=== PATIENT | male | born 1970 | race American Indian/Alaskan Native ===

== ENCOUNTER 2020-10-29 23:57 | Inpatient (IN) | payer SELFPAY ==
[2020-10-30] MEDS ORDERED: FUROSEMIDE 40 MG/4 ML INJ IV ONE (02:07)
[2020-10-30] MEDS ORDERED: ASPIRIN 81 MG TAB CHEW PO ONE (02:07)
[2020-10-30 02:14] LABS: Basophils # (Auto) 0.1 K/mm3 (0.0-0.1); Basophils % (Auto) 1.6 % (0.0-1.8); Eosinophils # (Auto) 0.2 K/mm3 (0.0-0.4); Eosinophils % (Auto) 2.6 % (0.0-4.3); Hemoglobin 14.1 gm/dl (11.8-15.2); Lymphocytes # (Auto) 1.7 K/mm3 (1.2-5.4); Lymphocytes % (Auto) 20.4 % (13.4-35.0); Mean Corpuscular HGB Conc 34 % (32-34); Mean Corpuscular Volume 91 fl (84-94); Monocytes # (Auto) 0.6 K/mm3 (0.0-0.8); Monocytes % (Auto) 7.7 % (0.0-7.3); Platelet Count 198 K/mm3 (140-440); Red Blood Count 4.61 M/mm3 (3.65-5.03); Red Cell Distribution Width 14.8 % (13.2-15.2)
--- NOTE | 2020-10-30 02:31 | XRay Report ---
CHEST 1 VIEW 10/30/2020 1:17 AM INDICATION / CLINICAL INFORMATION: dyspnea. COMPARISON: None available. FINDINGS: SUPPORT DEVICES: None. HEART / MEDIASTINUM: There is prominence of the cardiac silhouette LUNGS / PLEURA: No significant pulmonary or pleural abnormality. No pneumothorax. ADDITIONAL FINDINGS: No significant additional findings. IMPRESSION: 1. No acute findings. Signer Name: Denny Guo MD Signed: 10/30/2020 2:27 AM Workstation Name: [id number]
[2020-10-30 02:35] LABS: Albumin 3.4 g/dL (3.9-5); Calcium 8.6 mg/dL (8.4-10.2)
[2020-10-30 03:37] LABS: Chol/HDL Ratio 4.93 %
--- NOTE | 2020-10-30 03:49 | Vascular Lab Report ---
DUPLEX DOPPLER LOWER EXTREMITY VEINS, BILATERAL INDICATION / CLINICAL INFORMATION: L>R LE swelling. TECHNIQUE: Duplex doppler imaging was performed through the veins of both lower extremities using kaye ous compression and other maneuvers. COMPARISON: None available. FINDINGS: RIGHT COMMON FEMORAL VEIN: Negative. RIGHT FEMORAL VEIN: Negative. RIGHT POPLITEAL VEIN: Negative. RIGHT CALF VEINS: Negative. LEFT COMMON FEMORAL VEIN: Negative. LEFT FEMORAL VEIN: Negative. LEFT POPLITEAL VEIN: Negative. LEFT CALF VEINS: Negative. ADDITIONAL FINDINGS: None. IMPRESSION: 1. No sonographic evidence for DVT in either lower extremity. Signer Name: Denny Guo MD Signed: 10/30/2020 3:45 AM Workstation Name: [id number]
--- NOTE | 2020-10-30 04:30 | Emergency Department Report ---
ED Shortness of Breath HPI - General Chief Complaint: Dyspnea/Respdistress Stated Complaint: NEW ONSET CHF Source: patient Mode of arrival: Ambulatory Limitations: No Limitations - History of Present Illness Initial Comments: Patient is a 50-year-old male presents emergency department complaint of shortness of breath. Patient states that he has been diagnosed with hypertension but does not currently take any medications. He states that he has not seen a doctor in 3 years. For the past 6 months he has noted shortness of breath. He has also had leg swelling and 4 pillow orthopnea. He notes dyspnea on exertion at approximately 10 feet. - Related Data Allergies Allergy/AdvReac Type Severity Reaction Status Date / Time No Known Allergies Allergy Unverified 02/01/15 13:25 ED Review of Systems ROS: Stated complaint: NEW ONSET CHF Other details as noted in HPI Constitutional: denies: chills, fever Eyes: denies: eye discharge ENT: denies: throat pain Respiratory: orthopnea, shortness of breath, SOB with exertion. denies: cough Cardiovascular: chest pain, dyspnea on exertion, edema Endocrine: no symptoms reported Gastrointestinal: denies: abdominal pain, nausea, vomiting Genitourinary: denies: urgency, dysuria Musculoskeletal: denies: back pain Skin: denies: rash, lesions Neurological: denies: headache, weakness Psychiatric: denies: anxiety, depression Hematological/Lymphatic: denies: easy bleeding ED Past Medical Hx - Past Medical History Hx Hypertension: Yes - Surgical History Past Surgical History?: No - Social History Smoking Status: Former Smoker Substance Use Type: None ED Physical Exam - General Limitations: No Limitations General appearance: alert, in no apparent distress - Head Head exam: Present: atraumatic, normocephalic - Eye Eye exam: Present: normal appearance - ENT ENT exam: Present: mucous membranes moist - Neck Neck exam: Present: other (No obvious JVD noted) - Respiratory Respiratory exam: Present: rales (At the bases) - Cardiovascular Cardiovascular Exam: Present: tachycardia - GI/Abdominal GI/Abdominal exam: Present: soft. Absent: distended, tenderness - Rectal Rectal exam: Present: deferred - Extremities Exam Extremities exam: Present: pedal edema (Bilateral pitting edema with left greater than right) - Back Exam Back exam: Present: normal inspection - Neurological Exam Neurological exam: Present: alert, oriented X3 - Psychiatric Psychiatric exam: Present: normal affect, normal mood - Skin Skin exam: Present: warm, dry, intact, normal color. Absent: rash ED Course Vital Signs 10/30/20 10/30/20 10/30/20 00:28 00:30 00:45 Temperature Pulse Rate 112 H 111 H 111 H Respiratory 23 37 H 39 H Rate Blood Pressure 178/141 O2 Sat by Pulse 100 Oximetry 10/30/20 10/30/20 10/30/20 01:01 01:11 01:15 Temperature 97.6 F Pulse Rate 106 H 106 H Respiratory 33 H 27 H Rate Blood Pressure 164/126 164/126 O2 Sat by Pulse 100 100 Oximetry 10/30/20 10/30/20 10/30/20 01:31 01:45 02:01 Temperature Pulse Rate 107 H 108 H 109 H Respiratory 24 35 H 28 H Rate Blood Pressure 164/126 164/126 164/126 O2 Sat by Pulse 100 100 100 Oximetry 10/30/20 10/30/20 10/30/20 02:15 03:15 03:31 Temperature Pulse Rate 108 H 104 H Respiratory 33 H 29 H Rate Blood Pressure 164/126 164/126 177/129 O2 Sat by Pulse 100 90 100 Oximetry 10/30/20 10/30/20 03:45 04:01 Temperature Pulse Rate 107 H 102 H Respiratory 23 25 H Rate Blood Pressure 177/129 192/143 O2 Sat by Pulse 99 100 Oximetry - Reevaluation(s) Reevaluation #1: 10/30/20 04:45 BP noted to be elevated. Will give IV labetalol. ED Medical Decision Making - Lab Data Result diagrams: 10/30/20 01:57 10/30/20 01:57 - EKG Data -: EKG Interpreted by Mn Rate: tachycardia No standard instances T wave inversions noted in: v5, v6 - EKG Data Interpretation: LVH - Radiology Data Radiology results: report reviewed, image reviewed - Medical Decision Making 50-year-old male with history of hypertension presents to emergency department with complaints of shortness of breath. On exam patient noted to be on oxygen and states he does not wear oxygen at home. He is also mildly tachycardic has lower extremity swelling with left leg greater than right. He also has Rales at the bases. No obvious JVD is noted. I am concerned for new onset heart failure however pulmonary embolism and DVT is also concerned as is ACS. Plan for evaluation with EKG, troponin, CBC CMP, dimer, BNP. I will give a dose of IV Lasix in order to improve patient's symptoms. Critical care attestation.: If time is entered above; I have spent that time in minutes in the direct care of this critically ill patient, excluding procedure time. ED Disposition Clinical Impression: New onset of congestive heart failure Disposition: OP ADMIT IP TO THIS HOSP Is pt being admited?: Yes Does the pt Need Aspirin: Yes Condition: Stable Referrals: PRIMARY CARE, [Primary Care Provider] - 3-5 Days Time of Disposition: 04:20
[2020-10-30] MEDS ORDERED: MORPHINE 2 MG/1 ML INJ IV PRN (04:53)
[2020-10-30] MEDS ORDERED: MORPHINE 4 MG/1 ML INJ IV PRN (04:53)
[2020-10-30] MEDS ORDERED: ACETAMINOPHEN 325 MG TAB PO PRN (04:53)
[2020-10-30] MEDS ORDERED: MAGNESIUM HYDROXIDE (MOM) ORAL LIQD UDC PO PRN (04:53)
[2020-10-30] MEDS ORDERED: ONDANSETRON 4 MG/2 ML INJ IV PRN (04:53)
--- NOTE | 2020-10-30 05:09 | History and Physical Report ---
History of Present Illness Date of examination: 10/30/20 Date of admission: 10/30/2020 Chief complaint: Shortness of breath History of present illness: 50-year-old male with known history of hypertension presenting to the emergency room today complaining of shortness of breath. He has been having progressive shortness of breath over the past 6 months but got worse today. He also complains of bilateral lower extremity swelling 4 pillow orthopnea. Patient admits that he has not been quite compliant with his medication as he cannot afford them. He has not taken any blood pressure medication in a few years and has not seen any physician in about 3 years. Patient denies any chest pain but has had some mild cough which is nonproductive. He denies any headache or dizziness, no nausea vomiting, no abdominal pain, no hematuria or dysuria, no diarrhea, denies any fever or chills, no palpitations. Patient denies any fever or chills and denies any sick contacts. Denies any contact with anyone with COVID-19. He admits that he has not had his COVID-19 vaccination. Upon arrival in the emergency room today, blood pressure was elevated with systolic in the 170s and diastolic in the 120s. He was given some IV labetalol and Lasix in the emergency room with some improvement in his blood pressure. Work-up in the emergency room today, initial troponin was elevated at 0.067 and subsequently 0.056. BNP was 32,618. Chest x-ray shows no acute findings. Patient has been admitted with new onset CHF. Past History Social history: smoking (Former smoker) Medications and Allergies Allergies Allergy/AdvReac Type Severity Reaction Status Date / Time No Known Allergies Allergy Verified 10/30/20 05:06 Active Meds: Active Medications Acetaminophen (Acetaminophen 325 Mg Tab) 650 mg PO Q4H PRN PRN Reason: Pain MILD(1-3)/Fever >100.5/RODRIGUEZ Magnesium Hydroxide (Magnesium Hydroxide (Mom) Oral Liqd Udc) 30 ml PO Q4H PRN PRN Reason: Constipation Morphine Sulfate (Morphine 2 Mg/1 Ml Inj) 2 mg IV Q4H PRN PRN Reason: Pain, Moderate (4-6) Morphine Sulfate (Morphine 4 Mg/1 Ml Inj) 4 mg IV Q4H PRN PRN Reason: Pain , Severe (7-10) Ondansetron HCl (Ondansetron 4 Mg/2 Ml Inj) 4 mg IV Q8H PRN PRN Reason: Nausea And Vomiting Sodium Chloride (Sodium Chloride 0.9% 10 Ml Flush Syringe) 10 ml IV BID [place] Sodium Chloride (Sodium Chloride 0.9% 10 Ml Flush Syringe) 10 ml IV PRN PRN PRN Reason: LINE FLUSH Review of Systems Constitutional: no fever, no chills Ears, nose, mouth and throat: no nasal congestion, no sore throat Cardiovascular: no chest pain, no palpitations Respiratory: cough, shortness of breath Gastrointestinal: no abdominal pain, no nausea, no vomiting, no diarrhea Genitourinary Male: no dysuria, no hematuria, no flank pain Musculoskeletal: no neck pain, no low back pain Integumentary: no rash, no pruritis Neurological: no headaches, no confusion Psychiatric: no anxiety, no depression Endocrine: no polyphagia, no polydipsia, no polyuria Exam - Constitutional Vitals: Temp Pulse Resp BP Pulse Ox 97.6 F 102 H 25 H 192/143 100 10/30/20 01:11 10/30/20 04:01 10/30/20 04:01 10/30/20 04:01 10/30/20 04:01 General appearance: Present: no acute distress, well-nourished - EENT Eyes: Present: PERRL, EOM intact. Absent: scleral icterus ENT: hearing intact, clear oral mucosa, dentition normal - Neck Neck: Present: supple, normal ROM - Respiratory Respiratory effort: normal Respiratory: bilateral: rales - Cardiovascular Heart Sounds: Absent: S1 & S2, gallop, systolic murmur, diastolic murmur, rub, click - Extremities Extremities: no ischemia, pulses intact, pulses symmetrical, normal temperature, normal color, Full ROM Extremity abnormal: edema (2+ bilateral lower extremity edema) Peripheral Pulses: within normal limits - Abdominal General gastrointestinal: Present: soft, non-tender, non-distended, normal bowel sounds. Absent: mass - Integumentary Integumentary: Present: clear, warm, dry, normal turgor. Absent: rash - Musculoskeletal Musculoskeletal: strength equal bilaterally - Psychiatric Psychiatric: appropriate mood/affect, intact judgment & insight, memory intact, cooperative - Neurologic Neurologic: CNII-XII intact, no focal deficits, moves all extremities HEART Score - HEART Score Troponin: Troponin T 0.067 ng/mL (0.00-0.029) H 10/30/20 01:57 Results - Labs CBC & Chem 7: 10/30/20 01:57 10/30/20 01:57 Labs: Abnormal lab results 10/30/20 10/30/20 10/30/20 Range/Units 01:57 01:57 01:57 [place] % (Auto) 7.7 H (0.0-7.3) % D-Dimer (0-234) ng/mlDDU Sodium 146 H (137-145) mmol/L Chloride 107.9 H (98-107) mmol/L BUN 35 H (9-20) mg/dL Creatinine 2.7 H (0.8-1.3) mg/dL Glucose 104 H (75-100) mg/dL ALT 59 H (7-56) units/L Troponin T 0.067 H (0.00-0.029) ng/mL NT-Pro-B Natriuret Pep 31542 H (0-900) pg/mL Total Protein 5.3 L (6.3-8.2) g/dL Albumin 3.4 L (3.9-5) g/dL HDL Cholesterol 29 L (40-59) mg/dL 10/30/20 Range/Units 02:21 [place] % (Auto) (0.0-7.3) % D-Dimer 348.95 H (0-234) ng/mlDDU Sodium (137-145) mmol/L Chloride (98-107) mmol/L BUN (9-20) mg/dL Creatinine (0.8-1.3) mg/dL Glucose (75-100) mg/dL ALT (7-56) units/L Troponin T (0.00-0.029) ng/mL NT-Pro-B Natriuret Pep (0-900) pg/mL Total Protein (6.3-8.2) g/dL Albumin (3.9-5) g/dL HDL Cholesterol (40-59) mg/dL Assessment and Plan - Patient Problems (1) New onset of congestive heart failure Current Visit: Yes Status: Acute Plan to address problem: Patient admitted and placed on telemetry. We will place on diuretics and monitor inputs and output and also monitor daily weights. Patient will be scheduled for echocardiogram. Consult placed to cardiology for evaluation and recommendations. (2) Malignant hypertensive urgency Current Visit: Yes Status: Acute Plan to address problem: Possibly secondary to noncompliance. We will resume routine home medications once reconciled. Meanwhile we will place on IV hydralazine as needed. (3) Elevated troponin Current Visit: Yes Status: Acute Plan to address problem: Patient denies any chest pain. No obvious EKG changes. Will await cardiology evaluation. (4) DVT prophylaxis Current Visit: Yes Status: Acute Plan to address problem: Patient placed on subcutaneous heparin. (5) Full code status Current Visit: Yes Status: Acute Plan to address problem: Patient is a full code.
[2020-10-30] MEDS: HEPARIN 5,000 UNIT/1 ML VIAL SUB-Q SCH ×3 (06:02→21:29)
[2020-10-30] MEDS: FUROSEMIDE 40 MG/4 ML INJ IV SCH ×2 (06:03→21:33)
[2020-10-30] MEDS ORDERED: hydrALAZINE 20 MG/1 ML INJ IV PRN (06:35)
--- NOTE | 2020-10-30 06:50 | Nuclear Medicine Report ---
NUCLEAR MEDICINE PERFUSION LUNG SCAN INDICATION / CLINICAL INFORMATION: sob; elevated dimer. TECHNIQUE: 5.1 mCi of Tc-99m MAA were given by IV. COMPARISON: Chest radiograph dated 10/30/2020. FINDINGS: PERFUSION: No significant perfusion defects. ADDITIONAL FINDINGS: None. IMPRESSION: 1. Low probability for pulmonary embolism. Signer Name: Denny Guo MD Signed: 10/30/2020 6:46 AM Workstation Name: [id number]
--- NOTE | 2020-10-30 08:28 | Event Note ---
Date: 10/30/20 Patient seen and examined. We will continue the plan as outlined in H&P. Total visit time equals 35 minutes with greater than 50% spent on coordination of care and counseling.
[2020-10-30] MEDS: NIFEdipine XL 60 MG TAB PO SCH ×2 (10:24→21:26)
--- NOTE | 2020-10-30 13:56 | Consultation ---
History of Present Illness Consult date: 10/30/20 Requesting physician: DAVID ALLEN Consult reason: congestive heart failure History of present illness: This patient is a 50-year-old male with a significant history of hypertension, medication noncompliance. He is previously unknown to our practice and is not followed by a outpatient admitting clerk. Patient presents to [facility] and hypertensive urgency (170/120) with chief complaint of bilateral lower extremity edema with shortness of breath progressively worse over 6 months. Patient endorses orthopnea. He denies dizziness, chest pain, abdominal pain, N/V/D, recent illness or known exposures. Patient has significantly impaired ADLs at baseline stating he generally will have to rest detention to the mailbox and has shortness of breath from stairs. Patient denies any history of tobacco/alcohol/recreational drugs. Patient has been treated for hypertension in the past but states he is not taken blood pressure medicine for at least last 6 months due to financial difficulties. Patient has not been COVID-19 vaccinated. BNP is noted to be elevated on admission (32,000), D-dimer is noted to be elevated on admission (348). Troponins are mildly elevated x2, subacute in setting of AMERICA. Past History Past Medical History: hypertension, other (See HPI) Social history: smoking (Former smoker) Medications and Allergies Allergies Allergy/AdvReac Type Severity Reaction Status Date / Time No Known Allergies Allergy Verified 10/30/20 05:06 Active Meds: Active Medications Acetaminophen (Acetaminophen 325 Mg Tab) 650 mg PO Q4H PRN PRN Reason: Pain MILD(1-3)/Fever >100.5/RODRIGUEZ Furosemide (Furosemide 40 Mg/4 Ml Inj) 40 mg IV BID@0600,1800 [facility] [place] Last Admin: 10/30/20 06:03 Dose: 40 mg Documented by: Heparin Sodium (Porcine) (Heparin 5,000 Unit/1 Ml Vial) 5,000 unit SUB-Q Q8HR [facility] [place] Last Admin: 10/30/20 06:02 Dose: 5,000 unit Documented by: Hydralazine HCl (Hydralazine 20 Mg/1 Ml Inj) 10 mg IV Q4HR PRN PRN Reason: Blood Pressure Magnesium Hydroxide (Magnesium Hydroxide (Mom) Oral Liqd Udc) 30 ml PO Q4H PRN PRN Reason: Constipation Morphine Sulfate (Morphine 2 Mg/1 Ml Inj) 2 mg IV Q4H PRN PRN Reason: Pain, Moderate (4-6) Morphine Sulfate (Morphine 4 Mg/1 Ml Inj) 4 mg IV Q4H PRN PRN Reason: Pain , Severe (7-10) Nifedipine (Nifedipine Xl 60 Mg Tab) 60 mg PO Q12HR [facility] [place] Last Admin: 10/30/20 10:24 Dose: 60 mg Documented by: Ondansetron HCl (Ondansetron 4 Mg/2 Ml Inj) 4 mg IV Q8H PRN PRN Reason: Nausea And Vomiting Sodium Chloride (Sodium Chloride 0.9% 10 Ml Flush Syringe) 10 ml IV BID [facility] [place] Last Admin: 10/30/20 10:25 Dose: 10 ml Documented by: Sodium Chloride (Sodium Chloride 0.9% 10 Ml Flush Syringe) 10 ml IV PRN PRN PRN Reason: LINE FLUSH Review of Systems Constitutional: no weight loss, no weight gain, no fever, no chills, no sweats, no night sweats Ears, nose, mouth and throat: no ear pain, no nose pain, no nasal congestion, no nasal discharge Cardiovascular: orthopnea, edema, shortness of breath, dyspnea on exertion, high blood pressure, leg edema, decreased exercise tolerance, no chest pain, no palpitations, no rapid/irregular heart beat, no syncope, no lightheadedness, no paroxysmal nocturnal dyspnea, no claudication, no phlebitis Respiratory: no cough, no cough with sputum, no hemoptysis, no shortness of breath Gastrointestinal: no abdominal pain, no nausea, no vomiting, no diarrhea Genitourinary Male: no flank pain Musculoskeletal: no neck stiffness, no neck pain, no shooting arm pain, no arm numbness/tingling, no low back pain, no shooting leg pain Integumentary: no rash, no pruritis, no redness, no sores, no wounds Neurological: no head injury, no paralysis, no weakness, no parathesias, no numbness, no tingling, no seizures, no syncope Psychiatric: no anxiety Endocrine: no cold intolerance, no heat intolerance Hematologic/Lymphatic: no easy bruising, no easy bleeding Allergic/Immunologic: no urticaria Physical Examination Last Vital Signs Temp 97.6 F 10/30/20 01:11 Pulse 96 H 10/30/20 07:01 Resp 26 H 10/30/20 07:01 BP 154/114 10/30/20 07:01 Pulse Ox 98 10/30/20 07:01 General appearance: mild distress HEENT: Positive: PERRL, Normocephaly, Mucus Membranes Moist Neck: Positive: neck supple Cardiac: Positive: Reg Rate and Rhythm, S1/S2 Lungs: Positive: clear to auscultation, Normal Breath Sounds, Oxygen Neuro: Positive: Grossly Intact Abdomen: Positive: Unremarkable, Soft Skin: Negative: Rash, Wound Musculoskeletal: No Pain Extremities: Present: upper extr. pulses, lower extr. pulses, +2 Edema Results 10/30/20 01:57 10/30/20 01:57 Cardiac Enzymes 10/30/20 Range/Units 01:57 AST 40 (5-40) units/L Lipids 10/30/20 Range/Units 01:57 Triglycerides 94 (2-149) mg/dL Cholesterol 143 (50-199) mg/dL HDL Cholesterol 29 L (40-59) mg/dL Cholesterol/HDL Ratio 4.93 % CBC 10/30/20 Range/Units 01:57 WBC 8.3 (4.5-11.0) K/mm3 RBC 4.61 (3.65-5.03) M/mm3 Hgb 14.1 (11.8-15.2) gm/dl Hct 42.0 (35.5-45.6) % Plt Count 198 (140-440) K/mm3 Lymph # (Auto) 1.7 (1.2-5.4) K/mm3 [place] # (Auto) 0.6 (0.0-0.8) K/mm3 Eos # (Auto) 0.2 (0.0-0.4) K/mm3 Baso # (Auto) 0.1 (0.0-0.1) K/mm3 Comprehensive Metabolic Panel 10/30/20 Range/Units 01:57 Sodium 146 H (137-145) mmol/L Potassium 3.7 (3.6-5.0) mmol/L Chloride 107.9 H (98-107) mmol/L Carbon Dioxide 25 (22-30) mmol/L BUN 35 H (9-20) mg/dL Creatinine 2.7 H (0.8-1.3) mg/dL Glucose 104 H (75-100) mg/dL Calcium 8.6 (8.4-10.2) mg/dL AST 40 (5-40) units/L ALT 59 H (7-56) units/L Alkaline Phosphatase 58 (35-129) units/L Total Protein 5.3 L (6.3-8.2) g/dL Albumin 3.4 L (3.9-5) g/dL - Imaging and Cardiology Echo: pending EKG: report reviewed, image reviewed EKG interpretations - Telemetry EKG Rhythm: Sinus Tachycardia - EKG Sinus rhythms and dysrhythmias: sinus tachycardia Assessment and Plan New onset of heart failure * Echocardiogram is pending * Optimize volume control: Lasix 40 mg IV twice daily. Strict I/O's. Currently 2+ bilateral lower extremity edema requiring O2 support. * Optimize antihypertensive regimen: Initiate metoprolol 50 mg twice daily, hydralazine 50 mg 3 times daily. Continue procardia * GDMT: ASA 81, beta-lexi. No TD/ARB in setting of AMERICA. No statin at this point in setting of elevated liver indices. NSTEMI in setting of [place] * Suspect type II.Patient is currently chest pain-free. Twelve-lead reviewed shows sinus tach with no acute ischemic changes. Troponin is mildly elevated, subacute x2. We will continue to trend CE's * Avoid nephrotoxic agents DVT prophylaxis * Heparin SQ Echocardiogram pending. Will follow This patient was seen in conjunction with Dr. Meza who agrees with this assessment and plan of care - Patient Problems (1) NSTEMI (non-ST elevated myocardial infarction) Current Visit: Yes Status: Acute (2) Uncontrolled hypertension Current Visit: Yes Status: Chronic (3) Acute kidney injury Current Visit: Yes Status: Acute (4) DVT prophylaxis Current Visit: Yes Status: Acute (5) New onset of congestive heart failure Current Visit: Yes Status: Acute
[2020-10-30] MEDS: METOPROLOL TARTRATE 50 MG TAB PO SCH (21:27)
[2020-10-30] MEDS: hydrALAZINE 25 MG TAB PO SCH (21:28)
[2020-10-31] MEDS: HEPARIN 5,000 UNIT/1 ML VIAL SUB-Q SCH ×3 (06:06→21:49)
[2020-10-31] MEDS: hydrALAZINE 25 MG TAB PO SCH ×3 (06:06→21:49)
[2020-10-31] MEDS: FUROSEMIDE 40 MG/4 ML INJ IV SCH (06:07)
[2020-10-31 06:15] LABS: Basophils % (Auto) 0.5 % (0.0-1.8); Eosinophils # (Auto) 0.3 K/mm3 (0.0-0.4); Eosinophils % (Auto) 4.9 % (0.0-4.3); Hematocrit 42.9 % (35.5-45.6); Hemoglobin 14.2 gm/dl (11.8-15.2); Lymphocytes # (Auto) 1.5 K/mm3 (1.2-5.4); Lymphocytes % (Auto) 22.6 % (13.4-35.0); Mean Corpuscular HGB Conc 33 % (32-34); Mean Corpuscular Volume 92 fl (84-94); Monocytes # (Auto) 0.8 K/mm3 (0.0-0.8); Monocytes % (Auto) 11.9 % (0.0-7.3); Platelet Count 184 K/mm3 (140-440); Red Blood Count 4.65 M/mm3 (3.65-5.03); Red Cell Distribution Width 14.9 % (13.2-15.2)
[2020-10-31 06:32] LABS: Calcium 8.7 mg/dL (8.4-10.2)
[2020-10-31] MEDS: METOPROLOL TARTRATE 50 MG TAB PO SCH ×3 (08:01→21:49)
[2020-10-31] MEDS: SPIRONOLACTONE 25 MG TAB PO SCH (10:02)
[2020-10-31] MEDS: NIFEdipine XL 60 MG TAB PO SCH ×2 (10:02→21:49)
[2020-10-31] MEDS: ASPIRIN 81 MG TAB CHEW PO SCH (10:02)
--- NOTE | 2020-10-31 10:40 | Progress Note ---
Assessment and Plan 50-year-old male with acute systolic heart failure EF 10 to 15% not on TD or ARB secondary to renal sufficiency abnormal troponin suggestive of non-STEMI type II decrease Lasix to 40 mg once a day add Aldactone replace the potassium continue hydralazine Imdur and carvedilol Lexiscan stress test in the morning anticipate discharge in a.m. patient discussed in the need for proper follow-up medication adherence diet adherence and salt adherence - Patient Problems (1) Acute respiratory failure Current Visit: Yes Status: Acute Qualifiers: Respiratory failure complication: hypoxia Qualified Code(s): J96.01 - Acute respiratory failure with hypoxia (2) NSTEMI (non-ST elevated myocardial infarction) Current Visit: Yes Status: Acute (3) New onset of congestive heart failure Current Visit: Yes Status: Acute Plan to address problem: acute systolic heart failure (4) Uncontrolled hypertension Current Visit: Yes Status: Chronic (5) AMERICA (acute kidney injury) Current Visit: Yes Status: Acute Subjective Date of service: 10/31/20 Principal diagnosis: sob Interval history: sob has improved and able to ly flat Objective Vital Signs Temp Pulse Resp BP BP Pulse Ox 10/31/20 08:18 97.7 F 90 18 104/68 94 10/31/20 06:06 81 110/71 10/31/20 04:37 97.6 F 81 18 107/71 93 10/30/20 21:28 102 H 161/117 10/30/20 21:27 102 H 161/117 10/30/20 20:54 161/117 10/30/20 20:36 99.0 F 97 H 19 139/92 98 10/30/20 20:21 152/90 97 10/30/20 20:11 152/90 99 10/30/20 20:02 161/117 98 10/30/20 20:01 161/117 99 10/30/20 19:55 20 10/30/20 19:54 144/97 95 10/30/20 19:31 147/112 94 10/30/20 19:15 97.7 F 104 H 20 147/112 97 10/30/20 19:01 183/121 99 10/30/20 18:01 144/97 98 10/30/20 17:01 97 10/30/20 16:01 94 10/30/20 15:01 99 10/30/20 14:01 86 10/30/20 13:01 144/81 97 10/30/20 12:00 114 H 37 H 156/121 100 10/30/20 11:01 107 H 20 168/122 100 - Physical Examination General: No Apparent Distress HEENT: Positive: PERRL, Normocephaly, Mucus Membranes Moist Neck: Positive: neck supple Cardiac: Positive: Reg Rate and Rhythm Lungs: Positive: clear to auscultation Neuro: Positive: Grossly Intact Abdomen: Positive: Unremarkable, Soft Skin: Negative: Rash, Wound Musculoskeletal: No Pain Extremities: Present: upper extr. pulses, lower extr. pulses. Absent: edema - Labs and Meds CBC 10/31/20 Range/Units 05:46 WBC 6.7 (4.5-11.0) K/mm3 RBC 4.65 (3.65-5.03) M/mm3 Hgb 14.2 (11.8-15.2) gm/dl Hct 42.9 (35.5-45.6) % Plt Count 184 (140-440) K/mm3 Lymph # (Auto) 1.5 (1.2-5.4) K/mm3 [place] # (Auto) 0.8 (0.0-0.8) K/mm3 Eos # (Auto) 0.3 (0.0-0.4) K/mm3 Baso # (Auto) 0.0 (0.0-0.1) K/mm3 Comprehensive Metabolic Panel 10/31/20 Range/Units 05:46 Sodium 148 H (137-145) mmol/L Potassium 3.0 L (3.6-5.0) mmol/L Chloride 106.1 (98-107) mmol/L Carbon Dioxide 29 (22-30) mmol/L BUN 28 H (9-20) mg/dL Creatinine 1.8 H (0.8-1.3) mg/dL Glucose 90 (75-100) mg/dL Calcium 8.7 (8.4-10.2) mg/dL - Imaging and Cardiology EKG: report reviewed, image reviewed Echo: report reviewed (severe lv dsyfunction ef 10-15%) - Telemetry EKG Rhythm: Sinus Rhythm - EKG Sinus rhythms and dysrhythmias: sinus tachycardia
--- NOTE | 2020-10-31 10:57 | Progress Note ---
Assessment and Plan Assessment and plan: Acute combined systolic and diastolic heart failure. NSTEMI. Acute hypoxic respiratory failure. Dilated cardiomyopathy. Accelerated hypertension. Acute kidney injury 10/31/2020. Echocardiogram reveals left ventricle severely dilated with systolic function severely decreased an EF of 10 to 15%. Patient also with moderate diastolic dysfunction. Cardiology to perform stress test in a.m. to rule out ischemic etiology for cardiomyopathy. Continue Lasix and Aldactone added. No TD or ARB secondary to renal sufficiency. Therefore patient with hydralazine for afterload reduction. Continue Imdur and Coreg. Anticipate discharge in a.m. Creatinine improved but baseline creatinine unknown. Patient likely with CKD. Nephrology consultation. Check renal ultrasound. History Interval history: No new issues overnight. Patient reports that he feels much better. Hospitalist Physical - Constitutional Vitals: Temp Pulse Resp BP Pulse Ox 97.7 F 90 18 104/68 94 10/31/20 08:18 10/31/20 08:18 10/31/20 08:18 10/31/20 08:18 10/31/20 08:18 General appearance: Present: mild distress - EENT Eyes: Present: PERRL, EOM intact ENT: hearing intact, clear oral mucosa, dentition normal - Neck Neck: Present: supple, normal ROM - Respiratory Respiratory effort: normal Respiratory: bilateral: CTA - Cardiovascular Rhythm: regular Heart Sounds: Present: S1 & S2. Absent: gallop, rub - Extremities Extremities: no ischemia, No edema, Full ROM - Abdominal General gastrointestinal: soft, non-tender, non-distended, normal bowel sounds - Integumentary Integumentary: Present: clear, warm, dry - Neurologic Neurologic: CNII-XII intact, moves all extremities HEART Score - HEART Score Troponin: Troponin T 0.035 ng/mL (0.00-0.029) H D 10/31/20 05:46 Results - Labs CBC & Chem 7: 10/31/20 05:46 10/31/20 05:46 Labs: Laboratory Last Values WBC 6.7 K/mm3 (4.5-11.0) 10/31/20 05:46 RBC 4.65 M/mm3 (3.65-5.03) 10/31/20 05:46 Hgb 14.2 gm/dl (11.8-15.2) 10/31/20 05:46 Hct 42.9 % (35.5-45.6) 10/31/20 05:46 MCV 92 fl (84-94) 10/31/20 05:46 MCH 31 pg (28-32) 10/31/20 05:46 MCHC 33 % (32-34) 10/31/20 05:46 RDW 14.9 % (13.2-15.2) 10/31/20 05:46 Plt Count 184 K/mm3 (140-440) 10/31/20 05:46 Lymph % (Auto) 22.6 % (13.4-35.0) 10/31/20 05:46 Pine % (Auto) 11.9 % (0.0-7.3) H 10/31/20 05:46 Eos % (Auto) 4.9 % (0.0-4.3) H 10/31/20 05:46 Baso % (Auto) 0.5 % (0.0-1.8) 10/31/20 05:46 Lymph # (Auto) 1.5 K/mm3 (1.2-5.4) 10/31/20 05:46 Pine # (Auto) 0.8 K/mm3 (0.0-0.8) 10/31/20 05:46 Eos # (Auto) 0.3 K/mm3 (0.0-0.4) 10/31/20 05:46 Baso # (Auto) 0.0 K/mm3 (0.0-0.1) 10/31/20 05:46 Seg Neutrophils % 60.1 % (40.0-70.0) 10/31/20 05:46 Seg Neutrophils # 4.0 K/mm3 (1.8-7.7) 10/31/20 05:46 D-Dimer 348.95 ng/mlDDU (0-234) H 10/30/20 02:21 Sodium 148 mmol/L (137-145) H 10/31/20 05:46 Potassium 3.0 mmol/L (3.6-5.0) L 10/31/20 05:46 Chloride 106.1 mmol/L (98-107) 10/31/20 05:46 Carbon Dioxide 29 mmol/L (22-30) 10/31/20 05:46 Anion Gap 16 mmol/L 10/31/20 05:46 BUN 28 mg/dL (9-20) H 10/31/20 05:46 Creatinine 1.8 mg/dL (0.8-1.3) H 10/31/20 05:46 Estimated GFR 49 ml/min 10/31/20 05:46 BUN/Creatinine Ratio 16 % 10/31/20 05:46 Glucose 90 mg/dL (75-100) 10/31/20 05:46 Calcium 8.7 mg/dL (8.4-10.2) 10/31/20 05:46 Magnesium 1.80 mg/dL (1.7-2.3) 10/30/20 01:57 Total Bilirubin 0.70 mg/dL (0.1-1.2) 10/30/20 01:57 AST 40 units/L (5-40) 10/30/20 01:57 ALT 59 units/L (7-56) H 10/30/20 01:57 Alkaline Phosphatase 58 units/L (35-129) 10/30/20 01:57 Troponin T 0.035 ng/mL (0.00-0.029) H D 10/31/20 05:46 NT-Pro-B Natriuret Pep 75713 pg/mL (0-900) H 10/30/20 01:57 Total Protein 5.3 g/dL (6.3-8.2) L 10/30/20 01:57 Albumin 3.4 g/dL (3.9-5) L 10/30/20 01:57 Albumin/Globulin Ratio 1.8 % 10/30/20 01:57 Triglycerides 94 mg/dL (2-149) 10/30/20 01:57 Cholesterol 143 mg/dL (50-199) 10/30/20 01:57 LDL Cholesterol Direct 105 mg/dL (50-130) 10/30/20 01:57 HDL Cholesterol 29 mg/dL (40-59) L 10/30/20 01:57 Cholesterol/HDL Ratio 4.93 % 10/30/20 01:57 Sanchez/IV: Voiding Method Toilet Active Medications - Current Medications Current Medications: Generic Name Dose Route Start Last Admin Trade Name Freq PRN Reason Stop Dose Admin Acetaminophen 650 mg 10/30/20 04:53 Acetaminophen 325 Mg Tab PO Q4H PRN Pain MILD(1-3)/Fever >100.5/RODRIGUEZ Aspirin 81 mg 10/31/20 10:00 10/31/20 10:02 Aspirin 81 Mg Tab Chew PO 81 mg QDAY CATALINA Administration Furosemide 40 mg 11/01/20 10:00 Furosemide 40 Mg Tab PO QDAY CATALINA Heparin Sodium (Porcine) 5,000 unit 10/30/20 06:00 10/31/20 06:06 Heparin 5,000 Unit/1 Ml Vial SUB-Q 5,000 unit Q8HR CATALINA Administration Hydralazine HCl 10 mg 10/30/20 06:35 Hydralazine 20 Mg/1 Ml Inj IV Q4HR PRN Blood Pressure Hydralazine HCl 50 mg 10/31/20 22:00 Hydralazine 25 Mg Tab PO BID CATALINA Isosorbide Mononitrate 30 mg 10/31/20 10:00 10/31/20 10:02 Isosorbide Mononitrate Er 30 Mg Tab PO 30 mg QDAY CATALINA Administration Magnesium Hydroxide 30 ml 10/30/20 04:53 Magnesium Hydroxide (Mom) Oral Liqd Udc PO Q4H PRN Constipation Metoprolol Tartrate 50 mg 10/30/20 15:00 10/31/20 10:02 Metoprolol Tartrate 50 Mg Tab PO 50 mg BID CATALINA Administration Morphine Sulfate 2 mg 10/30/20 04:53 Morphine 2 Mg/1 Ml Inj IV Q4H PRN Pain, Moderate (4-6) Morphine Sulfate 4 mg 10/30/20 04:53 Morphine 4 Mg/1 Ml Inj IV Q4H PRN Pain , Severe (7-10) Nifedipine 60 mg 10/30/20 10:00 10/31/20 10:02 Nifedipine Xl 60 Mg Tab PO 60 mg Q12HR CATALINA Administration Ondansetron HCl 4 mg 10/30/20 04:53 Ondansetron 4 Mg/2 Ml Inj IV Q8H PRN Nausea And Vomiting Sodium Chloride 10 ml 10/30/20 10:00 10/31/20 10:03 Sodium Chloride 0.9% 10 Ml Flush Syringe IV 10 ml BID CATALINA Administration Sodium Chloride 10 ml 10/30/20 04:53 Sodium Chloride 0.9% 10 Ml Flush Syringe IV PRN PRN LINE FLUSH Spironolactone 25 mg 10/31/20 10:00 10/31/20 10:02 Spironolactone 25 Mg Tab PO 25 mg QDAY CATALINA Administration
--- NOTE | 2020-10-31 12:19 | Electrocardiograph Report ---
[facility] Test Date: 2020-10-30 Test Time: 02:25:04 Pat Name: SOULEYMANE MORAN JR Department: Room: A491 Gender: M Medical Parasitologist: YARELIS : 1970 Requested By: RUSTAM SEGAL Order Number: [id number] Reading MD: Jackie Moses Measurements Intervals [place] Rate: 112 P: 65 VT: 165 QRS: 47 QRSD: 85 T: -58 QT: 353 QTc: 482 Interpretive Statements Sinus tachycardia Left atrial enlargement Probable left ventricular hypertrophy Nonspecific T abnormalities, lateral leads No previous ECG available for comparison Electronically Signed On 10-31-2020 12:19:05 EDT by Jackie Moses
[2020-11-01] MEDS: HEPARIN 5,000 UNIT/1 ML VIAL SUB-Q SCH (05:17)
[2020-11-01] MEDS ORDERED: REGADENOSON 0.4 MG/5 ML INJ IV ONE (07:11)
[2020-11-01] MEDS ORDERED: POTASSIUM CHLORIDE ER 20 MEQ TAB PO NR ×2 (08:08→12:00)
--- NOTE | 2020-11-01 08:15 | Discharge Summary ---
Providers - Providers Date of Admission: 10/30/20 04:53 Date of discharge: 11/01/20 Attending physician: DIEGO WYNN 10/30/20 05:01 Consult to Physician [CONS] Routine Comment: Consulting Provider: NAKUL BURRIS Physician Instructions: Reason For Exam: CHF 10/31/20 10:55 Consult to Physician [CONS] Routine Comment: Consulting Provider: JOSEF MORRISSEY Physician Instructions: Reason For Exam: [place] Primary care physician: [employer]ER Hospitalization Reason for admission: CHF Condition: Stable Hospital course: This patient is a 50-year-old male with a significant history of hypertension, medication noncompliance who was admitted to [facility] with diagnosis of hypertensive urgency (170/120), acute hypoxic respiratory failure, NSTEMI and new systolic heart failure exacerbation. The patient presented with chief complaint of bilateral lower extremity edema with shortness of breath progressively worse over 6 months. Patient endorsed orthopnea. Patient has significantly impaired ADLs at baseline stating he generally will have to rest jail to the mailbox and has shortness of breath from stairs. Patient denied any history of tobacco/alcohol/recreational drugs. Patient has been treated for hypertension in the past but states he is not taken blood press ure medicine for at least last 6 months due to financial difficulties. BNP was noted to be elevated on admission (32,000), D-dimer wass noted to be elevated on admission (348). Troponins were mildly elevated. Cardiology saw the patient in consultation. Echocardiogram was completed and revealed left ventricle severely dilated with systolic function severely decreased an EF of 10 to 15%. Patient also with moderate diastolic dysfunction. Patient was treated with Lasix, Aldactone and hydralazine. No TD or ARB secondary to renal sufficiency. Cardiology felt that elevated troponin was subacute in setting of AMERICA. However elevated troponin suggestive of NSTEMI. Therefore, patient will undergo stress test this a.m. to rule out ischemic cardiomyopathy and if found to be negative will be discharged home. Dedicated discharge time 35 minutes Disposition: DC-01 TO HOME OR SELFCARE Final Discharge Diagnosis (Prints w/discharge instructions): Acute hypoxic respiratory failure, NSTEMI, new onset combined acute systolic and diastolic heart failure, accelerated hypertension, acute kidney injury Core Measure Documentation - Palliative Care Palliative Care/ Comfort Measures: Not Applicable - Core Measures Any of the following diagnoses?: none Exam - Constitutional Vitals: Temp Pulse Resp BP Pulse Ox 98.2 F 86 18 99/65 97 11/01/20 03:30 11/01/20 03:30 11/01/20 03:30 11/01/20 03:30 11/01/20 03:30 General appearance: Present: no acute distress, well-nourished - EENT Eyes: Present: PERRL ENT: hearing intact, clear oral mucosa - Neck Neck: Present: supple, normal ROM - Respiratory Respiratory effort: normal Respiratory: bilateral: CTA - Cardiovascular Heart Sounds: Present: S1 & S2. Absent: rub, click - Extremities Extremities: pulses symmetrical, No edema Peripheral Pulses: within normal limits - Abdominal General gastrointestinal: Present: soft, non-tender, non-distended, normal bowel sounds Male genitourinary: Present: normal - Integumentary Integumentary: Present: clear, warm, dry - Musculoskeletal Musculoskeletal: gait normal, strength equal bilaterally - Psychiatric Psychiatric: appropriate mood/affect, intact judgment & insight - Neurologic Neurologic: CNII-XII intact, moves all extremities Plan Activity: advance as tolerated Weight Bearing Status: Weight Bear as Tolerated Diet: low fat, low cholesterol, low salt Follow up with: PRIMARY CARE, [Primary Care Provider] - 3-5 Days NORI FLORES MD [Staff Physician] - 7 Days Prescriptions: Spironolactone [Aldactone] 25 mg PO QDAY #30 tablet hydrALAZINE [Apresoline TAB] 50 mg PO BID #60 tablet Aspirin [Aspirin BABY CHEW TAB] 81 mg PO QDAY #30 tab.chew ISOSORBIDE MONOnitrate [Imdur ER] 30 mg PO QDAY #60 tablet Furosemide [Lasix TAB] 40 mg PO QDAY #30 tablet Metoprolol [Lopressor TAB] 50 mg PO BID #60 tablet NIFEdipine XL [Procardia Xl] 60 mg PO Q12HR #60 tablet
[2020-11-01] MEDS ORDERED: FUROSEMIDE 40 MG TAB PO SCH (10:00)
[2020-11-01] MEDS: SPIRONOLACTONE 25 MG TAB PO SCH (10:25)
[2020-11-01] MEDS: hydrALAZINE 25 MG TAB PO SCH (10:27)
[2020-11-01] MEDS: METOPROLOL TARTRATE 50 MG TAB PO SCH (10:27)
[2020-11-01] MEDS: NIFEdipine XL 60 MG TAB PO SCH (10:27)
[2020-11-01] MEDS: ASPIRIN 81 MG TAB CHEW PO SCH (10:27)
[2020-11-01 11:11] LABS: Bilirubin,Urine NEG (Negative); Blood,Urine NEG (Negative); Color,Urine Yellow (Yellow); Mucus,Urine FEW /HPF
--- NOTE | 2020-11-01 11:14 | Ultrasound Report ---
ULTRASOUND RENAL INDICATION / CLINICAL INFORMATION: Acute renal failure.. COMPARISON: None available. FINDINGS: RIGHT KIDNEY: Length = 11.8 cm. - Echogenicity: Increased. -Cortical Thickness: Normal. - Hydronephrosis: None. - Cyst / Mass: Simple appearing cyst measuring 1.5 x 1.3 x 1.6 cm within the lower pole. - Stones: None seen. LEFT KIDNEY: Length = 9.2 cm. - Echogenicity: Increased. - Cortical Thickness: Normal. - Hydronephrosis: None. - Cyst / Mass: Minimally complex cyst measuring 2.1 x 2.0 x 1.5 cm within the upper pole. Simple appe aring cyst measuring 2.9 x 3.5 x 2.9 cm within the lower pole. - Stones: None seen. URINARY BLADDER: No significant abnormality. FREE FLUID: None. ADDITIONAL FINDINGS: None. IMPRESSION: 1. Increased cortical echogenicity bilaterally, ultimately nonspecific but can be seen with medical r enal disease. 2. Bilateral renal cysts, as above. Scribed by: Lucía Marrero RDMS Emelia Scribed: 11/01/2020 9:56 AM I have reviewed the images, agree with this report, and edited this report as needed. Signer Name: Sukhjinder Zarate MD Signed: 11/01/2020 11:09 AM Workstation Name: [id number]
[2020-11-01 11:15] LABS: Creatinine,Urine 226.3 mg/dL (0.1-20.0)
--- NOTE | 2020-11-01 11:50 | Progress Note ---
Assessment and Plan New onset of heart failure * Echocardiogram is EF 10-15% , Left ventricle severely dilated, mild LVH, right ventricle moderately dilated, severe tricuspid regurgitation, * Optimize volume control: Lasix 40 mg PO daily, Aldactone 25 QD. . * Optimize antihypertensive regimen: metoprolol 50 mg twice daily, hydralazine 50 mg BID. Continue procardia 60mg BID * GDMT: ASA 81, beta-lexi. No TD/ARB in setting of AMERICA. No statin at this point in setting of elevated liver indices. NSTEMI in setting of [place] * Suspect type II.Patient is currently chest pain-free. Twelve-lead reviewed shows sinus tach with no acute ischemic changes. Troponin is mildly elevated, subacute x2. * Patient had a negative Lexiscan stress test * Imdur 30mg QD Patient is stable and may be discharged from a cardiac standpoint. Patient has a follow up appointment with Dr. Meza, [facility], on 11/11/2020 at 11:15 at our [place] location. This patient was seen in conjunction with Dr. Meza who agrees with this assessment and plan of care - Patient Problems (1) NSTEMI (non-ST elevated myocardial infarction) Current Visit: Yes Status: Acute (2) Uncontrolled hypertension Current Visit: Yes Status: Chronic (3) Acute kidney injury Current Visit: Yes Status: Acute (4) DVT prophylaxis Current Visit: Yes Status: Acute (5) New onset of congestive heart failure Current Visit: Yes Status: Acute Subjective Date of service: 11/01/20 Principal diagnosis: sob Interval history: Patient walking around room. Stated he feels great with no complaints Sinus 90s with no events on the monitor Objective Last Vital Signs Temp 97.8 F 11/01/20 10:23 Pulse 68 11/01/20 10:27 Resp 18 11/01/20 10:23 BP 122/87 11/01/20 10:27 Pulse Ox 96 11/01/20 10:23 - Physical Examination General: No Apparent Distress HEENT: Positive: PERRL, Normocephaly, Mucus Membranes Moist Neck: Positive: neck supple Cardiac: Positive: Reg Rate and Rhythm Lungs: Positive: Normal Breath Sounds Neuro: Positive: Grossly Intact Abdomen: Positive: Unremarkable, Soft Skin: Negative: Rash, Wound Musculoskeletal: No Pain Extremities: Present: upper extr. pulses, lower extr. pulses. Absent: edema - Labs and Meds Comprehensive Metabolic Panel 11/01/20 Range/Units 04:59 Sodium 143 (137-145) mmol/L Potassium 3.0 L (3.6-5.0) mmol/L Chloride 104.4 (98-107) mmol/L Carbon Dioxide 27 (22-30) mmol/L BUN 28 H (9-20) mg/dL Creatinine 1.8 H (0.8-1.3) mg/dL Glucose 114 H (75-100) mg/dL Calcium 8.0 L (8.4-10.2) mg/dL - Imaging and Cardiology EKG: report reviewed, image reviewed Echo: report reviewed (severe lv dsyfunction ef 10-15%) - Telemetry EKG Rhythm: Sinus Rhythm - EKG Sinus rhythms and dysrhythmias: sinus rhythm
--- NOTE | 2020-11-01 11:56 | Nuclear Medicine Report ---
APPROVED REPORT Exam: Nuclear Stress Test Indication: Chest pain Patient Location: [address] [place] [address] Room #: 491 Ht: 6 ft 0 in Wt: 222 lbs BSA: 2.23 m2 HR: 90 bpmBP: 129/93 mmHgBMI: 30.10 Rhythm: SINUS RHYTHM Stress Test Details Stress Test: Pharmacologic stress testing performed using 0.4 mg of regadenoson per 5 mL given IV over 10 seconds. HR Resting HR: 90 bpm Max HR Achieved: 99 bpm Max Heart Rate (APMHR): 170.980192 bpm Target HR (85% APMHR): 144.135408 bpm % of APMHR: 58.24 Recovery HR: 94 bpm BP Resting BP: 129/93 mmHg Max BP: 138/100 mmHg Recovery BP: 134/98 mmHg ECG Resting ECG: Sinus Rhythm NM EXAM: Myocardial Perfusion REST/STRESS Imaging Protocol: Rest Tc-99m/Stress Tc-99m 1 day Resting Data Rest SPECT myocardial perfusion imaging was performed in supine position 45 minutes following the intravenous injection of 10 mCi of Tc-99m Myoview. Time of rest injection: 0625 Pharmacologic Stress Pharmacologic stress test was performed by injecting Regadenoson 0.4 mg IV push followed by the intravenous injection of 28 mCi of Tc-99m Myoview. Time of stress injection: 0853 Gated Stress SPECT was performed 30 minutes after stress injection. The images were gated to evaluate regional wall motion and calculate left ventricular ejection fraction. Study Quality Study: excellent Lung Uptake: Normal Study Data TID = 0.95. Perfusion Wall Motion The rest and stress images show normal left ventricular wall motion. Nuclear Conclusion ECG Findings: negative for ischemia Clinical Findings: negative for ischemia Nuclear Findings: negative for ischemia Exercise Capacity: not assessed Left Ventricular Function: abnormal negative lexiscan ekg No scintigraphic evidence for myocardial ischemia or scar. severe lv dsyfunction ef 24%,
[2020-11-01 13:05] VITALS: BP 107/72
--- NOTE | 2020-11-01 20:29 | Consultation ---
History of Present Illness - Reason for Consult Consult date: 11/01/20 acute renal failure - History of Present Illness This is a 50-year-old man with hypertension and medication non-compliance who presented with progressive shortness of breath and bilateral leg swelling. Nephrology was consulted for acute kidney injury. Patient denies difficulty urinating, dysuria and hematuria. Past History Past Medical History: hypertension, other (See HPI) Social history: smoking (Former smoker) Medications and Allergies Allergies Allergy/AdvReac Type Severity Reaction Status Date / Time No Known Allergies Allergy Verified 10/30/20 05:06 Home Medications Medication Instructions Recorded Confirmed Last Taken Type Aspirin [Aspirin BABY CHEW TAB] 81 mg PO QDAY #30 tab.chew 11/01/20 Unknown Rx Furosemide [Lasix TAB] 40 mg PO QDAY #30 tablet 11/01/20 Unknown Rx ISOSORBIDE MONOnitrate [Imdur ER] 30 mg PO QDAY #60 tablet 11/01/20 Unknown Rx Metoprolol [Lopressor TAB] 50 mg PO BID #60 tablet 11/01/20 Unknown Rx NIFEdipine XL [Procardia Xl] 60 mg PO Q12HR #60 tablet 11/01/20 Unknown Rx Spironolactone [Aldactone] 25 mg PO QDAY #30 tablet 11/01/20 Unknown Rx hydrALAZINE [Apresoline TAB] 50 mg PO BID #60 tablet 11/01/20 Unknown Rx Review of Systems Constitutional: no fever, no chills Ears, nose, mouth and throat: no nasal congestion, no nasal discharge Cardiovascular: shortness of breath, no chest pain Respiratory: no cough, no cough with sputum Gastrointestinal: no nausea, no vomiting Genitourinary Male: no dysuria, no hematuria, no flank pain Musculoskeletal: no muscle weakness Integumentary: no rash, no pruritis Neurological: no weakness, no parathesias Psychiatric: no anxiety, no depression Endocrine: no polyphagia, no polydipsia Hematologic/Lymphatic: no easy bruising, no easy bleeding Exam - Vital Signs Vital signs: Vital Signs Pulse Resp 112 H 23 10/30/20 00:28 10/30/20 00:28 - Physical Exam Narrative exam: General: No acute distress HEENT: Oral mucosa moist Neck: Supple, no JVD Chest: Clear to auscultation bilaterally Heart: RRR, S1 and S2, no pericardial rub Abdomen: Soft, nontender, no renal bruit Extremity: No peripheral cyanosis, edema Neurological: Alert, awake, no asterixis Dermatology: No skin rash Psych: No agitation Musculoskeletal: No joint effusion Results - Lab Results 10/31/20 05:46 11/01/20 04:59 Most recent lab results Calcium 8.0 mg/dL (8.4-10.2) L 11/01/20 04:59 Magnesium 1.80 mg/dL (1.7-2.3) 10/30/20 01:57 Urine Creatinine 226.3 mg/dL (0.1-20.0) H 10/31/20 09:00 Urine Sodium 88 mmol/L 10/31/20 09:00 Assessment and Plan Acute kidney injury Hypokalemia Hypertension Heart failure Continue diuresis Replete K to goal Hold TD/ARB for now Keep MAP more than 65 Renally dose medications Avoid nephrotoxins Renal diet Outpatient renal f/u
== END 2020-11-01 14:25 | disposition home or self-care (01) | DRG 280 ==
LOC: ED 23:57 → 4A 10-30 04:53
PROVIDERS: ADMIT Internal Medicine Geriatric Medicine; ATTEND Hospitalist
DX: I21.4 Non-ST elevation (NSTEMI) myocardial infarction (principal); J96.01 Acute respiratory failure with hypoxia; I50.41 Acute combined systolic (congestive) and diastolic (congestive) heart failure; N17.9 Acute kidney failure, unspecified; I42.0 Dilated cardiomyopathy; E87.6 Hypokalemia; I11.0 Hypertensive heart disease with heart failure; I16.0 Hypertensive urgency; Z91.14 Patient's other noncompliance with medication regimen; Z79.82 Long term (current) use of aspirin; Z79.899 Other long term (current) drug therapy
CPT/HCPCS: 36415; 71045; 76770; 78452; 78580; 80048; 80053; 80061; 81001; 82570; 83735; 83880; 84300; 84484; 85025; 85379; 93005; 93017; 93306; 93970; G0378; A9502; A9540; J1644; J1940; J2785

== ENCOUNTER 2021-01-28 14:23 | Inpatient (IN) | payer OTHER, SELFPAY ==
--- NOTE | 2021-01-28 14:50 | Emergency Department Report ---
ED Shortness of Breath HPI - General Chief Complaint: Upper Respiratory Infection Stated Complaint: FATIGUE/DIZZY/DIFFICULTY BREATHING Time Seen by Provider: 01/28/21 14:37 Source: patient Mode of arrival: Ambulatory Limitations: No Limitations - History of Present Illness Initial Comments: Mr. Serna is a 50 years old male with history of hypertension and congestive heart failure. Patient presented to the ER complaining of shortness of breath, difficulty in breathing and generalized weakness associated with cough, productive with frothy sputum. Patient stated that he will be out of breath even if he walks for small distance. Patient denied any chest pain. He also denied any fever or chills. No lower extremity edema. Patient found to be hy poxic with an oxygen saturation of 88%. MD Complaint: shortness of breath, cough -: days(s) Severity: moderate Known History Of: congestive heart failure Associated Symptoms: cough - Related Data Previous Rx's Medication Instructions Recorded Last Taken Type Aspirin [Aspirin BABY CHEW TAB] 81 mg PO QDAY #30 tab.chew 11/01/20 Unknown Rx ISOSORBIDE MONOnitrate [Imdur ER] 30 mg PO QDAY #60 tablet 11/01/20 Unknown Rx Allergies Allergy/AdvReac Type Severity Reaction Status Date / Time No Known Allergies Allergy Verified 01/28/21 14:50 ED Review of Systems ROS: Stated complaint: FATIGUE/DIZZY/DIFFICULTY BREATHING Other details as noted in HPI Comment: All other systems reviewed and negative Constitutional: denies: chills, fever Respiratory: cough, orthopnea, shortness of breath, SOB with exertion, SOB at rest. denies: wheezing Cardiovascular: denies: chest pain, palpitations Gastrointestinal: denies: abdominal pain, nausea, vomiting Musculoskeletal: denies: back pain Neurological: denies: headache, weakness Psychiatric: denies: depression, homicidal thoughts, suicidal thoughts ED Past Medical Hx - Past Medical History Hx Hypertension: Yes Hx Congestive Heart Failure: Yes (New onset 10/30/2020) - Social History Smoking Status: Never Smoker - Medications Home Medications: Home Medications Medication Instructions Recorded Confirmed Last Taken Type Aspirin [Aspirin BABY CHEW TAB] 81 mg PO QDAY #30 tab.chew 11/01/20 01/28/21 Unknown Rx ISOSORBIDE MONOnitrate [Imdur ER] 30 mg PO QDAY #60 tablet 11/01/20 01/28/21 Unknown Rx ED Physical Exam - General Limitations: No Limitations General appearance: alert, in distress - Head Head exam: Present: atraumatic, normocephalic, normal inspection - Eye Eye exam: Present: normal appearance, PERRL - ENT ENT exam: Present: normal exam, normal orophraynx, mucous membranes moist - Neck Neck exam: Present: normal inspection, full ROM. Absent: tenderness, meningismus - Respiratory Respiratory exam: Present: respiratory distress, rales, accessory muscle use, decreased breath sounds. Absent: wheezes, rhonchi, chest wall tenderness, prolonged expiratory - Cardiovascular Cardiovascular Exam: Present: regular rate, normal rhythm, normal heart sounds - GI/Abdominal GI/Abdominal exam: Present: soft, normal bowel sounds. Absent: distended, tenderness, guarding, rebound, rigid, organomegaly, mass, bruit, pulsatile mass, hernia - Extremities Exam Extremities exam: Present: normal inspection, full ROM, normal capillary refill. Absent: pedal edema - Back Exam Back exam: Present: normal inspection, full ROM. Absent: CVA tenderness (R), CVA tenderness (L) - Neurological Exam Neurological exam: Present: alert, oriented X3, CN II-XII intact - Psychiatric Psychiatric exam: Present: normal mood. Absent: homicidal ideation, suicidal ideation - Skin Skin exam: Present: warm, intact, normal color ED Course Vital Signs 01/28/21 01/28/21 01/28/21 14:28 14:47 14:53 Temperature 98.0 F Pulse Rate 113 H 113 H Respiratory 24 24 Rate Blood Pressure 117/76 Blood Pressure 122/53 [Right] O2 Sat by Pulse 87 Oximetry 01/28/21 15:20 Temperature 98.3 F Pulse Rate Respiratory Rate Blood Pressure Blood Pressure [Right] O2 Sat by Pulse Oximetry ED Medical Decision Making - Lab Data Result diagrams: 01/28/21 15:35 01/28/21 15:35 - Radiology Data Radiology results: report reviewed - Medical Decision Making Mr. Serna is a 50 years old male with history of hypertension and congestive heart failure. Patient presented to the ER complaining of shortness of breath, difficulty in breathing and generalized weakness associated with cough, productive with frothy sputum. Patient stated that he will be out of breath even if he walks for small distance. Patient denied any chest pain. He also denied any fever or chills. No lower extremity edema. Patient found to be hypoxic with an oxygen saturation of 88%. Chest x-ray showed bilateral infiltrates concerning for COVID-19. Patient received Decadron and Levaquin. Labs reviewed and showed a slightly elevated troponin however patient creatinine is 2.6. I discussed the patient with Dr. Acosta, he agreed to admit the patient to medical service for further management. Critical Care Time: Yes Critical care time in (mins) excluding proc time.: 35 Critical care attestation.: If time is entered above; I have spent that time in minutes in the direct care of this critically ill patient, excluding procedure time. ED Disposition Clinical Impression: Acute respiratory failure with hypoxia, Bilateral pneumonia, Suspected COVID-19 virus infection Disposition: ADMITTED INPATIENT Is pt being admited?: Yes Condition: Stable Instructions: Bacterial Pneumonia (ED)
--- NOTE | 2021-01-28 15:07 | XRay Report ---
CHEST 1 VIEW INDICATION / CLINICAL INFORMATION: Dyspnea. COMPARISON: 10/30/2020 FINDINGS: SUPPORT DEVICES: None. HEART / MEDIASTINUM: No significant abnormality. LUNGS / PLEURA: Patchy pulmonary opacities are present bilaterally, most notable throughout both lowe r lobes. No pleural effusion. No pneumothorax. ADDITIONAL FINDINGS: No significant additional findings. IMPRESSION: 1. Patchy bilateral pulmonary opacities most suggestive for multifocal viral pneumonia. Please correl ate with Covid status. Signer Name: Sylvia Garcia MD Signed: 01/28/2021 3:02 PM Workstation Name: [id number]
[2021-01-28] MEDS ORDERED: dexAMETHasone 4 MG/ML VIAL IV ONE (15:41)
[2021-01-28 15:55] LABS: Basophils % (Auto) 0.2 % (0.0-1.8); Eosinophils # (Auto) 0.1 K/mm3 (0.0-0.4); Eosinophils % (Auto) 1.5 % (0.0-4.3); Hematocrit 40.2 % (35.5-45.6); Hemoglobin 13.3 gm/dl (11.8-15.2); Lymphocytes # (Auto) 0.7 K/mm3 (1.2-5.4); Lymphocytes % (Auto) 9.7 % (13.4-35.0); Mean Corpuscular HGB Conc 33 % (32-34); Mean Corpuscular Volume 88 fl (84-94); Monocytes # (Auto) 0.3 K/mm3 (0.0-0.8); Monocytes % (Auto) 4.8 % (0.0-7.3); Platelet Count 184 K/mm3 (140-440); Red Blood Count 4.58 M/mm3 (3.65-5.03); Red Cell Distribution Width 15.6 % (13.2-15.2)
[2021-01-28 16:05] LABS: INR 1.19 (0.87-1.13)
[2021-01-28 16:06] LABS: Partial Thromboplastin Time 24.2 Sec. (24.2-36.6)
[2021-01-28 16:15] LABS: Calcium 8.8 mg/dL (8.4-10.2)
[2021-01-28 16:18] LABS: Bilirubin,Direct 0.3 mg/dL (0-0.2)
[2021-01-28 17:13] LABS: Chol/HDL Ratio 8.17 %
[2021-01-28] MEDS ORDERED: SODIUM CHLORIDE 0.9% 500 ML 500 ML IV ONE (20:25)
--- NOTE | 2021-01-28 23:19 | History and Physical Report ---
History of Present Illness Date of examination: 01/28/21 Date of admission: 01/28/21 16:47 Chief complaint: Increasing shortness of breath and weakness for 4 days History of present illness: 50-year-old male with past medical history of hypertension and congestive heart failure comes in for shortness of breath and generalized weakness for the last 3 to 4 days. Patient has difficulty breathing and generalized weakness. Patient also cough productive of frothy sputum. Patient is out of breath even if you are walks for a small distance. Patient was hypoxic on room air with oxygen saturations of 88%. Not Covid vaccinated. No fever or chills. Exercise is a exacerbating factor. Rest is a relieving factor. - Past Medical History --Hypertension: Yes --Congestive Heart Failure: Yes (New onset 10/30/2020) - Social History --Smoking Status: Never Smoker - Family history Htn - Medications Home Medications: Home Medications Medication Instructions Recorded Confirmed Last Taken Type Aspirin [Aspirin BABY CHEW TAB] 81 mg PO QDAY #30 tab.chew 11/01/20 01/28/21 Unknown Rx ISOSORBIDE MONOnitrate [Imdur ER] 30 mg PO QDAY #60 tablet 11/01/20 01/28/21 Unknown Rx Review of Systems ROS: Stated complaint: FATIGUE/DIZZY/DIFFICULTY BREATHING Other details as noted in HPI Comment: All other systems reviewed and negative Constitutional: denies: chills, fever Respiratory: cough, orthopnea, shortness of breath, SOB with exertion, SOB at rest. denies: wheezing Cardiovascular: denies: chest pain, palpitations Gastrointestinal: denies: abdominal pain, nausea, vomiting Musculoskeletal: denies: back pain Neurological: denies: headache, weakness Psychiatric: denies: depression, homicidal thoughts, suicidal thoughts Medications and Allergies Allergies Allergy/AdvReac Type Severity Reaction Status Date / Time No Known Allergies Allergy Verified 01/28/21 14:50 Home Medications Medication Instructions Recorded Confirmed Last Taken Type Aspirin [Aspirin BABY CHEW TAB] 81 mg PO QDAY #30 tab.chew 11/01/20 01/28/21 Unknown Rx ISOSORBIDE MONOnitrate [Imdur ER] 30 mg PO QDAY #60 tablet 11/01/20 01/28/21 Unknown Rx Exam - Constitutional Vitals: Temp Pulse Resp BP Pulse Ox 97.7 F 101 H 32 H 92/63 95 01/28/21 19:10 01/28/21 21:00 01/28/21 21:00 01/28/21 22:10 01/28/21 22:10 General appearance: Present: mild distress, well-nourished - EENT Eyes: Present: PERRL ENT: hearing intact, clear oral mucosa - Neck Neck: Present: supple, normal ROM - Respiratory Respiratory effort: normal Respiratory: bilateral: CTA, rhonchi (Scattered) - Cardiovascular Heart rate: 98 Heart Sounds: Present: S1 & S2. Absent: rub, click - Extremities Extremities: pulses symmetrical, No edema Peripheral Pulses: within normal limits - Abdominal General gastrointestinal: Present: soft, non-tender, non-distended, normal bowel sounds Male genitourinary: Present: normal - Integumentary Integumentary: Present: clear, warm, dry - Musculoskeletal Musculoskeletal: gait normal, strength equal bilaterally - Psychiatric Psychiatric: appropriate mood/affect, intact judgment & insight - Neurologic Neurologic: CNII-XII intact, moves all extremities HEART Score - HEART Score Troponin: Troponin T 0.532 ng/mL (0.00-0.029) H* 01/28/21 18:40 Results - Labs CBC & Chem 7: 01/28/21 15:35 01/28/21 15:35 Labs: Laboratory Last Values WBC 6.8 K/mm3 (4.5-11.0) 01/28/21 15:35 RBC 4.58 M/mm3 (3.65-5.03) 01/28/21 15:35 Hgb 13.3 gm/dl (11.8-15.2) 01/28/21 15:35 Hct 40.2 % (35.5-45.6) 01/28/21 15:35 MCV 88 fl (84-94) 01/28/21 15:35 MCH 29 pg (28-32) 01/28/21 15:35 MCHC 33 % (32-34) 01/28/21 15:35 RDW 15.6 % (13.2-15.2) H 01/28/21 15:35 Plt Count 184 K/mm3 (140-440) 01/28/21 15:35 Lymph % (Auto) 9.7 % (13.4-35.0) L 01/28/21 15:35 [place] % (Auto) 4.8 % (0.0-7.3) 01/28/21 15:35 Eos % (Auto) 1.5 % (0.0-4.3) 01/28/21 15:35 Baso % (Auto) 0.2 % (0.0-1.8) 01/28/21 15:35 Lymph # (Auto) 0.7 K/mm3 (1.2-5.4) L 01/28/21 15:35 [place] # (Auto) 0.3 K/mm3 (0.0-0.8) 01/28/21 15:35 Eos # (Auto) 0.1 K/mm3 (0.0-0.4) 01/28/21 15:35 Baso # (Auto) 0.0 K/mm3 (0.0-0.1) 01/28/21 15:35 Seg Neutrophils % 83.8 % (40.0-70.0) H 01/28/21 15:35 Seg Neutrophils # 5.7 K/mm3 (1.8-7.7) 01/28/21 15:35 PT 16.4 Sec. (12.2-14.9) H 01/28/21 15:35 INR 1.19 (0.87-1.13) H 01/28/21 15:35 APTT 24.2 Sec. (24.2-36.6) 01/28/21 15:35 Sodium 133 mmol/L (137-145) L 01/28/21 15:35 Potassium 4.0 mmol/L (3.6-5.0) 01/28/21 15:35 Chloride 99.0 mmol/L (98-107) 01/28/21 15:35 Carbon Dioxide 17 mmol/L (22-30) L 01/28/21 15:35 Anion Gap 21 mmol/L 01/28/21 15:35 BUN 60 mg/dL (9-20) H 01/28/21 15:35 Creatinine 2.8 mg/dL (0.8-1.3) H 01/28/21 15:35 Estimated GFR 29 ml/min 01/28/21 15:35 BUN/Creatinine Ratio 21 % 01/28/21 15:35 Glucose 95 mg/dL (75-100) 01/28/21 15:35 Lactic Acid 1.20 mmol/L (0.7-2.0) 01/28/21 15:35 Calcium 8.8 mg/dL (8.4-10.2) 01/28/21 15:35 Total Bilirubin 0.70 mg/dL (0.1-1.2) 01/28/21 15:35 Direct Bilirubin 0.3 mg/dL (0-0.2) H 01/28/21 15:35 Indirect Bilirubin 0.4 mg/dL 01/28/21 15:35 AST 97 units/L (5-40) H 01/28/21 15:35 ALT 47 units/L (7-56) 01/28/21 15:35 Alkaline Phosphatase 44 units/L (35-129) 01/28/21 15:35 Troponin T 0.532 ng/mL (0.00-0.029) H* 01/28/21 18:40 NT-Pro-B Natriuret Pep 7973 pg/mL (0-900) H 01/28/21 15:35 Total Protein 6.8 g/dL (6.3-8.2) 01/28/21 15:35 Albumin 3.0 g/dL (3.9-5) L 01/28/21 15:35 Albumin/Globulin Ratio 0.8 % 01/28/21 15:35 Triglycerides 235 mg/dL (2-149) H 01/28/21 15:35 Cholesterol 139 mg/dL (50-199) 01/28/21 15:35 LDL Cholesterol Direct 64 mg/dL (50-130) 01/28/21 15:35 HDL Cholesterol 17 mg/dL (40-59) L 01/28/21 15:35 Cholesterol/HDL Ratio 8.17 % 01/28/21 15:35 Microbiology: Microbiology 01/28/21 15:35 Peripheral/Venous Blood Culture - Preliminary Culture in Progress 01/28/21 15:35 Peripheral/Venous Blood Culture - Preliminary Culture in Progress - Imaging and Cardiology EKG: report reviewed (Sinus tachycardia nonspecific changes) Imaging and Cardiology: Chest x-ray Patchy bilateral pulmonary opacities most suggestive for multifocal viral pneumonia Please correlate with Covid status Assessment and Plan Advance Directives: Yes (Full code) VTE prophylaxis?: Chemical Plan of care discussed with patient/family: Yes - Patient Problems (1) Acute respiratory failure with hypoxia Current Visit: Yes Status: Acute Plan to address problem: Patient is hypoxic on room air Oxygen supplementation from 2 L to 4 L nasal cannula IV Decadron 8 mg every 24 Possible Covid pneumonia (2) Bilateral pneumonia Current Visit: Yes Status: Acute Plan to address problem: Patient has bilateral patchy opacities Differential diagnosis of community-acquired pneumonia versus Covid pneumonia IV Rocephin, IV Zithromax and IV Decadron initiated ID consult (3) Suspected COVID-19 virus infection Current Visit: Yes Status: Acute Plan to address problem: Coronavirus PCR in a.m. IV Decadron initiated Patient may need remdesivir ID consult requested (4) CHF (congestive heart failure) Current Visit: Yes Status: Chronic Qualifiers: Heart failure type: combined systolic and diastolic Plan to address problem: Echocardiogram for ejection fraction IV Lasix initiated (5) AMERICA (acute kidney injury) Current Visit: No Status: Acute Plan to address problem: Possible ATN /volume depletion Nephrology consult initiated (6) Elevated troponin Current Visit: Yes Status: Acute Plan to address problem: Possible secondary to AMERICA and CHF Cardiology consult requested CK and CK-MB requested (7) Hyponatremia Current Visit: Yes Status: Acute Plan to address problem: Mild with sodium of 130 (8) DVT prophylaxis Current Visit: Yes Status: Acute Plan to address problem: On anticoagulation and GI prophylaxis
[2021-01-28] MEDS ORDERED: ONDANSETRON 4 MG/2 ML INJ IV PRN (23:20)
[2021-01-28] MEDS ORDERED: ACETAMINOPHEN 325 MG TAB PO PRN (23:20)
[2021-01-28] MEDS ORDERED: HYDROmorphone 1 MG/1 ML INJ IV PRN (23:21)
[2021-01-28] MEDS ORDERED: METOCLOPRAMIDE 10 MG/2 ML INJ IV PRN (23:21)
[2021-01-28] MEDS ORDERED: oxyCODONE /ACETAMINOPHEN 5-325MG TAB PO PRN (23:21)
[2021-01-28] MEDS ORDERED: SODIUM CHLORIDE 0.9% 1000 ML 1,000 ML IV SCH (23:30)
[2021-01-28] MEDS ORDERED: dexAMETHasone 4 MG/ML VIAL IV SCH (23:45)
[2021-01-28] MEDS ORDERED: AZITHROMYCIN/NS 500 MG/250 ML 500 MG/250 ML BAG IV SCH (23:45)
[2021-01-29] MEDS ORDERED: FUROSEMIDE 40 MG/4 ML INJ IV SCH (08:00)
[2021-01-29 09:10] LABS: Basophils # (Auto) 0.2 K/mm3 (0.0-0.1); Basophils % (Auto) 2.8 % (0.0-1.8); Hematocrit 41.2 % (35.5-45.6); Hemoglobin 13.7 gm/dl (11.8-15.2); Lymphocytes # (Auto) 0.6 K/mm3 (1.2-5.4); Lymphocytes % (Auto) 8.8 % (13.4-35.0); Mean Corpuscular HGB Conc 33 % (32-34); Mean Corpuscular Volume 88 fl (84-94); Monocytes # (Auto) 0.5 K/mm3 (0.0-0.8); Monocytes % (Auto) 6.5 % (0.0-7.3); Platelet Count 210 K/mm3 (140-440); Red Blood Count 4.66 M/mm3 (3.65-5.03); Red Cell Distribution Width 15.8 % (13.2-15.2)
[2021-01-29 09:30] LABS: Creatine Kinase MB 5.1 ng/mL (0.0-4.0)
[2021-01-29 09:32] LABS: Calcium 8.7 mg/dL (8.4-10.2)
[2021-01-29 09:33] LABS: Albumin 2.9 g/dL (3.9-5); Calcium 8.6 mg/dL (8.4-10.2)
[2021-01-29] MEDS ORDERED: FAMOTIDINE 20 MG TAB PO SCH (10:00)
[2021-01-29] MEDS ORDERED: ENOXAPARIN 40 MG/0.4 ML INJ SUB-Q SCH (10:00)
[2021-01-29] MEDS ORDERED: ENOXAPARIN 30 MG/0.3 ML INJ SUB-Q SCH (10:00)
[2021-01-29] MEDS ORDERED: dexAMETHasone 4 MG/ML VIAL IV SCH (10:00)
[2021-01-29] MEDS ORDERED: cefTRIAXone/NS 2 GM/100 ML 2 GM/100 ML BAG IV SCH (10:00)
[2021-01-29] MEDS ORDERED: ASPIRIN 81 MG TAB CHEW PO SCH (10:00)
[2021-01-29] MEDS ORDERED: POTASSIUM CHLORIDE ER 20 MEQ TAB PO SCH (10:00)
--- NOTE | 2021-01-29 11:04 | Electrocardiograph Report ---
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 Electronically Signed On 01-29-2021 11:03:44 EDT by Rickie Palumbo
--- NOTE | 2021-01-29 12:45 | Consultation ---
History of Present Illness - Reason for Consult Consult date: 01/29/21 b/l pna Requesting physician: SHANTHI AVILA - History of Present Illness The patient is a 50-year-old male with hypertension, CHF admitted with cough and shortness of breath. Hypoxic on room air, unvaccinated, now admitted to the hospital. No fever. Labs showed normal WBC, D-dimer 2388, ferritin 3670, CRP 12.0, elevated troponins, creatinine 2.7. Chest x-ray revealed bilateral patchy airspace opacities. Review of Systems: reviewed in the chart, unable to obtain, minimize risk of transmission Medications and Allergies Allergies Allergy/AdvReac Type Severity Reaction Status Date / Time No Known Allergies Allergy Verified 01/28/21 14:50 Home Medications Medication Instructions Recorded Confirmed Last Taken Type Aspirin [Aspirin BABY CHEW TAB] 81 mg PO QDAY #30 tab.chew 11/01/20 01/28/21 Unknown Rx ISOSORBIDE MONOnitrate [Imdur ER] 30 mg PO QDAY #60 tablet 11/01/20 01/28/21 Unknown Rx Active Meds: Active Medications Acetaminophen (Acetaminophen 325 Mg Tab) 650 mg PO Q4H PRN PRN Reason: Pain MILD(1-3)/Fever >100.5/RODRIGUEZ Aspirin (Aspirin 81 Mg Tab Chew) 81 mg PO QDAY [facility] Last Admin: 01/29/21 10:15 Dose: 81 mg Documented by: Dexamethasone (Dexamethasone 4 Mg/Ml Vial) 8 mg IV Q24HR [facility] Stop: 02/06/21 10:01 Last Admin: 01/29/21 10:15 Dose: 8 mg Documented by: Enoxaparin Sodium (Enoxaparin 40 Mg/0.4 Ml Inj) 40 mg SUB-Q QDAY@1000 [facility] Last Admin: 01/29/21 10:14 Dose: 40 mg Documented by: Famotidine (Famotidine 20 Mg Tab) 20 mg PO QAM [facility] Last Admin: 01/29/21 10:15 Dose: 20 mg Documented by: Furosemide (Furosemide 40 Mg/4 Ml Inj) 40 mg IV 0800 [facility] Last Admin: 01/29/21 10:15 Dose: 40 mg Documented by: Hydromorphone HCl (Hydromorphone 1 Mg/1 Ml Inj) 0.5 mg IV Q3H PRN PRN Reason: Pain , Severe (7-10) Ceftriaxone Sodium (Rocephin/Ns 2 Gm/100 Ml) 2 gm in 100 mls @ 200 mls/hr IV Q24HR [facility]; Protocol Stop: 02/02/21 10:29 Last Admin: 01/29/21 10:16 Dose: 200 mls/hr Documented by: Azithromycin (Zithromax/Ns) 500 mg in 250 mls @ 250 mls/hr IV QHS [facility] Stop: 02/01/21 22:59 Metoclopramide HCl (Metoclopramide 10 Mg/2 Ml Inj) 5 mg IV Q6H PRN PRN Reason: Nausea And Vomiting Ondansetron HCl (Ondansetron 4 Mg/2 Ml Inj) 4 mg IV Q8H PRN PRN Reason: Nausea And Vomiting Oxycodone/Acetaminophen (Oxycodone /Acetaminophen 5-325mg Tab) 1 tab PO Q6H PRN PRN Reason: Pain, Moderate (4-6) Potassium Chloride (Potassium Chloride Er 20 Meq Tab) 20 meq PO QDAY [facility] Last Admin: 01/29/21 10:15 Dose: 20 meq Documented by: Sodium Chloride (Sodium Chloride 0.9% 10 Ml Flush Syringe) 10 ml IV BID [facility] Last Admin: 01/29/21 10:16 Dose: 10 ml Documented by: Sodium Chloride (Sodium Chloride 0.9% 10 Ml Flush Syringe) 10 ml IV PRN PRN PRN Reason: LINE FLUSH Physical Examination - Physical Exam Narrative exam: Physical Exam (reviewed in chart to minimize risk of transmission) Constitutional: deferred Head, Ears, Nose: deferred Eyes: deferred Neck: deferred Oral: deferred Cardiovascular: deferred Respiratory: deferred GI: deferred Musculoskeletal: deferred Skin: deferred Hem/Lymphatic: deferred Psych: deferred Neurological: deferred - Constitutional Vitals: Vital Signs Temp Pulse Resp BP Pulse Ox 97.7 F 99 H 18 89/61 97 01/29/21 04:47 01/29/21 04:47 01/29/21 04:47 01/29/21 04:47 01/29/21 04:47 Temperature -Last 24 Hours Temperature 97.7 F Temperature 97.4 F Temperature 97.7 F Temperature 98.3 F Temperature 98.0 F Results - Labs CBC & Chem 7: 01/29/21 08:35 01/29/21 08:35 Labs: Abnormal lab results 01/28/21 01/28/21 01/28/21 Range/Units 15:35 15:35 15:35 RDW 15.6 H (13.2-15.2) % Lymph % (Auto) 9.7 L (13.4-35.0) % Baso % (Auto) (0.0-1.8) % Lymph # (Auto) 0.7 L (1.2-5.4) K/mm3 Baso # (Auto) (0.0-0.1) K/mm3 Seg Neutrophils % 83.8 H (40.0-70.0) % PT 16.4 H (12.2-14.9) Sec. INR 1.19 H (0.87-1.13) D-Dimer (0-234) ng/mlDDU Sodium 133 L (137-145) mmol/L Carbon Dioxide 17 L (22-30) mmol/L BUN 60 H (9-20) mg/dL Creatinine 2.8 H (0.8-1.3) mg/dL Glucose (75-100) mg/dL Phosphorus (2.5-4.5) mg/dL Magnesium (1.7-2.3) mg/dL Ferritin (30.0-300.0) ng/mL Direct Bilirubin (0-0.2) mg/dL AST (5-40) units/L Lactate Dehydrogenase (91-180) units/L Total Creatine Kinase (55-170) units/L CK-MB (CK-2) (0.0-4.0) ng/mL Troponin T 0.573 H* (0.00-0.029) ng/mL C-Reactive Protein (0.00-1.30) mg/dL NT-Pro-B Natriuret Pep (0-900) pg/mL Albumin (3.9-5) g/dL Triglycerides 235 H (2-149) mg/dL HDL Cholesterol 17 L (40-59) mg/dL 01/28/21 01/28/21 01/29/21 Range/Units 15:35 18:40 08:35 RDW 15.8 H (13.2-15.2) % Lymph % (Auto) 8.8 L (13.4-35.0) % Baso % (Auto) 2.8 H (0.0-1.8) % Lymph # (Auto) 0.6 L (1.2-5.4) K/mm3 Baso # (Auto) 0.2 H (0.0-0.1) K/mm3 Seg Neutrophils % 81.9 H (40.0-70.0) % PT (12.2-14.9) Sec. INR (0.87-1.13) D-Dimer (0-234) ng/mlDDU Sodium (137-145) mmol/L Carbon Dioxide (22-30) mmol/L BUN (9-20) mg/dL Creatinine (0.8-1.3) mg/dL Glucose (75-100) mg/dL Phosphorus (2.5-4.5) mg/dL Magnesium (1.7-2.3) mg/dL Ferritin (30.0-300.0) ng/mL Direct Bilirubin 0.3 H (0-0.2) mg/dL AST 97 H (5-40) units/L Lactate Dehydrogenase (91-180) units/L Total Creatine Kinase (55-170) units/L CK-MB (CK-2) (0.0-4.0) ng/mL Troponin T 0.532 H* (0.00-0.029) ng/mL C-Reactive Protein (0.00-1.30) mg/dL NT-Pro-B Natriuret Pep 7973 H (0-900) pg/mL Albumin 3.0 L (3.9-5) g/dL Triglycerides (2-149) mg/dL HDL Cholesterol (40-59) mg/dL 01/29/21 01/29/21 01/29/21 Range/Units 08:35 08:35 08:35 RDW (13.2-15.2) % Lymph % (Auto) (13.4-35.0) % Baso % (Auto) (0.0-1.8) % Lymph # (Auto) (1.2-5.4) K/mm3 Baso # (Auto) (0.0-0.1) K/mm3 Seg Neutrophils % (40.0-70.0) % PT (12.2-14.9) Sec. INR (0.87-1.13) D-Dimer (0-234) ng/mlDDU Sodium 135 L 136 L (137-145) mmol/L Carbon Dioxide 17 L 18 L (22-30) mmol/L BUN 73 H 73 H (9-20) mg/dL Creatinine 2.8 H 2.7 H (0.8-1.3) mg/dL Glucose 170 H 172 H (75-100) mg/dL Phosphorus 5.40 H (2.5-4.5) mg/dL Magnesium 2.50 H (1.7-2.3) mg/dL Ferritin (30.0-300.0) ng/mL Direct Bilirubin (0-0.2) mg/dL AST 76 H (5-40) units/L Lactate Dehydrogenase 657 H (91-180) units/L Total Creatine Kinase 700 H (55-170) units/L CK-MB (CK-2) 5.1 H (0.0-4.0) ng/mL Troponin T 0.368 H* D (0.00-0.029) ng/mL C-Reactive Protein 12.00 H (0.00-1.30) mg/dL NT-Pro-B Natriuret Pep (0-900) pg/mL Albumin 2.9 L (3.9-5) g/dL Triglycerides (2-149) mg/dL HDL Cholesterol (40-59) mg/dL 01/29/21 01/29/21 Range/Units 08:35 08:35 RDW (13.2-15.2) % Lymph % (Auto) (13.4-35.0) % Baso % (Auto) (0.0-1.8) % Lymph # (Auto) (1.2-5.4) K/mm3 Baso # (Auto) (0.0-0.1) K/mm3 Seg Neutrophils % (40.0-70.0) % PT (12.2-14.9) Sec. INR (0.87-1.13) D-Dimer 2388.63 H (0-234) ng/mlDDU Sodium (137-145) mmol/L Carbon Dioxide (22-30) mmol/L BUN (9-20) mg/dL Creatinine (0.8-1.3) mg/dL Glucose (75-100) mg/dL Phosphorus (2.5-4.5) mg/dL Magnesium (1.7-2.3) mg/dL Ferritin 3670.0 H (30.0-300.0) ng/mL Direct Bilirubin (0-0.2) mg/dL AST (5-40) units/L Lactate Dehydrogenase (91-180) units/L Total Creatine Kinase (55-170) units/L CK-MB (CK-2) (0.0-4.0) ng/mL Troponin T (0.00-0.029) ng/mL C-Reactive Protein (0.00-1.30) mg/dL NT-Pro-B Natriuret Pep (0-900) pg/mL Albumin (3.9-5) g/dL Triglycerides (2-149) mg/dL HDL Cholesterol (40-59) mg/dL - Imaging and Cardiology Chest x-ray: report reviewed, image reviewed (b/l patchy airspace opacities) Assessment and Plan Cultures: SARS CoV2 PCR: Pending 01/28/2021 blood culture: In process A/P: 50-year-old male with hypertension, CHF admitted with cough and shortness of breath: #Bilateral pneumonia: Suspicion for COVID-19 #Acute hypoxic respiratory failure: On HFNC #Elevated troponin, h/o CHF: Cardiology consulted. #[place]: Monitor creatinine. Recs: -OK with IV/PO Dexamethasone x 10 days, pending COVID-19 PCR -borderline GFR, IV remdesivir x 5 days ordered given high suspicion for COVID- 19 -if COVID-19 positive, given HFNC >30 L/min, CRP >7.5, administer Actemra x 1 -prophylactic anticoagulation based on d-dimer per hospital protocol -if procalcitonin is low, abx not needed -trend ferritin, d-dimer, CRP every 2-3 days Sanjuanita Hernández MD, FACP [facility] O: [phone] F: [phone]
--- NOTE | 2021-01-29 13:13 | Consultation ---
History of Present Illness - Reason for Consult Consult date: 01/29/21 acute renal failure - History of Present Illness This is a 50 year old male who presented to the hospital with a chief complaint of shortness of breath with productive cough and weakness. CXR done in E.R revealed Pneumonia suspicious for Covid pneumonia. Patient is currently undergoing test for Covid-19, result is pending. Patient has history of Hypertension and CHF. Pertinent labs revealed an elevated serum creatinine of 2.8 on admission. Previous lab showed in [id number]- serum creatinine was 1.2-1.4 and in 10/2020 serum creatinine fluctuates between 1.8-2.8. Patient has CKD. Patient's contact is limited to reduce exposure and or transmission of COVID-19 disease as patient is undergoing testing to rule out COVID-19. We are being consulted for management of this patient's ARF on CKD. Past History Past Medical History: hypertension, other (CKD, CHF) Social history: no significant social history Family history: no significant family history Medications and Allergies Allergies Allergy/AdvReac Type Severity Reaction Status Date / Time No Known Allergies Allergy Verified 01/28/21 14:50 Home Medications Medication Instructions Recorded Confirmed Last Taken Type Aspirin [Aspirin BABY CHEW TAB] 81 mg PO QDAY #30 tab.chew 11/01/20 01/28/21 Unknown Rx ISOSORBIDE MONOnitrate [Imdur ER] 30 mg PO QDAY #60 tablet 11/01/20 01/28/21 Un known Rx Active Meds: Active Medications Acetaminophen (Acetaminophen 325 Mg Tab) 650 mg PO Q4H PRN PRN Reason: Pain MILD(1-3)/Fever >100.5/RODRIGUEZ Aspirin (Aspirin 81 Mg Tab Chew) 81 mg PO QDAY [facility] Last Admin: 01/29/21 10:15 Dose: 81 mg Documented by: Dexamethasone (Dexamethasone 4 Mg/Ml Vial) 8 mg IV Q24HR [facility] Stop: 02/06/21 10:01 Last Admin: 01/29/21 10:15 Dose: 8 mg Documented by: Enoxaparin Sodium (Enoxaparin 40 Mg/0.4 Ml Inj) 40 mg SUB-Q QDAY@1000 [facility] Last Admin: 01/29/21 10:14 Dose: 40 mg Documented by: Famotidine (Famotidine 20 Mg Tab) 20 mg PO QAM [facility] Last Admin: 01/29/21 10:15 Dose: 20 mg Documented by: Furosemide (Furosemide 40 Mg/4 Ml Inj) 40 mg IV 0800 [facility] Last Admin: 01/29/21 10:15 Dose: 40 mg Documented by: Hydromorphone HCl (Hydromorphone 1 Mg/1 Ml Inj) 0.5 mg IV Q3H PRN PRN Reason: Pain , Severe (7-10) Ceftriaxone Sodium (Rocephin/Ns 2 Gm/100 Ml) 2 gm in 100 mls @ 200 mls/hr IV Q24HR [facility]; Protocol Stop: 02/02/21 10:29 Last Admin: 01/29/21 10:16 Dose: 200 mls/hr Documented by: Azithromycin (Zithromax/Ns) 500 mg in 250 mls @ 250 mls/hr IV QHS [facility] Stop: 02/01/21 22:59 REMDESIVIR 200 mg/ Sodium (Chloride) 250 mls @ 500 mls/hr IV ONCE ONE Stop: 01/29/21 15:29 REMDESIVIR 100 mg/ Sodium (Chloride) 250 mls @ 500 mls/hr IV Q24HR@2100 [facility] Stop: 02/02/21 21:29 Metoclopramide HCl (Metoclopramide 10 Mg/2 Ml Inj) 5 mg IV Q6H PRN PRN Reason: Nausea And Vomiting Ondansetron HCl (Ondansetron 4 Mg/2 Ml Inj) 4 mg IV Q8H PRN PRN Reason: Nausea And Vomiting Oxycodone/Acetaminophen (Oxycodone /Acetaminophen 5-325mg Tab) 1 tab PO Q6H PRN PRN Reason: Pain, Moderate (4-6) Potassium Chloride (Potassium Chloride Er 20 Meq Tab) 20 meq PO QDAY [facility] Last Admin: 01/29/21 10:15 Dose: 20 meq Documented by: Sodium Chloride (Sodium Chloride 0.9% 10 Ml Flush Syringe) 10 ml IV BID [facility] Last Admin: 01/29/21 10:16 Dose: 10 ml Documented by: Sodium Chloride (Sodium Chloride 0.9% 10 Ml Flush Syringe) 10 ml IV PRN PRN PRN Reason: LINE FLUSH Sodium Chloride (Sodium Chloride 0.9% 50 Ml Ivpb) 50 ml IV Q24HR@2100 [facility] Stop: 02/02/21 21:01 Review of Systems All systems: negative Constitutional: other (As per HPI) Exam - Vital Signs Vital signs: Vital Signs Temp Pulse Resp BP Pulse Ox 98.0 F 113 H 24 117/76 87 01/28/21 14:28 01/28/21 14:28 01/28/21 14:28 01/28/21 14:28 01/28/21 14:28 - Physical Exam Narrative exam: Limited to avoid exposure and or transmission of COVID-19 disease as patient is not ruled out at this time Results - Lab Results 01/29/21 08:35 01/29/21 08:35 Most recent lab results Calcium 8.6 mg/dL (8.4-10.2) 01/29/21 08:35 Calcium 8.7 mg/dL (8.4-10.2) 01/29/21 08:35 Phosphorus 5.40 mg/dL (2.5-4.5) H 01/29/21 08:35 Magnesium 2.50 mg/dL (1.7-2.3) H 01/29/21 08:35 Assessment and Plan Assessment: Acute Renal Failure on CKD COVID-19 rule out Pneumonia Acute Respiratory Failure Hypertension, now Hypotensive CHF Plan: Renal labs reviewed. Serum creatinine 2.7 today, was 2.8 yesterday, non-oliguric Serum creatinine in [id number] was 1.2-1.4. Serum creatinine in 10/2020 was 1.8- 2.8. Had renal ultrasound done on 10/31/20- Medical renal disease. Bilateral renal cysts. Obtain urine lytes, protein and eosinophils CHF-On Lasix 40 mg IV daily Monitor I/O's daily Renally dose medications Obtain daily weights Will monitor renal function closely no acute indication for FILM W[employer]ER Plan of care reviewed by Dr. Roberts
--- NOTE | 2021-01-29 13:14 | Progress Note ---
Assessment and Plan Assessment and plan: Patient is a 50-year-old male with past medical history of hypertension and congestive heart failure coming in for shortness of breath and generalized weakness for approximately 4 days. #Acute hypoxic respiratory failure #Suspected COVID-19 pneumonia #Suspected COVID-19 virus infection -D-dimer 2388, ferritin 3670, CRP 12 -Currently on high flow 40 L 100% FiO2 -High clinical suspicion for COVID-19 infection; pending coronavirus PCR (likely performed in morning) versus community-acquired pneumonia -Continue IV dexamethasone 8 mg every 24 hours (started 01/28/2021; would complete 02/07/2021) given high clinical suspicion of COVID-19 infection -Blood cultures collected on admission; pending results -Infectious disease on board; appreciate recommendations -Continue ceftriaxone and azithromycin daily -Will refer to infectious disease for possible initiation of remdesivir versus Acetemra x1 dose #Combined systolic and diastolic heart failure -Concern for possible acute on chronic exacerbation -TTE ordered; pending results -S/p IV Lasix 40 mg in the ED. Continuing IV Lasix 40 mg daily in the setting of Pro BNP 7973 -Continue strict I's/O, daily weights, and fluid restriction of approximately 1.5 L/day #Acute kidney injury -Creatinine 2.7 on admission (baseline unknown) -Unsure of etiology is prerenal (volume depletion) versus intrarenal -Nephrology consulted on admission; appreciate recs -Avoid nephrotoxic medications and renally dose meds -Continue to monitor #Elevated troponin #NSTEMI (noncardiactype II) -Troponin: 0.573--> 0.532--> 0.369 -Low likelihood to be cardiac etiology. More likely to be secondary to [place] versus suspected COVID-19 pneumonia -TTE ordered; pending results -Continue to monitor #Hyponatremia -Sodium 130; likely secondary to volume overload -Repeat BMP in morning #DVT prophylaxis -Continue subcutaneous heparin 5000 units every 8 hours Disposition Plan: Continue medical management Total Time Spent with Patient (Minutes): 30 History Interval history: No acute events overnight. Hospitalist Physical - Constitutional Vitals: Temp Pulse Resp BP Pulse Ox 97.5 F L 102 H 18 100/65 84 01/29/21 11:29 01/29/21 11:29 01/29/21 11:29 01/29/21 11:29 01/29/21 11:29 General appearance: Present: mild distress, well-nourished, obese - EENT Eyes: Present: PERRL, EOM intact ENT: hearing intact, clear oral mucosa, dentition normal - Neck Neck: Present: supple, normal ROM - Respiratory Respiratory effort: normal (On high flow 40 L 100% FiO2) - Cardiovascular Rhythm: regular Heart Sounds: Present: S1 & S2 - Extremities Extremities: no ischemia, pulses intact, pulses symmetrical, No edema, normal temperature, normal color Extremity abnormal: edema (Mild edema bilateral lower extremities) Peripheral Pulses: within normal limits - Abdominal General gastrointestinal: soft, non-tender, non-distended, normal bowel sounds - Integumentary Integumentary: Present: clear, warm, dry - Psychiatric Psychiatric: appropriate mood/affect, memory intact, cooperative, other (Limited insight on medical condition) - Neurologic Neurologic: CNII-XII intact, moves all extremities - Allied Health Allied health notes reviewed: nursing HEART Score - HEART Score Troponin: Troponin T 0.368 ng/mL (0.00-0.029) H* D 01/29/21 08:35 Results - Labs CBC & Chem 7: 01/29/21 08:35 01/29/21 08:35 Labs: Laboratory Last Values WBC 7.0 K/mm3 (4.5-11.0) 01/29/21 08:35 RBC 4.66 M/mm3 (3.65-5.03) 01/29/21 08:35 Hgb 13.7 gm/dl (11.8-15.2) 01/29/21 08:35 Hct 41.2 % (35.5-45.6) 01/29/21 08:35 MCV 88 fl (84-94) 01/29/21 08:35 MCH 29 pg (28-32) 01/29/21 08:35 MCHC 33 % (32-34) 01/29/21 08:35 RDW 15.8 % (13.2-15.2) H 01/29/21 08:35 Plt Count 210 K/mm3 (140-440) 01/29/21 08:35 Lymph % (Auto) 8.8 % (13.4-35.0) L 01/29/21 08:35 Sunflower % (Auto) 6.5 % (0.0-7.3) 01/29/21 08:35 Eos % (Auto) 0.0 % (0.0-4.3) 01/29/21 08:35 Baso % (Auto) 2.8 % (0.0-1.8) H 01/29/21 08:35 Lymph # (Auto) 0.6 K/mm3 (1.2-5.4) L 01/29/21 08:35 Sunflower # (Auto) 0.5 K/mm3 (0.0-0.8) 01/29/21 08:35 Eos # (Auto) 0.0 K/mm3 (0.0-0.4) 01/29/21 08:35 Baso # (Auto) 0.2 K/mm3 (0.0-0.1) H 01/29/21 08:35 Seg Neutrophils % 81.9 % (40.0-70.0) H 01/29/21 08:35 Seg Neutrophils # 5.8 K/mm3 (1.8-7.7) 01/29/21 08:35 PT 16.4 Sec. (12.2-14.9) H 01/28/21 15:35 INR 1.19 (0.87-1.13) H 01/28/21 15:35 APTT 24.2 Sec. (24.2-36.6) 01/28/21 15:35 D-Dimer 2388.63 ng/mlDDU (0-234) H 01/29/21 08:35 Sodium 135 mmol/L (137-145) L 01/29/21 08:35 Sodium 136 mmol/L (137-145) L 01/29/21 08:35 Potassium 4.4 mmol/L (3.6-5.0) 01/29/21 08:35 Potassium 4.5 mmol/L (3.6-5.0) 01/29/21 08:35 Chloride 102.3 mmol/L (98-107) 01/29/21 08:35 Chloride 102.6 mmol/L (98-107) 01/29/21 08:35 Carbon Dioxide 17 mmol/L (22-30) L 01/29/21 08:35 Carbon Dioxide 18 mmol/L (22-30) L 01/29/21 08:35 Anion Gap 20 mmol/L 01/29/21 08:35 Anion Gap 20 mmol/L 01/29/21 08:35 BUN 73 mg/dL (9-20) H 01/29/21 08:35 BUN 73 mg/dL (9-20) H 01/29/21 08:35 Creatinine 2.7 mg/dL (0.8-1.3) H 01/29/21 08:35 Creatinine 2.8 mg/dL (0.8-1.3) H 01/29/21 08:35 Estimated GFR 29 ml/min 01/29/21 08:35 Estimated GFR 30 ml/min 01/29/21 08:35 BUN/Creatinine Ratio 26 % 01/29/21 08:35 BUN/Creatinine Ratio 27 % 01/29/21 08:35 Glucose 170 mg/dL (75-100) H 01/29/21 08:35 Glucose 172 mg/dL (75-100) H 01/29/21 08:35 Lactic Acid 1.50 mmol/L (0.7-2.0) 01/29/21 08:35 Calcium 8.6 mg/dL (8.4-10.2) 01/29/21 08:35 Calcium 8.7 mg/dL (8.4-10.2) 01/29/21 08:35 Phosphorus 5.40 mg/dL (2.5-4.5) H 01/29/21 08:35 Magnesium 2.50 mg/dL (1.7-2.3) H 01/29/21 08:35 Ferritin 3670.0 ng/mL (30.0-300.0) H 01/29/21 08:35 Total Bilirubin 0.60 mg/dL (0.1-1.2) 01/29/21 08:35 Direct Bilirubin 0.3 mg/dL (0-0.2) H 01/28/21 15:35 Indirect Bilirubin 0.4 mg/dL 01/28/21 15:35 AST 76 units/L (5-40) H 01/29/21 08:35 ALT 43 units/L (7-56) 01/29/21 08:35 Alkaline Phosphatase 46 units/L (35-129) 01/29/21 08:35 Lactate Dehydrogenase 657 units/L (91-180) H 01/29/21 08:35 Total Creatine Kinase 700 units/L (55-170) H 01/29/21 08:35 CK-MB (CK-2) 5.1 ng/mL (0.0-4.0) H 01/29/21 08:35 CK-MB (CK-2) Rel Index 0.7 (0-4) 01/29/21 08:35 Troponin T 0.368 ng/mL (0.00-0.029) H* D 01/29/21 08:35 C-Reactive Protein 12.00 mg/dL (0.00-1.30) H 01/29/21 08:35 NT-Pro-B Natriuret Pep 7973 pg/mL (0-900) H 01/28/21 15:35 Total Protein 6.8 g/dL (6.3-8.2) 01/29/21 08:35 Albumin 2.9 g/dL (3.9-5) L 01/29/21 08:35 Albumin/Globulin Ratio 0.7 % 01/29/21 08:35 Triglycerides 235 mg/dL (2-149) H 01/28/21 15:35 Cholesterol 139 mg/dL (50-199) 01/28/21 15:35 LDL Cholesterol Direct 64 mg/dL (50-130) 01/28/21 15:35 HDL Cholesterol 17 mg/dL (40-59) L 01/28/21 15:35 Cholesterol/HDL Ratio 8.17 % 01/28/21 15:35 Microbiology: Microbiology 01/28/21 15:35 Peripheral/Venous Blood Culture - Preliminary Culture in Progress 01/28/21 15:35 Peripheral/Venous Blood Culture - Preliminary Culture in Progress Sanchez/IV: Voiding Method Urinal Active Medications - Current Medications Current Medications: Generic Name Dose Route Start Last Admin Trade Name Freq PRN Reason Stop Dose Admin Acetaminophen 650 mg 01/28/21 23:20 Acetaminophen 325 Mg Tab PO Q4H PRN Pain MILD(1-3)/Fever >100.5/RODRIGUEZ Aspirin 81 mg 01/29/21 10:00 01/29/21 10:15 Aspirin 81 Mg Tab Chew PO 81 mg QDAY [facility] Administration Dexamethasone 8 mg 01/29/21 10:00 01/29/21 10:15 Dexamethasone 4 Mg/Ml Vial IV 02/06/21 10:01 8 mg Q24HR [facility] Administration Enoxaparin Sodium 40 mg 01/29/21 10:00 01/29/21 10:14 Enoxaparin 40 Mg/0.4 Ml Inj SUB-Q 40 mg QDAY@1000 [facility] Administration Famotidine 20 mg 01/29/21 10:00 01/29/21 10:15 Famotidine 20 Mg Tab PO 20 mg QAM [facility] Administration Furosemide 40 mg 01/29/21 08:00 01/29/21 10:15 Furosemide 40 Mg/4 Ml Inj IV 40 mg 0800 [facility] Administration Hydromorphone HCl 0.5 mg 01/28/21 23:21 Hydromorphone 1 Mg/1 Ml Inj IV Q3H PRN Pain , Severe (7-10) Ceftriaxone Sodium 2 gm in 100 mls @ 200 mls/hr 01/29/21 10:00 01/29/21 10:16 Rocephin/Ns 2 Gm/100 Ml IV 02/02/21 10:29 200 mls/hr Q24HR [facility] Administration Protocol Azithromycin 500 mg in 250 mls @ 250 mls/hr 01/29/21 22:00 Zithromax/Ns IV 02/01/21 22:59 QHS [facility] REMDESIVIR 200 mg/ Sodium 250 mls @ 500 mls/hr 01/29/21 15:00 Chloride IV 01/29/21 15:29 ONCE ONE REMDESIVIR 100 mg/ Sodium 250 mls @ 500 mls/hr 01/30/21 21:00 Chloride IV 02/02/21 21:29 Q24HR@2100 [facility] Metoclopramide HCl 5 mg 01/28/21 23:21 Metoclopramide 10 Mg/2 Ml Inj IV Q6H PRN Nausea And Vomiting Ondansetron HCl 4 mg 01/28/21 23:20 Ondansetron 4 Mg/2 Ml Inj IV Q8H PRN Nausea And Vomiting Oxycodone/Acetaminophen 1 tab 01/28/21 23:21 Oxycodone /Acetaminophen 5-325mg Tab PO Q6H PRN Pain, Moderate (4-6) Potassium Chloride 20 meq 01/29/21 10:00 01/29/21 10:15 Potassium Chloride Er 20 Meq Tab PO 20 meq QDAY [facility] Administration Sodium Chloride 10 ml 01/29/21 10:00 01/29/21 10:16 Sodium Chloride 0.9% 10 Ml Flush Syringe IV 10 ml BID [facility] Administration Sodium Chloride 10 ml 01/28/21 23:20 Sodium Chloride 0.9% 10 Ml Flush Syringe IV PRN PRN LINE FLUSH Sodium Chloride 50 ml 01/29/21 15:00 Sodium Chloride 0.9% 50 Ml Ivpb IV 02/02/21 21:01 Q24HR@2100 [facility]
[2021-01-29] MEDS ORDERED: SODIUM CHLORIDE 0.9% 50 ML IVPB IV SCH (15:00)
[2021-01-29] MEDS ORDERED: REMDESIVIR 200 MG in SODIUM CHLORIDE 0.9% 250ML 250 ML IV ONE (15:00)
--- NOTE | 2021-01-29 15:39 | Consultation ---
History of Present Illness Consult date: 01/29/21 Requesting physician: SHANTHI AVILA Consult reason: congestive heart failure History of present illness: Patient is a 50-year-old male with a past medical history of HFrEF (EF 10 to 15%) and hypertension who presented to [facility] with complaint of progressively worsening fatigue and shortness of breath x 2-week but has severely worsened in the last 3 to 4 days. Patient reports that he received his first dose of the Covid vaccine 2 weeks ago and then around the same time his symptoms began. Patient states at baseline he can walk a little bit over a block however now at this current condition he can only walk a couple of feet for becoming tired. Patient reports being compliant with medications, diet, and fluid restriction. Patient endorses cough and dyspnea on exertion with relief with rest. Patient denies orthopnea, PND, chest pain, diaphoresis, nausea or vomiting. Patient was previously seen by our group in October for new onset heart failure and follows with Dr. Meza in the office. Cardiology is consulted for heart failure Past History Past Medical History: heart failure, hypertension Social history: smoking Family history: hypertension Medications and Allergies Allergies Allergy/AdvReac Type Severity Reaction Status Date / Time No Known Allergies Allergy Verified 01/28/21 14:50 Home Medications Medication Instructions Recorded Confirmed Last Taken Type Aspirin [Aspirin BABY CHEW TAB] 81 mg PO QDAY #30 tab.chew 11/01/20 01/28/21 Unknown Rx ISOSORBIDE MONOnitrate [Imdur ER] 30 mg PO QDAY #60 tablet 11/01/20 01/28/21 Unknown Rx Active Meds: Active Medications Acetaminophen (Acetaminophen 325 Mg Tab) 650 mg PO Q4H PRN PRN Reason: Pain MILD(1-3)/Fever >100.5/RODRIGUEZ Aspirin (Aspirin 81 Mg Tab Chew) 81 mg PO QDAY [facility] Last Admin: 01/29/21 10:15 Dose: 81 mg Documented by: Dexamethasone (Dexamethasone 4 Mg/Ml Vial) 8 mg IV Q24HR [facility] Stop: 02/06/21 10:01 Last Admin: 01/29/21 10:15 Dose: 8 mg Documented by: Enoxaparin Sodium (Enoxaparin 40 Mg/0.4 Ml Inj) 40 mg SUB-Q QDAY@1000 [facility] Last Admin: 01/29/21 10:14 Dose: 40 mg Documented by: Famotidine (Famotidine 20 Mg Tab) 20 mg PO QAM [facility] Last Admin: 01/29/21 10:15 Dose: 20 mg Documented by: Furosemide (Furosemide 40 Mg/4 Ml Inj) 40 mg IV 0800 [facility] Last Admin: 01/29/21 10:15 Dose: 40 mg Documented by: Hydromorphone HCl (Hydromorphone 1 Mg/1 Ml Inj) 0.5 mg IV Q3H PRN PRN Reason: Pain , Severe (7-10) Ceftriaxone Sodium (Rocephin/Ns 2 Gm/100 Ml) 2 gm in 100 mls @ 200 mls/hr IV Q24HR [facility]; Protocol Stop: 02/02/21 10:29 Last Admin: 01/29/21 10:16 Dose: 200 mls/hr Documented by: Azithromycin (Zithromax/Ns) 500 mg in 250 mls @ 250 mls/hr IV QHS [facility] Stop: 02/01/21 22:59 REMDESIVIR 100 mg/ Sodium (Chloride) 250 mls @ 500 mls/hr IV Q24HR@2100 [facility] Stop: 02/02/21 21:29 Isosorbide Mononitrate (Isosorbide Mononitrate Er 30 Mg Tab) 30 mg PO QDAY [facility] Metoclopramide HCl (Metoclopramide 10 Mg/2 Ml Inj) 5 mg IV Q6H PRN PRN Reason: Nausea And Vomiting Ondansetron HCl (Ondansetron 4 Mg/2 Ml Inj) 4 mg IV Q8H PRN PRN Reason: Nausea And Vomiting Oxycodone/Acetaminophen (Oxycodone /Acetaminophen 5-325mg Tab) 1 tab PO Q6H PRN PRN Reason: Pain, Moderate (4-6) Potassium Chloride (Potassium Chloride Er 20 Meq Tab) 20 meq PO QDAY [facility] Last Admin: 01/29/21 10:15 Dose: 20 meq Documented by: Sodium Chloride (Sodium Chloride 0.9% 10 Ml Flush Syringe) 10 ml IV BID [facility] Last Admin: 01/29/21 10:16 Dose: 10 ml Documented by: Sodium Chloride (Sodium Chloride 0.9% 10 Ml Flush Syringe) 10 ml IV PRN PRN PRN Reason: LINE FLUSH Sodium Chloride (Sodium Chloride 0.9% 50 Ml Ivpb) 50 ml IV Q24HR@2100 [facility] Stop: 02/02/21 21:01 Review of Systems Constitutional: fatigue, weakness, no weight loss, no weight gain, no fever, no chills Ears, nose, mouth and throat: no decreased hearing, no nose pain, no nasal congestion Cardiovascular: shortness of breath, no chest pain, no orthopnea, no pa lpitations, no edema, no syncope Respiratory: cough with sputum, shortness of breath Gastrointestinal: no abdominal pain, no nausea, no vomiting Musculoskeletal: no neck stiffness, no neck pain, no shooting arm pain Integumentary: no rash, no pruritis, no redness Neurological: no head injury, no transient paralysis Psychiatric: no anxiety, no memory loss Endocrine: no cold intolerance, no heat intolerance Hematologic/Lymphatic: no easy bruising, no easy bleeding Physical Examination Vital Signs Temp Pulse Resp BP Pulse Ox 98.0 F 113 H 24 117/76 87 01/28/21 14:28 01/28/21 14:28 01/28/21 14:28 01/28/21 14:28 01/28/21 14:28 General appearance: no acute distress HEENT: Positive: PERRL Cardiac: Positive: Regular Rhythm, Tachycardia Lungs: Positive: Wheezes Neuro: Positive: Grossly Intact Abdomen: Positive: Soft Skin: Negative: Rash, Suspicious Lesions, Ulceration Extremities: Present: upper extr. pulses, lower extr. pulses. Absent: edema Results 01/29/21 08:35 01/29/21 08:35 Cardiac Enzymes 01/28/21 01/28/21 01/28/21 Range/Units 15:35 15:35 15:35 WBC 6.8 (4.5-11.0) K/mm3 RBC 4.58 (3.65-5.03) M/mm3 Hgb 13.3 (11.8-15.2) gm/dl Hct 40.2 (35.5-45.6) % MCV 88 (84-94) fl MCH 29 (28-32) pg MCHC 33 (32-34) % RDW 15.6 H (13.2-15.2) % Plt Count 184 (140-440) K/mm3 Lymph % (Auto) 9.7 L (13.4-35.0) % [place] % (Auto) 4.8 (0.0-7.3) % Eos % (Auto) 1.5 (0.0-4.3) % Baso % (Auto) 0.2 (0.0-1.8) % Lymph # (Auto) 0.7 L (1.2-5.4) K/mm3 [place] # (Auto) 0.3 (0.0-0.8) K/mm3 Eos # (Auto) 0.1 (0.0-0.4) K/mm3 Baso # (Auto) 0.0 (0.0-0.1) K/mm3 Seg Neutrophils % 83.8 H (40.0-70.0) % Seg Neutrophils # 5.7 (1.8-7.7) K/mm3 PT 16.4 H (12.2-14.9) Sec. INR 1.19 H (0.87-1.13) APTT 24.2 (24.2-36.6) Sec. D-Dimer (0-234) ng/mlDDU Sodium 133 L (137-145) mmol/L Potassium 4.0 (3.6-5.0) mmol/L Chloride 99.0 (98-107) mmol/L Carbon Dioxide 17 L (22-30) mmol/L Anion Gap 21 mmol/L BUN 60 H (9-20) mg/dL Creatinine 2.8 H (0.8-1.3) mg/dL Estimated GFR 29 ml/min BUN/Creatinine Ratio 21 % Glucose 95 (75-100) mg/dL Lactic Acid (0.7-2.0) mmol/L Calcium 8.8 (8.4-10.2) mg/dL Phosphorus (2.5-4.5) mg/dL Magnesium (1.7-2.3) mg/dL Ferritin (30.0-300.0) ng/mL Total Bilirubin (0.1-1.2) mg/dL Direct Bilirubin (0-0.2) mg/dL Indirect Bilirubin mg/dL AST (5-40) units/L ALT (7-56) units/L Alkaline Phosphatase (35-129) units/L Lactate Dehydrogenase (91-180) units/L Total Creatine Kinase (55-170) units/L CK-MB (CK-2) (0.0-4.0) ng/mL CK-MB (CK-2) Rel Index (0-4) Troponin T 0.573 H* (0.00-0.029) ng/mL C-Reactive Protein (0.00-1.30) mg/dL NT-Pro-B Natriuret Pep (0-900) pg/mL Total Protein (6.3-8.2) g/dL Albumin (3.9-5) g/dL Albumin/Globulin Ratio % Triglycerides 235 H (2-149) mg/dL Cholesterol 139 (50-199) mg/dL LDL Cholesterol Direct 64 (50-130) mg/dL HDL Cholesterol 17 L (40-59) mg/dL Cholesterol/HDL Ratio 8.17 % 01/28/21 01/28/21 01/28/21 Range/Units 15:35 15:35 18:40 WBC (4.5-11.0) K/mm3 RBC (3.65-5.03) M/mm3 Hgb (11.8-15.2) gm/dl Hct (35.5-45.6) % MCV (84-94) fl MCH (28-32) pg MCHC (32-34) % RDW (13.2-15.2) % Plt Count (140-440) K/mm3 Lymph % (Auto) (13.4-35.0) % [place] % (Auto) (0.0-7.3) % Eos % (Auto) (0.0-4.3) % Baso % (Auto) (0.0-1.8) % Lymph # (Auto) (1.2-5.4) K/mm3 [place] # (Auto) (0.0-0.8) K/mm3 Eos # (Auto) (0.0-0.4) K/mm3 Baso # (Auto) (0.0-0.1) K/mm3 Seg Neutrophils % (40.0-70.0) % Seg Neutrophils # (1.8-7.7) K/mm3 PT (12.2-14.9) Sec. INR (0.87-1.13) APTT (24.2-36.6) Sec. D-Dimer (0-234) ng/mlDDU Sodium (137-145) mmol/L Potassium (3.6-5.0) mmol/L Chloride (98-107) mmol/L Carbon Dioxide (22-30) mmol/L Anion Gap mmol/L BUN (9-20) mg/dL Creatinine (0.8-1.3) mg/dL Estimated GFR ml/min BUN/Creatinine Ratio % Glucose (75-100) mg/dL Lactic Acid 1.20 (0.7-2.0) mmol/L Calcium (8.4-10.2) mg/dL Phosphorus (2.5-4.5) mg/dL Magnesium (1.7-2.3) mg/dL Ferritin (30.0-300.0) ng/mL Total Bilirubin 0.70 (0.1-1.2) mg/dL Direct Bilirubin 0.3 H (0-0.2) mg/dL Indirect Bilirubin 0.4 mg/dL AST 97 H (5-40) units/L ALT 47 (7-56) units/L Alkaline Phosphatase 44 (35-129) units/L Lactate Dehydrogenase (91-180) units/L Total Creatine Kinase (55-170) units/L CK-MB (CK-2) (0.0-4.0) ng/mL CK-MB (CK-2) Rel Index (0-4) Troponin T 0.532 H* (0.00-0.029) ng/mL C-Reactive Protein (0.00-1.30) mg/dL NT-Pro-B Natriuret Pep 7973 H (0-900) pg/mL Total Protein 6.8 (6.3-8.2) g/dL Albumin 3.0 L (3.9-5) g/dL Albumin/Globulin Ratio 0.8 % Triglycerides (2-149) mg/dL Cholesterol (50-199) mg/dL LDL Cholesterol Direct (50-130) mg/dL HDL Cholesterol (40-59) mg/dL Cholesterol/HDL Ratio % 01/29/21 01/29/21 01/29/21 Range/Units 08:35 08:35 08:35 WBC 7.0 (4.5-11.0) K/mm3 RBC 4.66 (3.65-5.03) M/mm3 Hgb 13.7 (11.8-15.2) gm/dl Hct 41.2 (35.5-45.6) % MCV 88 (84-94) fl MCH 29 (28-32) pg MCHC 33 (32-34) % RDW 15.8 H (13.2-15.2) % Plt Count 210 (140-440) K/mm3 Lymph % (Auto) 8.8 L (13.4-35.0) % [place] % (Auto) 6.5 (0.0-7.3) % Eos % (Auto) 0.0 (0.0-4.3) % Baso % (Auto) 2.8 H (0.0-1.8) % Lymph # (Auto) 0.6 L (1.2-5.4) K/mm3 [place] # (Auto) 0.5 (0.0-0.8) K/mm3 Eos # (Auto) 0.0 (0.0-0.4) K/mm3 Baso # (Auto) 0.2 H (0.0-0.1) K/mm3 Seg Neutrophils % 81.9 H (40.0-70.0) % Seg Neutrophils # 5.8 (1.8-7.7) K/mm3 PT (12.2-14.9) Sec. INR (0.87-1.13) APTT (24.2-36.6) Sec. D-Dimer (0-234) ng/mlDDU Sodium 135 L (137-145) mmol/L Potassium 4.5 (3.6-5.0) mmol/L Chloride 102.3 (98-107) mmol/L Carbon Dioxide 17 L (22-30) mmol/L Anion Gap 20 mmol/L BUN 73 H (9-20) mg/dL Creatinine 2.8 H (0.8-1.3) mg/dL Estimated GFR 29 ml/min BUN/Creatinine Ratio 26 % Glucose 170 H (75-100) mg/dL Lactic Acid (0.7-2.0) mmol/L Calcium 8.6 (8.4-10.2) mg/dL Phosphorus (2.5-4.5) mg/dL Magnesium (1.7-2.3) mg/dL Ferritin (30.0-300.0) ng/mL Total Bilirubin 0.60 (0.1-1.2) mg/dL Direct Bilirubin (0-0.2) mg/dL Indirect Bilirubin mg/dL AST 76 H (5-40) units/L ALT 43 (7-56) units/L Alkaline Phosphatase 46 (35-129) units/L Lactate Dehydrogenase (91-180) units/L Total Creatine Kinase 700 H (55-170) units/L CK-MB (CK-2) 5.1 H (0.0-4.0) ng/mL CK-MB (CK-2) Rel Index 0.7 (0-4) Troponin T (0.00-0.029) ng/mL C-Reactive Protein (0.00-1.30) mg/dL NT-Pro-B Natriuret Pep (0-900) pg/mL Total Protein 6.8 (6.3-8.2) g/dL Albumin 2.9 L (3.9-5) g/dL Albumin/Globulin Ratio 0.7 % Triglycerides (2-149) mg/dL Cholesterol (50-199) mg/dL LDL Cholesterol Direct (50-130) mg/dL HDL Cholesterol (40-59) mg/dL Cholesterol/HDL Ratio % 01/29/21 01/29/21 01/29/21 Range/Units 08:35 08:35 08:35 WBC (4.5-11.0) K/mm3 RBC (3.65-5.03) M/mm3 Hgb (11.8-15.2) gm/dl Hct (35.5-45.6) % MCV (84-94) fl MCH (28-32) pg MCHC (32-34) % RDW (13.2-15.2) % Plt Count (140-440) K/mm3 Lymph % (Auto) (13.4-35.0) % [place] % (Auto) (0.0-7.3) % Eos % (Auto) (0.0-4.3) % Baso % (Auto) (0.0-1.8) % Lymph # (Auto) (1.2-5.4) K/mm3 [place] # (Auto) (0.0-0.8) K/mm3 Eos # (Auto) (0.0-0.4) K/mm3 Baso # (Auto) (0.0-0.1) K/mm3 Seg Neutrophils % (40.0-70.0) % Seg Neutrophils # (1.8-7.7) K/mm3 PT (12.2-14.9) Sec. INR (0.87-1.13) APTT (24.2-36.6) Sec. D-Dimer 2388.63 H (0-234) ng/mlDDU Sodium 136 L (137-145) mmol/L Potassium 4.4 (3.6-5.0) mmol/L Chloride 102.6 (98-107) mmol/L Carbon Dioxide 18 L (22-30) mmol/L Anion Gap 20 mmol/L BUN 73 H (9-20) mg/dL Creatinine 2.7 H (0.8-1.3) mg/dL Estimated GFR 30 ml/min BUN/Creatinine Ratio 27 % Glucose 172 H (75-100) mg/dL Lactic Acid (0.7-2.0) mmol/L Calcium 8.7 (8.4-10.2) mg/dL Phosphorus 5.40 H (2.5-4.5) mg/dL Magnesium 2.50 H (1.7-2.3) mg/dL Ferritin 3670.0 H (30.0-300.0) ng/mL Total Bilirubin (0.1-1.2) mg/dL Direct Bilirubin (0-0.2) mg/dL Indirect Bilirubin mg/dL AST (5-40) units/L ALT (7-56) units/L Alkaline Phosphatase (35-129) units/L Lactate Dehydrogenase 657 H (91-180) units/L Total Creatine Kinase (55-170) units/L CK-MB (CK-2) (0.0-4.0) ng/mL CK-MB (CK-2) Rel Index (0-4) Troponin T 0.368 H* D (0.00-0.029) ng/mL C-Reactive Protein 12.00 H (0.00-1.30) mg/dL NT-Pro-B Natriuret Pep (0-900) pg/mL Total Protein (6.3-8.2) g/dL Albumin (3.9-5) g/dL Albumin/Globulin Ratio % Triglycerides (2-149) mg/dL Cholesterol (50-199) mg/dL LDL Cholesterol Direct (50-130) mg/dL HDL Cholesterol (40-59) mg/dL Cholesterol/HDL Ratio % 10/20/21 Range/Units 08:35 WBC (4.5-11.0) K/mm3 RBC (3.65-5.03) M/mm3 Hgb (11.8-15.2) gm/dl Hct (35.5-45.6) % MCV (84-94) fl MCH (28-32) pg MCHC (32-34) % RDW (13.2-15.2) % Plt Count (140-440) K/mm3 Lymph % (Auto) (13.4-35.0) % [place] % (Auto) (0.0-7.3) % Eos % (Auto) (0.0-4.3) % Baso % (Auto) (0.0-1.8) % Lymph # (Auto) (1.2-5.4) K/mm3 [place] # (Auto) (0.0-0.8) K/mm3 Eos # (Auto) (0.0-0.4) K/mm3 Baso # (Auto) (0.0-0.1) K/mm3 Seg Neutrophils % (40.0-70.0) % Seg Neutrophils # (1.8-7.7) K/mm3 PT (12.2-14.9) Sec. INR (0.87-1.13) APTT (24.2-36.6) Sec. D-Dimer (0-234) ng/mlDDU Sodium (137-145) mmol/L Potassium (3.6-5.0) mmol/L Chloride (98-107) mmol/L Carbon Dioxide (22-30) mmol/L Anion Gap mmol/L BUN (9-20) mg/dL Creatinine (0.8-1.3) mg/dL Estimated GFR ml/min BUN/Creatinine Ratio % Glucose (75-100) mg/dL Lactic Acid 1.50 (0.7-2.0) mmol/L Calcium (8.4-10.2) mg/dL Phosphorus (2.5-4.5) mg/dL Magnesium (1.7-2.3) mg/dL Ferritin (30.0-300.0) ng/mL Total Bilirubin (0.1-1.2) mg/dL Direct Bilirubin (0-0.2) mg/dL Indirect Bilirubin mg/dL AST (5-40) units/L ALT (7-56) units/L Alkaline Phosphatase (35-129) units/L Lactate Dehydrogenase (91-180) units/L Total Creatine Kinase (55-170) units/L CK-MB (CK-2) (0.0-4.0) ng/mL CK-MB (CK-2) Rel Index (0-4) Troponin T (0.00-0.029) ng/mL C-Reactive Protein (0.00-1.30) mg/dL NT-Pro-B Natriuret Pep (0-900) pg/mL Total Protein (6.3-8.2) g/dL Albumin (3.9-5) g/dL Albumin/Globulin Ratio % Triglycerides (2-149) mg/dL Cholesterol (50-199) mg/dL LDL Cholesterol Direct (50-130) mg/dL HDL Cholesterol (40-59) mg/dL Cholesterol/HDL Ratio % Coagulation 01/28/21 Range/Units 15:35 PT 16.4 H (12.2-14.9) Sec. INR 1.19 H (0.87-1.13) APTT 24.2 (24.2-36.6) Sec. Lipids 01/28/21 Range/Units 15:35 Triglycerides 235 H (2-149) mg/dL Cholesterol 139 (50-199) mg/dL HDL Cholesterol 17 L (40-59) mg/dL Cholesterol/HDL Ratio 8.17 % CBC 01/28/21 01/29/21 Range/Units 15:35 08:35 WBC 6.8 7.0 (4.5-11.0) K/mm3 RBC 4.58 4.66 (3.65-5.03) M/mm3 Hgb 13.3 13.7 (11.8-15.2) gm/dl Hct 40.2 41.2 (35.5-45.6) % Plt Count 184 210 (140-440) K/mm3 Lymph # (Auto) 0.7 L 0.6 L (1.2-5.4) K/mm3 [place] # (Auto) 0.3 0.5 (0.0-0.8) K/mm3 Eos # (Auto) 0.1 0.0 (0.0-0.4) K/mm3 Baso # (Auto) 0.0 0.2 H (0.0-0.1) K/mm3 Comprehensive Metabolic Panel 01/28/21 01/28/21 01/29/21 Range/Units 15:35 15:35 08:35 Sodium 133 L 135 L (137-145) mmol/L Potassium 4.0 4.5 (3.6-5.0) mmol/L Chloride 99.0 102.3 (98-107) mmol/L Carbon Dioxide 17 L 17 L (22-30) mmol/L BUN 60 H 73 H (9-20) mg/dL Creatinine 2.8 H 2.8 H (0.8-1.3) mg/dL Glucose 95 170 H (75-100) mg/dL Calcium 8.8 8.6 (8.4-10.2) mg/dL Direct Bilirubin 0.3 H (0-0.2) mg/dL Indirect Bilirubin 0.4 mg/dL AST 97 H 76 H (5-40) units/L ALT 47 43 (7-56) units/L Alkaline Phosphatase 44 46 (35-129) units/L Total Protein 6.8 6.8 (6.3-8.2) g/dL Albumin 3.0 L 2.9 L (3.9-5) g/dL 01/29/21 Range/Units 08:35 Sodium 136 L (137-145) mmol/L Potassium 4.4 (3.6-5.0) mmol/L Chloride 102.6 (98-107) mmol/L Carbon Dioxide 18 L (22-30) mmol/L BUN 73 H (9-20) mg/dL Creatinine 2.7 H (0.8-1.3) mg/dL Glucose 172 H (75-100) mg/dL Calcium 8.7 (8.4-10.2) mg/dL Direct Bilirubin (0-0.2) mg/dL Indirect Bilirubin mg/dL AST (5-40) units/L ALT (7-56) units/L Alkaline Phosphatase (35-129) units/L Total Protein (6.3-8.2) g/dL Albumin (3.9-5) g/dL - Imaging and Cardiology Echo: report reviewed EKG interpretations - Telemetry EKG Rhythm: Sinus Tachycardia - EKG Sinus rhythms and dysrhythmias: sinus tachycardia Assessment and Plan Patient is a 50-year-old male with a past medical history of HFrEF (EF 10 to 15%) and hypertension who presented to [facility] with complaint of progressively worsening fatigue and shortness of breath x 2-week HFrEF NSTEMI suspect type 2 * EKG sinus tachycardia 112, no acute ischemic changes. Troponin elevated but down trending .57->.53->.368 * Patient is currently chest pain-free. * Echocardiogram 10/2020 is EF 10-15%, Left ventricle severely dilated, mild LVH, right ventricle moderately dilated, severe tricuspid regurgitation, * Lexiscan MPI stress test11/01/2020- negative for ischemia * Outpatient medications: asa, Imdur 30mg PO Qd, hydralizine 25mg PO Bid, metoprolol 100mg PO BID, Nifedipine XL 60mg PO QD, Lasix 40 mg PO daily, Aldactone 25 QD. . [place] * Nephrology is following PUI Elevated D-dimer * COVID PCR pending * CXR shows patchy bilateral pulmonary opacities * ID following Acute hypoxic respiratory failure * Patient currently on high flow. Plan: Suspect NSTEMI type 2 in setting of [place] and PNA Due to hypotension will hold patients BP medications. No TD/ARB in setting of [place] Will restart Imdur Patient seen in conjunction with Dr. Palumbo who agrees with this plan of care. Will continue to follow - Patient Problems (1) Acute respiratory failure with hypoxia Current Visit: Yes Status: Acute (2) Bilateral pneumonia Current Visit: Yes Status: Acute (3) Elevated troponin Current Visit: Yes Status: Acute (4) Suspected COVID-19 virus infection Current Visit: Yes Status: Acute (5) CHF (congestive heart failure) Current Visit: Yes Status: Chronic Qualifiers: Heart failure type: combined systolic and diastolic (6) [place] (acute kidney injury) Current Visit: No Status: Acute
[2021-01-29 18:23] VITALS: BP 109/80
[2021-01-29] MEDS ORDERED: AZITHROMYCIN/NS 500 MG/250 ML 500 MG/250 ML BAG IV SCH (22:00)
[2021-01-30] MEDS ORDERED: REMDESIVIR 100 MG in SODIUM CHLORIDE 0.9% 250ML 250 ML IV SCH (21:00)
== END 2021-01-29 18:00 | disposition left against medical advice (07) | DRG 193 ==
LOC: ED 14:23 → 3A 16:47
PROVIDERS: ADMIT Internal Medicine; ATTEND Student in an Organized Health Care Education/Training Program
PROC: 5A0935A Assistance with Respiratory Ventilation, Less than 24 Consecutive Hours, High Flow/Velocity Cannula (ICD-10-PCS; principal; 2021-01-28)
DX: J18.9 Pneumonia, unspecified organism (principal); J96.01 Acute respiratory failure with hypoxia; I21.A1 Myocardial infarction type 2; E87.1 Hypo-osmolality and hyponatremia; I50.42 Chronic combined systolic (congestive) and diastolic (congestive) heart failure; I13.0 Hypertensive heart and chronic kidney disease with heart failure and stage 1 through stage 4 chronic kidney disease, or unspecified chronic kidney disease; N17.9 Acute kidney failure, unspecified; Z20.822 Contact with and (suspected) exposure to COVID-19; N18.9 Chronic kidney disease, unspecified; I95.9 Hypotension, unspecified
CPT/HCPCS: 36415; 71045; 80048; 80053; 80061; 80076; 82140; 82550; 82553; 82728; 83615; 83735; 83880; 84100; 84484; 85025; 85379; 85610; 85730; 86140; 87040; 93005; 94760; G0378; J0456; J0696; J1100; J1650; J1940; J1956; J7030; J7040; J7050

== ENCOUNTER 2021-01-29 21:58 | Inpatient (IN) | payer OTHER ==
--- NOTE | 2021-01-29 23:05 | XRay Report ---
CHEST 1 VIEW 01/29/2021 9:54 PM INDICATION / CLINICAL INFORMATION: fatigue. COMPARISON: 01/28/2021 FINDINGS: SUPPORT DEVICES: None. HEART / MEDIASTINUM: No significant abnormality. LUNGS / PLEURA: Previously seen airspace opacities appear less conspicuous albeit still present. No p neumothorax. ADDITIONAL FINDINGS: No significant additional findings. IMPRESSION: 1. Persistent, albeit less conspicuous airspace opacities Signer Name: Gerard Ambriz DO Signed: 01/29/2021 11:00 PM Workstation Name: [id number]
[2021-01-29 23:27] LABS: Basophils # (Auto) 0.2 K/mm3 (0.0-0.1); Basophils % (Auto) 1.3 % (0.0-1.8); Hemoglobin 14.3 gm/dl (11.8-15.2); Lymphocytes # (Auto) 0.6 K/mm3 (1.2-5.4); Lymphocytes % (Auto) 4.3 % (13.4-35.0); Mean Corpuscular HGB Conc 33 % (32-34); Mean Corpuscular Volume 88 fl (84-94); Monocytes % (Auto) 7.5 % (0.0-7.3); Platelet Count 327 K/mm3 (140-440); Red Blood Count 4.87 M/mm3 (3.65-5.03)
[2021-01-29 23:40] LABS: INR 1.18 (0.87-1.13)
[2021-01-29 23:41] LABS: Partial Thromboplastin Time 30.7 Sec. (24.2-36.6)
[2021-01-29 23:47] LABS: Albumin 3.7 g/dL (3.9-5); Calcium 9.6 mg/dL (8.4-10.2)
[2021-01-30] MEDS ORDERED: FUROSEMIDE 40 MG/4 ML INJ IV ONE (01:42)
--- NOTE | 2021-01-30 01:42 | Emergency Department Report ---
ED General Adult HPI - General Chief complaint: Dyspnea/Respdistress Stated complaint: CRISTY, POSS COVID Time Seen by Provider: 01/29/21 22:18 Source: patient Mode of arrival: Ambulatory Limitations: No Limitations - History of Present Illness Initial comments: The patient presents to the emergency department with a chief complaint of weakness and fatigue has been present for the last 2 weeks. Patient denies having chest pain, shortness of breath, or abdominal pain. He also denies any neurological deficits such as slurred speech or weakness. -: Gradual Severity scale (0 -10): 0 Consistency: constant Improves with: none Worsens with: none Associated Symptoms: denies other symptoms Treatments Prior to Arrival: none - Related Data Previous Rx's Medication Instructions Recorded Last Taken Type Aspirin [Aspirin BABY CHEW TAB] 81 mg PO QDAY #30 tab.chew 11/01/20 Unknown Rx ISOSORBIDE MONOnitrate [Imdur ER] 30 mg PO QDAY #60 tablet 11/01/20 Unknown Rx Allergies Allergy/AdvReac Type Severity Reaction Status Date / Time No Known Allergies Allergy Verified 01/29/21 23:11 ED Review of Systems ROS: Stated complaint: CRISTY, POSS COVID Other details as noted in HPI Constitutional: denies: chills, fever Eyes: denies: eye pain, eye discharge, vision change ENT: denies: ear pain, throat pain Respiratory: denies: cough, shortness of breath, wheezing Cardiovascular: denies: chest pain, palpitations Endocrine: no symptoms reported Gastrointestinal: denies: abdominal pain, nausea, diarrhea Genitourinary: denies: urgency, dysuria Musculoskeletal: denies: back pain, joint swelling, arthralgia Skin: denies: rash, lesions Neurological: denies: headache, weakness, paresthesias Psychiatric: denies: anxiety, depression Hematological/Lymphatic: denies: easy bleeding, easy bruising ED Past Medical Hx - Past Medical History Hx Hypertension: Yes Hx Congestive Heart Failure: Yes (New onset 10/30/2020) Hx Diabetes: No Hx Asthma: No Hx COPD: No Hx HIV: No - Social History Smoking Status: Never Smoker - Medications Home Medications: Home Medications Medication Instructions Recorded Confirmed Last Taken Type Aspirin [Aspirin BABY CHEW TAB] 81 mg PO QDAY #30 tab.chew 11/01/20 01/28/21 Unknown Rx ISOSORBIDE MONOnitrate [Imdur ER] 30 mg PO QDAY #60 tablet 11/01/20 01/28/21 Unknown Rx ED Physical Exam - General Limitations: No Limitations General appearance: alert, in no apparent distress - Head Head exam: Present: atraumatic, normocephalic - Eye Eye exam: Present: normal appearance - ENT ENT exam: Present: mucous membranes moist - Neck Neck exam: Present: normal inspection - Respiratory Respiratory exam: Present: normal lung sounds bilaterally. Absent: respiratory distress - Cardiovascular Cardiovascular Exam: Present: normal rhythm, tachycardia. Absent: systolic murmur, diastolic murmur, rubs, gallop - GI/Abdominal GI/Abdominal exam: Present: soft, normal bowel sounds. Absent: distended, tenderness - Rectal Rectal exam: Present: deferred - Extremities Exam Extremities exam: Present: normal inspection - Back Exam Back exam: Present: normal inspection - Neurological Exam Neurological exam: Present: alert, oriented X3, CN II-XII intact. Absent: motor sensory deficit - Psychiatric Psychiatric exam: Present: normal affect, normal mood - Skin Skin exam: Present: warm, dry, intact, normal color. Absent: rash ED Course Vital Signs 01/29/21 01/29/21 01/29/21 22:12 22:49 23:00 Temperature 97.7 F Pulse Rate 93 H 95 H Respiratory 26 H 27 H Rate Blood Pressure 122/89 Blood Pressure 116/89 [Left] O2 Sat by Pulse 97 97 96 Oximetry 01/29/21 01/30/21 01/30/21 23:50 00:30 01:00 Temperature Pulse Rate 97 H 109 H 101 H Respiratory 24 29 H 28 H Rate Blood Pressure 135/92 129/90 Blood Pressure 131/93 [Left] O2 Sat by Pulse 98 92 Oximetry 01/30/21 01:25 Temperature 97.9 F Pulse Rate Respiratory Rate Blood Pressure Blood Pressure [Left] O2 Sat by Pulse 95 Oximetry ED Medical Decision Making - Lab Data Result diagrams: 01/29/21 22:59 01/29/21 22:59 Lab Results 01/29/21 01/29/21 01/29/21 Range/Units 22:59 22:59 22:59 WBC 13.9 H (4.5-11.0) K/mm3 RBC 4.87 (3.65-5.03) M/mm3 Hgb 14.3 (11.8-15.2) gm/dl Hct 43.0 (35.5-45.6) % MCV 88 (84-94) fl MCH 29 (28-32) pg MCHC 33 (32-34) % RDW 16.0 H (13.2-15.2) % Plt Count 327 (140-440) K/mm3 Lymph % (Auto) 4.3 L (13.4-35.0) % Crawford % (Auto) 7.5 H (0.0-7.3) % Eos % (Auto) 0.0 (0.0-4.3) % Baso % (Auto) 1.3 (0.0-1.8) % Lymph # (Auto) 0.6 L (1.2-5.4) K/mm3 Crawford # (Auto) 1.0 H (0.0-0.8) K/mm3 Eos # (Auto) 0.0 (0.0-0.4) K/mm3 Baso # (Auto) 0.2 H (0.0-0.1) K/mm3 Seg Neutrophils % 86.9 H (40.0-70.0) % Seg Neutrophils # 12.0 H (1.8-7.7) K/mm3 PT 16.3 H (12.2-14.9) Sec. INR 1.18 H (0.87-1.13) APTT 30.7 (24.2-36.6) Sec. Sodium 137 (137-145) mmol/L Potassium 4.6 (3.6-5.0) mmol/L Chloride 100.8 (98-107) mmol/L Carbon Dioxide 19 L (22-30) mmol/L Anion Gap 22 mmol/L BUN 77 H (9-20) mg/dL Creatinine 2.6 H (0.8-1.3) mg/dL Estimated GFR 32 ml/min BUN/Creatinine Ratio 30 % Glucose 199 H (75-100) mg/dL Lactic Acid (0.7-2.0) mmol/L Calcium 9.6 (8.4-10.2) mg/dL Total Bilirubin 0.50 (0.1-1.2) mg/dL AST 74 H (5-40) units/L ALT 56 (7-56) units/L Alkaline Phosphatase 61 (35-129) units/L Troponin T 0.441 H* (0.00-0.029) ng/mL NT-Pro-B Natriuret Pep 3305 H (0-900) pg/mL Total Protein 7.7 (6.3-8.2) g/dL Albumin 3.7 L (3.9-5) g/dL Albumin/Globulin Ratio 0.9 % 01/29/ Range/Units 22:59 WBC (4.5-11.0) K/mm3 RBC (3.65-5.03) M/mm3 Hgb (11.8-15.2) gm/dl Hct (35.5-45.6) % MCV (84-94) fl MCH (28-32) pg MCHC (32-34) % RDW (13.2-15.2) % Plt Count (140-440) K/mm3 Lymph % (Auto) (13.4-35.0) % Crawford % (Auto) (0.0-7.3) % Eos % (Auto) (0.0-4.3) % Baso % (Auto) (0.0-1.8) % Lymph # (Auto) (1.2-5.4) K/mm3 Crawford # (Auto) (0.0-0.8) K/mm3 Eos # (Auto) (0.0-0.4) K/mm3 Baso # (Auto) (0.0-0.1) K/mm3 Seg Neutrophils % (40.0-70.0) % Seg Neutrophils # (1.8-7.7) K/mm3 PT (12.2-14.9) Sec. INR (0.87-1.13) APTT (24.2-36.6) Sec. Sodium (137-145) mmol/L Potassium (3.6-5.0) mmol/L Chloride (98-107) mmol/L Carbon Dioxide (22-30) mmol/L Anion Gap mmol/L BUN (9-20) mg/dL Creatinine (0.8-1.3) mg/dL Estimated GFR ml/min BUN/Creatinine Ratio % Glucose (75-100) mg/dL Lactic Acid 1.50 (0.7-2.0) mmol/L Calcium (8.4-10.2) mg/dL Total Bilirubin (0.1-1.2) mg/dL AST (5-40) units/L ALT (7-56) units/L Alkaline Phosphatase (35-129) units/L Troponin T (0.00-0.029) ng/mL NT-Pro-B Natriuret Pep (0-900) pg/mL Total Protein (6.3-8.2) g/dL Albumin (3.9-5) g/dL Albumin/Globulin Ratio % - EKG Data -: EKG Interpreted by Me EKG shows normal: sinus rhythm Rate: normal - EKG Data Interpretation: LVH - Radiology Data Radiology results: report reviewed - Medical Decision Making Patient was given IV Lasix in the ED IV antibiotics were given due to the read from radiology pertaining to the chest x-ray Patient's troponin is elevated but has been elevated in the past with the patient being chest pain-free is felt that the elevated troponin is likely seco ndary to the patient's cardiac status from CHF Critical Care Time: Yes Critical care time in (mins) excluding proc time.: 35 Critical care attestation.: If time is entered above; I have spent that time in minutes in the direct care of this critically ill patient, excluding procedure time. ED Disposition Clinical Impression: CHF exacerbation Disposition: [facility] Is pt being admited?: Yes Does the pt Need Aspirin: Yes Condition: Fair Referrals: PRIMARY CARE, [Primary Care Provider] - 3-5 Days
[2021-01-30 01:51] LABS: Bilirubin,Urine NEG (Negative); Blood,Urine LG (Negative); Color,Urine Yellow (Yellow); Mucus,Urine FEW /HPF; Urobilinogen,Urine < 2.0 mg/dL (<2.0)
[2021-01-30] MEDS ORDERED: ASPIRIN 81 MG TAB CHEW PO ONE (01:54)
[2021-01-30] MEDS: CEFEPIME/NS 2 GM/100 ML 2 GM/100 ML BAG IV ONE ×2 (02:23→02:59)
[2021-01-30] MEDS ORDERED: ACETAMINOPHEN 325 MG TAB PO PRN (05:01)
[2021-01-30] MEDS ORDERED: HYDROmorphone 1 MG/1 ML INJ IV PRN (05:01)
[2021-01-30] MEDS ORDERED: oxyCODONE /ACETAMINOPHEN 5-325MG TAB PO PRN (05:01)
[2021-01-30] MEDS ORDERED: traMADol 50 MG TAB PO PRN (05:01)
[2021-01-30] MEDS ORDERED: NITROGLYCERIN 0.4 MG TAB SUBL SL PRN (05:01)
[2021-01-30] MEDS ORDERED: ONDANSETRON 4 MG/2 ML INJ IV PRN (05:01)
--- NOTE | 2021-01-30 05:12 | History and Physical Report ---
History of Present Illness Date of examination: 01/30/21 Date of admission: 01/30/21 01:54 Chief complaint: Dyspnea respiratory distress History of present illness: 50 years old male with past medical history of hypertension was brought to the emergency department with a chief complaint of weakness and fatigue has been present for the last 2 weeks. Patient also complained of shortness of breath patient denies having chest pain, or abdominal pain. He also denies any neurological deficits such as slurred speech or weakness. In the emergency room patient is found to have BNP of 3305, troponin of 0.441, BUN of 77 creatinine of 2.6, WBCs 13.9. Chest x-ray showed persistent ,albeit less conspicuous airspace opacities We are going to admit the patient the diagnosis of acute CHF exacerbation, AMERICA, elevated troponin and suspected pneumonia. We consulted cardiology for evaluation Med rec is done. Past History Past Medical History: heart failure, hypertension Medications and Allergies Allergies Allergy/AdvReac Type Severity Reaction Status Date / Time No Known Allergies Allergy Verified 01/29/21 23:11 Home Medications Medication Instructions Recorded Confirmed Last Taken Type Aspirin [Aspirin BABY CHEW TAB] 81 mg PO QDAY #30 tab.chew 11/01/20 01/28/21 Unknown Rx ISOSORBIDE MONOnitrate [Imdur ER] 30 mg PO QDAY #60 tablet 11/01/20 01/28/21 Unknown Rx Active Meds: Active Medications Acetaminophen (Acetaminophen 325 Mg Tab) 650 mg PO Q6H PRN PRN Reason: Pain, Mild (1-3) Aspirin (Aspirin Ec 325 Mg Tab) 325 mg PO QDAY [facility] Atorvastatin Calcium (Atorvastatin 40 Mg Tab) 40 mg PO QHS [facility] Furosemide (Furosemide 40 Mg/4 Ml Inj) 40 mg IV BID@0600,1800 [facility] Heparin Sodium (Porcine) (Heparin 5,000 Unit/1 Ml Vial) 5,000 unit SUB-Q Q8HR [facility] Hydromorphone HCl (Hydromorphone 1 Mg/1 Ml Inj) 0.5 mg IV Q3H PRN PRN Reason: Pain , Severe (7-10) Isosorbide Mononitrate (Isosorbide Mononitrate Er 30 Mg Tab) 30 mg PO QDAY [facility] Levofloxacin (Levofloxacin 750 Mg Tab) 750 mg PO Q24HR [facility]; Protocol Nitroglycerin (Nitroglycerin 0.4 Mg Tab Subl) 0.4 mg SL .Q5MIN PRN PRN Reason: Chest Pain Ondansetron HCl (Ondansetron 4 Mg/2 Ml Inj) 4 mg IV Q8H PRN PRN Reason: Nausea And Vomiting Oxycodone/Acetaminophen (Oxycodone /Acetaminophen 5-325mg Tab) 1 tab PO Q6H PRN PRN Reason: Pain, Moderate (4-6) Pantoprazole Sodium (Pantoprazole 40 Mg Tab) 40 mg PO QDAY [facility] Sodium Chloride (Sodium Chloride 0.9% 10 Ml Flush Syringe) 10 ml IV PRN PRN PRN Reason: LINE FLUSH Tramadol HCl (Tramadol 50 Mg Tab) 50 mg PO Q6H PRN PRN Reason: Pain, Moderate (4-6) Review of Systems All systems: negative Constitutional: fatigue, weakness Cardiovascular: shortness of breath, dyspnea on exertion Respiratory: shortness of breath, dyspnea on exertion Exam - Constitutional Vitals: Temp Pulse Resp BP Pulse Ox 97.9 F 108 H 24 137/77 97 01/30/21 01:25 01/30/21 04:30 01/30/21 04:30 01/30/21 04:30 01/30/21 04:30 General appearance: Present: no acute distress, well-nourished - EENT Eyes: Present: PERRL ENT: hearing intact, clear oral mucosa - Neck Neck: Present: supple, normal ROM - Respiratory Respiratory effort: normal Respiratory: bilateral: rales - Cardiovascular Heart Sounds: Present: S1 & S2. Absent: rub, click - Extremities Extremities: pulses symmetrical, No edema Peripheral Pulses: within normal limits - Abdominal General gastrointestinal: Present: soft, non-tender, non-distended, normal bowel sounds Male genitourinary: Present: normal - Integumentary Integumentary: Present: clear, warm, dry - Musculoskeletal Musculoskeletal: gait normal, strength equal bilaterally - Psychiatric Psychiatric: appropriate mood/affect, intact judgment & insight - Neurologic Neurologic: CNII-XII intact, moves all extremities HEART Score - HEART Score Troponin: Troponin T 0.441 ng/mL (0.00-0.029) H* 01/29/21 22:59 Results - Labs CBC & Chem 7: 01/29/21 22:59 01/29/21 22:59 Labs: Laboratory Last Values WBC 13.9 K/mm3 (4.5-11.0) H 01/29/21 22:59 RBC 4.87 M/mm3 (3.65-5.03) 01/29/21 22:59 Hgb 14.3 gm/dl (11.8-15.2) 01/29/21 22:59 Hct 43.0 % (35.5-45.6) 01/29/21 22:59 MCV 88 fl (84-94) 01/29/21 22:59 MCH 29 pg (28-32) 01/29/21 22:59 MCHC 33 % (32-34) 01/29/21 22:59 RDW 16.0 % (13.2-15.2) H 01/29/21 22:59 Plt Count 327 K/mm3 (140-440) 01/29/21 22:59 Lymph % (Auto) 4.3 % (13.4-35.0) L 01/29/21 22:59 Lea % (Auto) 7.5 % (0.0-7.3) H 01/29/21 22:59 Eos % (Auto) 0.0 % (0.0-4.3) 01/29/21 22:59 Baso % (Auto) 1.3 % (0.0-1.8) 01/29/21 22:59 Lymph # (Auto) 0.6 K/mm3 (1.2-5.4) L 01/29/21 22:59 Lea # (Auto) 1.0 K/mm3 (0.0-0.8) H 01/29/21 22:59 Eos # (Auto) 0.0 K/mm3 (0.0-0.4) 01/29/21 22:59 Baso # (Auto) 0.2 K/mm3 (0.0-0.1) H 01/29/21 22:59 Seg Neutrophils % 86.9 % (40.0-70.0) H 01/29/21 22:59 Seg Neutrophils # 12.0 K/mm3 (1.8-7.7) H 01/29/21 22:59 PT 16.3 Sec. (12.2-14.9) H 01/29/21 22:59 INR 1.18 (0.87-1.13) H 01/29/21 22:59 APTT 30.7 Sec. (24.2-36.6) 01/29/21 22:59 Sodium 137 mmol/L (137-145) 01/29/21 22:59 Potassium 4.6 mmol/L (3.6-5.0) 01/29/21 22:59 Chloride 100.8 mmol/L (98-107) 01/29/21 22:59 Carbon Dioxide 19 mmol/L (22-30) L 01/29/21 22:59 Anion Gap 22 mmol/L 01/29/21 22:59 BUN 77 mg/dL (9-20) H 01/29/21 22:59 Creatinine 2.6 mg/dL (0.8-1.3) H 01/29/21 22:59 Estimated GFR 32 ml/min 01/29/21 22:59 BUN/Creatinine Ratio 30 % 01/29/21 22:59 Glucose 199 mg/dL (75-100) H 01/29/21 22:59 Lactic Acid 1.50 mmol/L (0.7-2.0) 01/29/21 22:59 Calcium 9.6 mg/dL (8.4-10.2) 01/29/21 22:59 Total Bilirubin 0.50 mg/dL (0.1-1.2) 01/29/21 22:59 AST 74 units/L (5-40) H 01/29/21 22:59 ALT 56 units/L (7-56) 01/29/21 22:59 Alkaline Phosphatase 61 units/L (35-129) 01/29/21 22:59 Troponin T 0.441 ng/mL (0.00-0.029) H* 01/29/21 22:59 NT-Pro-B Natriuret Pep 3305 pg/mL (0-900) H 01/29/21 22:59 Total Protein 7.7 g/dL (6.3-8.2) 01/29/21 22:59 Albumin 3.7 g/dL (3.9-5) L 01/29/21 22:59 Albumin/Globulin Ratio 0.9 % 01/29/21 22:59 Urine Color Yellow (Yellow) 01/30/21 01:21 Urine Turbidity Slightly-cloudy (Clear) 01/30/21 01:21 Urine pH 5.0 (5.0-7.0) 01/30/21 01:21 Ur Specific Hurley 1.016 (1.003-1.030) 01/30/21 01:21 Urine Protein 30 mg/dl mg/dL (Negative) 01/30/21 01:21 Urine Glucose (UA) Neg mg/dL (Negative) 01/30/21 01:21 Urine Ketones Neg mg/dL (Negative) 01/30/21 01:21 Urine Blood Lg (Negative) 01/30/21 01:21 Urine Nitrite Neg (Negative) 01/30/21 01:21 Urine Bilirubin Neg (Negative) 01/30/21 01:21 Urine Urobilinogen < 2.0 mg/dL (<2.0) 01/30/21 01:21 Ur Leukocyte Esterase Neg (Negative) 01/30/21 01:21 Urine WBC (Auto) 3.0 /HPF (0.0-6.0) 01/30/21 01:21 Urine RBC (Auto) 38.0 /HPF (0.0-6.0) 01/30/21 01:21 U Epithel Cells (Auto) < 1.0 /HPF (0-13.0) 01/30/21 01:21 Urine Mucus Few /HPF 01/30/21 01:21 Urine Yeast (Budding) 1+ /HPF 01/30/21 01:21 Microbiology: Microbiology 01/29/21 22:54 Peripheral/Venous Blood Culture - Preliminary Culture in Progress 01/29/21 22:59 Peripheral/Venous Blood Culture - Preliminary Culture in Progress - Imaging and Cardiology Chest x-ray: report reviewed Assessment and Plan VTE prophylaxis?: Chemical Plan of care discussed with patient/family: Yes - Patient Problems (1) New onset of congestive heart failure Current Visit: No Status: Acute Plan to address problem: Admit the patient to the medical telemetry. Cardiac diet. Oxygen via nasal cannula it assistant pulmonate. Fluid restriction. Maintain input output. Lasix 40 mg IV daily. Echocardiogram. Consult cardiology for evaluation (2) Elevated troponin Current Visit: No Status: Acute Plan to address problem: Aspirin 325 mg p.o. daily. Lipitor 40 mg p.o. daily. Nitroglycerin as needed. Do the serial cardiac enzymes. Echocardiogram. Cardiology evaluation (3) Pneumonia Current Visit: Yes Status: Acute Plan to address problem: Levaquin 750 mg p.o. daily. DuoNeb by nebulizer every 4 hours. We do the blood cultures sputum culture. Recheck CBC BMP in the morning (4) AMERICA (acute kidney injury) Current Visit: No Status: Acute Plan to address problem: Avoid nephrotoxic drug. Renally dose medication recheck BMP in the morning. Will consult nephrology . (5) Hypertension Current Visit: Yes Status: Acute Plan to address problem: Imdur 30 mg p.o. daily. We will continue the home medication we will monitor the patient closely . (6) DVT prophylaxis Current Visit: No Status: Acute Plan to address problem: Heparin 5000 units subcu every 8 hours for DVT prophylaxis. Protonix 40 mg p.o. daily for GI prophylaxis (7) Full code status Current Visit: No Status: Acute Plan to address problem: Patient is a full code
[2021-01-30] MEDS ORDERED: FUROSEMIDE 40 MG/4 ML INJ IV SCH (06:00)
[2021-01-30] MEDS: HEPARIN 5,000 UNIT/1 ML VIAL SUB-Q SCH ×3 (06:02→23:23)
[2021-01-30] MEDS ORDERED: LORazepam 2 MG/ML VIAL IV ONE (06:23)
[2021-01-30 07:32] LABS: Calcium 9.1 mg/dL (8.4-10.2)
[2021-01-30] MEDS ORDERED: levoFLOXacin 750 MG TAB PO SCH (10:00)
--- NOTE | 2021-01-30 11:11 | Progress Note ---
Assessment and Plan Acute Renal Failure on CKD COVID-19 rule out Pneumonia Acute Respiratory Failure Hypertension, now Hypotensive CHF Plan: stable kidney function CHF-On Lasix 40 mg IV daily Monitor I/O's daily Renally dose medications Obtain daily weights Will monitor renal function closely no acute indication for D[facility]ISER Subjective Date of service: 01/30/21 Principal diagnosis: AMERICA Interval history: no acute distress Objective - Vital Signs Vital signs: Vital Signs - 12hr 01/29/21 01/30/21 01/30/21 23:50 00:30 01:00 Temperature Pulse Rate 97 H 109 H 101 H Respiratory 24 29 H 28 H Rate Blood Pressure 135/92 129/90 Blood Pressure 131/93 [Left] O2 Sat by Pulse 98 92 Oximetry 01/30/21 01/30/21 01/30/21 01:25 02:00 03:00 Temperature 97.9 F Pulse Rate 101 H 103 H Respiratory 28 H 35 H Rate Blood Pressure 131/91 124/80 Blood Pressure [Left] O2 Sat by Pulse 95 95 94 Oximetry 01/30/21 01/30/21 01/30/21 04:30 05:16 05:30 Temperature 97.7 F Pulse Rate 108 H 101 H Respiratory 24 27 H Rate Blood Pressure 137/77 129/85 Blood Pressure [Left] O2 Sat by Pulse 97 98 Oximetry - Lab 01/29/21 22:59 01/31/21 06:15 Most recent lab results Calcium 9.1 mg/dL (8.4-10.2) 01/30/21 07:08 Medications & Allergies - Medications Allergies/Adverse Reactions: Allergies No Known Allergies Allergy (Verified 01/29/21 23:11) Home Medications: Home Medications Medication Instructions Recorded Confirmed Last Taken Type ISOSORBIDE MONOnitrate [Imdur ER] 30 mg PO QDAY #60 tablet 11/01/20 01/31/21 Unknown Rx Furosemide [Lasix] 20 mg PO QDAY 01/31/21 01/31/21 Unknown History Hydralazine HCl 50 mg PO BID 01/31/21 01/31/21 Unknown History Metoprolol [Lopressor TAB] 50 mg PO BID 01/31/21 01/31/21 Unknown History NIFEdipine XL [Procardia Xl] 1 tab PO BID 01/31/21 01/31/21 Unknown History Spironolactone [Aldactone] 25 mg PO QDAY 01/31/21 01/31/21 Unknown History Active Medications: Generic Name Dose Route Start Last Admin Trade Name Freq PRN Reason Stop Dose Admin Acetaminophen 650 mg 01/30/21 05:01 Acetaminophen 325 Mg Tab PO Q6H PRN Pain, Mild (1-3) Aspirin 325 mg 01/31/21 10:00 Aspirin Ec 325 Mg Tab PO QDAY [facility] Atorvastatin Calcium 40 mg 01/30/21 22:00 Atorvastatin 40 Mg Tab PO QHS [facility] Furosemide 40 mg 01/30/21 10:00 Furosemide 40 Mg/4 Ml Inj IV QDAY [facility] Heparin Sodium (Porcine) 5,000 unit 01/30/21 06:00 01/30/21 06:02 Heparin 5,000 Unit/1 Ml Vial SUB-Q 5,000 unit Q8HR [facility] Administration Hydromorphone HCl 0.5 mg 01/30/21 05:01 Hydromorphone 1 Mg/1 Ml Inj IV Q3H PRN Pain , Severe (7-10) Isosorbide Mononitrate 30 mg 01/30/21 10:00 Isosorbide Mononitrate Er 30 Mg Tab PO QDAY [facility] Levofloxacin 750 mg 01/30/21 10:00 Levofloxacin 750 Mg Tab PO Q48HR [facility] Protocol Nitroglycerin 0.4 mg 01/30/21 05:01 Nitroglycerin 0.4 Mg Tab Subl SL .Q5MIN PRN Chest Pain Ondansetron HCl 4 mg 01/30/21 05:01 Ondansetron 4 Mg/2 Ml Inj IV Q8H PRN Nausea And Vomiting Oxycodone/Acetaminophen 1 tab 01/30/21 05:01 Oxycodone /Acetaminophen 5-325mg Tab PO Q6H PRN Pain, Moderate (4-6) Pantoprazole Sodium 40 mg 01/30/21 10:00 Pantoprazole 40 Mg Tab PO QDAY [facility] Sodium Chloride 10 ml 01/30/21 05:01 Sodium Chloride 0.9% 10 Ml Flush Syringe IV PRN PRN LINE FLUSH Tramadol HCl 50 mg 01/30/21 05:01 Tramadol 50 Mg Tab PO Q6H PRN Pain, Moderate (4-6)
--- NOTE | 2021-01-30 11:23 | Progress Note ---
Assessment and Plan Consider confirmatory testing for PE given significant increase in D-dimer, as well as sinus tachycardia. Continue IV Lasix 40mg daily with strict I/Os and close monitoring of renal indices. Will resume beta lexi when BP permits. Aldactone and ACEI/ARB deferred at this time due to renal fxn. CE elevation appears consistent with NSTEMI Type 2 in the setting of hypoxia, with some degree of elevation secondary to AMERICA. Pt denies chest pain. No acute ischemic changes on ECG. Recent Lexiscan stress MPI 10/2020 revealed no evidence of ischemia or scar. Pt seen in conjunction with Dr. Meza, who agrees with the assessment and plan of care. - Patient Problems (1) Acute encephalopathy Current Visit: Yes Status: Acute (2) Acute respiratory failure with hypoxia Current Visit: Yes Status: Acute (3) Pneumonia Current Visit: Yes Status: Acute (4) Suspected COVID-19 virus infection Current Visit: Yes Status: Acute (5) Acute on chronic HFrEF (heart failure with reduced ejection fraction) Current Visit: Yes Status: Acute (6) NICM (nonischemic cardiomyopathy) Current Visit: Yes Status: Chronic (7) Acute kidney injury superimposed on CKD Current Visit: Yes Status: Acute (8) NSTEMI (non-ST elevated myocardial infarction) Current Visit: Yes Status: Acute (9) Elevated d-dimer Current Visit: Yes Status: Acute (10) Hypertension Current Visit: Yes Status: Chronic Qualifiers: Hypertension type: primary hypertension Qualified Code(s): I10 - Essential (primary) hypertension (11) HLD (hyperlipidemia) Current Visit: Yes Status: Chronic Qualifiers: Hyperlipidemia type: mixed hyperlipidemia Qualified Code(s): E78.2 - Mixed hyperlipidemia (12) Medical non-compliance Current Visit: Yes Status: Chronic Subjective Date of service: 01/30/21 Principal diagnosis: HFrEF Interval history: Left AMA yesterday evening and re-presented shortly thereafter. Resting in bed this AM. Not responding to questions. Objective Last Vital Signs Temp 97.7 F 01/30/21 05:16 Pulse 101 H 01/30/21 05:30 Resp 27 H 01/30/21 05:30 BP 129/85 01/30/21 05:30 Pulse Ox 98 01/30/21 05:30 - Physical Examination General: No Apparent Distress HEENT: Positive: Normocephaly, Mucus Membranes Moist Neck: Positive: neck supple, trachea midline. Negative: JVD/HJR Cardiac: Positive: Reg Rate and Rhythm, S1/S2 Lungs: Positive: Decreased Breath Sounds Neuro: Positive: Other (non-verbal) Abdomen: Positive: Soft Skin: Negative: Rash Extremities: Present: lower extr. pulses. Absent: edema - Labs and Meds Cardiac Enzymes 01/29/21 Range/Units 22:59 AST 74 H (5-40) units/L Coagulation 01/29/21 Range/Units 22:59 PT 16.3 H (12.2-14.9) Sec. INR 1.18 H (0.87-1.13) APTT 30.7 (24.2-36.6) Sec. CBC 01/29/21 Range/Units 22:59 WBC 13.9 H (4.5-11.0) K/mm3 RBC 4.87 (3.65-5.03) M/mm3 Hgb 14.3 (11.8-15.2) gm/dl Hct 43.0 (35.5-45.6) % Plt Count 327 (140-440) K/mm3 Lymph # (Auto) 0.6 L (1.2-5.4) K/mm3 Bond # (Auto) 1.0 H (0.0-0.8) K/mm3 Eos # (Auto) 0.0 (0.0-0.4) K/mm3 Baso # (Auto) 0.2 H (0.0-0.1) K/mm3 Comprehensive Metabolic Panel 01/29/21 01/30/21 Range/Units 22:59 07:08 Sodium 137 139 (137-145) mmol/L Potassium 4.6 4.5 (3.6-5.0) mmol/L Chloride 100.8 106.4 (98-107) mmol/L Carbon Dioxide 19 L 19 L (22-30) mmol/L BUN 77 H 74 H (9-20) mg/dL Creatinine 2.6 H 2.5 H (0.8-1.3) mg/dL Glucose 199 H 136 H (75-100) mg/dL Calcium 9.6 9.1 (8.4-10.2) mg/dL AST 74 H (5-40) units/L ALT 56 (7-56) units/L Alkaline Phosphatase 61 (35-129) units/L Total Protein 7.7 (6.3-8.2) g/dL Albumin 3.7 L (3.9-5) g/dL - Imaging and Cardiology EKG: report reviewed, image reviewed Pharmacologic stress test: report reviewed (10/2020 - no evidence of ischemia or scar) Echo: report reviewed (10/2020 - EF 10-15%, mild LVH, LV severely dilated, RV mod dilated, RV mildly hypokinetic, trace AR, mild MR, severe TR, RVSP 39mmHg, trace AK.) - Telemetry EKG Rhythm: Sinus Tachycardia - EKG Sinus rhythms and dysrhythmias: sinus tachycardia Chamber hypertrophy or enlargement: left atrial enlargement, right atrial enlargment, left ventricular hypertro - Allied health notes Allied health notes reviewed: nursing
--- NOTE | 2021-01-30 11:56 | Electrocardiograph Report ---
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
[2021-01-30] MEDS: levoFLOXacin 750 MG TAB PO SCH (12:49)
[2021-01-30] MEDS: FUROSEMIDE 40 MG/4 ML INJ IV SCH (12:49)
[2021-01-30] MEDS: PANTOPRAZOLE 40 MG TAB PO SCH (12:49)
--- NOTE | 2021-01-30 20:02 | Event Note ---
Date: 01/30/21 Patient is admitted earlier today. He is seen and examined by me. Briefly, 50-year-old male with PMH of severe systolic heart failure, LVEF 10 to 15% and a negative Lexiscan in 10/30, NICM, CKD 3 presents with a 2-week history dyspnea and found to be hypoxic and confused. Tested positive for COVID-19. Acute hypoxic respiratory failure Tested negative for COVID-19 Suspected Covid pneumonia D-dimer 2388 Chest v-mef-[id number] to be pulmonary edema rather than typical COVID-19 pneumonia Chronic severe systolic heart failure, LVEF from 2050% in 10/30 NICM with a negative Lexiscan in 10/30 Mild troponin elevation in the setting of AMERICA/CKD BNP is 7973 AMERICA on CKD 3, creatinine 2.6 versus of 1.8 in 10/30 AMS/encephalopathyvery confused We will continue current management and monitor closely Cardiology nephrology consulted Discussed with the nursing staff
[2021-01-31] MEDS: HEPARIN 5,000 UNIT/1 ML VIAL SUB-Q SCH ×3 (06:26→22:21)
[2021-01-31 07:35] LABS: Calcium 8.7 mg/dL (8.4-10.2)
--- NOTE | 2021-01-31 09:21 | Electrocardiograph Report ---
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
[2021-01-31] MEDS: ASPIRIN EC 325 MG TAB PO SCH (09:58)
[2021-01-31] MEDS: FUROSEMIDE 40 MG/4 ML INJ IV SCH (09:59)
[2021-01-31] MEDS: PANTOPRAZOLE 40 MG TAB PO SCH (09:59)
[2021-01-31] MEDS: METOPROLOL TARTRATE 50 MG TAB PO SCH ×2 (10:00→22:21)
[2021-01-31] MEDS: hydrALAZINE 25 MG TAB PO SCH ×2 (10:00→22:21)
[2021-01-31] MEDS ORDERED: NON-FORMULARY EACH (Hydralazine Hcl [Hydralazine Hcl] 50 MG Tablet) PO SCH (10:00)
--- NOTE | 2021-01-31 11:06 | Progress Note ---
Assessment and Plan Patient is a 50-year-old male with a past medical history of HFrEF (EF 10 to 15%) and hypertension who presented to [facility] with complaint of progressively worsening fatigue and shortness of breath x 2-week HFrEF NSTEMI suspect type 2 EKG sinus tachycardia 112, no acute ischemic changes. Troponin elevated but down trending .57->.53->.368 Patient is currently chest pain-free. Echocardiogram 10/2020 is EF 10-15%, Left ventricle severely dilated, mild LVH, right ventricle moderately dilated, severe tricuspid regurgitation, Lexiscan MPI stress test11/01/2020- negative for ischemia Outpatient medications: asa, Imdur 30mg PO Qd, hydralizine 25mg PO Bid, metoprolol 100mg PO BID, Nifedipine XL 60mg PO QD, Lasix 40 mg PO daily, Aldactone 25 QD. . AMERICA Nephrology is following PUI Elevated D-dimer COVID PCR positive CXR shows patchy bilateral pulmonary opacities ID following Acute hypoxic respiratory failure Management per primary team Plan: Continue IV Lasix 40mg daily with strict I/Os and close monitoring of renal indices Aldactone and ACEI/ARB deferred at this time due to renal fxn Initiate hydralizine 50mg PO BID and Metoprolol 50mg PO BID for BP control. If patient BP remains high may increase metoprolol and/or restart CCB Pt seen in conjunction with Dr. Meza, who agrees with the assessment and plan of care. - Patient Problems (1) Acute encephalopathy Current Visit: Yes Status: Acute (2) Acute kidney injury superimposed on CKD Current Visit: Yes Status: Acute (3) Acute on chronic HFrEF (heart failure with reduced ejection fraction) Current Visit: Yes Status: Acute (4) Elevated d-dimer Current Visit: Yes Status: Acute (5) NSTEMI (non-ST elevated myocardial infarction) Current Visit: Yes Status: Acute (6) Pneumonia Current Visit: Yes Status: Acute (7) Suspected COVID-19 virus infection Current Visit: Yes Status: Acute (8) NICM (nonischemic cardiomyopathy) Current Visit: Yes Status: Chronic (9) Acute respiratory failure Current Visit: No Status: Acute Qualifiers: Respiratory failure complication: hypoxia Qualified Code(s): J96.01 - Acute respiratory failure with hypoxia (10) Bilateral pneumonia Current Visit: No Status: Acute (11) Elevated troponin Current Visit: No Status: Acute Subjective Date of service: 01/31/21 Principal diagnosis: HFrEF Interval history: Patient resting in bed in no acute distress. Sinus tach 106 trending in 90s-100s Objective Vital Signs Temp Pulse Resp BP BP Pulse Ox 01/31/21 05:25 99.2 F 111 H 18 140/100 95 01/30/21 21:59 94 01/30/21 21:04 96 01/30/21 20:55 98.9 F 95 H 18 143/93 88 01/30/21 17:13 98.4 F 95 H 24 148/106 90 01/30/21 14:50 92 01/30/21 14:40 89 01/30/21 14:30 134/92 88 01/30/21 14:20 134/92 87 01/30/21 14:10 134/92 89 01/30/21 14:00 134/92 91 01/30/21 13:50 134/92 90 01/30/21 13:40 134/92 89 01/30/21 13:30 134/92 90 01/30/21 13:20 134/92 90 01/30/21 13:10 134/92 89 01/30/21 13:00 134/92 88 01/30/21 12:50 134/92 92 01/30/21 12:40 134/92 89 01/30/21 12:30 134/92 98 01/30/21 12:20 134/92 96 01/30/21 12:10 134/92 98 01/30/21 12:00 134/92 99 01/30/21 11:50 134/92 94 01/30/21 11:40 134/92 98 01/30/21 11:35 97.8 F 84 20 140/85 96 01/30/21 11:30 134/92 98 01/30/21 11:20 134/92 98 01/30/21 11:10 134/92 98 - Physical Examination General: No Apparent Distress HEENT: Positive: Normocephaly, Mucus Membranes Moist Neck: Positive: neck supple, trachea midline. Negative: JVD/HJR Cardiac: Positive: Regular Rhythm, Tachycardia Lungs: Positive: Decreased Breath Sounds Neuro: Positive: Grossly Intact, Other (non-verbal) Abdomen: Positive: Soft Skin: Negative: Rash Extremities: Present: lower extr. pulses. Absent: edema - Labs and Meds Comprehensive Metabolic Panel 01/31/21 Range/Units 06:15 Sodium 143 (137-145) mmol/L Potassium 5.0 (3.6-5.0) mmol/L Chloride 109.6 H (98-107) mmol/L Carbon Dioxide 21 L (22-30) mmol/L BUN 59 H (9-20) mg/dL Creatinine 2.0 H (0.8-1.3) mg/dL Glucose 83 (75-100) mg/dL Calcium 8.7 (8.4-10.2) mg/dL - Imaging and Cardiology EKG: report reviewed, image reviewed Echo: report reviewed (10/2020 - EF 10-15%, mild LVH, LV severely dilated, RV mod dilated, RV mildly hypokinetic, trace AR, mild MR, severe TR, RVSP 39mmHg, trace RI.) Cardiac cath: report reviewed - Telemetry EKG Rhythm: Sinus Tachycardia - EKG Sinus rhythms and dysrhythmias: sinus tachycardia Chamber hypertrophy or enlargement: left atrial enlargement, right atrial enlargment, left ventricular hypertro - Allied health notes Allied health notes reviewed: nursing
--- NOTE | 2021-01-31 11:47 | Progress Note ---
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 Subjective Date of service: 01/31/21 Principal diagnosis: AMERICA Interval history: no acute events documented Objective - Vital Signs Vital signs: Vital Signs - 12hr 01/31/21 05:25 Temperature 99.2 F Pulse Rate 111 H Respiratory 18 Rate Blood Pressure 140/100 O2 Sat by Pulse 95 Oximetry - Lab 01/29/21 22:59 01/31/21 06:15 Most recent lab results Calcium 8.7 mg/dL (8.4-10.2) 01/31/21 06:15 Medications & Allergies - Medications Allergies/Adverse Reactions: Allergies No Known Allergies Allergy (Verified 01/29/21 23:11) Home Medications: Home Medications Medication Instructions Recorded Confirmed Last Taken Type ISOSORBIDE MONOnitrate [Imdur ER] 30 mg PO QDAY #60 tablet 11/01/20 01/31/21 Unknown Rx Furosemide [Lasix] 20 mg PO QDAY 01/31/21 01/31/21 Unknown History Hydralazine HCl 50 mg PO BID 01/31/21 01/31/21 Unknown History Metoprolol [Lopressor TAB] 50 mg PO BID 01/31/21 01/31/21 Unknown History NIFEdipine XL [Procardia Xl] 1 tab PO BID 01/31/21 01/31/21 Unknown History Spironolactone [Aldactone] 25 mg PO QDAY 01/31/21 01/31/21 Unknown History Active Medications: Generic Name Dose Route Start Last Admin Trade Name Freq PRN Reason Stop Dose Admin Acetaminophen 650 mg 01/30/21 05:01 Acetaminophen 325 Mg Tab PO Q6H PRN Pain, Mild (1-3) Aspirin 325 mg 01/31/21 10:00 01/31/21 09:58 Aspirin Ec 325 Mg Tab PO 325 mg QDAY CATALINA Administration Atorvastatin Calcium 40 mg 01/30/21 22:00 01/30/21 23:23 Atorvastatin 40 Mg Tab PO 40 mg QHS CATALINA Administration Furosemide 40 mg 01/30/21 10:00 01/31/21 09:59 Furosemide 40 Mg/4 Ml Inj IV 40 mg QDAY CATALINA Administration Heparin Sodium (Porcine) 5,000 unit 01/30/21 06:00 01/31/21 06:26 Heparin 5,000 Unit/1 Ml Vial SUB-Q 5,000 unit Q8HR CATALINA Administration Hydralazine HCl 50 mg 01/31/21 10:00 01/31/21 10:00 Hydralazine 25 Mg Tab PO 50 mg BID CATALINA Administration Hydromorphone HCl 0.5 mg 01/30/21 05:01 Hydromorphone 1 Mg/1 Ml Inj IV Q3H PRN Pain , Severe (7-10) Isosorbide Mononitrate 30 mg 01/30/21 10:00 01/31/21 09:58 Isosorbide Mononitrate Er 30 Mg Tab PO 30 mg QDAY CATALINA Administration Levofloxacin 750 mg 01/30/21 10:00 01/30/21 12:49 Levofloxacin 750 Mg Tab PO 750 mg Q48HR CATALINA Administration Protocol Metoprolol Tartrate 50 mg 01/31/21 10:00 01/31/21 10:00 Metoprolol Tartrate 50 Mg Tab PO 50 mg BID CATALINA Administration Nitroglycerin 0.4 mg 01/30/21 05:01 Nitroglycerin 0.4 Mg Tab Subl SL .Q5MIN PRN Chest Pain Ondansetron HCl 4 mg 01/30/21 05:01 Ondansetron 4 Mg/2 Ml Inj IV Q8H PRN Nausea And Vomiting Oxycodone/Acetaminophen 1 tab 01/30/21 05:01 Oxycodone /Acetaminophen 5-325mg Tab PO Q6H PRN Pain, Moderate (4-6) Pantoprazole Sodium 40 mg 01/30/21 10:00 01/31/21 09:59 Pantoprazole 40 Mg Tab PO 40 mg QDAY CATALINA Administration Sodium Chloride 10 ml 01/30/21 05:01 Sodium Chloride 0.9% 10 Ml Flush Syringe IV PRN PRN LINE FLUSH Tramadol HCl 50 mg 01/30/21 05:01 Tramadol 50 Mg Tab PO Q6H PRN Pain, Moderate (4-6)
[2021-01-31 13:31] LABS: ABG Base Excess -3.5 mmol/L (-2.0-3.0); ABG HCO3 19.6 mmol/L (20.0-26.0); ABG Methemoglobin 0.5 % (0.0-1.5); ABG Oxygen Saturation 96.2 % (95.0-99.0); ABG PCO2 29.6 mm Hg; ABG PH 7.44 pH Units (7.350-7.450); ABG PO2 76.4 mm Hg (80.0-90.0)
--- NOTE | 2021-01-31 18:43 | Progress Note ---
Assessment and Plan Assessment and plan: 50-year-old male with PMH of severe systolic heart failure, LVEF 10 to 15% and a negative Lexiscan in 10/30, NICM, CKD 3 presents with a 2-week history dyspnea and found to be hypoxic and confused. Tested positive for COVID-19. Acute hypoxic respiratory failure Tested negative for COVID-19 Suspected Covid pneumonia D-dimer 2388 Chest [id number] to be pulmonary edema rather than typical COVID-19 pneumonia Chronic severe systolic heart failure, LVEF from 2050% in 10/30 NICM with a negative Lexiscan in 10/30 Mild troponin elevation in the setting of AMERICA/CKD BNP is 7973 AMERICA on CKD 3, creatinine 2.6 versus of 1.8 in 10/30 AMS/encephalopathy Plan: Remains afebrile with stable vital signs Monitor markers of inflammation for COVID-19 Appears to be less confused and more alert today. Will discontinue all narcotics and continue to monitor CT head ABG today 7.49, 21, 70s, on 0.28 FiO2 Continue Decadron Lovenox for elevated D-dimer for now Ultrasound rule out DVT CTA chest deferred due to AMERICA Continue Lasix 40 mg IV daily along with other heart failure regimen, per cardiology Creatinine is improving from 2.6-2.0, nephrology is following Discussed with the nursing staff. History Interval history: Patient remains confused but more alert and less confused today. Remains on on O2 but has not in severe respiratory distress.. Unable to provide reliable history due to confusion. Remains afebrile with a stable vital signs. On Lasix 40 mg IV, urine output not documented. Tolerating diet. Hospitalist Physical - Constitutional Vitals: Temp Pulse Resp BP Pulse Ox 97.6 F 93 H 22 116/82 98 01/31/21 17:23 01/31/21 17:23 01/31/21 17:23 01/31/21 17:23 01/31/21 17:23 General appearance: Present: no acute distress, disheveled, other (Awake, fairly alert but confused) - EENT Eyes: Present: PERRL, EOM intact ENT: hearing intact, clear oral mucosa - Neck Neck: Present: supple - Respiratory Respiratory effort: other (Mildly dyspneic but no acute respite distress) Respiratory: bilateral: diminished (No wheezes or rales.) - Cardiovascular Rhythm: regular Heart Sounds: Present: systolic murmur (Soft) - Extremities Extremities: No edema - Abdominal General gastrointestinal: soft, non-tender, non-distended, normal bowel sounds - Integumentary Integumentary: Absent: rash - Psychiatric Psychiatric: other (Confused) - Neurologic Neurologic: no focal deficits, moves all extremities, other (Awake, fairly alert but confused though better. Thinks he is at the [facility]. Names [place] president name and current year ) HEART Score - HEART Score Troponin: Troponin T 0.441 ng/mL (0.00-0.029) H* 01/29/21 22:59 Results - Labs CBC & Chem 7: 01/29/21 22:59 01/31/21 06:15 Labs: Laboratory Last Values WBC 13.9 K/mm3 (4.5-11.0) H 01/29/21 22:59 RBC 4.87 M/mm3 (3.65-5.03) 01/29/21 22:59 Hgb 14.3 gm/dl (11.8-15.2) 01/29/21 22:59 Hct 43.0 % (35.5-45.6) 01/29/21 22:59 MCV 88 fl (84-94) 01/29/21 22:59 MCH 29 pg (28-32) 01/29/21 22:59 MCHC 33 % (32-34) 01/29/21 22:59 RDW 16.0 % (13.2-15.2) H 01/29/21 22:59 Plt Count 327 K/mm3 (140-440) 01/29/21 22:59 Lymph % (Auto) 4.3 % (13.4-35.0) L 01/29/21 22:59 [place] % (Auto) 7.5 % (0.0-7.3) H 01/29/21 22:59 Eos % (Auto) 0.0 % (0.0-4.3) 01/29/21 22:59 Baso % (Auto) 1.3 % (0.0-1.8) 01/29/21 22:59 Lymph # (Auto) 0.6 K/mm3 (1.2-5.4) L 01/29/21 22:59 [place] # (Auto) 1.0 K/mm3 (0.0-0.8) H 01/29/21 22:59 Eos # (Auto) 0.0 K/mm3 (0.0-0.4) 01/29/21 22:59 Baso # (Auto) 0.2 K/mm3 (0.0-0.1) H 01/29/21 22:59 Seg Neutrophils % 86.9 % (40.0-70.0) H 01/29/21 22:59 Seg Neutrophils # 12.0 K/mm3 (1.8-7.7) H 01/29/21 22:59 PT 16.3 Sec. (12.2-14.9) H 01/29/21 22:59 INR 1.18 (0.87-1.13) H 01/29/21 22:59 APTT 30.7 Sec. (24.2-36.6) 01/29/21 22:59 ABG pH 7.440 pH Units (7.350-7.450) 01/31/21 13:10 ABG pCO2 29.6 mm Hg 01/31/21 13:10 ABG pO2 76.4 mm Hg (80.0-90.0) L 01/31/21 13:10 ABG HCO3 19.6 mmol/L (20.0-26.0) L 01/31/21 13:10 ABG O2 Saturation 96.2 % (95.0-99.0) 01/31/21 13:10 ABG O2 Content 15.5 (0.0-44) 01/31/21 13:10 ABG Base Excess -3.5 mmol/L (-2.0-3.0) L 01/31/21 13:10 ABG Hemoglobin 11.6 gm/dl (14.0-18.0) L 01/31/21 13:10 ABG Carboxyhemoglobin 1.2 % (0.0-5.0) 01/31/21 13:10 ABG Methemoglobin 0.5 % (0.0-1.5) 01/31/21 13:10 Oxyhemoglobin 94.5 % (95.0-99.0) L 01/31/21 13:10 FiO2 28 % 01/31/21 13:10 Sodium 143 mmol/L (137-145) 01/31/21 06:15 Potassium 5.0 mmol/L (3.6-5.0) 01/31/21 06:15 Chloride 109.6 mmol/L (98-107) H 01/31/21 06:15 Carbon Dioxide 21 mmol/L (22-30) L 01/31/21 06:15 Anion Gap 17 mmol/L 01/31/21 06:15 BUN 59 mg/dL (9-20) H 01/31/21 06:15 Creatinine 2.0 mg/dL (0.8-1.3) H 01/31/21 06:15 Estimated GFR 43 ml/min 01/31/21 06:15 BUN/Creatinine Ratio 30 % 01/31/21 06:15 Glucose 83 mg/dL (75-100) 01/31/21 06:15 Lactic Acid 1.50 mmol/L (0.7-2.0) 01/29/21 22:59 Calcium 8.7 mg/dL (8.4-10.2) 01/31/21 06:15 Total Bilirubin 0.50 mg/dL (0.1-1.2) 01/29/21 22:59 AST 74 units/L (5-40) H 01/29/21 22:59 ALT 56 units/L (7-56) 01/29/21 22:59 Alkaline Phosphatase 61 units/L (35-129) 01/29/21 22:59 Troponin T 0.441 ng/mL (0.00-0.029) H* 01/29/21 22:59 NT-Pro-B Natriuret Pep 3305 pg/mL (0-900) H 01/29/21 22:59 Total Protein 7.7 g/dL (6.3-8.2) 01/29/21 22:59 Albumin 3.7 g/dL (3.9-5) L 01/29/21 22:59 Albumin/Globulin Ratio 0.9 % 01/29/21 22:59 Urine Color Yellow (Yellow) 01/30/21 01:21 Urine Turbidity Slightly-cloudy (Clear) 01/30/21 01:21 Urine pH 5.0 (5.0-7.0) 01/30/21 01:21 Ur Specific Kake 1.016 (1.003-1.030) 01/30/21 01:21 Urine Protein 30 mg/dl mg/dL (Negative) 01/30/21 01:21 Urine Glucose (UA) Neg mg/dL (Negative) 01/30/21 01:21 Urine Ketones Neg mg/dL (Negative) 01/30/21 01:21 Urine Blood Lg (Negative) 01/30/21 01:21 Urine Nitrite Neg (Negative) 01/30/21 01:21 Urine Bilirubin Neg (Negative) 01/30/21 01:21 Urine Urobilinogen < 2.0 mg/dL (<2.0) 01/30/21 01:21 Ur Leukocyte Esterase Neg (Negative) 01/30/21 01:21 Urine WBC (Auto) 3.0 /HPF (0.0-6.0) 01/30/21 01:21 Urine RBC (Auto) 38.0 /HPF (0.0-6.0) 01/30/21 01:21 U Epithel Cells (Auto) < 1.0 /HPF (0-13.0) 01/30/21 01:21 Urine Mucus Few /HPF 01/30/21 01:21 Urine Yeast (Budding) 1+ /HPF 01/30/21 01:21 Coronavirus (PCR) Positive (Negative) A 01/30/21 Unknown Microbiology: Microbiology 01/29/21 22:54 Peripheral/Venous Blood Culture - Preliminary NO GROWTH AFTER 24 HOURS 01/29/21 22:59 Peripheral/Venous Blood Culture - Preliminary NO GROWTH AFTER 24 HOURS Sanchez/IV: Voiding Method Toilet Active Medications - Current Medications Current Medications: Generic Name Dose Route Start Last Admin Trade Name Freq PRN Reason Stop Dose Admin Acetaminophen 650 mg 01/30/21 05:01 Acetaminophen 325 Mg Tab PO Q6H PRN Pain, Mild (1-3) Aspirin 325 mg 01/31/21 10:00 01/31/21 09:58 Aspirin Ec 325 Mg Tab PO 325 mg QDAY CATALINA Administration Atorvastatin Calcium 40 mg 01/30/21 22:00 01/30/21 23:23 Atorvastatin 40 Mg Tab PO 40 mg QHS CATALINA Administration Heparin Sodium (Porcine) 5,000 unit 01/30/21 06:00 01/31/21 15:02 Heparin 5,000 Unit/1 Ml Vial SUB-Q 5,000 unit Q8HR CATALINA Administration Hydralazine HCl 50 mg 01/31/21 10:00 01/31/21 10:00 Hydralazine 25 Mg Tab PO 50 mg BID CATALINA Administration Hydromorphone HCl 0.5 mg 01/30/21 05:01 Hydromorphone 1 Mg/1 Ml Inj IV Q3H PRN Pain , Severe (7-10) Isosorbide Mononitrate 30 mg 01/30/21 10:00 01/31/21 09:58 Isosorbide Mononitrate Er 30 Mg Tab PO 30 mg QDAY CATALINA Administration Levofloxacin 750 mg 01/30/21 10:00 01/30/21 12:49 Levofloxacin 750 Mg Tab PO 750 mg Q48HR CATALINA Administration Protocol Metoprolol Tartrate 50 mg 01/31/21 10:00 01/31/21 10:00 Metoprolol Tartrate 50 Mg Tab PO 50 mg BID CATALINA Administration Nitroglycerin 0.4 mg 01/30/21 05:01 Nitroglycerin 0.4 Mg Tab Subl SL .Q5MIN PRN Chest Pain Ondansetron HCl 4 mg 01/30/21 05:01 Ondansetron 4 Mg/2 Ml Inj IV Q8H PRN Nausea And Vomiting Oxycodone/Acetaminophen 1 tab 01/30/21 05:01 Oxycodone /Acetaminophen 5-325mg Tab PO Q6H PRN Pain, Moderate (4-6) Pantoprazole Sodium 40 mg 01/30/21 10:00 01/31/21 09:59 Pantoprazole 40 Mg Tab PO 40 mg QDAY CATALINA Administration Sodium Chloride 10 ml 01/30/21 05:01 Sodium Chloride 0.9% 10 Ml Flush Syringe IV PRN PRN LINE FLUSH Tramadol HCl 50 mg 01/30/21 05:01 Tramadol 50 Mg Tab PO Q6H PRN Pain, Moderate (4-6)
[2021-02-01] MEDS: ENOXAPARIN 100 MG/1 ML INJ SUB-Q SCH (09:51)
[2021-02-01] MEDS: PANTOPRAZOLE 40 MG TAB PO SCH (09:51)
[2021-02-01] MEDS: METOPROLOL TARTRATE 50 MG TAB PO SCH ×2 (09:52→22:10)
[2021-02-01] MEDS: hydrALAZINE 25 MG TAB PO SCH ×2 (09:52→22:10)
[2021-02-01] MEDS: ASPIRIN EC 325 MG TAB PO SCH (09:52)
[2021-02-01] MEDS: DEXAMETHASONE 4 MG TAB PO SCH (09:52)
[2021-02-01] MEDS: FUROSEMIDE 40 MG/4 ML INJ IV SCH (09:52)
[2021-02-01] MEDS: levoFLOXacin 750 MG TAB PO SCH (09:54)
[2021-02-01 10:11] LABS: Hematocrit 38.4 % (35.5-45.6); Hemoglobin 13.2 gm/dl (11.8-15.2); Mean Corpuscular HGB Conc 34 % (32-34); Mean Corpuscular Volume 88 fl (84-94); Platelet Count 378 K/mm3 (140-440); Red Blood Count 4.38 M/mm3 (3.65-5.03); Red Cell Distribution Width 16.2 % (13.2-15.2)
--- NOTE | 2021-02-01 10:12 | Cat Scan Report ---
CT HEAD WITHOUT and with intravenous CONTRAST INDICATION / CLINICAL INFORMATION: Altered mental status, acute encephalopathy OMNI 300 100 ML. TECHNIQUE: All CT scans at this location are performed using CT dose reduction for ALARA by means of automated e xposure control. Contrast dose report: Omnipaque 300: 100 mL administered intravenously. COMPARISON: MRI brain 02/01/2015 FINDINGS: HEMORRHAGE: No evidence of intracranial hemorrhage or extra-axial fluid collection. EXTRA-AXIAL SPACES: Cortical sulci, sylvian fissures and basilar cisterns have an unremarkable appear ance. VENTRICULAR SYSTEM: The third and lateral ventricles are of normal size and configuration. CEREBRAL PARENCHYMA: There is evidence of encephalomalacia along the lateral aspect of the right ronda etal lobe secondary to remote infarction in this location. Remote small deep infarctions demonstrated adjacent to the head of caudate nucleus on the right. Additional, more subtle remote gangliocapsular infarctions are suspected bilaterally. Periventricular and deep white matter lucencies noted consist ent with advanced microvascular ischemic change. MIDLINE SHIFT OR HERNIATION: There is no mass effect. CEREBELLUM / BRAINSTEM: Brainstem and cerebellum have an unremarkable appearance. MIDLINE STRUCTURES:No abnormalities of the pituitary gland or pineal region are identified. INTRACRANIAL VESSELS:No abnormalities are identified on this noncontrast head CT. ORBITS: visualized portions of the orbits have an unremarkable appearance. SOFT TISSUES of HEAD: No significant abnormality. CALVARIUM: Evaluation of bone windows reveals no abnormalities. PARANASAL SINUSES / MASTOID AIR CELLS: Visualized portions of the paranasal sinuses are free from sig nificant inflammatory mucosal disease. Mastoid air cells are normally pneumatized. Contrast administration: Following administration of intravenous contrast material enhancement of nor mal vascular structures is demonstrated. No areas of abnormal contrast enhancement are identified. IMPRESSION: 1. Remote right parietal infarction and multiple remote small deep infarction in a bilateral ganglioc apsular distribution. 2. No acute intercranial abnormalities are identified. Signer Name: Dario Almonte MD Signed: 02/01/2021 10:07 AM Workstation Name: [id number]
--- NOTE | 2021-02-01 11:37 | Progress Note ---
Assessment and Plan Acute Renal Failure on CKD COVID-19 rule out Pneumonia Acute Respiratory Failure Hypertension, now Hypotensive CHF Plan: Labs are pending this AM, if stable, will sign off and he can be followed as an outpatient Monitor I/O's daily Renally dose medications Obtain daily weights Will monitor renal function closely no acute indication for [employer] Subjective Date of service: 02/01/21 Principal diagnosis: [place] Interval history: no overnight events Objective - Vital Signs Vital signs: Vital Signs - 12hr 02/01/21 02/01/21 04:46 09:35 Temperature 98.3 F Pulse Rate 92 H Respiratory 18 Rate Blood Pressure 123/89 O2 Sat by Pulse 99 97 Oximetry - Lab 02/01/21 09:16 01/31/21 06:15 Most recent lab results ABG pH 7.440 pH Units (7.350-7.450) 01/31/21 13:10 ABG pCO2 29.6 mm Hg 01/31/21 13:10 ABG pO2 76.4 mm Hg (80.0-90.0) L 01/31/21 13:10 ABG HCO3 19.6 mmol/L (20.0-26.0) L 01/31/21 13:10 ABG O2 Saturation 96.2 % (95.0-99.0) 01/31/21 13:10 Calcium 8.7 mg/dL (8.4-10.2) 01/31/21 06:15 Magnesium 2.30 mg/dL (1.7-2.3) 02/01/21 09:16 Medications & Allergies - Medications Allergies/Adverse Reactions: Allergies No Known Allergies Allergy (Verified 01/29/21 23:11) Home Medications: Home Medications Medication Instructions Recorded Confirmed Last Taken Type ISOSORBIDE MONOnitrate [Imdur ER] 30 mg PO QDAY #60 tablet 11/01/20 01/31/21 Unknown Rx Furosemide [Lasix] 20 mg PO QDAY 01/31/21 01/31/21 Unknown History Hydralazine HCl 50 mg PO BID 01/31/21 01/31/21 Unknown History Metoprolol [Lopressor TAB] 50 mg PO BID 01/31/21 01/31/21 Unknown History NIFEdipine XL [Procardia Xl] 1 tab PO BID 01/31/21 01/31/21 Unknown History Spironolactone [Aldactone] 25 mg PO QDAY 01/31/21 01/31/21 Unknown History Active Medications: Generic Name Dose Route Start Last Admin Trade Name Freq PRN Reason Stop Dose Admin Acetaminophen 650 mg 01/30/21 05:01 Acetaminophen 325 Mg Tab PO Q6H PRN Pain, Mild (1-3) Aspirin 325 mg 01/31/21 10:00 02/01/21 09:52 Aspirin Ec 325 Mg Tab PO 325 mg QDAY CATALINA Administration Atorvastatin Calcium 40 mg 01/30/21 22:00 01/31/21 22:21 Atorvastatin 40 Mg Tab PO 40 mg QHS CATALINA Administration Dexamethasone 6 mg 02/01/21 10:00 02/01/21 09:52 Dexamethasone 4 Mg Tab PO 6 mg DAILY CATALINA Administration Enoxaparin Sodium 100 mg 02/01/21 10:00 02/01/21 09:51 Enoxaparin 100 Mg/1 Ml Inj SUB-Q 100 mg Q24HR CATALINA Administration Protocol Furosemide 40 mg 02/01/21 10:00 02/01/21 09:52 Furosemide 40 Mg/4 Ml Inj IV 40 mg QDAY CATALINA Administration Hydralazine HCl 50 mg 01/31/21 10:00 02/01/21 09:52 Hydralazine 25 Mg Tab PO 50 mg BID CATALINA Administration Isosorbide Mononitrate 30 mg 01/30/21 10:00 02/01/21 09:52 Isosorbide Mononitrate Er 30 Mg Tab PO 30 mg QDAY CATALINA Administration Levofloxacin 750 mg 01/30/21 10:00 02/01/21 09:54 Levofloxacin 750 Mg Tab PO 750 mg Q48HR CATALINA Administration Protocol Metoprolol Tartrate 50 mg 01/31/21 10:00 02/01/21 09:52 Metoprolol Tartrate 50 Mg Tab PO 50 mg BID CATALINA Administration Nitroglycerin 0.4 mg 01/30/21 05:01 Nitroglycerin 0.4 Mg Tab Subl SL .Q5MIN PRN Chest Pain Ondansetron HCl 4 mg 01/30/21 05:01 Ondansetron 4 Mg/2 Ml Inj IV Q8H PRN Nausea And Vomiting Pantoprazole Sodium 40 mg 01/30/21 10:00 02/01/21 09:51 Pantoprazole 40 Mg Tab PO 40 mg QDAY CATALINA Administration Sodium Chloride 10 ml 01/30/21 05:01 Sodium Chloride 0.9% 10 Ml Flush Syringe IV PRN PRN LINE FLUSH
[2021-02-01 11:48] LABS: Band Neutrophils # (Manual) 0.3 K/mm3; RBC Morphology Normal; Total Cells Counted 100
--- NOTE | 2021-02-01 12:19 | Electrocardiograph Report ---
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
--- NOTE | 2021-02-01 14:36 | Progress Note ---
Assessment and Plan Echocardiogram 10/2020: EF 10-15%, Left ventricle severely dilated, mild LVH, right ventricle moderately dilated, severe tricuspid regurgitation, Lexiscan MPI stress test11/01/2020: negative for ischemia NSTEMI suspect type 2 [place] Acute on chronic HFrEF EF 10-15% Dilated Cardiomyopathy + COVID pneumonia Continue IV Lasix 40mg daily with strict I/Os and close monitoring of renal indices Aldactone and ACEI/ARB deferred at this time due to renal fxn Continue hydralizine 50mg PO BID and Metoprolol 50mg PO BID Outpatient medications: asa, Imdur 30mg PO Qd, hydralizine 25mg PO Bid, metoprolol 100mg PO BID, Nifedipine XL 60mg PO QD, Lasix 40 mg PO daily, Aldactone 25 QD. . Subjective Date of service: 02/01/21 Principal diagnosis: [place] Interval history: Patient lying in bed flat with no complaints. Pt denies cp, sob, heart palpitations Objective Vital Signs Temp Pulse Resp BP Pulse Ox 02/01/21 11:41 98.3 F 93 H 18 131/85 94 02/01/21 09:35 97 02/01/21 04:46 98.3 F 92 H 18 123/89 99 01/31/21 22:28 97 01/31/21 22:08 98.6 F 96 H 18 136/96 97 01/31/21 20:47 97 01/31/21 17:23 97.6 F 93 H 22 116/82 98 - Physical Examination General: No Apparent Distress HEENT: Positive: Normocephaly, Mucus Membranes Moist Neck: Positive: neck supple, trachea midline. Negative: JVD/HJR Cardiac: Positive: Regular Rhythm Lungs: Positive: Normal Exam, Normal Breath Sounds Neuro: Positive: Grossly Intact Abdomen: Positive: Soft Skin: Negative: Rash Extremities: Present: lower extr. pulses. Absent: edema - Labs and Meds Cardiac Enzymes 02/01/21 Range/Units 09:16 Lactate Dehydrogenase 467 H (91-180) units/L CBC 02/01/21 Range/Units 09:16 WBC 8.3 (4.5-11.0) K/mm3 RBC 4.38 (3.65-5.03) M/mm3 Hgb 13.2 (11.8-15.2) gm/dl Hct 38.4 (35.5-45.6) % Plt Count 378 (140-440) K/mm3 - Imaging and Cardiology EKG: report reviewed, image reviewed Echo: report reviewed (10/2020 - EF 10-15%, mild LVH, LV severely dilated, RV mod dilated, RV mildly hypokinetic, trace AR, mild MR, severe TR, RVSP 39mmHg, trace KS.) Cardiac cath: report reviewed - EKG Sinus rhythms and dysrhythmias: sinus tachycardia Chamber hypertrophy or enlargement: left atrial enlargement, right atrial enlargment, left ventricular hypertro - Allied health notes Allied health notes reviewed: nursing
--- NOTE | 2021-02-01 17:25 | Progress Note ---
Assessment and Plan Assessment and plan: 50-year-old male with PMH of severe systolic heart failure, LVEF 10 to 15% and a negative Lexiscan in 10/30, NICM, CKD 3 presents with a 2-week history dyspnea and found to be hypoxic and confused. Tested positive for COVID-19. 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 Continue to avoid all narcotics and continue to monitor CTh shows multiple infarcts. We will obtain MRI and consult neurology ABG 7.49, 21, 70s, on 0.28 FiO2 Remains afebrile with stable vital signs No respiratory distress/dyspnea Continue Decadron Monitor markers of inflammation for COVID-19 Therapeutic Lovenox for elevated D-dimer for now Ultrasound rule out DVT CTA chest deferred due to [place] Continue Lasix 40 mg IV daily along with other heart failure regimen, per cardiology Creatinine is improving from 2.6-2.0, nephrology is following Continue to monitor renal function and electrolytes Discussed with the nursing staff. Called 's telephone number multiple times, no answer History Interval history: Patient remains confused but alert today. Nasal cannula fell off to the floor but patient has no dyspnea and appears very comfortable.. No restlessness. Remains afebrile with a stable vital signs. On Lasix 40 mg IV, urine output not documented. Tolerating diet. Speech is normal but is unable to provide any reliable history. Hospitalist Physical - Constitutional Vitals: Temp Pulse Resp BP Pulse Ox 98.3 F 93 H 18 131/85 94 02/01/21 11:41 02/01/21 11:41 02/01/21 11:41 02/01/21 11:41 02/01/21 11:41 General appearance: Present: no acute distress, disheveled, other (Awake, fairly alert but confused) - EENT Eyes: Present: PERRL, EOM intact ENT: hearing intact, clear oral mucosa - Neck Neck: Present: supple - Respiratory Respiratory effort: normal Respiratory: bilateral: CTA (No wheezes or rales.) - Cardiovascular Rhythm: regular - Extremities Extremities: No edema - Abdominal General gastrointestinal: soft, non-tender, non-distended, normal bowel sounds - Integumentary Integumentary: Absent: rash - Psychiatric Psychiatric: other (Confused, no distress) - Neurologic Neurologic: other (Alert but confused. Normal speech. No focal motor deficits grossly.) HEART Score - HEART Score Troponin: Troponin T 0.441 ng/mL (0.00-0.029) H* 01/29/21 22:59 Results - Labs CBC & Chem 7: 02/01/21 09:16 01/31/21 06:15 Labs: Laboratory Last Values WBC 8.3 K/mm3 (4.5-11.0) 02/01/21 09:16 RBC 4.38 M/mm3 (3.65-5.03) 02/01/21 09:16 Hgb 13.2 gm/dl (11.8-15.2) 02/01/21 09:16 Hct 38.4 % (35.5-45.6) 02/01/21 09:16 MCV 88 fl (84-94) 02/01/21 09:16 MCH 30 pg (28-32) 02/01/21 09:16 MCHC 34 % (32-34) 02/01/21 09:16 RDW 16.2 % (13.2-15.2) H 02/01/21 09:16 Plt Count 378 K/mm3 (140-440) 02/01/21 09:16 Lymph % (Auto) 4.3 % (13.4-35.0) L 01/29/21 22:59 [place] % (Auto) 7.5 % (0.0-7.3) H 01/29/21 22:59 Eos % (Auto) 0.0 % (0.0-4.3) 01/29/21 22:59 Baso % (Auto) 1.3 % (0.0-1.8) 01/29/21 22:59 Lymph # (Auto) 0.6 K/mm3 (1.2-5.4) L 01/29/21 22:59 [place] # (Auto) 1.0 K/mm3 (0.0-0.8) H 01/29/21 22:59 Eos # (Auto) 0.0 K/mm3 (0.0-0.4) 01/29/21 22:59 Baso # (Auto) 0.2 K/mm3 (0.0-0.1) H 01/29/21 22:59 Add Manual Diff Complete 02/01/21 09:16 Total Counted 100 02/01/21 09:16 Seg Neutrophils % 86.9 % (40.0-70.0) H 01/29/21 22:59 Seg Neuts % (Manual) 75.0 % (40.0-70.0) H 02/01/21 09:16 Band Neutrophils % 4.0 % 02/01/21 09:16 Lymphocytes % (Manual) 10.0 % (13.4-35.0) L 02/01/21 09:16 Reactive Lymphs % (Man) 3.0 % 02/01/21 09:16 Monocytes % (Manual) 4.0 % (0.0-7.3) 02/01/21 09:16 Eosinophils % (Manual) 3.0 % (0.0-4.3) 02/01/21 09:16 Metamyelocytes % 1.0 % 02/01/21 09:16 Nucleated RBC % Not Reportable 02/01/21 09:16 Seg Neutrophils # 12.0 K/mm3 (1.8-7.7) H 01/29/21 22:59 Seg Neutrophils # Man 6.2 K/mm3 (1.8-7.7) 02/01/21 09:16 Band Neutrophils # 0.3 K/mm3 02/01/21 09:16 Lymphocytes # (Manual) 0.8 K/mm3 (1.2-5.4) L 02/01/21 09:16 Abs React Lymphs (Man) 0.2 K/mm3 02/01/21 09:16 Monocytes # (Manual) 0.3 K/mm3 (0.0-0.8) 02/01/21 09:16 Eosinophils # (Manual) 0.2 K/mm3 (0.0-0.4) 02/01/21 09:16 Basophils # (Manual) 0.0 K/mm3 (0.0-0.1) 02/01/21 09:16 Metamyelocytes # 0.1 K/mm3 02/01/21 09:16 Myelocytes # 0.0 K/mm3 02/01/21 09:16 Promyelocytes # 0.0 K/mm3 02/01/21 09:16 Blast Cells # 0.0 K/mm3 02/01/21 09:16 WBC Morphology Not Reportable 02/01/21 09:16 WBC Morphology TNR 02/01/21 09:16 Hypersegmented Neuts Not Reportable 02/01/21 09:16 Hyposegmented Neuts Not Reportable 02/01/21 09:16 Hypogranular Neuts Not Reportable 02/01/21 09:16 Smudge Cells Not Reportable 02/01/21 09:16 Toxic Granulation Not Reportable 02/01/21 09:16 Toxic Vacuolation Not Reportable 02/01/21 09:16 Dohle Bodies Not Reportable 02/01/21 09:16 Pelger-Huet Anomaly Not Reportable 02/01/21 09:16 Demetra Rods Not Reportable 02/01/21 09:16 Platelet Estimate Not Reportable 02/01/21 09:16 Clumped Platelets Not Reportable 02/01/21 09:16 Plt Clumps, EDTA Not Reportable 02/01/21 09:16 Large Platelets Not Reportable 02/01/21 09:16 Giant Platelets Not Reportable 02/01/21 09:16 Platelet Satelliting Not Reportable 02/01/21 09:16 Plt Morphology Comment Not Reportable 02/01/21 09:16 RBC Morphology Normal 02/01/21 09:16 Dimorphic RBCs Not Reportable 02/01/21 09:16 Polychromasia Not Reportable 02/01/21 09:16 Hypochromasia Not Reportable 02/01/21 09:16 Poikilocytosis Not Reportable 02/01/21 09:16 Anisocytosis Not Reportable 02/01/21 09:16 Microcytosis Not Reportable 02/01/21 09:16 Macrocytosis Not Reportable 02/01/21 09:16 Spherocytes Not Reportable 02/01/21 09:16 Pappenheimer Bodies Not Reportable 02/01/21 09:16 Sickle Cells Not Reportable 02/01/21 09:16 Target Cells Not Reportable 02/01/21 09:16 Tear Drop Cells Not Reportable 02/01/21 09:16 Ovalocytes Not Reportable 02/01/21 09:16 Helmet Cells Not Reportable 02/01/21 09:16 Collins-Soledad Bodies Not Reportable 02/01/21 09:16 Meally Rings Not Reportable 02/01/21 09:16 Marcus Cells Not Reportable 02/01/21 09:16 Bite Cells Not Reportable 02/01/21 09:16 Crenated Cell Not Reportable 02/01/21 09:16 Elliptocytes Not Reportable 02/01/21 09:16 Acanthocytes (Spur) Not Reportable 02/01/21 09:16 Rouleaux Not Reportable 02/01/21 09:16 Hemoglobin C Crystals Not Reportable 02/01/21 09:16 Schistocytes Not Reportable 02/01/21 09:16 Malaria parasites Not Reportable 02/01/21 09:16 Ikp Bodies Not Reportable 02/01/21 09:16 Hem Pathologist Commnt No 02/01/21 09:16 PT 16.3 Sec. (12.2-14.9) H 01/29/21 22:59 INR 1.18 (0.87-1.13) H 01/29/21 22:59 APTT 30.7 Sec. (24.2-36.6) 01/29/21 22:59 ABG pH 7.440 pH Units (7.350-7.450) 01/31/21 13:10 ABG pCO2 29.6 mm Hg 01/31/21 13:10 ABG pO2 76.4 mm Hg (80.0-90.0) L 01/31/21 13:10 ABG HCO3 19.6 mmol/L (20.0-26.0) L 01/31/21 13:10 ABG O2 Saturation 96.2 % (95.0-99.0) 01/31/21 13:10 ABG O2 Content 15.5 (0.0-44) 01/31/21 13:10 ABG Base Excess -3.5 mmol/L (-2.0-3.0) L 01/31/21 13:10 ABG Hemoglobin 11.6 gm/dl (14.0-18.0) L 01/31/21 13:10 ABG Carboxyhemoglobin 1.2 % (0.0-5.0) 01/31/21 13:10 ABG Methemoglobin 0.5 % (0.0-1.5) 01/31/21 13:10 Oxyhemoglobin 94.5 % (95.0-99.0) L 01/31/21 13:10 FiO2 28 % 01/31/21 13:10 Sodium 143 mmol/L (137-145) 01/31/21 06:15 Potassium 5.0 mmol/L (3.6-5.0) 01/31/21 06:15 Chloride 109.6 mmol/L (98-107) H 01/31/21 06:15 Carbon Dioxide 21 mmol/L (22-30) L 01/31/21 06:15 Anion Gap 17 mmol/L 01/31/21 06:15 BUN 59 mg/dL (9-20) H 01/31/21 06:15 Creatinine 2.0 mg/dL (0.8-1.3) H 01/31/21 06:15 Estimated GFR 43 ml/min 01/31/21 06:15 BUN/Creatinine Ratio 30 % 01/31/21 06:15 Glucose 83 mg/dL (75-100) 01/31/21 06:15 Lactic Acid 1.50 mmol/L (0.7-2.0) 01/29/21 22:59 Calcium 8.7 mg/dL (8.4-10.2) 01/31/21 06:15 Magnesium 2.30 mg/dL (1.7-2.3) 02/01/21 09:16 Total Bilirubin 0.50 mg/dL (0.1-1.2) 01/29/21 22:59 AST 74 units/L (5-40) H 01/29/21 22:59 ALT 56 units/L (7-56) 01/29/21 22:59 Alkaline Phosphatase 61 units/L (35-129) 01/29/21 22:59 Lactate Dehydrogenase 467 units/L (91-180) H 02/01/21 09:16 Troponin T 0.441 ng/mL (0.00-0.029) H* 01/29/21 22:59 NT-Pro-B Natriuret Pep 9236 pg/mL (0-900) H 02/01/21 09:16 Total Protein 7.7 g/dL (6.3-8.2) 01/29/21 22:59 Albumin 3.7 g/dL (3.9-5) L 01/29/21 22:59 Albumin/Globulin Ratio 0.9 % 01/29/21 22:59 Urine Color Yellow (Yellow) 01/30/21 01:21 Urine Turbidity Slightly-cloudy (Clear) 01/30/21 01:21 Urine pH 5.0 (5.0-7.0) 01/30/21 01:21 Ur Specific [place] 1.016 (1.003-1.030) 01/30/21 01:21 Urine Protein 30 mg/dl mg/dL (Negative) 01/30/21 01:21 Urine Glucose (UA) Neg mg/dL (Negative) 01/30/21 01:21 Urine Ketones Neg mg/dL (Negative) 01/30/21 01:21 Urine Blood Lg (Negative) 01/30/21 01:21 Urine Nitrite Neg (Negative) 01/30/21 01:21 Urine Bilirubin Neg (Negative) 01/30/21 01:21 Urine Urobilinogen < 2.0 mg/dL (<2.0) 01/30/21 01:21 Ur Leukocyte Esterase Neg (Negative) 01/30/21 01:21 Urine WBC (Auto) 3.0 /HPF (0.0-6.0) 01/30/21 01:21 Urine RBC (Auto) 38.0 /HPF (0.0-6.0) 01/30/21 01:21 U Epithel Cells (Auto) < 1.0 /HPF (0-13.0) 01/30/21 01:21 Urine Mucus Few /HPF 01/30/21 01:21 Urine Yeast (Budding) 1+ /HPF 01/30/21 01:21 Coronavirus (PCR) Positive (Negative) A 01/30/21 Unknown Microbiology: Microbiology 01/29/21 22:54 Peripheral/Venous Blood Culture - Preliminary NO GROWTH AFTER 48 HOURS 01/29/21 22:59 Peripheral/Venous Blood Culture - Preliminary NO GROWTH AFTER 48 HOURS Sanchez/IV: Voiding Method Toilet Active Medications - Current Medications Current Medications: Generic Name Dose Route Start Last Admin Trade Name Freq PRN Reason Stop Dose Admin Acetaminophen 650 mg 01/30/21 05:01 Acetaminophen 325 Mg Tab PO Q6H PRN Pain, Mild (1-3) Aspirin 325 mg 01/31/21 10:00 02/01/21 09:52 Aspirin Ec 325 Mg Tab PO 325 mg QDAY CATALINA Administration Atorvastatin Calcium 40 mg 01/30/21 22:00 01/31/21 22:21 Atorvastatin 40 Mg Tab PO 40 mg QHS CATALINA Administration Dexamethasone 6 mg 02/01/21 10:00 02/01/21 09:52 Dexamethasone 4 Mg Tab PO 6 mg DAILY CATALINA Administration Enoxaparin Sodium 100 mg 02/01/21 10:00 02/01/21 09:51 Enoxaparin 100 Mg/1 Ml Inj SUB-Q 100 mg Q24HR CATALINA Administration Protocol Furosemide 40 mg 02/01/21 10:00 02/01/21 09:52 Furosemide 40 Mg/4 Ml Inj IV 40 mg QDAY CATALINA Administration Hydralazine HCl 50 mg 01/31/21 10:00 02/01/21 09:52 Hydralazine 25 Mg Tab PO 50 mg BID CATALINA Administration Isosorbide Mononitrate 30 mg 01/30/21 10:00 02/01/21 09:52 Isosorbide Mononitrate Er 30 Mg Tab PO 30 mg QDAY CATALINA Administration Levofloxacin 750 mg 01/30/21 10:00 02/01/21 09:54 Levofloxacin 750 Mg Tab PO 750 mg Q48HR CATALINA Administration Protocol Metoprolol Tartrate 50 mg 01/31/21 10:00 02/01/21 09:52 Metoprolol Tartrate 50 Mg Tab PO 50 mg BID CATALINA Administration Nitroglycerin 0.4 mg 01/30/21 05:01 Nitroglycerin 0.4 Mg Tab Subl SL .Q5MIN PRN Chest Pain Ondansetron HCl 4 mg 01/30/21 05:01 Ondansetron 4 Mg/2 Ml Inj IV Q8H PRN Nausea And Vomiting Pantoprazole Sodium 40 mg 01/30/21 10:00 02/01/21 09:51 Pantoprazole 40 Mg Tab PO 40 mg QDAY CATALINA Administration Sodium Chloride 10 ml 01/30/21 05:01 Sodium Chloride 0.9% 10 Ml Flush Syringe IV PRN PRN LINE FLUSH
[2021-02-02 08:03] LABS: C-Reactive Protein 4.2 mg/dL (0.00-1.30); Calcium 8.9 mg/dL (8.4-10.2)
--- NOTE | 2021-02-02 08:26 | Consultation ---
History of Present Illness Consult date: 02/02/21 Reason for Consult: confusion,admitted 01/30,COVID-19 History of present illness: Dyspnea respiratory distress History of present illness: 50 years old male with past medical history of hypertension was brought to the emergency department with a chief complaint of weakness and fatigue has been present for the last 2 weeks. Patient also complained of shortness of breath patient denies having chest pain, or abdominal pain. He also denies any neurological deficits such as slurred speech or weakness. In the emergency room patient is found to have BNP of 3305, troponin of 0.441, BUN of 77 creatinine of 2.6, WBCs 13.9. Chest x-ray showed persistent ,albeit less conspicuous airspace opacities We are going to admit the patient the diagnosis of acute CHF exacerbation, AMERICA, elevated troponin and suspected pneumonia. 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[employer] [place] he denied smoking,Drinking or recreational drug abuse Past History Past Medical History: heart failure, hypertension Medications and Allergies Allergies Allergy/AdvReac Type Severity Reaction Status Date / Time No Known Allergies Allergy Verified 01/29/21 23:11 Home Medications Medication Instructions Recorded Confirmed Last Taken Type Aspirin [Aspirin BABY CHEW TAB] 81 mg PO QDAY #30 tab.chew 11/01/20 01/28/21 Unknown Rx ISOSORBIDE MONOnitrate [Imdur ER] 30 mg PO QDAY #60 tablet 11/01/20 01/28/21 Unknown Rx Active Meds: Active Medications Acetaminophen (Acetaminophen 325 Mg Tab) 650 mg PO Q6H PRN PRN Reason: Pain, Mild (1-3) Aspirin (Aspirin Ec 325 Mg Tab) 325 mg PO QDAY [facility] Atorvastatin Calcium (Atorvastatin 40 Mg Tab) 40 mg PO QHS [facility] Furosemide (Furosemide 40 Mg/4 Ml Inj) 40 mg IV BID@0600,1800 [facility] Heparin Sodium (Porcine) (Heparin 5,000 Unit/1 Ml Vial) 5,000 unit SUB-Q Q8HR [facility] Hydromorphone HCl (Hydromorphone 1 Mg/1 Ml Inj) 0.5 mg IV Q3H PRN PRN Reason: Pain , Severe (7-10) Isosorbide Mononitrate (Isosorbide Mononitrate Er 30 Mg Tab) 30 mg PO QDAY [facility] Levofloxacin (Levofloxacin 750 Mg Tab) 750 mg PO Q24HR [facility]; Protocol Nitroglycerin (Nitroglycerin 0.4 Mg Tab Subl) 0.4 mg SL .Q5MIN PRN PRN Reason: Chest Pain Ondansetron HCl (Ondansetron 4 Mg/2 Ml Inj) 4 mg IV Q8H PRN PRN Reason: Nausea And Vomiting Oxycodone/Acetaminophen (Oxycodone /Acetaminophen 5-325mg Tab) 1 tab PO Q6H PRN PRN Reason: Pain, Moderate (4-6) Pantoprazole Sodium (Pantoprazole 40 Mg Tab) 40 mg PO QDAY [facility] Sodium Chloride (Sodium Chloride 0.9% 10 Ml Flush Syringe) 10 ml IV PRN PRN PRN Reason: LINE FLUSH Tramadol HCl (Tramadol 50 Mg Tab) 50 mg PO Q6H PRN PRN Reason: Pain, Moderate (4-6) Review of Systems All systems: negative Constitutional: fatigue, weakness Cardiovascular: shortness of breath, dyspnea on exertion Respiratory: shortness of breath, dyspnea on exertion Past History Past Medical History: heart failure, hypertension Medications and Allergies Allergies Allergy/AdvReac Type Severity Reaction Status Date / Time No Known Allergies Allergy Verified 01/29/21 23:11 Home Medications Medication Instructions Recorded Confirmed Last Taken Type ISOSORBIDE MONOnitrate [Imdur ER] 30 mg PO QDAY #60 tablet 11/01/20 01/31/21 Unknown Rx Furosemide [Lasix] 20 mg PO QDAY 01/31/21 01/31/21 Unknown History Hydralazine HCl 50 mg PO BID 01/31/21 01/31/21 Unknown History Metoprolol [Lopressor TAB] 50 mg PO BID 01/31/21 01/31/21 Unknown History NIFEdipine XL [Procardia Xl] 1 tab PO BID 01/31/21 01/31/21 Unknown History Spironolactone [Aldactone] 25 mg PO QDAY 01/31/21 01/31/21 Unknown History Active Meds: Active Medications Acetaminophen (Acetaminophen 325 Mg Tab) 650 mg PO Q6H PRN PRN Reason: Pain, Mild (1-3) Aspirin (Aspirin Ec 325 Mg Tab) 325 mg PO QDAY [facility] Last Admin: 02/01/21 09:52 Dose: 325 mg Documented by: Atorvastatin Calcium (Atorvastatin 40 Mg Tab) 40 mg PO QHS [facility] Last Admin: 02/01/21 22:10 Dose: 40 mg Documented by: Dexamethasone (Dexamethasone 4 Mg Tab) 6 mg PO DAILY [facility] Last Admin: 02/01/21 09:52 Dose: 6 mg Documented by: Enoxaparin Sodium (Enoxaparin 100 Mg/1 Ml Inj) 100 mg SUB-Q Q24HR [facility]; Protocol Last Admin: 02/01/21 09:51 Dose: 100 mg Documented by: Furosemide (Furosemide 40 Mg/4 Ml Inj) 40 mg IV QDAY [facility] Last Admin: 02/01/21 09:52 Dose: 40 mg Documented by: Hydralazine HCl (Hydralazine 25 Mg Tab) 50 mg PO BID [facility] Last Admin: 02/01/21 22:10 Dose: 50 mg Documented by: Isosorbide Mononitrate (Isosorbide Mononitrate Er 30 Mg Tab) 30 mg PO QDAY [facility] Last Admin: 02/01/21 09:52 Dose: 30 mg Documented by: Levofloxacin (Levofloxacin 750 Mg Tab) 750 mg PO Q48HR [facility]; Protocol Last Admin: 02/01/21 09:54 Dose: 750 mg Documented by: Metoprolol Tartrate (Metoprolol Tartrate 50 Mg Tab) 50 mg PO BID [facility] Last Admin: 02/01/21 22:10 Dose: 50 mg Documented by: Nitroglycerin (Nitroglycerin 0.4 Mg Tab Subl) 0.4 mg SL .Q5MIN PRN PRN Reason: Chest Pain Ondansetron HCl (Ondansetron 4 Mg/2 Ml Inj) 4 mg IV Q8H PRN PRN Reason: Nausea And Vomiting Pantoprazole Sodium (Pantoprazole 40 Mg Tab) 40 mg PO QDAY [facility] Last Admin: 02/01/21 09:51 Dose: 40 mg Documented by: Sodium Chloride (Sodium Chloride 0.9% 10 Ml Flush Syringe) 10 ml IV PRN PRN PRN Reason: LINE FLUSH Physical Examination - Vital Signs Vital Signs: Vital Signs Temp Pulse Resp BP Pulse Ox 97.7 F 93 H 26 H 116/89 97 01/29/21 22:12 01/29/21 22:12 01/29/21 22:12 01/29/21 22:12 01/29/21 22:12 - Constitutional General appearance: comfortable - EENT EENT: Present: PERRL, mucous membranes moist - Respiratory Respiratory: Present: chest non-tender, lungs clear, rhonchi - Cardiovascular Cardiovascular: Present: regular rate, normal S1, normal S2 Extremities: Present: no peripheral edema bilatateraly, no clubbing, cyanosis - Gastrointestinal Gastrointestinal: Present: normoactive bowel sounds - Integumentary Integumentary: Present: normal - Neurologic Cranial nerve examination: PERRL, EOMI, intact Speech examination: intact Sensorimotor examination: intact Detailed motor examination: grossly full strength in - Psychiatric Psychiatric: Present: other (pt. is alert knows his name and birthdate,oriented to day and year not month,knows the president and previous president, calculation and abstract thinking are impaired, no aphasia) Results - Laboratory Findings CBC and BMP: 02/01/21 09:16 02/02/21 07:00 Abnormal Lab Findings: Abnormal Labs 01/29/21 01/29/21 01/29/21 22:59 22:59 22:59 WBC 13.9 H RDW 16.0 H Lymph % (Auto) 4.3 L Mitchell % (Auto) 7.5 H Lymph # (Auto) 0.6 L Mitchell # (Auto) 1.0 H Baso # (Auto) 0.2 H Seg Neutrophils % 86.9 H Seg Neuts % (Manual) Lymphocytes % (Manual) Seg Neutrophils # 12.0 H Lymphocytes # (Manual) PT 16.3 H INR 1.18 H D-Dimer ABG pO2 ABG HCO3 ABG Base Excess ABG Hemoglobin Oxyhemoglobin Sodium Chloride Carbon Dioxide 19 L BUN 77 H Creatinine 2.6 H Glucose 199 H Ferritin AST 74 H Lactate Dehydrogenase Troponin T 0.441 H* C-Reactive Protein NT-Pro-B Natriuret Pep 3305 H Albumin 3.7 L Coronavirus (PCR) 01/30/21 01/30/21 01/31/21 07:08 Unknown 06:15 WBC RDW Lymph % (Auto) Mitchell % (Auto) Lymph # (Auto) Mitchell # (Auto) Baso # (Auto) Seg Neutrophils % Seg Neuts % (Manual) Lymphocytes % (Manual) Seg Neutrophils # Lymphocytes # (Manual) PT INR D-Dimer ABG pO2 ABG HCO3 ABG Base Excess ABG Hemoglobin Oxyhemoglobin Sodium Chloride 109.6 H Carbon Dioxide 19 L 21 L BUN 74 H 59 H Creatinine 2.5 H 2.0 H Glucose 136 H Ferritin AST Lactate Dehydrogenase Troponin T C-Reactive Protein NT-Pro-B Natriuret Pep Albumin Coronavirus (PCR) Positive A 01/31/21 02/01/21 02/01/21 13:10 09:16 09:16 WBC RDW 16.2 H Lymph % (Auto) Mitchell % (Auto) Lymph # (Auto) Mitchell # (Auto) Baso # (Auto) Seg Neutrophils % Seg Neuts % (Manual) 75.0 H Lymphocytes % (Manual) 10.0 L Seg Neutrophils # Lymphocytes # (Manual) 0.8 L PT INR D-Dimer ABG pO2 76.4 L ABG HCO3 19.6 L ABG Base Excess -3.5 L ABG Hemoglobin 11.6 L Oxyhemoglobin 94.5 L Sodium Chloride Carbon Dioxide BUN Creatinine Glucose Ferritin AST Lactate Dehydrogenase 467 H Troponin T C-Reactive Protein NT-Pro-B Natriuret Pep 9236 H Albumin Coronavirus (PCR) 02/02/21 02/02/21 02/02/21 07:00 07:00 07:00 WBC RDW Lymph % (Auto) Mitchell % (Auto) Lymph # (Auto) Mitchell # (Auto) Baso # (Auto) Seg Neutrophils % Seg Neuts % (Manual) Lymphocytes % (Manual) Seg Neutrophils # Lymphocytes # (Manual) PT INR D-Dimer 1184.83 H ABG pO2 ABG HCO3 ABG Base Excess ABG Hemoglobin Oxyhemoglobin Sodium 136 L Chloride Carbon Dioxide 19 L BUN 51 H Creatinine 2.2 H Glucose 103 H Ferritin 1337.0 H AST Lactate Dehydrogenase Troponin T 0.378 H* C-Reactive Protein 4.20 H NT-Pro-B Natriuret Pep Albumin Coronavirus (PCR) Assessment and Plan Assessment and Plan Assessment and plan: 50-year-old male with PMH of severe systolic heart failure, LVEF 10 to 15% and a negative Lexiscan in 10/30, NICM, CKD 3 presents with a 2-week history dyspnea and found to be hypoxic and confused. Tested positive for COVID-19. # Acute to subacute encephalopathy with some memory difficulty findings are suggestive of COVID encephalopathy , renal insufficiency can add to the picture -CT brain is remarkable for right parietal and multiple remote BG infarct ? AF and or hypercoagulable stat related to COVID can not be excluded -MRI brain preferably to do with gd # is pending ,Creat#2.2 -MRA brain and neck #Acute hypoxic respiratory failure -Tested positive for COVID-19 -Suspected Covid pneumonia -D-dimer 2388--1184 -CRP#4.20 -feritin#1337 #Chest [id number] to be pulmonary edema rather than typical COVID-19 pneumonia Chronic severe systolic heart failure, LVEF from 20-50% in 10/30 NICM with a negative Lexiscan in 10/30 Mild troponin elevation in the setting of AMERICA/CKD BNP is 7973 #AMERICA on CKD 3, creatinine 2.6 versus of 1.8 in 10/30 Plan: 1-Appears to be less confused and more alert today. Will discontinue all narcotics and continue to monitor -CT head is remarkable for right parietal and possibly multiple remote BG infarct,? AF and or embolic events can not be excluded -Schadual for MRI with gd if possible, MRA brain, MRA neck -Increase exposure to day light -Avoid narcotics and or pain medications -possibility of early Delirium can not be excluded --pt. is mostly with subcortical dementia -Cardiac monitoring -===Possibility of hypercoagulable state can not be excluded related to COVID-19 2-Continue Decadron -Can be contributing factor for delirium 3-Lovenox for elevated D-dimer for now -Ultrasound rule out DVT -CTA chest deferred due to AMERICA 4-Continue Lasix 40 mg IV daily along with other heart failure regimen, per cardiology -On ASA 325 mg -Check Lipid profil ,On Lipitor 40 mg -SQ heparine 5-Creatinine is improving from 2.6-2.0, nephrology is following will follow as needed
--- NOTE | 2021-02-02 09:05 | XRay Report ---
CHEST 1 VIEW INDICATION / CLINICAL INFORMATION: Dyspnea STUDY TIME: 822 COMPARISON: 01/29/2021 FINDINGS: SUPPORT DEVICES: None HEART / MEDIASTINUM: No significant abnormality. LUNGS / PLEURA: Mild patchy bilateral interstitial infiltrates continue without significant change. N o pneumothorax. ADDITIONAL FINDINGS: No significant additional findings. Signer Name: Ted Malin MD Signed: 02/02/2021 9:01 AM Workstation Name: [id number]
[2021-02-02] MEDS: METOPROLOL TARTRATE 50 MG TAB PO SCH ×2 (09:13→23:05)
[2021-02-02] MEDS: ASPIRIN EC 325 MG TAB PO SCH (09:13)
[2021-02-02] MEDS: DEXAMETHASONE 4 MG TAB PO SCH (09:13)
[2021-02-02] MEDS: hydrALAZINE 25 MG TAB PO SCH ×2 (09:14→23:06)
[2021-02-02] MEDS: ENOXAPARIN 100 MG/1 ML INJ SUB-Q SCH (09:14)
[2021-02-02] MEDS: PANTOPRAZOLE 40 MG TAB PO SCH (09:14)
[2021-02-02] MEDS: FUROSEMIDE 40 MG/4 ML INJ IV SCH (09:15)
[2021-02-02 09:45] LABS: ABG Base Excess -2.8 mmol/L (-2.0-3.0); ABG HCO3 20.4 mmol/L (20.0-26.0); ABG Methemoglobin 0.5 % (0.0-1.5); ABG Oxygen Saturation 95.5 % (95.0-99.0); ABG PH 7.436 pH Units (7.350-7.450); ABG PO2 73.6 mm Hg (80.0-90.0)
--- NOTE | 2021-02-02 12:37 | Progress Note ---
Assessment and Plan Echocardiogram 10/2020: EF 10-15%, Left ventricle severely dilated, mild LVH, right ventricle moderately dilated, severe tricuspid regurgitation, Lexiscan MPI stress test11/01/2020: negative for ischemia NSTEMI suspect type 2 AMERICA Acute on chronic HFrEF EF 10-15% Dilated Cardiomyopathy + COVID pneumonia Continue IV Lasix 40mg daily with strict I/Os and close monitoring of renal indices Aldactone and ACEI/ARB deferred at this time due to renal fxn Continue hydralizine 50mg PO BID and Metoprolol 50mg PO BID Outpatient medications: asa, Imdur 30mg PO Qd, hydralizine 25mg PO Bid, metoprolol 100mg PO BID, Nifedipine XL 60mg PO QD, Lasix 40 mg PO daily, Aldactone 25 QD. . Subjective Date of service: 02/02/21 Principal diagnosis: AMERICA Interval history: Patient lying in bed flat with no complaints. Pt denies cp, sob, heart palpitations Objective Vital Signs Temp Pulse Resp BP Pulse Ox 02/02/21 08:29 95 02/02/21 08:06 95 02/02/21 00:14 96 02/01/21 22:10 74 120/86 02/01/21 21:26 98.1 F 74 18 120/86 98 02/01/21 16:05 98.2 F 96 H 18 102/67 94 - Physical Examination General: No Apparent Distress HEENT: Positive: Normocephaly, Mucus Membranes Moist Neck: Positive: neck supple, trachea midline. Negative: JVD/HJR Cardiac: Positive: Reg Rate and Rhythm Lungs: Positive: clear to auscultation Neuro: Positive: Grossly Intact Abdomen: Positive: Soft Skin: Negative: Rash Extremities: Present: lower extr. pulses. Absent: edema - Labs and Meds Comprehensive Metabolic Panel 02/02/21 Range/Units 07:00 Sodium 136 L (137-145) mmol/L Potassium 4.2 (3.6-5.0) mmol/L Chloride 103.7 (98-107) mmol/L Carbon Dioxide 19 L (22-30) mmol/L BUN 51 H (9-20) mg/dL Creatinine 2.2 H (0.8-1.3) mg/dL Glucose 103 H (75-100) mg/dL Calcium 8.9 (8.4-10.2) mg/dL - Imaging and Cardiology EKG: report reviewed, image reviewed Echo: report reviewed (10/2020 - EF 10-15%, mild LVH, LV severely dilated, RV mod dilated, RV mildly hypokinetic, trace AR, mild MR, severe TR, RVSP 39mmHg, trace [place].) Cardiac cath: report reviewed - EKG Sinus rhythms and dysrhythmias: sinus tachycardia Chamber hypertrophy or enlargement: left atrial enlargement, right atrial enlargment, left ventricular hypertro - Allied health notes Allied health notes reviewed: nursing
--- NOTE | 2021-02-02 20:33 | Progress Note ---
Assessment and Plan Assessment and plan: 50-year-old male with PMH of severe systolic heart failure, LVEF 10 to 15% and a negative Lexiscan in 10/30, NICM, CKD 3 presents with a 2-week history of malaise, cough, congestion, progressive weakness with the dizziness and dyspnea and found to be hypoxic and confused. Tested positive for COVID-19. He did receive Covid vaccine x1 dose in the 12/2020. 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 Acute COVID-19 infection, tested positive in ED Did receive COVID-19 vaccine 12/2020 x 1 dose. Environmental work-up report D-dimer 2388, CRP 12 COVID-19 pneumonia with acute hypoxic respiratory failure Hypoxia resolved and O2 weaned to room air on 02/01 Chest [id number] to be pulmonary edema pattern rather than typical COVID-19 pneumonia Chest x-ray improved and ABG 7.43, 31, 73, room air on 02/02 Chronic severe systolic heart failure, LVEF from 10-15% in 10/30 NICM with a negative Lexiscan in 10/30 Mild troponin elevation 0.5 in the setting of AMERICA/CKD BNP is 7973 Heart failure appears compensated Cardiology consulted and following AMERICA on CKD 3, creatinine 2.6 versus of 1.8 in 10/30 Renal function stable/slow improving Nephrology consulted and following acute encephalopathy with delirium, likely from COVID-19 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 with no history of strokes Concerning for Covid related thrombosis from a coagulopathy Delirium slowly improving Neurology consulted Plan: Alertness and confusion slowly but progress improving Continue to avoid all narcotics and continue to monitor MRI and MRA ordered enterology following Hypoxia resolved, O2 weaned to room air on 02/01 Remains afebrile with stable vital signs No respiratory distress/dyspnea Continue Decadron Monitor markers of inflammation for COVID-19, improving Therapeutic Lovenox for elevated D-dimer for now No DVT in lower extremities by ultrasound CTA chest deferred due to AMERICA Continue Lasix 40 mg IV daily along with other heart failure regimen, per cardiology Creatinine is improving from 2.6 nephrology is following Continue to monitor renal function and electrolytes Discussed with the nursing staff and in detail History Interval history: Alertness is progressivrly improving but remains confused though slowly improving. Able to answer more questions. Rest up and wants to go home. No re stlessness. Hypoxia resolved, O2 weaned to room air. CXR much better. Remains afebrile with a stable vital signs. On Lasix 40 mg IV, urine output not not measured. Creatinine/BUN still improving. Tolerating diet. Hospitalist Physical - Constitutional Vitals: Temp Pulse Resp BP Pulse Ox 98.0 F 88 18 97/62 93 02/02/21 11:20 02/02/21 11:20 02/02/21 11:20 02/02/21 11:20 02/02/21 11:20 General appearance: Present: no acute distress, disheveled, other (Awake, fairly alert but confused though improving) - EENT Eyes: Present: PERRL, EOM intact ENT: clear oral mucosa - Neck Neck: Present: supple - Respiratory Respiratory: bilateral: CTA (No wheezes, Rales) - Cardiovascular Rhythm: regular - Extremities Extremities: No edema - Abdominal General gastrointestinal: soft, non-tender, non-distended, normal bowel sounds - Integumentary Integumentary: Absent: jaundice - Psychiatric Psychiatric: other (calm, confused) - Neurologic Neurologic: other (Alert but still confused, able to answer most questions appropriately. No focal motor deficits.) HEART Score - HEART Score Troponin: Troponin T 0.378 ng/mL (0.00-0.029) H* 02/02/21 07:00 Results - Labs CBC & Chem 7: 02/01/21 09:16 02/02/21 07:00 Labs: Laboratory Last Values WBC 8.3 K/mm3 (4.5-11.0) 02/01/21 09:16 RBC 4.38 M/mm3 (3.65-5.03) 02/01/21 09:16 Hgb 13.2 gm/dl (11.8-15.2) 02/01/21 09:16 Hct 38.4 % (35.5-45.6) 02/01/21 09:16 MCV 88 fl (84-94) 02/01/21 09:16 MCH 30 pg (28-32) 02/01/21 09:16 MCHC 34 % (32-34) 02/01/21 09:16 RDW 16.2 % (13.2-15.2) H 02/01/21 09:16 Plt Count 378 K/mm3 (140-440) 02/01/21 09:16 Lymph % (Auto) 4.3 % (13.4-35.0) L 01/29/21 22:59 [place]verse % (Auto) 7.5 % (0.0-7.3) H 01/29/21 22:59 Eos % (Auto) 0.0 % (0.0-4.3) 01/29/21 22:59 Baso % (Auto) 1.3 % (0.0-1.8) 01/29/21 22:59 Lymph # (Auto) 0.6 K/mm3 (1.2-5.4) L 01/29/21 22:59 Converse # (Auto) 1.0 K/mm3 (0.0-0.8) H 01/29/21 22:59 Eos # (Auto) 0.0 K/mm3 (0.0-0.4) 01/29/21 22:59 Baso # (Auto) 0.2 K/mm3 (0.0-0.1) H 01/29/21 22:59 Add Manual Diff Complete 02/01/21 09:16 Total Counted 100 02/01/21 09:16 Seg Neutrophils % 86.9 % (40.0-70.0) H 01/29/21 22:59 Seg Neuts % (Manual) 75.0 % (40.0-70.0) H 02/01/21 09:16 Band Neutrophils % 4.0 % 02/01/21 09:16 Lymphocytes % (Manual) 10.0 % (13.4-35.0) L 02/01/21 09:16 Reactive Lymphs % (Man) 3.0 % 02/01/21 09:16 Monocytes % (Manual) 4.0 % (0.0-7.3) 02/01/21 09:16 Eosinophils % (Manual) 3.0 % (0.0-4.3) 02/01/21 09:16 Metamyelocytes % 1.0 % 02/01/21 09:16 Nucleated RBC % Not Reportable 02/01/21 09:16 Seg Neutrophils # 12.0 K/mm3 (1.8-7.7) H 01/29/21 22:59 Seg Neutrophils # Man 6.2 K/mm3 (1.8-7.7) 02/01/21 09:16 Band Neutrophils # 0.3 K/mm3 02/01/21 09:16 Lymphocytes # (Manual) 0.8 K/mm3 (1.2-5.4) L 02/01/21 09:16 Abs React Lymphs (Man) 0.2 K/mm3 02/01/21 09:16 Monocytes # (Manual) 0.3 K/mm3 (0.0-0.8) 02/01/21 09:16 Eosinophils # (Manual) 0.2 K/mm3 (0.0-0.4) 02/01/21 09:16 Basophils # (Manual) 0.0 K/mm3 (0.0-0.1) 02/01/21 09:16 Metamyelocytes # 0.1 K/mm3 02/01/21 09:16 Myelocytes # 0.0 K/mm3 02/01/21 09:16 Promyelocytes # 0.0 K/mm3 02/01/21 09:16 Blast Cells # 0.0 K/mm3 02/01/21 09:16 WBC Morphology Not Reportable 02/01/21 09:16 WBC Morphology TNR 02/01/21 09:16 Hypersegmented Neuts Not Reportable 02/01/21 09:16 Hyposegmented Neuts Not Reportable 02/01/21 09:16 Hypogranular Neuts Not Reportable 02/01/21 09:16 Smudge Cells Not Reportable 02/01/21 09:16 Toxic Granulation Not Reportable 02/01/21 09:16 Toxic Vacuolation Not Reportable 02/01/21 09:16 Dohle Bodies Not Reportable 02/01/21 09:16 Pelger-Huet Anomaly Not Reportable 02/01/21 09:16 Demetra Rods Not Reportable 02/01/21 09:16 Platelet Estimate Not Reportable 02/01/21 09:16 Clumped Platelets Not Reportable 02/01/21 09:16 Plt Clumps, EDTA Not Reportable 02/01/21 09:16 Large Platelets Not Reportable 02/01/21 09:16 Giant Platelets Not Reportable 02/01/21 09:16 Platelet Satelliting Not Reportable 02/01/21 09:16 Plt Morphology Comment Not Reportable 02/01/21 09:16 RBC Morphology Normal 02/01/21 09:16 Dimorphic RBCs Not Reportable 02/01/21 09:16 Polychromasia Not Reportable 02/01/21 09:16 Hypochromasia Not Reportable 02/01/21 09:16 Poikilocytosis Not Reportable 02/01/21 09:16 Anisocytosis Not Reportable 02/01/21 09:16 Microcytosis Not Reportable 02/01/21 09:16 Macrocytosis Not Reportable 02/01/21 09:16 Spherocytes Not Reportable 02/01/21 09:16 Pappenheimer Bodies Not Reportable 02/01/21 09:16 Sickle Cells Not Reportable 02/01/21 09:16 Target Cells Not Reportable 02/01/21 09:16 Tear Drop Cells Not Reportable 02/01/21 09:16 Ovalocytes Not Reportable 02/01/21 09:16 Helmet Cells Not Reportable 02/01/21 09:16 [place] Bodies Not Reportable 02/01/21 09:16 [place] Rings Not Reportable 02/01/21 09:16 Bighorn Cells Not Reportable 02/01/21 09:16 Bite Cells Not Reportable 02/01/21 09:16 Crenated Cell Not Reportable 02/01/21 09:16 Elliptocytes Not Reportable 02/01/21 09:16 Acanthocytes (Spur) Not Reportable 02/01/21 09:16 Rouleaux Not Reportable 02/01/21 09:16 Hemoglobin C Crystals Not Reportable 02/01/21 09:16 Schistocytes Not Reportable 02/01/21 09:16 Malaria parasites Not Reportable 02/01/21 09:16 Kip Bodies Not Reportable 02/01/21 09:16 Hem Pathologist Commnt No 02/01/21 09:16 PT 16.3 Sec. (12.2-14.9) H 01/29/21 22:59 INR 1.18 (0.87-1.13) H 01/29/21 22:59 APTT 30.7 Sec. (24.2-36.6) 01/29/21 22:59 D-Dimer 1184.83 ng/mlDDU (0-234) H 02/02/21 07:00 ABG pH 7.436 pH Units (7.350-7.450) 02/02/21 09:15 ABG pCO2 31.0 mm Hg 02/02/21 09:15 ABG pO2 73.6 mm Hg (80.0-90.0) L 02/02/21 09:15 ABG HCO3 20.4 mmol/L (20.0-26.0) 02/02/21 09:15 ABG O2 Saturation 95.5 % (95.0-99.0) 02/02/21 09:15 ABG O2 Content 17.7 (0.0-44) 02/02/21 09:15 ABG Base Excess -2.8 mmol/L (-2.0-3.0) L 02/02/21 09:15 ABG Hemoglobin 13.4 gm/dl (14.0-18.0) L 02/02/21 09:15 ABG Carboxyhemoglobin 1.4 % (0.0-5.0) 02/02/21 09:15 ABG Methemoglobin 0.5 % (0.0-1.5) 02/02/21 09:15 Oxyhemoglobin 93.7 % (95.0-99.0) L 02/02/21 09:15 FiO2 21 % 02/02/21 09:15 Sodium 136 mmol/L (137-145) L 02/02/21 07:00 Potassium 4.2 mmol/L (3.6-5.0) 02/02/21 07:00 Chloride 103.7 mmol/L (98-107) 02/02/21 07:00 Carbon Dioxide 19 mmol/L (22-30) L 02/02/21 07:00 Anion Gap 18 mmol/L 02/02/21 07:00 BUN 51 mg/dL (9-20) H 02/02/21 07:00 Creatinine 2.2 mg/dL (0.8-1.3) H 02/02/21 07:00 Estimated GFR 39 ml/min 02/02/21 07:00 BUN/Creatinine Ratio 23 % 02/02/21 07:00 Glucose 103 mg/dL (75-100) H 02/02/21 07:00 Lactic Acid 1.50 mmol/L (0.7-2.0) 01/29/21 22:59 Calcium 8.9 mg/dL (8.4-10.2) 02/02/21 07:00 Magnesium 2.20 mg/dL (1.7-2.3) 02/02/21 07:00 Ferritin 1337.0 ng/mL (30.0-300.0) H 02/02/21 07:00 Total Bilirubin 0.50 mg/dL (0.1-1.2) 01/29/21 22:59 AST 74 units/L (5-40) H 01/29/21 22:59 ALT 56 units/L (7-56) 01/29/21 22:59 Alkaline Phosphatase 61 units/L (35-129) 01/29/21 22:59 Ammonia 26.0 umol/L (25-60) 02/02/21 07:00 Lactate Dehydrogenase 467 units/L (91-180) H 02/01/21 09:16 Troponin T 0.378 ng/mL (0.00-0.029) H* 02/02/21 07:00 C-Reactive Protein 4.20 mg/dL (0.00-1.30) H 02/02/21 07:00 NT-Pro-B Natriuret Pep 9236 pg/mL (0-900) H 02/01/21 09:16 Total Protein 7.7 g/dL (6.3-8.2) 01/29/21 22:59 Albumin 3.7 g/dL (3.9-5) L 01/29/21 22:59 Albumin/Globulin Ratio 0.9 % 01/29/21 22:59 Vitamin B12 878.8 pg/mL (211-911) 02/02/21 07:00 Folate 6.66 ng/mL (7.3-26.0) L 02/02/21 07:00 TSH 0.614 mlU/mL (0.270-4.200) 02/02/21 07:00 Urine Color Yellow (Yellow) 01/30/21 01:21 Urine Turbidity Slightly-cloudy (Clear) 01/30/21 01:21 Urine pH 5.0 (5.0-7.0) 01/30/21 01:21 Ur Specific [place] 1.016 (1.003-1.030) 01/30/21 01:21 Urine Protein 30 mg/dl mg/dL (Negative) 01/30/21 01:21 Urine Glucose (UA) Neg mg/dL (Negative) 01/30/21 01:21 Urine Ketones Neg mg/dL (Negative) 01/30/21 01:21 Urine Blood Lg (Negative) 01/30/21 01:21 Urine Nitrite Neg (Negative) 01/30/21 01:21 Urine Bilirubin Neg (Negative) 01/30/21 01:21 Urine Urobilinogen < 2.0 mg/dL (<2.0) 01/30/21 01:21 Ur Leukocyte Esterase Neg (Negative) 01/30/21 01:21 Urine WBC (Auto) 3.0 /HPF (0.0-6.0) 01/30/21 01:21 Urine RBC (Auto) 38.0 /HPF (0.0-6.0) 01/30/21 01:21 U Epithel Cells (Auto) < 1.0 /HPF (0-13.0) 01/30/21 01:21 Urine Mucus Few /HPF 01/30/21 01:21 Urine Yeast (Budding) 1+ /HPF 01/30/21 01:21 Coronavirus (PCR) Positive (Negative) A 01/30/21 Unknown Microbiology: Microbiology 01/29/21 22:54 Peripheral/Venous Blood Culture - Preliminary NO GROWTH AFTER 72 HOURS 01/29/21 22:59 Peripheral/Venous Blood Culture - Preliminary NO GROWTH AFTER 72 HOURS Sanchez/IV: Voiding Method Toilet Active Medications - Current Medications Current Medications: Generic Name Dose Route Start Last Admin Trade Name Freq PRN Reason Stop Dose Admin Acetaminophen 650 mg 01/30/21 05:01 Acetaminophen 325 Mg Tab PO Q6H PRN Pain, Mild (1-3) Aspirin 81 mg 02/03/21 10:00 Aspirin 81 Mg Tab Chew PO QDAY [facility] Atorvastatin Calcium 40 mg 01/30/21 22:00 02/01/21 22:10 Atorvastatin 40 Mg Tab PO 40 mg QHS CATALINA Administration Dexamethasone 6 mg 02/01/21 10:00 02/02/21 09:13 Dexamethasone 4 Mg Tab PO 6 mg DAILY CATALINA Administration Enoxaparin Sodium 100 mg 02/01/21 10:00 02/02/21 09:14 Enoxaparin 100 Mg/1 Ml Inj SUB-Q 100 mg Q24HR CATALINA Administration Protocol Furosemide 40 mg 02/01/21 10:00 02/02/21 09:15 Furosemide 40 Mg/4 Ml Inj IV 40 mg QDAY CATALINA Administration Hydralazine HCl 50 mg 01/31/21 10:00 02/02/21 09:14 Hydralazine 25 Mg Tab PO 50 mg BID CATALINA Administration Isosorbide Mononitrate 30 mg 01/30/21 10:00 02/02/21 09:13 Isosorbide Mononitrate Er 30 Mg Tab PO 30 mg QDAY CATALINA Administration Levofloxacin 750 mg 01/30/21 10:00 02/01/21 09:54 Levofloxacin 750 Mg Tab PO 750 mg Q48HR CATALINA Administration Protocol Metoprolol Tartrate 50 mg 01/31/21 10:00 02/02/21 09:13 Metoprolol Tartrate 50 Mg Tab PO 50 mg BID CATALINA Administration Nitroglycerin 0.4 mg 01/30/21 05:01 Nitroglycerin 0.4 Mg Tab Subl SL .Q5MIN PRN Chest Pain Ondansetron HCl 4 mg 01/30/21 05:01 Ondansetron 4 Mg/2 Ml Inj IV Q8H PRN Nausea And Vomiting Pantoprazole Sodium 40 mg 01/30/21 10:00 02/02/21 09:14 Pantoprazole 40 Mg Tab PO 40 mg QDAY CATALINA Administration Sodium Chloride 10 ml 01/30/21 05:01 Sodium Chloride 0.9% 10 Ml Flush Syringe IV PRN PRN LINE FLUSH
[2021-02-03 08:39] LABS: Calcium 9.4 mg/dL (8.4-10.2)
[2021-02-03] MEDS: levoFLOXacin 750 MG TAB PO SCH (11:11)
[2021-02-03] MEDS: FUROSEMIDE 40 MG/4 ML INJ IV SCH (11:11)
[2021-02-03] MEDS: DEXAMETHASONE 4 MG TAB PO SCH (11:12)
[2021-02-03] MEDS: ENOXAPARIN 100 MG/1 ML INJ SUB-Q SCH (11:12)
[2021-02-03] MEDS: ASPIRIN 81 MG TAB CHEW PO SCH (11:13)
[2021-02-03] MEDS: PANTOPRAZOLE 40 MG TAB PO SCH (11:17)
--- NOTE | 2021-02-03 11:31 | Vascular Lab Report ---
DUPLEX DOPPLER LOWER EXTREMITY VEINS, BILATERAL INDICATION: Elevated D-dimer, rule out DVT. TECHNIQUE: Duplex doppler imaging was performed through the veins of both lower extremities using ve nous compression and other maneuvers. COMPARISON: No relevant prior imaging study available. FINDINGS: Right Common femoral vein: Negative. Right Superficial femoral vein: Negative. Right Popliteal vein: Negative. Right Calf veins: Negative. Left Common femoral vein: Negative. Left Superficial femoral vein: Negative. Left Popliteal vein: Negative. Left Calf veins: Negative. Additional findings: None. IMPRESSION: No sonographic evidence for DVT in either lower extremity. Signer Name: Bryan Busch Jr, MD Signed: 02/03/2021 11:26 AM Workstation Name: [id number]
[2021-02-03] MEDS: METOPROLOL TARTRATE 50 MG TAB PO SCH ×2 (11:50→22:17)
[2021-02-03] MEDS: hydrALAZINE 25 MG TAB PO SCH ×2 (11:51→22:17)
--- NOTE | 2021-02-03 13:21 | Progress Note ---
Assessment and Plan Patient is a 50-year-old male with a past medical history of HFrEF (EF 10 to 15%) and hypertension who presented to [facility] with complaint of progressively worsening fatigue and shortness of breath x 2-week HFrEF NSTEMI suspect type 2 EKG sinus tachycardia 112, no acute ischemic changes. Troponin elevated but down trending .57->.53->.368 Patient is currently chest pain-free. Echocardiogram 10/2020 is EF 10-15%, Left ventricle severely dilated, mild LVH, right ventricle moderately dilated, severe tricuspid regurgitation, Lexiscan MPI stress test11/01/2020- negative for ischemia Outpatient medications: asa, Imdur 30mg PO Qd, hydralizine 25mg PO Bid, metoprolol 100mg PO BID, Nifedipine XL 60mg PO QD, Lasix 40 mg PO daily, Aldactone 25 QD. . AMERICA Nephrology is following PUI Elevated D-dimer COVID PCR positive CXR o admission shows patchy bilateral pulmonary opacities ID following Acute hypoxic respiratory failure Management per primary team Plan: Stop lasix in setting of rising creatinine Aldactone and ACEI/ARB deferred at this time due to renal fxn Continue hydralizine 50mg PO BID and Metoprolol 50mg PO BID for BP control. Pt seen in conjunction with Dr. Ahumada, who agrees with the assessment and plan of care. - Patient Problems (1) Acute encephalopathy Current Visit: Yes Status: Acute (2) Acute kidney injury superimposed on CKD Current Visit: Yes Status: Acute (3) Acute on chronic HFrEF (heart failure with reduced ejection fraction) Current Visit: Yes Status: Acute (4) Elevated d-dimer Current Visit: Yes Status: Acute (5) NSTEMI (non-ST elevated myocardial infarction) Current Visit: Yes Status: Acute (6) Pneumonia Current Visit: Yes Status: Acute (7) Suspected COVID-19 virus infection Current Visit: Yes Status: Acute (8) NICM (nonischemic cardiomyopathy) Current Visit: Yes Status: Chronic (9) Acute respiratory failure Current Visit: No Status: Acute Qualifiers: Respiratory failure complication: hypoxia Qualified Code(s): J96.01 - Acute respiratory failure with hypoxia (10) Bilateral pneumonia Current Visit: No Status: Acute (11) Elevated troponin Current Visit: No Status: Acute Subjective Date of service: 02/03/21 Principal diagnosis: AMERICA Interval history: Patient lying flat in bed in no acute distress and no complaints Sinus 82 with no events on monitor Objective Vital Signs Temp Pulse Resp BP Pulse Ox 02/03/21 11:51 94 H 115/80 02/03/21 11:50 94 H 115/80 02/03/21 11:43 97.6 F 18 115/80 02/03/21 05:24 98.0 F 96 H 20 148/97 96 02/02/21 23:06 94 H 128/84 02/02/21 23:05 94 H 124/86 02/02/21 22:36 98.2 F 94 H 20 128/91 96 02/02/21 22:08 96 - Physical Examination General: No Apparent Distress HEENT: Positive: Normocephaly, Mucus Membranes Moist Neck: Positive: neck supple, trachea midline. Negative: JVD/HJR Cardiac: Positive: Reg Rate and Rhythm Lungs: Positive: Normal Breath Sounds Neuro: Positive: Grossly Intact Abdomen: Positive: Soft Skin: Negative: Rash Extremities: Present: upper extr. pulses, lower extr. pulses. Absent: edema - Labs and Meds Comprehensive Metabolic Panel 02/03/21 Range/Units 07:05 Sodium 141 (137-145) mmol/L Potassium 4.5 (3.6-5.0) mmol/L Chloride 104.9 (98-107) mmol/L Carbon Dioxide 22 (22-30) mmol/L BUN 55 H (9-20) mg/dL Creatinine 2.5 H (0.8-1.3) mg/dL Glucose 84 (75-100) mg/dL Calcium 9.4 (8.4-10.2) mg/dL - Imaging and Cardiology EKG: report reviewed, image reviewed Echo: report reviewed (10/2020 - EF 10-15%, mild LVH, LV severely dilated, RV mod dilated, RV mildly hypokinetic, trace AR, mild MR, severe TR, RVSP 39mmHg, trace CT.) Cardiac cath: report reviewed - Telemetry EKG Rhythm: Sinus Rhythm - EKG Sinus rhythms and dysrhythmias: sinus rhythm Chamber hypertrophy or enlargement: left atrial enlargement, right atrial enlargment, left ventricular hypertro - Allied health notes Allied health notes reviewed: nursing
--- NOTE | 2021-02-03 19:32 | Progress Note ---
Assessment and Plan Assessment and plan: 50-year-old male with PMH of severe systolic heart failure, LVEF 10 to 15% and a negative Lexiscan in 10/30, NICM, CKD 3 presents with a 1-2-week history of malaise, cough, congestion, progressive weakness with the dizziness and dyspnea and found to be hypoxic and confused. Tested positive for COVID-19. He did receive Covid vaccine x1 dose in the 12/2020. 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 Acute COVID-19 infection, symptoms started about 1-2 wk ago, tested positive in ED Did receive COVID-19 vaccine 12/2020 x 1 dose. 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 D-dimer 2388, CRP 12 COVID-19 pneumonia with acute hypoxic respiratory failure Hypoxia resolved and O2 weaned to room air on 02/01 Chest [id number] to be pulmonary edema pattern rather than typical COVID-19 pneumonia Chest x-ray improved and ABG 7.43, 31, 73, room air on 02/02 Chronic severe systolic heart failure, LVEF from 10-15% in 10/30 NICM with a negative Lexiscan in 10/30 Mild troponin elevation 0.5 in the setting of AMERICA/CKD BNP is 7973 Heart failure appears compensated, no volume overload clinically Cardiology consulted and following AMERICA on CKD 3, creatinine 2.6 versus of 1.8 in 10/30 at the time of admission Renal function stable/slow improving Nephrology consulted and following Was getting Lasix 40 mg IV daily, held today by cardiology for rising creatinine acute encephalopathy with delirium, likely from COVID-19 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 with no history of strokes Concerning for Covid related thrombosis from a coagulopathy Delirium slowly improving Neurology consulted, MRI ordered but not done due to elevated creatinine Plan: Alertness and confusion slowly but progress improving Continue to avoid all narcotics and continue to monitor MRI and MRA ordered enterology following Hypoxia resolved, O2 weaned to room air on 02/01 Remains afebrile with stable vital signs No respiratory distress/dyspnea Continue Decadron Monitor markers of inflammation for COVID-19, improving Therapeutic Lovenox for elevated D-dimer for now No DVT in lower extremities by ultrasound CTA chest deferred due to AMERICA Continue heart failure regimen, per cardiology, Lasix held today rising creatinine Continue to monitor renal function and electrolytes Disposition: Hypoxia resolved. Confusion is improving. Continue monitor for AMERICA/CKD. Possible discharge in 1 to 2 days. Discussed with the nursing staff and in detail History Interval history: Alertness is progressivrly improving but remains confused though slowly improving. Able to answer more questions. Restlessness resolved. MRI brain ordered by neurology but not performed due to elevated creatinine. Hypoxia resolved, O2 weaned to room air. Remains comfortable. CXR much better. Remains afebrile with a stable vital signs. Lasix 40 mg IV, discontinued today for rising creatinine/BUN. Tolerating diet. Hospitalist Physical - Constitutional Vitals: Temp Pulse Resp BP Pulse Ox 97.9 F 88 18 100/71 95 02/03/21 16:08 02/03/21 16:08 02/03/21 16:08 02/03/21 16:08 02/03/21 16:08 General appearance: Present: no acute distress, other (Awake, fairly alert but confused though improving) - EENT Eyes: Present: PERRL, EOM intact ENT: clear oral mucosa - Neck Neck: Present: supple. Absent: masses or JVD - Respiratory Respiratory effort: normal Respiratory: bilateral: CTA - Cardiovascular Rhythm: regular - Extremities Extremities: No edema - Abdominal General gastrointestinal: soft, non-tender, non-distended, normal bowel sounds - Integumentary Integumentary: Absent: rash - Psychiatric Psychiatric: other (Confused but calm) - Neurologic Neurologic: other (Alertness was improved. Still confused but also improving. No focal motor deficits. Not any more restless.) HEART Score - HEART Score Troponin: Troponin T 0.378 ng/mL (0.00-0.029) H* 02/02/21 07:00 Results - Labs CBC & Chem 7: 02/01/21 09:16 02/03/21 07:05 Labs: Laboratory Last Values WBC 8.3 K/mm3 (4.5-11.0) 02/01/21 09:16 RBC 4.38 M/mm3 (3.65-5.03) 02/01/21 09:16 Hgb 13.2 gm/dl (11.8-15.2) 02/01/21 09:16 Hct 38.4 % (35.5-45.6) 02/01/21 09:16 MCV 88 fl (84-94) 02/01/21 09:16 MCH 30 pg (28-32) 02/01/21 09:16 MCHC 34 % (32-34) 02/01/21 09:16 RDW 16.2 % (13.2-15.2) H 02/01/21 09:16 Plt Count 378 K/mm3 (140-440) 02/01/21 09:16 Lymph % (Auto) 4.3 % (13.4-35.0) L 01/29/21 22:59 [place] % (Auto) 7.5 % (0.0-7.3) H 01/29/21 22:59 Eos % (Auto) 0.0 % (0.0-4.3) 01/29/21 22:59 Baso % (Auto) 1.3 % (0.0-1.8) 01/29/21 22:59 Lymph # (Auto) 0.6 K/mm3 (1.2-5.4) L 01/29/21 22:59 [place] # (Auto) 1.0 K/mm3 (0.0-0.8) H 01/29/21 22:59 Eos # (Auto) 0.0 K/mm3 (0.0-0.4) 01/29/21 22:59 Baso # (Auto) 0.2 K/mm3 (0.0-0.1) H 01/29/21 22:59 Add Manual Diff Complete 02/01/21 09:16 Total Counted 100 02/01/21 09:16 Seg Neutrophils % 86.9 % (40.0-70.0) H 01/29/21 22:59 Seg Neuts % (Manual) 75.0 % (40.0-70.0) H 02/01/21 09:16 Band Neutrophils % 4.0 % 02/01/21 09:16 Lymphocytes % (Manual) 10.0 % (13.4-35.0) L 02/01/21 09:16 Reactive Lymphs % (Man) 3.0 % 02/01/21 09:16 Monocytes % (Manual) 4.0 % (0.0-7.3) 02/01/21 09:16 Eosinophils % (Manual) 3.0 % (0.0-4.3) 02/01/21 09:16 Metamyelocytes % 1.0 % 02/01/21 09:16 Nucleated RBC % Not Reportable 02/01/21 09:16 Seg Neutrophils # 12.0 K/mm3 (1.8-7.7) H 01/29/21 22:59 Seg Neutrophils # Man 6.2 K/mm3 (1.8-7.7) 02/01/21 09:16 Band Neutrophils # 0.3 K/mm3 02/01/21 09:16 Lymphocytes # (Manual) 0.8 K/mm3 (1.2-5.4) L 02/01/21 09:16 Abs React Lymphs (Man) 0.2 K/mm3 02/01/21 09:16 Monocytes # (Manual) 0.3 K/mm3 (0.0-0.8) 02/01/21 09:16 Eosinophils # (Manual) 0.2 K/mm3 (0.0-0.4) 02/01/21 09:16 Basophils # (Manual) 0.0 K/mm3 (0.0-0.1) 02/01/21 09:16 Metamyelocytes # 0.1 K/mm3 02/01/21 09:16 Myelocytes # 0.0 K/mm3 02/01/21 09:16 Promyelocytes # 0.0 K/mm3 02/01/21 09:16 Blast Cells # 0.0 K/mm3 02/01/21 09:16 WBC Morphology Not Reportable 02/01/21 09:16 WBC Morphology TNR 02/01/21 09:16 Hypersegmented Neuts Not Reportable 02/01/21 09:16 Hyposegmented Neuts Not Reportable 02/01/21 09:16 Hypogranular Neuts Not Reportable 02/01/21 09:16 Smudge Cells Not Reportable 02/01/21 09:16 Toxic Granulation Not Reportable 02/01/21 09:16 Toxic Vacuolation Not Reportable 02/01/21 09:16 Dohle Bodies Not Reportable 02/01/21 09:16 Pelger-Huet Anomaly Not Reportable 02/01/21 09:16 Demetra Rods Not Reportable 02/01/21 09:16 Platelet Estimate Not Reportable 02/01/21 09:16 Clumped Platelets Not Reportable 02/01/21 09:16 Plt Clumps, EDTA Not Reportable 02/01/21 09:16 Large Platelets Not Reportable 02/01/21 09:16 Giant Platelets Not Reportable 02/01/21 09:16 Platelet Satelliting Not Reportable 02/01/21 09:16 Plt Morphology Comment Not Reportable 02/01/21 09:16 RBC Morphology Normal 02/01/21 09:16 Dimorphic RBCs Not Reportable 02/01/21 09:16 Polychromasia Not Reportable 02/01/21 09:16 Hypochromasia Not Reportable 02/01/21 09:16 Poikilocytosis Not Reportable 02/01/21 09:16 Anisocytosis Not Reportable 02/01/21 09:16 Microcytosis Not Reportable 02/01/21 09:16 Macrocytosis Not Reportable 02/01/21 09:16 Spherocytes Not Reportable 02/01/21 09:16 Pappenheimer Bodies Not Reportable 02/01/21 09:16 Sickle Cells Not Reportable 02/01/21 09:16 Target Cells Not Reportable 02/01/21 09:16 Tear Drop Cells Not Reportable 02/01/21 09:16 Ovalocytes Not Reportable 02/01/21 09:16 Helmet Cells Not Reportable 02/01/21 09:16 [place] Bodies Not Reportable 02/01/21 09:16 [place] Rings Not Reportable 02/01/21 09:16 Marcus Cells Not Reportable 02/01/21 09:16 Bite Cells Not Reportable 02/01/21 09:16 Crenated Cell Not Reportable 02/01/21 09:16 Elliptocytes Not Reportable 02/01/21 09:16 Acanthocytes (Spur) Not Reportable 02/01/21 09:16 Rouleaux Not Reportable 02/01/21 09:16 Hemoglobin C Crystals Not Reportable 02/01/21 09:16 Schistocytes Not Reportable 02/01/21 09:16 Malaria parasites Not Reportable 02/01/21 09:16 [place] Bodies Not Reportable 02/01/21 09:16 Hem Pathologist Commnt No 02/01/21 09:16 PT 16.3 Sec. (12.2-14.9) H 01/29/21 22:59 INR 1.18 (0.87-1.13) H 01/29/21 22:59 APTT 30.7 Sec. (24.2-36.6) 01/29/21 22:59 D-Dimer 1184.83 ng/mlDDU (0-234) H 02/02/21 07:00 ABG pH 7.436 pH Units (7.350-7.450) 02/02/21 09:15 ABG pCO2 31.0 mm Hg 02/02/21 09:15 ABG pO2 73.6 mm Hg (80.0-90.0) L 02/02/21 09:15 ABG HCO3 20.4 mmol/L (20.0-26.0) 02/02/21 09:15 ABG O2 Saturation 95.5 % (95.0-99.0) 02/02/21 09:15 ABG O2 Content 17.7 (0.0-44) 02/02/21 09:15 ABG Base Excess -2.8 mmol/L (-2.0-3.0) L 02/02/21 09:15 ABG Hemoglobin 13.4 gm/dl (14.0-18.0) L 02/02/21 09:15 ABG Carboxyhemoglobin 1.4 % (0.0-5.0) 02/02/21 09:15 ABG Methemoglobin 0.5 % (0.0-1.5) 02/02/21 09:15 Oxyhemoglobin 93.7 % (95.0-99.0) L 02/02/21 09:15 FiO2 21 % 02/02/21 09:15 Sodium 141 mmol/L (137-145) 02/03/21 07:05 Potassium 4.5 mmol/L (3.6-5.0) 02/03/21 07:05 Chloride 104.9 mmol/L (98-107) 02/03/21 07:05 Carbon Dioxide 22 mmol/L (22-30) 02/03/21 07:05 Anion Gap 19 mmol/L 02/03/21 07:05 BUN 55 mg/dL (9-20) H 02/03/21 07:05 Creatinine 2.5 mg/dL (0.8-1.3) H 02/03/21 07:05 Estimated GFR 33 ml/min 02/03/21 07:05 BUN/Creatinine Ratio 22 % 02/03/21 07:05 Glucose 84 mg/dL (75-100) 02/03/21 07:05 Lactic Acid 1.50 mmol/L (0.7-2.0) 01/29/21 22:59 Calcium 9.4 mg/dL (8.4-10.2) 02/03/21 07:05 Magnesium 2.20 mg/dL (1.7-2.3) 02/02/21 07:00 Ferritin 1337.0 ng/mL (30.0-300.0) H 02/02/21 07:00 Total Bilirubin 0.50 mg/dL (0.1-1.2) 01/29/21 22:59 AST 74 units/L (5-40) H 01/29/21 22:59 ALT 56 units/L (7-56) 01/29/21 22:59 Alkaline Phosphatase 61 units/L (35-129) 01/29/21 22:59 Ammonia 26.0 umol/L (25-60) 02/02/21 07:00 Lactate Dehydrogenase 467 units/L (91-180) H 02/01/21 09:16 Troponin T 0.378 ng/mL (0.00-0.029) H* 02/02/21 07:00 C-Reactive Protein 4.20 mg/dL (0.00-1.30) H 02/02/21 07:00 NT-Pro-B Natriuret Pep 9236 pg/mL (0-900) H 02/01/21 09:16 Total Protein 7.7 g/dL (6.3-8.2) 01/29/21 22:59 Albumin 3.7 g/dL (3.9-5) L 01/29/21 22:59 Albumin/Globulin Ratio 0.9 % 01/29/21 22:59 Vitamin B12 878.8 pg/mL (211-911) 02/02/21 07:00 Folate 6.66 ng/mL (7.3-26.0) L 02/02/21 07:00 TSH 0.614 mlU/mL (0.270-4.200) 02/02/21 07:00 Urine Color Yellow (Yellow) 01/30/21 01:21 Urine Turbidity Slightly-cloudy (Clear) 01/30/21 01:21 Urine pH 5.0 (5.0-7.0) 01/30/21 01:21 Ur Specific [place] 1.016 (1.003-1.030) 01/30/21 01:21 Urine Protein 30 mg/dl mg/dL (Negative) 01/30/21 01:21 Urine Glucose (UA) Neg mg/dL (Negative) 01/30/21 01:21 Urine Ketones Neg mg/dL (Negative) 01/30/21 01:21 Urine Blood Lg (Negative) 01/30/21 01:21 Urine Nitrite Neg (Negative) 01/30/21 01:21 Urine Bilirubin Neg (Negative) 01/30/21 01:21 Urine Urobilinogen < 2.0 mg/dL (<2.0) 01/30/21 01:21 Ur Leukocyte Esterase Neg (Negative) 01/30/21 01:21 Urine WBC (Auto) 3.0 /HPF (0.0-6.0) 01/30/21 01:21 Urine RBC (Auto) 38.0 /HPF (0.0-6.0) 01/30/21 01:21 U Epithel Cells (Auto) < 1.0 /HPF (0-13.0) 01/30/21 01:21 Urine Mucus Few /HPF 01/30/21 01:21 Urine Yeast (Budding) 1+ /HPF 01/30/21 01:21 Coronavirus (PCR) Positive (Negative) A 01/30/21 Unknown Microbiology: Microbiology 01/29/21 22:54 Peripheral/Venous Blood Culture - Preliminary NO GROWTH AFTER 4 DAYS 01/29/21 22:59 Peripheral/Venous Blood Culture - Preliminary NO GROWTH AFTER 4 DAYS Sanchez/IV: Voiding Method Toilet Active Medications - Current Medications Current Medications: Generic Name Dose Route Start Last Admin Trade Name Freq PRN Reason Stop Dose Admin Acetaminophen 650 mg 01/30/21 05:01 Acetaminophen 325 Mg Tab PO Q6H PRN Pain, Mild (1-3) Aspirin 81 mg 02/03/21 10:00 02/03/21 11:13 Aspirin 81 Mg Tab Chew PO 81 mg QDAY CATALINA Administration Atorvastatin Calcium 40 mg 01/30/21 22:00 02/02/21 23:05 Atorvastatin 40 Mg Tab PO 40 mg QHS CATALINA Administration Dexamethasone 6 mg 02/01/21 10:00 02/03/21 11:12 Dexamethasone 4 Mg Tab PO 02/10/21 10:01 6 mg DAILY CATALINA Administration Enoxaparin Sodium 100 mg 02/01/21 10:00 02/03/21 11:12 Enoxaparin 100 Mg/1 Ml Inj SUB-Q 100 mg Q24HR CATALINA Administration Protocol Hydralazine HCl 50 mg 01/31/21 10:00 02/03/21 11:51 Hydralazine 25 Mg Tab PO 50 mg BID CATALINA Administration Isosorbide Mononitrate 30 mg 01/30/21 10:00 02/03/21 11:51 Isosorbide Mononitrate Er 30 Mg Tab PO 30 mg QDAY CATALINA Administration Levofloxacin 750 mg 01/30/21 10:00 02/03/21 11:11 Levofloxacin 750 Mg Tab PO 02/05/21 09:59 750 mg Q48HR CATALINA Administration Protocol Metoprolol Tartrate 50 mg 01/31/21 10:00 02/03/21 11:50 Metoprolol Tartrate 50 Mg Tab PO 50 mg BID CATALINA Administration Nitroglycerin 0.4 mg 01/30/21 05:01 Nitroglycerin 0.4 Mg Tab Subl SL .Q5MIN PRN Chest Pain Ondansetron HCl 4 mg 01/30/21 05:01 Ondansetron 4 Mg/2 Ml Inj IV Q8H PRN Nausea And Vomiting Pantoprazole Sodium 40 mg 01/30/21 10:00 02/03/21 11:17 Pantoprazole 40 Mg Tab PO 40 mg QDAY CATALINA Administration Sodium Chloride 10 ml 01/30/21 05:01 Sodium Chloride 0.9% 10 Ml Flush Syringe IV PRN PRN LINE FLUSH
[2021-02-04 08:34] LABS: Calcium 8.8 mg/dL (8.4-10.2)
[2021-02-04] MEDS: ENOXAPARIN 100 MG/1 ML INJ SUB-Q SCH (10:07)
[2021-02-04] MEDS: ASPIRIN 81 MG TAB CHEW PO SCH (10:07)
[2021-02-04] MEDS: METOPROLOL TARTRATE 50 MG TAB PO SCH ×2 (10:07→22:03)
[2021-02-04] MEDS: PANTOPRAZOLE 40 MG TAB PO SCH (10:08)
[2021-02-04] MEDS: DEXAMETHASONE 4 MG TAB PO SCH (10:08)
[2021-02-04] MEDS: hydrALAZINE 25 MG TAB PO SCH ×2 (10:08→22:03)
--- NOTE | 2021-02-04 10:50 | Progress Note ---
Assessment and Plan Assessment and plan: Acute heart failure with reduced EF. EF 10 to 15% Non-ST elevation [place] suspect type II. Stress test on October 2020 - for ischemia. Acute kidney injury on CKD 3, creatinine 2.6 versus of 1.8 in 10/30 at the time of admission COVID-19 pneumonia. Acute hypoxic respiratory failure. Toxic metabolic encephalopathy. Elevated D-dimer. 02/04/2021. Cardiology stopped Lasix in setting of rising creatinine. Aldactone and TD inhibitor/ARB deferred due to renal function. Continue hydralazine and metoprolol per cardiology recommendations. Await MRI for encephalopathy. History Interval history: No new issues overnight. Hospitalist Physical - Constitutional Vitals: Temp Pulse Resp BP Pulse Ox 97.8 F 85 20 130/86 94 02/04/21 05:46 02/04/21 10:07 02/04/21 05:46 02/04/21 10:07 02/04/21 09:17 General appearance: Present: no acute distress, other (Awake, fairly alert but confused though improving) - EENT Eyes: Present: PERRL, EOM intact ENT: hearing intact, clear oral mucosa, dentition normal - Neck Neck: Present: supple, normal ROM - Respiratory Respiratory effort: normal Respiratory: bilateral: CTA - Cardiovascular Rhythm: regular Heart Sounds: Present: S1 & S2. Absent: gallop, rub - Extremities Extremities: no ischemia, No edema, Full ROM - Abdominal General gastrointestinal: soft, non-tender, non-distended, normal bowel sounds - Integumentary Integumentary: Present: clear, warm, dry - Neurologic Neurologic: CNII-XII intact, moves all extremities HEART Score - HEART Score Troponin: Troponin T 0.378 ng/mL (0.00-0.029) H* 02/02/21 07:00 Results - Labs CBC & Chem 7: 02/01/21 09:16 02/04/21 07:50 Labs: Laboratory Last Values WBC 8.3 K/mm3 (4.5-11.0) 02/01/21 09:16 RBC 4.38 M/mm3 (3.65-5.03) 02/01/21 09:16 Hgb 13.2 gm/dl (11.8-15.2) 02/01/21 09:16 Hct 38.4 % (35.5-45.6) 02/01/21 09:16 MCV 88 fl (84-94) 02/01/21 09:16 MCH 30 pg (28-32) 02/01/21 09:16 MCHC 34 % (32-34) 02/01/21 09:16 RDW 16.2 % (13.2-15.2) H 02/01/21 09:16 Plt Count 378 K/mm3 (140-440) 02/01/21 09:16 Lymph % (Auto) 4.3 % (13.4-35.0) L 01/29/21 22:59 [place] % (Auto) 7.5 % (0.0-7.3) H 01/29/21 22:59 Eos % (Auto) 0.0 % (0.0-4.3) 01/29/21 22:59 Baso % (Auto) 1.3 % (0.0-1.8) 01/29/21 22:59 Lymph # (Auto) 0.6 K/mm3 (1.2-5.4) L 01/29/21 22:59 [place] # (Auto) 1.0 K/mm3 (0.0-0.8) H 01/29/21 22:59 Eos # (Auto) 0.0 K/mm3 (0.0-0.4) 01/29/21 22:59 Baso # (Auto) 0.2 K/mm3 (0.0-0.1) H 01/29/21 22:59 Add Manual Diff Complete 02/01/21 09:16 Total Counted 100 02/01/21 09:16 Seg Neutrophils % 86.9 % (40.0-70.0) H 01/29/21 22:59 Seg Neuts % (Manual) 75.0 % (40.0-70.0) H 02/01/21 09:16 Band Neutrophils % 4.0 % 02/01/21 09:16 Lymphocytes % (Manual) 10.0 % (13.4-35.0) L 02/01/21 09:16 Reactive Lymphs % (Man) 3.0 % 02/01/21 09:16 Monocytes % (Manual) 4.0 % (0.0-7.3) 02/01/21 09:16 Eosinophils % (Manual) 3.0 % (0.0-4.3) 02/01/21 09:16 Metamyelocytes % 1.0 % 02/01/21 09:16 Nucleated RBC % Not Reportable 02/01/21 09:16 Seg Neutrophils # 12.0 K/mm3 (1.8-7.7) H 01/29/21 22:59 Seg Neutrophils # Man 6.2 K/mm3 (1.8-7.7) 02/01/21 09:16 Band Neutrophils # 0.3 K/mm3 02/01/21 09:16 Lymphocytes # (Manual) 0.8 K/mm3 (1.2-5.4) L 02/01/21 09:16 Abs React Lymphs (Man) 0.2 K/mm3 02/01/21 09:16 Monocytes # (Manual) 0.3 K/mm3 (0.0-0.8) 02/01/21 09:16 Eosinophils # (Manual) 0.2 K/mm3 (0.0-0.4) 02/01/21 09:16 Basophils # (Manual) 0.0 K/mm3 (0.0-0.1) 02/01/21 09:16 Metamyelocytes # 0.1 K/mm3 02/01/21 09:16 Myelocytes # 0.0 K/mm3 02/01/21 09:16 Promyelocytes # 0.0 K/mm3 02/01/21 09:16 Blast Cells # 0.0 K/mm3 02/01/21 09:16 WBC Morphology Not Reportable 02/01/21 09:16 WBC Morphology TNR 02/01/21 09:16 Hypersegmented Neuts Not Reportable 02/01/21 09:16 Hyposegmented Neuts Not Reportable 02/01/21 09:16 Hypogranular Neuts Not Reportable 02/01/21 09:16 Smudge Cells Not Reportable 02/01/21 09:16 Toxic Granulation Not Reportable 02/01/21 09:16 Toxic Vacuolation Not Reportable 02/01/21 09:16 Dohle Bodies Not Reportable 02/01/21 09:16 Pelger-Huet Anomaly Not Reportable 02/01/21 09:16 Demetra Rods Not Reportable 02/01/21 09:16 Platelet Estimate Not Reportable 02/01/21 09:16 Clumped Platelets Not Reportable 02/01/21 09:16 Plt Clumps, EDTA Not Reportable 02/01/21 09:16 Large Platelets Not Reportable 02/01/21 09:16 Giant Platelets Not Reportable 02/01/21 09:16 Platelet Satelliting Not Reportable 02/01/21 09:16 Plt Morphology Comment Not Reportable 02/01/21 09:16 RBC Morphology Normal 02/01/21 09:16 Dimorphic RBCs Not Reportable 02/01/21 09:16 Polychromasia Not Reportable 02/01/21 09:16 Hypochromasia Not Reportable 02/01/21 09:16 Poikilocytosis Not Reportable 02/01/21 09:16 Anisocytosis Not Reportable 02/01/21 09:16 Microcytosis Not Reportable 02/01/21 09:16 Macrocytosis Not Reportable 02/01/21 09:16 Spherocytes Not Reportable 02/01/21 09:16 Pappenheimer Bodies Not Reportable 02/01/21 09:16 Sickle Cells Not Reportable 02/01/21 09:16 Target Cells Not Reportable 02/01/21 09:16 Tear Drop Cells Not Reportable 02/01/21 09:16 Ovalocytes Not Reportable 02/01/21 09:16 Helmet Cells Not Reportable 02/01/21 09:16 [place] Bodies Not Reportable 02/01/21 09:16 [place] Rings Not Reportable 02/01/21 09:16 Marcus Cells Not Reportable 02/01/21 09:16 Bite Cells Not Reportable 02/01/21 09:16 Crenated Cell Not Reportable 02/01/21 09:16 Elliptocytes Not Reportable 02/01/21 09:16 Acanthocytes (Spur) Not Reportable 02/01/21 09:16 Rouleaux Not Reportable 02/01/21 09:16 Hemoglobin C Crystals Not Reportable 02/01/21 09:16 Schistocytes Not Reportable 02/01/21 09:16 Malaria parasites Not Reportable 02/01/21 09:16 Kip Bodies Not Reportable 02/01/21 09:16 Hem Pathologist Commnt No 02/01/21 09:16 PT 16.3 Sec. (12.2-14.9) H 01/29/21 22:59 INR 1.18 (0.87-1.13) H 01/29/21 22:59 APTT 30.7 Sec. (24.2-36.6) 01/29/21 22:59 D-Dimer 1184.83 ng/mlDDU (0-234) H 02/02/21 07:00 ABG pH 7.436 pH Units (7.350-7.450) 02/02/21 09:15 ABG pCO2 31.0 mm Hg 02/02/21 09:15 ABG pO2 73.6 mm Hg (80.0-90.0) L 02/02/21 09:15 ABG HCO3 20.4 mmol/L (20.0-26.0) 02/02/21 09:15 ABG O2 Saturation 95.5 % (95.0-99.0) 02/02/21 09:15 ABG O2 Content 17.7 (0.0-44) 02/02/21 09:15 ABG Base Excess -2.8 mmol/L (-2.0-3.0) L 02/02/21 09:15 ABG Hemoglobin 13.4 gm/dl (14.0-18.0) L 02/02/21 09:15 ABG Carboxyhemoglobin 1.4 % (0.0-5.0) 02/02/21 09:15 ABG Methemoglobin 0.5 % (0.0-1.5) 02/02/21 09:15 Oxyhemoglobin 93.7 % (95.0-99.0) L 02/02/21 09:15 FiO2 21 % 02/02/21 09:15 Sodium 139 mmol/L (137-145) 02/04/21 07:50 Potassium 4.1 mmol/L (3.6-5.0) 02/04/21 07:50 Chloride 106.3 mmol/L (98-107) 02/04/21 07:50 Carbon Dioxide 20 mmol/L (22-30) L 02/04/21 07:50 Anion Gap 17 mmol/L 02/04/21 07:50 BUN 54 mg/dL (9-20) H 02/04/21 07:50 Creatinine 2.1 mg/dL (0.8-1.3) H 02/04/21 07:50 Estimated GFR 41 ml/min 02/04/21 07:50 BUN/Creatinine Ratio 26 % 02/04/21 07:50 Glucose 97 mg/dL (75-100) 02/04/21 07:50 POC Glucose 234 mg/dL (70-105) H 02/03/21 22:09 Lactic Acid 1.50 mmol/L (0.7-2.0) 01/29/21 22:59 Calcium 8.8 mg/dL (8.4-10.2) 02/04/21 07:50 Magnesium 2.20 mg/dL (1.7-2.3) 02/02/21 07:00 Ferritin 1337.0 ng/mL (30.0-300.0) H 02/02/21 07:00 Total Bilirubin 0.50 mg/dL (0.1-1.2) 01/29/21 22:59 AST 74 units/L (5-40) H 01/29/21 22:59 ALT 56 units/L (7-56) 01/29/21 22:59 Alkaline Phosphatase 61 units/L (35-129) 01/29/21 22:59 Ammonia 26.0 umol/L (25-60) 02/02/21 07:00 Lactate Dehydrogenase 467 units/L (91-180) H 02/01/21 09:16 Troponin T 0.378 ng/mL (0.00-0.029) H* 02/02/21 07:00 C-Reactive Protein 4.20 mg/dL (0.00-1.30) H 02/02/21 07:00 NT-Pro-B Natriuret Pep 9236 pg/mL (0-900) H 02/01/21 09:16 Total Protein 7.7 g/dL (6.3-8.2) 01/29/21 22:59 Albumin 3.7 g/dL (3.9-5) L 01/29/21 22:59 Albumin/Globulin Ratio 0.9 % 01/29/21 22:59 Vitamin B12 878.8 pg/mL (211-911) 02/02/21 07:00 Folate 6.66 ng/mL (7.3-26.0) L 02/02/21 07:00 TSH 0.614 mlU/mL (0.270-4.200) 02/02/21 07:00 Urine Color Yellow (Yellow) 01/30/21 01:21 Urine Turbidity Slightly-cloudy (Clear) 01/30/21 01:21 Urine pH 5.0 (5.0-7.0) 01/30/21 01:21 Ur Specific [place] 1.016 (1.003-1.030) 01/30/21 01:21 Urine Protein 30 mg/dl mg/dL (Negative) 01/30/21 01:21 Urine Glucose (UA) Neg mg/dL (Negative) 01/30/21 01:21 Urine Ketones Neg mg/dL (Negative) 01/30/21 01:21 Urine Blood Lg (Negative) 01/30/21 01:21 Urine Nitrite Neg (Negative) 01/30/21 01:21 Urine Bilirubin Neg (Negative) 01/30/21 01:21 Urine Urobilinogen < 2.0 mg/dL (<2.0) 01/30/21 01:21 Ur Leukocyte Esterase Neg (Negative) 01/30/21 01:21 Urine WBC (Auto) 3.0 /HPF (0.0-6.0) 01/30/21 01:21 Urine RBC (Auto) 38.0 /HPF (0.0-6.0) 01/30/21 01:21 U Epithel Cells (Auto) < 1.0 /HPF (0-13.0) 01/30/21 01:21 Urine Mucus Few /HPF 01/30/21 01:21 Urine Yeast (Budding) 1+ /HPF 01/30/21 01:21 Coronavirus (PCR) Positive (Negative) A 01/30/21 Unknown Microbiology: Microbiology 01/29/21 22:54 Peripheral/Venous Blood Culture - Final NO GROWTH AFTER 5 DAYS 01/29/21 22:59 Peripheral/Venous Blood Culture - Final NO GROWTH AFTER 5 DAYS Sanchez/IV: Voiding Method Toilet Active Medications - Current Medications Current Medications: Generic Name Dose Route Start Last Admin Trade Name Freq PRN Reason Stop Dose Admin Acetaminophen 650 mg 01/30/21 05:01 Acetaminophen 325 Mg Tab PO Q6H PRN Pain, Mild (1-3) Aspirin 81 mg 02/03/21 10:00 02/04/21 10:07 Aspirin 81 Mg Tab Chew PO 81 mg QDAY CATALINA Administration Atorvastatin Calcium 40 mg 01/30/21 22:00 02/03/21 22:17 Atorvastatin 40 Mg Tab PO 40 mg QHS CATALINA Administration Dexamethasone 6 mg 02/01/21 10:00 02/04/21 10:08 Dexamethasone 4 Mg Tab PO 02/10/21 10:01 6 mg DAILY CATALINA Administration Enoxaparin Sodium 100 mg 02/01/21 10:00 02/04/21 10:07 Enoxaparin 100 Mg/1 Ml Inj SUB-Q 100 mg Q24HR CATALINA Administration Protocol Hydralazine HCl 50 mg 01/31/21 10:00 02/04/21 10:08 Hydralazine 25 Mg Tab PO 50 mg BID CATALINA Administration Isosorbide Mononitrate 30 mg 01/30/21 10:00 02/04/21 10:07 Isosorbide Mononitrate Er 30 Mg Tab PO 30 mg QDAY CATALINA Administration Levofloxacin 750 mg 02/04/21 12:00 Levofloxacin 750 Mg Tab PO 02/05/21 11:59 Q24HR CAT[facility]INA Protocol Metoprolol Tartrate 50 mg 01/31/21 10:00 02/04/21 10:07 Metoprolol Tartrate 50 Mg Tab PO 50 mg BID CATALINA Administration Nitroglycerin 0.4 mg 01/30/21 05:01 Nitroglycerin 0.4 Mg Tab Subl SL .Q5MIN PRN Chest Pain Ondansetron HCl 4 mg 01/30/21 05:01 Ondansetron 4 Mg/2 Ml Inj IV Q8H PRN Nausea And Vomiting Pantoprazole Sodium 40 mg 01/30/21 10:00 02/04/21 10:08 Pantoprazole 40 Mg Tab PO 40 mg QDAY CATALINA Administration Sodium Chloride 10 ml 01/30/21 05:01 Sodium Chloride 0.9% 10 Ml Flush Syringe IV PRN PRN LINE FLUSH
--- NOTE | 2021-02-04 12:40 | Progress Note ---
Assessment and Plan Patient is a 50-year-old male with a past medical history of HFrEF (EF 10 to 15%) and hypertension who presented to [facility] with complaint of progressively worsening fatigue and shortness of breath x 2-week HFrEF NSTEMI suspect type 2 EKG sinus tachycardia 112, no acute ischemic changes. Troponin elevated but down trending .[id number]->.[id number]->.[id number] Patient is currently chest pain-free. Echocardiogram 10/2020 is EF 10-15%, Left ventricle severely dilated, mild LVH, right ventricle moderately dilated, severe tricuspid regurgitation, Lexiscan MPI stress test11/01/2020- negative for ischemia Outpatient medications: asa, Imdur 30mg PO Qd, hydralizine 25mg PO Bid, metoprolol 100mg PO BID, Nifedipine XL 60mg PO QD, Lasix 40 mg PO daily, Aldactone 25 QD. . AMERICA Nephrology is following PUI Elevated D-dimer COVID PCR positive CXR o admission shows patchy bilateral pulmonary opacities ID following Acute hypoxic respiratory failure Management per primary team Plan: Patient for MRI this AM Resume outpatient Lasix PO Aldactone and ACEI/ARB deferred at this time due to renal fxn Continue hydralizine 50mg PO BID and Metoprolol 50mg PO BID for BP control. Pt seen in conjunction with Dr. Palumbo who agrees with the assessment and plan of care. - Patient Problems (1) Acute encephalopathy Current Visit: Yes Status: Acute (2) Acute kidney injury superimposed on CKD Current Visit: Yes Status: Acute (3) Acute on chronic HFrEF (heart failure with reduced ejection fraction) Current Visit: Yes Status: Acute (4) Elevated d-dimer Current Visit: Yes Status: Acute (5) NSTEMI (non-ST elevated myocardial infarction) Current Visit: Yes Status: Acute (6) Pneumonia Current Visit: Yes Status: Acute (7) Suspected COVID-19 virus infection Current Visit: Yes Status: Acute (8) NICM (nonischemic cardiomyopathy) Current Visit: Yes Status: Chronic (9) Acute respiratory failure Current Visit: No Status: Acute Qualifiers: Respiratory failure complication: hypoxia Qualified Code(s): J96.01 - Acute respiratory failure with hypoxia (10) Bilateral pneumonia Current Visit: No Status: Acute (11) Elevated troponin Current Visit: No Status: Acute Subjective Date of service: 02/04/21 Principal diagnosis: AMERICA, COVID-19 Interval history: Patient lying flat in bed in no acute distress and no complaints. Patient for MRI this AM Sinus 80s with no events on monitor Objective Vital Signs Temp Pulse Resp BP Pulse Ox 02/04/21 10:07 85 130/86 02/04/21 09:17 94 02/04/21 05:46 97.8 F 78 20 142/95 96 02/04/21 00:13 96 02/03/21 22:17 93 H 154/109 02/03/21 22:09 98.4 F 93 H 20 154/109 96 02/03/21 19:44 95 02/03/21 16:08 97.9 F 88 18 100/71 95 - Physical Examination General: No Apparent Distress HEENT: Positive: PERRL, Normocephaly, Mucus Membranes Moist Neck: Positive: neck supple, trachea midline. Negative: JVD/HJR Cardiac: Positive: Reg Rate and Rhythm Lungs: Positive: Normal Breath Sounds Neuro: Positive: Grossly Intact Abdomen: Positive: Soft Skin: Negative: Rash Extremities: Present: upper extr. pulses, lower extr. pulses. Absent: edema - Labs and Meds Comprehensive Metabolic Panel 02/04/21 Range/Units 07:50 Sodium 139 (137-145) mmol/L Potassium 4.1 (3.6-5.0) mmol/L Chloride 106.3 (98-107) mmol/L Carbon Dioxide 20 L (22-30) mmol/L BUN 54 H (9-20) mg/dL Creatinine 2.1 H (0.8-1.3) mg/dL Glucose 97 (75-100) mg/dL Calcium 8.8 (8.4-10.2) mg/dL - Imaging and Cardiology EKG: report reviewed, image reviewed Echo: report reviewed (10/2020 - EF 10-15%, mild LVH, LV severely dilated, RV mod dilated, RV mildly hypokinetic, trace AR, mild MR, severe TR, RVSP 39mmHg, trace [place].) Cardiac cath: report reviewed - Telemetry EKG Rhythm: Sinus Rhythm - EKG Sinus rhythms and dysrhythmias: sinus rhythm Chamber hypertrophy or enlargement: left atrial enlargement, right atrial enlargment, left ventricular hypertro - Allied health notes Allied health notes reviewed: nursing
--- NOTE | 2021-02-04 16:15 | Magnetic Resonance Report ---
MRA HEAD WITHOUT CONTRAST HISTORY: Cerebrovascular accident. COMPARISON: none TECHNIQUE: Routine MRA of the head performed. 3-D/MIP reformats postprocessed. FINDINGS: MRA HEAD: Intracranial vertebral arteries: Normal and symmetrical vertebral arteries both contribute to the bas ilar artery origin. Basilar artery: Basilar artery has an unremarkable appearance. Posterior cerebral arteries: Decreased caliber of the posterior cerebral arteries is noted. This is m ost pronounced on the right where decreased caliber is observed at the proximal P2 segment suggesting the presence of intercranial atherosclerotic disease in this distribution. Similar but more subtle f indings are seen on the left. Small posterior communicating arteries are demonstrated bilaterally. Intracranial internal carotid arteries: No significant abnormality. Anterior cerebral arteries: Bilaterally symmetrical A1 segments of the anterior cerebral arteries are demonstrated. No abnormalities are seen along the course of the A2 segments or visualized pericallos al branches. Middle cerebral arteries: Normal and symmetrical M1 segments are demonstrated bilaterally. No abnorma lities are seen on evaluation of the insular or opercular branches of the middle cerebral arteries. IMPRESSION: 1. Irregular contour of the posterior cerebral artery suggest the presence of intercranial atheroscle rotic disease in this distribution. Signer Name: Dario Almonte MD Signed: 02/04/2021 4:11 PM Workstation Name: [id number]
--- NOTE | 2021-02-04 16:17 | Magnetic Resonance Report ---
MRA NECK WITHOUT CONTRAST HISTORY: Cerebrovascular accident. COMPARISON: none TECHNIQUE: Routine MRA neck performed. 3-D/MIP reformats postprocessed. Percentage stenosis is dete rmined by direct quantitative measurements of distal internal carotid artery diameter compared with n ormal reference segments or by criteria similar to NASCET where applicable. FINDINGS: MRA NECK: Aortic arch: The aortic arch is not included on this MR a neck without contrast. Vertebral arteries: Left vertebral artery is dominant. Both vertebral arteries contribute to the basi lar artery origin. Right carotid artery:Right common carotid artery, the carotid bifurcation and cervical portions of th e right internal carotid arteries all have an unremarkable appearance. Left carotid artery:The left common carotid artery, left carotid bifurcation and cervical portions of the left internal carotid artery all have an unremarkable appearance. SUMMARY:The degree of stenosis, if any, is determined utilizing NASCET like criteria. In this case th ere is no indication of stenosis at the carotid bifurcations or elsewhere. IMPRESSION: 1. No indication of hemodynamically significant stenosis at the carotid bifurcations or elsewhere. Signer Name: Dario Almonte MD Signed: 02/04/2021 4:12 PM Workstation Name: [id number]
--- NOTE | 2021-02-04 16:27 | Magnetic Resonance Report ---
MRI BRAIN WITHOUT CONTRAST INDICATION / CLINICAL INFORMATION: Seizure disorder. TECHNIQUE: Multiplanar, multisequence MR images of the brain were obtained. Contrast: Clairscan: 18 ml, administered intravenously. COMPARISON: Head CT 02/01/2021 MRI brain 02/01/2015 FINDINGS: BRAIN / INTRACRANIAL CONTENTS: Multiple foci of restricted diffusion are demonstrated in both cerebra l hemispheres. Present in the precentral gyri bilaterally in the posterior lateral aspect of the righ t parietal lobe and in the left temporal operculum. The findings of these multiple small regions of a cute infarction in multiple vascular distributions suggests the possibility of an embolic etiology. And moderate microvascular ischemic changes are present in the white matter both cerebral hemispheres . In addition there is evidence of remote bilateral gangliocapsular infarctions. Dilated perivascular spaces are observed in a gangliocapsular distribution and in the white matter of the centrum semiova le of both cerebral hemispheres. The brainstem and cerebellum have an unremarkable appearance. MIDLINE STRUCTURES:No abnormalities are seen to involve the pituitary gland. Pineal region has an unr emarkable appearance. CRANIOCERVICAL JUNCTION: No abnormalities are identified at the craniocervical junction. VASCULAR FLOW-VOIDS: Normal flow-voids are present within the major intracranial vessels. ORBITS: The orbits have an unremarkable appearance. SINUSES / MASTOIDS: Inflammatory mucosal disease is present in the maxillary and ethmoid sinuses bila terally. Inflammatory mucosal thickening is also present in the right sphenoid sinus. Left sphenoid s inus and frontal sinuses appear clear. Following the administration of intravenous contrast enhancement of normal vascular structures is dem onstrated. No areas of abnormal contrast enhancement are identified. IMPRESSION: 1. Multiple foci of restricted diffusion are present in both cerebral hemispheres as described above. The presence of multiple small acute infarctions in multiple vascular distributions suggests possibi lity of an embolic etiology. Signer Name: Dario Almonte MD Signed: 02/04/2021 4:22 PM Workstation Name: [id number]
[2021-02-04] MEDS: levoFLOXacin 750 MG TAB PO SCH (17:05)
--- NOTE | 2021-02-05 10:22 | Progress Note ---
Assessment and Plan Assessment and plan: Acute heart failure with reduced EF. EF 10 to 15% Non-ST elevation VA suspect type II. Stress test on October 2020 - for ischemia. Acute kidney injury on CKD 3, creatinine 2.6 versus of 1.8 in 10/30 at the time of admission COVID-19 pneumonia. Acute hypoxic respiratory failure. Toxic metabolic encephalopathy. Elevated D-dimer. 02/04/2021. Cardiology stopped Lasix in setting of rising creatinine. Aldactone and TD inhibitor/ARB deferred due to renal function. Continue hydralazine and metoprolol per cardiology recommendations. Await MRI for encephalopathy. 02/05/2021. MRI reveals multiple foci in both cerebral hemispheres that may represent multiple small acute infarctions in multiple vascular distributions suggestive of possibly an embolic etiology. 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 We will order DAVID for further evaluation. Creatinine appears to be back to late sign of 2.0. Will obtain walk test at discharge. Continue dexamethasone. ID consultation. History Interval history: No new issues overnight. Hospitalist Physical - Constitutional Vitals: Temp Pulse Resp BP Pulse Ox 98.5 F 84 20 133/85 98 02/05/21 05:07 02/05/21 05:05 02/05/21 05:07 02/05/21 05:07 02/05/21 09:52 General appearance: Present: no acute distress, other (Awake, fairly alert but confused though improving) - EENT Eyes: Present: PERRL, EOM intact ENT: hearing intact, clear oral mucosa, dentition normal - Neck Neck: Present: supple, normal ROM - Respiratory Respiratory effort: normal Respiratory: bilateral: CTA - Cardiovascular Rhythm: regular Heart Sounds: Present: S1 & S2. Absent: gallop, rub - Extremities Extremities: no ischemia, No edema, Full ROM - Abdominal General gastrointestinal: soft, non-tender, non-distended, normal bowel sounds - Integumentary Integumentary: Present: clear, warm, dry - Neurologic Neurologic: CNII-XII intact, moves all extremities HEART Score - HEART Score Troponin: Troponin T 0.378 ng/mL (0.00-0.029) H* 02/02/21 07:00 Results - Labs CBC & Chem 7: 02/01/21 09:16 02/05/21 08:31 Labs: Laboratory Last Values WBC 8.3 K/mm3 (4.5-11.0) 02/01/21 09:16 RBC 4.38 M/mm3 (3.65-5.03) 02/01/21 09:16 Hgb 13.2 gm/dl (11.8-15.2) 02/01/21 09:16 Hct 38.4 % (35.5-45.6) 02/01/21 09:16 MCV 88 fl (84-94) 02/01/21 09:16 MCH 30 pg (28-32) 02/01/21 09:16 MCHC 34 % (32-34) 02/01/21 09:16 RDW 16.2 % (13.2-15.2) H 02/01/21 09:16 Plt Count 378 K/mm3 (140-440) 02/01/21 09:16 Lymph % (Auto) 4.3 % (13.4-35.0) L 01/29/21 22:59 [place] % (Auto) 7.5 % (0.0-7.3) H 01/29/21 22:59 Eos % (Auto) 0.0 % (0.0-4.3) 01/29/21 22:59 Baso % (Auto) 1.3 % (0.0-1.8) 01/29/21 22:59 Lymph # (Auto) 0.6 K/mm3 (1.2-5.4) L 01/29/21 22:59 [place] # (Auto) 1.0 K/mm3 (0.0-0.8) H 01/29/21 22:59 Eos # (Auto) 0.0 K/mm3 (0.0-0.4) 01/29/21 22:59 Baso # (Auto) 0.2 K/mm3 (0.0-0.1) H 01/29/21 22:59 Add Manual Diff Complete 02/01/21 09:16 Total Counted 100 02/01/21 09:16 Seg Neutrophils % 86.9 % (40.0-70.0) H 01/29/21 22:59 Seg Neuts % (Manual) 75.0 % (40.0-70.0) H 02/01/21 09:16 Band Neutrophils % 4.0 % 02/01/21 09:16 Lymphocytes % (Manual) 10.0 % (13.4-35.0) L 02/01/21 09:16 Reactive Lymphs % (Man) 3.0 % 02/01/21 09:16 Monocytes % (Manual) 4.0 % (0.0-7.3) 02/01/21 09:16 Eosinophils % (Manual) 3.0 % (0.0-4.3) 02/01/21 09:16 Metamyelocytes % 1.0 % 02/01/21 09:16 Nucleated RBC % Not Reportable 02/01/21 09:16 Seg Neutrophils # 12.0 K/mm3 (1.8-7.7) H 01/29/21 22:59 Seg Neutrophils # Man 6.2 K/mm3 (1.8-7.7) 02/01/21 09:16 Band Neutrophils # 0.3 K/mm3 02/01/21 09:16 Lymphocytes # (Manual) 0.8 K/mm3 (1.2-5.4) L 02/01/21 09:16 Abs React Lymphs (Man) 0.2 K/mm3 02/01/21 09:16 Monocytes # (Manual) 0.3 K/mm3 (0.0-0.8) 02/01/21 09:16 Eosinophils # (Manual) 0.2 K/mm3 (0.0-0.4) 02/01/21 09:16 Basophils # (Manual) 0.0 K/mm3 (0.0-0.1) 02/01/21 09:16 Metamyelocytes # 0.1 K/mm3 02/01/21 09:16 Myelocytes # 0.0 K/mm3 02/01/21 09:16 Promyelocytes # 0.0 K/mm3 02/01/21 09:16 Blast Cells # 0.0 K/mm3 02/01/21 09:16 WBC Morphology Not Reportable 02/01/21 09:16 WBC Morphology TNR 02/01/21 09:16 Hypersegmented Neuts Not Reportable 02/01/21 09:16 Hyposegmented Neuts Not Reportable 02/01/21 09:16 Hypogranular Neuts Not Reportable 02/01/21 09:16 Smudge Cells Not Reportable 02/01/21 09:16 Toxic Granulation Not Reportable 02/01/21 09:16 Toxic Vacuolation Not Reportable 02/01/21 09:16 Dohle Bodies Not Reportable 02/01/21 09:16 Pelger-Huet Anomaly Not Reportable 02/01/21 09:16 Demetra Rods Not Reportable 02/01/21 09:16 Platelet Estimate Not Reportable 02/01/21 09:16 Clumped Platelets Not Reportable 02/01/21 09:16 Plt Clumps, EDTA Not Reportable 02/01/21 09:16 Large Platelets Not Reportable 02/01/21 09:16 Giant Platelets Not Reportable 02/01/21 09:16 Platelet Satelliting Not Reportable 02/01/21 09:16 Plt Morphology Comment Not Reportable 02/01/21 09:16 RBC Morphology Normal 02/01/21 09:16 Dimorphic RBCs Not Reportable 02/01/21 09:16 Polychromasia Not Reportable 02/01/21 09:16 Hypochromasia Not Reportable 02/01/21 09:16 Poikilocytosis Not Reportable 02/01/21 09:16 Anisocytosis Not Reportable 02/01/21 09:16 Microcytosis Not Reportable 02/01/21 09:16 Macrocytosis Not Reportable 02/01/21 09:16 Spherocytes Not Reportable 02/01/21 09:16 Pappenheimer Bodies Not Reportable 02/01/21 09:16 Sickle Cells Not Reportable 02/01/21 09:16 Target Cells Not Reportable 02/01/21 09:16 Tear Drop Cells Not Reportable 02/01/21 09:16 Ovalocytes Not Reportable 02/01/21 09:16 Helmet Cells Not Reportable 02/01/21 09:16 [place] Bodies Not Reportable 02/01/21 09:16 Gravel Switch Rings Not Reportable 02/01/21 09:16 [place] Cells Not Reportable 02/01/21 09:16 Bite Cells Not Reportable 02/01/21 09:16 Crenated Cell Not Reportable 02/01/21 09:16 Elliptocytes Not Reportable 02/01/21 09:16 Acanthocytes (Spur) Not Reportable 02/01/21 09:16 Rouleaux Not Reportable 02/01/21 09:16 Hemoglobin C Crystals Not Reportable 02/01/21 09:16 Schistocytes Not Reportable 02/01/21 09:16 Malaria parasites Not Reportable 02/01/21 09:16 Kip Bodies Not Reportable 02/01/21 09:16 Hem Pathologist Commnt No 02/01/21 09:16 PT 16.3 Sec. (12.2-14.9) H 01/29/21 22:59 INR 1.18 (0.87-1.13) H 01/29/21 22:59 APTT 30.7 Sec. (24.2-36.6) 01/29/21 22:59 D-Dimer 1184.83 ng/mlDDU (0-234) H 02/02/21 07:00 ABG pH 7.436 pH Units (7.350-7.450) 02/02/21 09:15 ABG pCO2 31.0 mm Hg 02/02/21 09:15 ABG pO2 73.6 mm Hg (80.0-90.0) L 02/02/21 09:15 ABG HCO3 20.4 mmol/L (20.0-26.0) 02/02/21 09:15 ABG O2 Saturation 95.5 % (95.0-99.0) 02/02/21 09:15 ABG O2 Content 17.7 (0.0-44) 02/02/21 09:15 ABG Base Excess -2.8 mmol/L (-2.0-3.0) L 02/02/21 09:15 ABG Hemoglobin 13.4 gm/dl (14.0-18.0) L 02/02/21 09:15 ABG Carboxyhemoglobin 1.4 % (0.0-5.0) 02/02/21 09:15 ABG Methemoglobin 0.5 % (0.0-1.5) 02/02/21 09:15 Oxyhemoglobin 93.7 % (95.0-99.0) L 02/02/21 09:15 FiO2 21 % 02/02/21 09:15 Sodium 143 mmol/L (137-145) 02/05/21 08:31 Potassium 4.8 mmol/L (3.6-5.0) 02/05/21 08:31 Chloride 108.9 mmol/L (98-107) H 02/05/21 08:31 Carbon Dioxide 23 mmol/L (22-30) 02/05/21 08:31 Anion Gap 16 mmol/L 02/05/21 08:31 BUN 53 mg/dL (9-20) H 02/05/21 08:31 Creatinine 2.0 mg/dL (0.8-1.3) H 02/05/21 08:31 Estimated GFR 43 ml/min 02/05/21 08:31 BUN/Creatinine Ratio 27 % 02/05/21 08:31 Glucose 96 mg/dL (75-100) 02/05/21 08:31 POC Glucose 234 mg/dL (70-105) H 02/03/21 22:09 Lactic Acid 1.50 mmol/L (0.7-2.0) 01/29/21 22:59 Calcium 9.0 mg/dL (8.4-10.2) 02/05/21 08:31 Magnesium 2.20 mg/dL (1.7-2.3) 02/02/21 07:00 Ferritin 1337.0 ng/mL (30.0-300.0) H 02/02/21 07:00 Total Bilirubin 0.50 mg/dL (0.1-1.2) 01/29/21 22:59 AST 74 units/L (5-40) H 01/29/21 22:59 ALT 56 units/L (7-56) 01/29/21 22:59 Alkaline Phosphatase 61 units/L (35-129) 01/29/21 22:59 Ammonia 26.0 umol/L (25-60) 02/02/21 07:00 Lactate Dehydrogenase 467 units/L (91-180) H 02/01/21 09:16 Troponin T 0.378 ng/mL (0.00-0.029) H* 02/02/21 07:00 C-Reactive Protein 4.20 mg/dL (0.00-1.30) H 02/02/21 07:00 NT-Pro-B Natriuret Pep 9236 pg/mL (0-900) H 02/01/21 09:16 Total Protein 7.7 g/dL (6.3-8.2) 01/29/21 22:59 Albumin 3.7 g/dL (3.9-5) L 01/29/21 22:59 Albumin/Globulin Ratio 0.9 % 01/29/21 22:59 Vitamin B12 878.8 pg/mL (211-911) 02/02/21 07:00 Folate 6.66 ng/mL (7.3-26.0) L 02/02/21 07:00 TSH 0.614 mlU/mL (0.270-4.200) 02/02/21 07:00 Urine Color Yellow (Yellow) 01/30/21 01:21 Urine Turbidity Slightly-cloudy (Clear) 01/30/21 01:21 Urine pH 5.0 (5.0-7.0) 01/30/21 01:21 Ur Specific [place] 1.016 (1.003-1.030) 01/30/21 01: Urine Protein 30 mg/dl mg/dL (Negative) 01/30/21 01:21 Urine Glucose (UA) Neg mg/dL (Negative) 01/30/21 01: Urine Ketones Neg mg/dL (Negative) 01/30/21 01:21 Urine Blood Lg (Negative) 01/30/21 01:21 Urine Nitrite Neg (Negative) 01/30/21 01:21 Urine Bilirubin Neg (Negative) 01/30/21 01:21 Urine Urobilinogen < 2.0 mg/dL (<2.0) 01/30/21 01:21 Ur Leukocyte Esterase Neg (Negative) 01/30/21 01:21 Urine WBC (Auto) 3.0 /HPF (0.0-6.0) 01/30/21 01:21 Urine RBC (Auto) 38.0 /HPF (0.0-6.0) 01/30/21 01:21 U Epithel Cells (Auto) < 1.0 /HPF (0-13.0) 01/30/21 01:21 Urine Mucus Few /HPF 01/30/21 01:21 Urine Yeast (Budding) 1+ /HPF 01/30/21 01:21 Coronavirus (PCR) Positive (Negative) A 01/30/21 Unknown Sanchez/IV: Voiding Method Toilet Active Medications - Current Medications Current Medications: Generic Name Dose Route Start Last Admin Trade Name Freq PRN Reason Stop Dose Admin Acetaminophen 650 mg 01/30/21 05:01 Acetaminophen 325 Mg Tab PO Q6H PRN Pain, Mild (1-3) Aspirin 81 mg 02/03/21 10:00 02/04/21 10:07 Aspirin 81 Mg Tab Chew PO 81 mg QDAY CATALINA Administration Atorvastatin Calcium 40 mg 01/30/21 22:00 02/04/21 22:03 Atorvastatin 40 Mg Tab PO 40 mg QHS CATALINA Administration Dexamethasone 6 mg 02/01/21 10:00 02/04/21 10:08 Dexamethasone 4 Mg Tab PO 02/10/21 10:01 6 mg DAILY CATALINA Administration Enoxaparin Sodium 100 mg 02/01/21 10:00 02/04/21 10:07 Enoxaparin 100 Mg/1 Ml Inj SUB-Q 100 mg Q24HR CATALINA Administration Protocol Hydralazine HCl 50 mg 01/31/21 10:00 02/04/21 22:03 Hydralazine 25 Mg Tab PO 50 mg BID CATALINA Administration Isosorbide Mononitrate 30 mg 01/30/21 10:00 02/04/21 10:07 Isosorbide Mononitrate Er 30 Mg Tab PO 30 mg QDAY CATALINA Administration Levofloxacin 750 mg 02/04/21 12:00 02/04/21 17:05 Levofloxacin 750 Mg Tab PO 02/05/21 11:59 750 mg Q24HR CATALINA Administration Protocol Metoprolol Tartrate 50 mg 01/31/21 10:00 02/04/21 22:03 Metoprolol Tartrate 50 Mg Tab PO 50 mg BID CATALINA Administration Nitroglycerin 0.4 mg 01/30/21 05:01 Nitroglycerin 0.4 Mg Tab Subl SL .Q5MIN PRN Chest Pain Ondansetron HCl 4 mg 01/30/21 05:01 Ondansetron 4 Mg/2 Ml Inj IV Q8H PRN Nausea And Vomiting Pantoprazole Sodium 40 mg 01/30/21 10:00 02/04/21 10:08 Pantoprazole 40 Mg Tab PO 40 mg QDAY CATALINA Administration Sodium Chloride 10 ml 01/30/21 05:01 Sodium Chloride 0.9% 10 Ml Flush Syringe IV PRN PRN LINE FLUSH
[2021-02-05] MEDS: levoFLOXacin 750 MG TAB PO SCH (10:38)
[2021-02-05] MEDS: ASPIRIN 81 MG TAB CHEW PO SCH (10:38)
[2021-02-05] MEDS: hydrALAZINE 25 MG TAB PO SCH ×2 (10:39→22:45)
[2021-02-05] MEDS: METOPROLOL TARTRATE 50 MG TAB PO SCH ×2 (10:39→22:45)
[2021-02-05] MEDS: PANTOPRAZOLE 40 MG TAB PO SCH (10:39)
[2021-02-05] MEDS: ENOXAPARIN 100 MG/1 ML INJ SUB-Q SCH (10:40)
[2021-02-05] MEDS: DEXAMETHASONE 4 MG TAB PO SCH (10:40)
--- NOTE | 2021-02-05 14:21 | Consultation ---
History of Present Illness - Reason for Consult Consult date: 02/05/21 COVID Requesting physician: DIEGO WYNN - History of Present Illness The patient is a 50-year-old male with CHF, non-ischemic cardiomyopathy with EF of 10 to 15%, CKD stage III was admitted with cough, malaise going on for 2 weeks, tested positive for COVID-19. Treated with diuretics. Had DVT scan for elevated D-dimer which was negative. MRI brain with multiple small acute in farctions suggesting embolic etiology, also findings concerning for amyloid angiopathy. Infectious diseases was consulted due to COVID-19. Patient has been afebrile since admission, has been mainly on room air following diuresis. Labs showed D-dimer 1184, CRP 4.2, ferritin 1337, LDH 467. Review of Systems: reviewed in the chart, unable to obtain, minimize risk of transmission Past History Past Medical History: heart failure, hypertension Medications and Allergies Allergies Allergy/AdvReac Type Severity Reaction Status Date / Time No Known Allergies Allergy Verified 01/29/21 23:11 Home Medications Medication Instructions Recorded Confirmed Last Taken Type ISOSORBIDE MONOnitrate [Imdur ER] 30 mg PO QDAY #60 tablet 11/01/20 01/31/21 Unknown Rx Furosemide [Lasix] 40 mg PO QDAY 01/31/21 02/04/21 Unknown History Hydralazine HCl 50 mg PO BID 01/31/21 01/31/21 Unknown History Metoprolol [Lopressor TAB] 50 mg PO BID 01/31/21 01/31/21 Unknown History NIFEdipine XL [Procardia Xl] 60 mg PO BID 01/31/21 02/04/21 Unknown History Spironolactone [Aldactone] 25 mg PO QDAY 01/31/21 01/31/21 Unknown History Active Meds: Active Medications Acetaminophen (Acetaminophen 325 Mg Tab) 650 mg PO Q6H PRN PRN Reason: Pain, Mild (1-3) Aspirin (Aspirin 81 Mg Tab Chew) 81 mg PO QDAY [facility] Last Admin: 02/05/21 10:38 Dose: 81 mg Documented by: Atorvastatin Calcium (Atorvastatin 40 Mg Tab) 40 mg PO QHS [facility] Last Admin: 02/04/21 22:03 Dose: 40 mg Documented by: Dexamethasone (Dexamethasone 4 Mg Tab) 6 mg PO DAILY [facility] Stop: 02/10/21 10:01 Last Admin: 02/05/21 10:40 Dose: 6 mg Documented by: Enoxaparin Sodium (Enoxaparin 100 Mg/1 Ml Inj) 100 mg SUB-Q Q24HR [facility]; Protocol Last Admin: 02/05/21 10:40 Dose: 100 mg Documented by: Hydralazine HCl (Hydralazine 25 Mg Tab) 50 mg PO BID [facility] Last Admin: 02/05/21 10:39 Dose: 50 mg Documented by: Isosorbide Mononitrate (Isosorbide Mononitrate Er 30 Mg Tab) 30 mg PO QDAY [facility] Last Admin: 02/05/21 10:38 Dose: 30 mg Documented by: Metoprolol Tartrate (Metoprolol Tartrate 50 Mg Tab) 50 mg PO BID [facility] Last Admin: 02/05/21 10:39 Dose: 50 mg Documented by: Nitroglycerin (Nitroglycerin 0.4 Mg Tab Subl) 0.4 mg SL .Q5MIN PRN PRN Reason: Chest Pain Ondansetron HCl (Ondansetron 4 Mg/2 Ml Inj) 4 mg IV Q8H PRN PRN Reason: Nausea And Vomiting Pantoprazole Sodium (Pantoprazole 40 Mg Tab) 40 mg PO QDAY [facility] Last Admin: 02/05/21 10:39 Dose: 40 mg Documented by: Sodium Chloride (Sodium Chloride 0.9% 10 Ml Flush Syringe) 10 ml IV PRN PRN PRN Reason: LINE FLUSH Physical Examination - Physical Exam Narrative exam: Physical Exam (reviewed in chart to minimize risk of transmission) Constitutional: deferred Head, Ears, Nose: deferred Eyes: deferred Neck: deferred Oral: deferred Cardiovascular: deferred Respiratory: deferred GI: deferred Musculoskeletal: deferred Skin: deferred Hem/Lymphatic: deferred Psych: deferred Neurological: deferred - Constitutional Vitals: Vital Signs Temp Pulse Resp BP Pulse Ox 98.5 F 74 20 133/89 98 02/05/21 05:07 02/05/21 10:39 02/05/21 05:07 02/05/21 10:39 02/05/21 09:52 Temperature -Last 24 Hours Temperature 98.5 F Temperature 97.8 F Results - Labs CBC & Chem 7: 02/01/21 09:16 02/05/21 08:31 Labs: Abnormal lab results 02/05/21 Range/Units 08:31 Chloride 108.9 H (98-107) mmol/L BUN 53 H (9-20) mg/dL Creatinine 2.0 H (0.8-1.3) mg/dL - Imaging and Cardiology Chest x-ray: report reviewed, image reviewed (faint opacities) Assessment and Plan Cultures: 01/30/2021 SARS CoV2 PCR: Positive 01/29/2021 blood culture: No growth A/P: 50-year-old male with CHF, non-ischemic cardiomyopathy with EF of 10 to 15%, CKD stage III was admitted with cough, malaise going on for 2 weeks, tested positive for COVID-19: #COVID-19 infection: no obvious pneumonia. Has been on steroids. #Acute hypoxic resp failure: likely from CHF given response to diuretics. #[place] on CKD #Acute on chronic CHF, nonischemic cardiomyopathy with an EF of 10 to 15% Recs: -no specific treatment for COVID-19, likely out of therapeutic window of remdesivir given symptoms present for 2 weeks prior to admission -monitor oxygenation. Rechecking CRP. Complete steroid course ending 02/10/2021 Sanjuanita Hernández MD, FACP [facility] O: [phone] F: [phone]
--- NOTE | 2021-02-05 14:44 | Progress Note ---
Assessment and Plan Patient is a 50-year-old male with a past medical history of HFrEF (EF 10 to 15%) and hypertension who presented to [facility] with complaint of progressively worsening fatigue and shortness of breath x 2-week HFrEF NSTEMI suspect type 2 EKG sinus tachycardia 112, no acute ischemic changes. Troponin elevated but down trending .57->.53->.368 Patient is currently chest pain-free. Echocardiogram 10/2020 is EF 10-15%, Left ventricle severely dilated, mild LVH, right ventricle moderately dilated, severe tricuspid regurgitation, Lexiscan MPI stress test11/01/2020- negative for ischemia Outpatient medications: asa, Imdur 30mg PO Qd, hydralizine 25mg PO Bid, metoprolol 100mg PO BID, Nifedipine XL 60mg PO QD, Lasix 40 mg PO daily, Aldactone 25 QD. . COVID-19 COVID PCR positive ID following Acute hypoxic respiratory failure Management per primary team Plan: MRI shows multiple foci in both cerebral hemispheres that may represent multiple small acute infarctions in multiple vascular distributions suggestive of possibly an embolic etiology Due to Covid Status recommend TTE Aldactone and ACEI/ARB deferred at this time due to renal fxn Continue hydralizine 50mg PO BID and Metoprolol 50mg PO BID for BP control. Pt seen in conjunction with Dr. Ahumada who agrees with the assessment and plan of care. - Patient Problems (1) Acute encephalopathy Current Visit: Yes Status: Acute (2) Acute kidney injury superimposed on CKD Current Visit: Yes Status: Acute (3) Acute on chronic HFrEF (heart failure with reduced ejection fraction) Current Visit: Yes Status: Acute (4) Elevated d-dimer Current Visit: Yes Status: Acute (5) NSTEMI (non-ST elevated myocardial infarction) Current Visit: Yes Status: Acute (6) Pneumonia Current Visit: Yes Status: Acute (7) Suspected COVID-19 virus infection Current Visit: Yes Status: Acute (8) NICM (nonischemic cardiomyopathy) Current Visit: Yes Status: Chronic (9) Acute respiratory failure Current Visit: No Status: Acute Qualifiers: Respiratory failure complication: hypoxia Qualified Code(s): J96.01 - Acute respiratory failure with hypoxia (10) Bilateral pneumonia Current Visit: No Status: Acute (11) Elevated troponin Current Visit: No Status: Acute Subjective Date of service: 02/05/21 Principal diagnosis: [place], COVID-19 Interval history: Patient in bed in no acute distress and no complaints. Sinus 78 with no events on monitor Objective Vital Signs Temp Pulse Resp BP Pulse Ox 02/05/21 10:39 74 133/89 02/05/21 10:38 74 133/89 02/05/21 09:52 98 02/05/21 05:07 98.5 F 20 133/85 02/05/21 05:05 84 96 02/05/21 02:13 96 02/04/21 22:07 97.8 F 94 H 20 133/88 94 02/04/21 22:03 85 130/86 - Physical Examination General: No Apparent Distress HEENT: Positive: PERRL, Normocephaly, Mucus Membranes Moist Neck: Positive: neck supple, trachea midline. Negative: JVD/HJR Cardiac: Positive: Reg Rate and Rhythm Lungs: Positive: Decreased Breath Sounds Neuro: Positive: Grossly Intact Abdomen: Positive: Soft Skin: Negative: Rash Extremities: Present: upper extr. pulses, lower extr. pulses. Absent: edema - Labs and Meds Comprehensive Metabolic Panel 02/05/21 Range/Units 08:31 Sodium 143 (137-145) mmol/L Potassium 4.8 (3.6-5.0) mmol/L Chloride 108.9 H (98-107) mmol/L Carbon Dioxide 23 (22-30) mmol/L BUN 53 H (9-20) mg/dL Creatinine 2.0 H (0.8-1.3) mg/dL Glucose 96 (75-100) mg/dL Calcium 9.0 (8.4-10.2) mg/dL - Imaging and Cardiology EKG: report reviewed, image reviewed Echo: report reviewed (10/2020 - EF 10-15%, mild LVH, LV severely dilated, RV mod dilated, RV mildly hypokinetic, trace AR, mild MR, severe TR, RVSP 39mmHg, trace IL.) Cardiac cath: report reviewed - Telemetry EKG Rhythm: Sinus Rhythm - EKG Sinus rhythms and dysrhythmias: sinus rhythm Chamber hypertrophy or enlargement: left atrial enlargement, right atrial enlargment, left ventricular hypertro - Allied health notes Allied health notes reviewed: nursing
[2021-02-06 08:01] LABS: Calcium 8.9 mg/dL (8.4-10.2)
[2021-02-06] MEDS: ENOXAPARIN 100 MG/1 ML INJ SUB-Q SCH (10:18)
[2021-02-06] MEDS: PANTOPRAZOLE 40 MG TAB PO SCH (10:18)
[2021-02-06] MEDS: DEXAMETHASONE 4 MG TAB PO SCH (10:18)
[2021-02-06] MEDS: ASPIRIN 81 MG TAB CHEW PO SCH (10:18)
[2021-02-06] MEDS: hydrALAZINE 25 MG TAB PO SCH ×2 (10:19→22:55)
[2021-02-06] MEDS: METOPROLOL TARTRATE 50 MG TAB PO SCH ×2 (10:20→23:19)
--- NOTE | 2021-02-06 10:40 | Progress Note ---
Assessment and Plan Assessment and plan: Acute heart failure with reduced EF. EF 10 to 15% Non-ST elevation WI suspect type II. Stress test on October 2020 - for ischemia. Acute kidney injury on CKD 3, creatinine 2.6 versus of 1.8 in 10/30 at the time of admission COVID-19 pneumonia. Acute hypoxic respiratory failure. Toxic metabolic encephalopathy. Elevated D-dimer. 02/04/2021. Cardiology stopped Lasix in setting of rising creatinine. Aldactone and TD inhibitor/ARB deferred due to renal function. Continue hydralazine and metoprolol per cardiology recommendations. Await MRI for encephalopathy. 02/05/2021. MRI reveals multiple foci in both cerebral hemispheres that may represent multiple small acute infarctions in multiple vascular distributions suggestive of possibly an embolic etiology. 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 We will order DAVID for further evaluation. Creatinine appears to be back to late sign of 2.0. Will obtain walk test at discharge. Continue dexamethasone. ID consultation. 02/06/2021. Await echocardiogram to further evaluate abnormal MRI findings suggestive of emboli. Creatinine is at baseline of 1.9. Continue steroid course until 02/10/2021. Continue aspirin, Imdur, hydralazine, metoprolol, nifedipine, Lasix and Aldactone for heart failure. History Interval history: No new issues overnight. Hospitalist Physical - Constitutional Vitals: Temp Pulse Resp BP Pulse Ox 98.2 F 82 18 138/86 94 02/06/21 05:31 02/06/21 10:20 02/06/21 05:31 02/06/21 10:20 02/06/21 05:31 General appearance: Present: no acute distress, other (Awake, fairly alert but confused though improving) - EENT Eyes: Present: PERRL, EOM intact ENT: hearing intact, clear oral mucosa, dentition normal - Neck Neck: Present: supple, normal ROM - Respiratory Respiratory effort: normal Respiratory: bilateral: CTA - Cardiovascular Rhythm: regular Heart Sounds: Present: S1 & S2. Absent: gallop, rub - Extremities Extremities: no ischemia, No edema, Full ROM - Abdominal General gastrointestinal: soft, non-tender, non-distended, normal bowel sounds - Integumentary Integumentary: Present: clear, warm, dry - Neurologic Neurologic: CNII-XII intact, moves all extremities HEART Score - HEART Score Troponin: Troponin T 0.378 ng/mL (0.00-0.029) H* 02/02/21 07:00 Results - Labs CBC & Chem 7: 02/01/21 09:16 02/06/21 06:55 Labs: Laboratory Last Values WBC 8.3 K/mm3 (4.5-11.0) 02/01/21 09:16 RBC 4.38 M/mm3 (3.65-5.03) 02/01/21 09:16 Hgb 13.2 gm/dl (11.8-15.2) 02/01/21 09:16 Hct 38.4 % (35.5-45.6) 02/01/21 09:16 MCV 88 fl (84-94) 02/01/21 09:16 MCH 30 pg (28-32) 02/01/21 09:16 MCHC 34 % (32-34) 02/01/21 09:16 RDW 16.2 % (13.2-15.2) H 02/01/21 09:16 Plt Count 378 K/mm3 (140-440) 02/01/21 09:16 Lymph % (Auto) 4.3 % (13.4-35.0) L 01/29/21 22:59 [place] % (Auto) 7.5 % (0.0-7.3) H 01/29/21 22:59 Eos % (Auto) 0.0 % (0.0-4.3) 01/29/21 22:59 Baso % (Auto) 1.3 % (0.0-1.8) 01/29/21 22:59 Lymph # (Auto) 0.6 K/mm3 (1.2-5.4) L 01/29/21 22:59 [place] # (Auto) 1.0 K/mm3 (0.0-0.8) H 01/29/21 22:59 Eos # (Auto) 0.0 K/mm3 (0.0-0.4) 01/29/21 22:59 Baso # (Auto) 0.2 K/mm3 (0.0-0.1) H 01/29/21 22:59 Add Manual Diff Complete 02/01/21 09:16 Total Counted 100 02/01/21 09:16 Seg Neutrophils % 86.9 % (40.0-70.0) H 01/29/21 22:59 Seg Neuts % (Manual) 75.0 % (40.0-70.0) H 02/01/21 09:16 Band Neutrophils % 4.0 % 02/01/21 09:16 Lymphocytes % (Manual) 10.0 % (13.4-35.0) L 02/01/21 09:16 Reactive Lymphs % (Man) 3.0 % 02/01/21 09:16 Monocytes % (Manual) 4.0 % (0.0-7.3) 02/01/21 09:16 Eosinophils % (Manual) 3.0 % (0.0-4.3) 02/01/21 09:16 Metamyelocytes % 1.0 % 02/01/21 09:16 Nucleated RBC % Not Reportable 02/01/21 09:16 Seg Neutrophils # 12.0 K/mm3 (1.8-7.7) H 01/29/21 22:59 Seg Neutrophils # Man 6.2 K/mm3 (1.8-7.7) 02/01/21 09:16 Band Neutrophils # 0.3 K/mm3 02/01/21 09:16 Lymphocytes # (Manual) 0.8 K/mm3 (1.2-5.4) L 02/01/21 09:16 Abs React Lymphs (Man) 0.2 K/mm3 02/01/21 09:16 Monocytes # (Manual) 0.3 K/mm3 (0.0-0.8) 02/01/21 09:16 Eosinophils # (Manual) 0.2 K/mm3 (0.0-0.4) 02/01/21 09:16 Basophils # (Manual) 0.0 K/mm3 (0.0-0.1) 02/01/21 09:16 Metamyelocytes # 0.1 K/mm3 02/01/21 09:16 Myelocytes # 0.0 K/mm3 02/01/21 09:16 Promyelocytes # 0.0 K/mm3 02/01/21 09:16 Blast Cells # 0.0 K/mm3 02/01/21 09:16 WBC Morphology Not Reportable 02/01/21 09:16 WBC Morphology TNR 02/01/21 09:16 Hypersegmented Neuts Not Reportable 02/01/21 09:16 Hyposegmented Neuts Not Reportable 02/01/21 09:16 Hypogranular Neuts Not Reportable 02/01/21 09:16 Smudge Cells Not Reportable 02/01/21 09:16 Toxic Granulation Not Reportable 02/01/21 09:16 Toxic Vacuolation Not Reportable 02/01/21 09:16 Dohle Bodies Not Reportable 02/01/21 09:16 Pelger-Huet Anomaly Not Reportable 02/01/21 09:16 Demetra Rods Not Reportable 02/01/21 09:16 Platelet Estimate Not Reportable 02/01/21 09:16 Clumped Platelets Not Reportable 02/01/21 09:16 Plt Clumps, EDTA Not Reportable 02/01/21 09:16 Large Platelets Not Reportable 02/01/21 09:16 Giant Platelets Not Reportable 02/01/21 09:16 Platelet Satelliting Not Reportable 02/01/21 09:16 Plt Morphology Comment Not Reportable 02/01/21 09:16 RBC Morphology Normal 02/01/21 09:16 Dimorphic RBCs Not Reportable 02/01/21 09:16 Polychromasia Not Reportable 02/01/21 09:16 Hypochromasia Not Reportable 02/01/21 09:16 Poikilocytosis Not Reportable 02/01/21 09:16 Anisocytosis Not Reportable 02/01/21 09:16 Microcytosis Not Reportable 02/01/21 09:16 Macrocytosis Not Reportable 02/01/21 09:16 Spherocytes Not Reportable 02/01/21 09:16 Pappenheimer Bodies Not Reportable 02/01/21 09:16 Sickle Cells Not Reportable 02/01/21 09:16 Target Cells Not Reportable 02/01/21 09:16 Tear Drop Cells Not Reportable 02/01/21 09:16 Ovalocytes Not Reportable 02/01/21 09:16 Helmet Cells Not Reportable 02/01/21 09:16 Collins-Sully Bodies Not Reportable 02/01/21 09:16 Haiku Rings Not Reportable 02/01/21 09:16 Marcus Cells Not Reportable 02/01/21 09:16 Bite Cells Not Reportable 02/01/21 09:16 Crenated Cell Not Reportable 02/01/21 09:16 Elliptocytes Not Reportable 02/01/21 09:16 Acanthocytes (Spur) Not Reportable 02/01/21 09:16 Rouleaux Not Reportable 02/01/21 09:16 Hemoglobin C Crystals Not Reportable 02/01/21 09:16 Schistocytes Not Reportable 02/01/21 09:16 Malaria parasites Not Reportable 02/01/21 09:16 Kip Bodies Not Reportable 02/01/21 09:16 Hem Pathologist Commnt No 02/01/21 09:16 PT 16.3 Sec. (12.2-14.9) H 01/29/21 22:59 INR 1.18 (0.87-1.13) H 01/29/21 22:59 APTT 30.7 Sec. (24.2-36.6) 01/29/21 22:59 D-Dimer 1184.83 ng/mlDDU (0-234) H 02/02/21 07:00 ABG pH 7.436 pH Units (7.350-7.450) 02/02/21 09:15 ABG pCO2 31.0 mm Hg 02/02/21 09:15 ABG pO2 73.6 mm Hg (80.0-90.0) L 02/02/21 09:15 ABG HCO3 20.4 mmol/L (20.0-26.0) 02/02/21 09:15 ABG O2 Saturation 95.5 % (95.0-99.0) 02/02/21 09:15 ABG O2 Content 17.7 (0.0-44) 02/02/21 09:15 ABG Base Excess -2.8 mmol/L (-2.0-3.0) L 02/02/21 09:15 ABG Hemoglobin 13.4 gm/dl (14.0-18.0) L 02/02/21 09:15 ABG Carboxyhemoglobin 1.4 % (0.0-5.0) 02/02/21 09:15 ABG Methemoglobin 0.5 % (0.0-1.5) 02/02/21 09:15 Oxyhemoglobin 93.7 % (95.0-99.0) L 02/02/21 09:15 FiO2 21 % 02/02/21 09:15 Sodium 140 mmol/L (137-145) 02/06/21 06:55 Potassium 4.0 mmol/L (3.6-5.0) 02/06/21 06:55 Chloride 107.8 mmol/L (98-107) H 02/06/21 06:55 Carbon Dioxide 22 mmol/L (22-30) 02/06/21 06:55 Anion Gap 14 mmol/L 02/06/21 06:55 BUN 47 mg/dL (9-20) H 02/06/21 06:55 Creatinine 1.9 mg/dL (0.8-1.3) H 02/06/21 06:55 Estimated GFR 46 ml/min 02/06/21 06:55 BUN/Creatinine Ratio 25 % 02/06/21 06:55 Glucose 87 mg/dL (75-100) 02/06/21 06:55 POC Glucose 234 mg/dL (70-105) H 02/03/21 22:09 Lactic Acid 1.50 mmol/L (0.7-2.0) 01/29/21 22:59 Calcium 8.9 mg/dL (8.4-10.2) 02/06/21 06:55 Magnesium 2.20 mg/dL (1.7-2.3) 02/02/21 07:00 Ferritin 1337.0 ng/mL (30.0-300.0) H 02/02/21 07:00 Total Bilirubin 0.50 mg/dL (0.1-1.2) 01/29/21 22:59 AST 74 units/L (5-40) H 01/29/21 22:59 ALT 56 units/L (7-56) 01/29/21 22:59 Alkaline Phosphatase 61 units/L (35-129) 01/29/21 22:59 Ammonia 26.0 umol/L (25-60) 02/02/21 07:00 Lactate Dehydrogenase 467 units/L (91-180) H 02/01/21 09:16 Troponin T 0.378 ng/mL (0.00-0.029) H* 02/02/21 07:00 C-Reactive Protein 0.60 mg/dL (0.00-1.30) 02/06/21 06:55 C-React Prot High Sens >10.0 mg/L () H 02/01/21 09:16 NT-Pro-B Natriuret Pep 9236 pg/mL (0-900) H 02/01/21 09:16 Total Protein 7.7 g/dL (6.3-8.2) 01/29/21 22:59 Albumin 3.7 g/dL (3.9-5) L 01/29/21 22:59 Albumin/Globulin Ratio 0.9 % 01/29/21 22:59 Vitamin B12 878.8 pg/mL (211-911) 02/02/21 07:00 Folate 6.66 ng/mL (7.3-26.0) L 02/02/21 07:00 TSH 0.614 mlU/mL (0.270-4.200) 02/02/21 07:00 Urine Color Yellow (Yellow) 01/30/21 01:21 Urine Turbidity Slightly-cloudy (Clear) 01/30/21 01:21 Urine pH 5.0 (5.0-7.0) 01/30/21 01:21 Ur Specific [place] 1.016 (1.003-1.030) 01/30/21 01:21 Urine Protein 30 mg/dl mg/dL (Negative) 01/30/21 01:21 Urine Glucose (UA) Neg mg/dL (Negative) 01/30/21 01:21 Urine Ketones Neg mg/dL (Negative) 01/30/21 01:21 Urine Blood Lg (Negative) 01/30/21 01: Urine Nitrite Neg (Negative) 01/30/21 01:21 Urine Bilirubin Neg (Negative) 01/30/21 01:21 Urine Urobilinogen < 2.0 mg/dL (<2.0) 01/30/21 01:21 Ur Leukocyte Esterase Neg (Negative) 01/30/21 01:21 Urine WBC (Auto) 3.0 /HPF (0.0-6.0) 01/30/21 01:21 Urine RBC (Auto) 38.0 /HPF (0.0-6.0) 01/30/21 01:21 U Epithel Cells (Auto) < 1.0 /HPF (0-13.0) 01/30/21 01:21 Urine Mucus Few /HPF 01/30/21 01:21 Urine Yeast (Budding) 1+ /HPF 01/30/21 01:21 Coronavirus (PCR) Positive (Negative) A 01/30/21 Unknown Sanchez/IV: Voiding Method Urinal Active Medications - Current Medications Current Medications: Generic Name Dose Route Start Last Admin Trade Name Freq PRN Reason Stop Dose Admin Acetaminophen 650 mg 01/30/21 05:01 Acetaminophen 325 Mg Tab PO Q6H PRN Pain, Mild (1-3) Aspirin 81 mg 02/03/21 10:00 02/06/21 10:18 Aspirin 81 Mg Tab Chew PO 81 mg QDAY CATALNIA Administration Atorvastatin Calcium 40 mg 01/30/21 22:00 02/05/21 22:45 Atorvastatin 40 Mg Tab PO 40 mg QHS CATALINA Administration Dexamethasone 6 mg 02/01/21 10:00 02/06/21 10:18 Dexamethasone 4 Mg Tab PO 02/10/21 10:01 6 mg DAILY CATALINA Administration Enoxaparin Sodium 100 mg 02/01/21 10:00 02/06/21 10:18 Enoxaparin 100 Mg/1 Ml Inj SUB-Q 100 mg Q24HR CATALINA Administration Protocol Hydralazine HCl 50 mg 01/31/21 10:00 02/06/21 10:19 Hydralazine 25 Mg Tab PO 50 mg BID CATALINA Administration Isosorbide Mononitrate 30 mg 01/30/21 10:00 02/06/21 10:20 Isosorbide Mononitrate Er 30 Mg Tab PO 30 mg QDAY [facility]ALINA Administration Metoprolol Tartrate 50 mg 01/31/21 10:00 02/06/21 10:20 Metoprolol Tartrate 50 Mg Tab PO 50 mg BID CATALINA Administration Nitroglycerin 0.4 mg 01/30/21 05:01 Nitroglycerin 0.4 Mg Tab Subl SL .Q5MIN PRN Chest Pain Ondansetron HCl 4 mg 01/30/21 05:01 Ondansetron 4 Mg/2 Ml Inj IV Q8H PRN Nausea And Vomiting Pantoprazole Sodium 40 mg 01/30/21 10:00 02/06/21 10:18 Pantoprazole 40 Mg Tab PO 40 mg QDAY CATALINA Administration Sodium Chloride 10 ml 01/30/21 05:01 Sodium Chloride 0.9% 10 Ml Flush Syringe IV PRN PRN LINE FLUSH Nutrition/Malnutrition Assess - Dietary Evaluation Nutrition/Malnutrition Findings: Nutrition Notes Start: 02/06/21 08:41 Freq: Status: Active Protocol: Document 02/06/21 08:41 GB (Rec: 02/06/21 09:02 GB [email or web address]) Nutrition Notes Need for Assessment generated from: LOS Initial or Follow up Assessment Current Diagnosis Acute Kidney Injury, Hypertension,Respiratory Failure Other Pertinent Diagnosis acute encephalopathy, Covid +, PNA, SOB Current Diet cardiac Labs/Tests 02/06: BUN 47, creatinine 1.9 Pertinent Medications reviewed Height 6 ft Weight 96 kg [place] Body Weight (kg) 80.90 BMI 28.7 Intake Prior to Admission Good Weight change and time frame 01/29: 95.234kg 02/03: 96kg change of +0.746kg for +0.7% gain. Stable. Weight Status Overweight Subjective/Other Information Meal intake recorded as 100% early in the week. No documentation for change of intake. BM: WNL Percent of energy/protein needs met: 100% Burn Absent Trauma Absent GI Symptoms None Food Allergy No Skin Integrity/Comment No complications reported Current % PO Good (75-100%) Minimum of two criteria No #1 Nutrition Diagnosis No nutrition diagnosis at this time Etiology covid+, SOB As Evidenced by Signs and Symptoms good po, no reported significant weight changes Is patient on ventilator? No Is Patient Ambulatory and/or Out of Bed Yes REE-([facility]-ambulatory/OOB) [ 2415.400 NUTR.[id number]] Kcal/Kg value to use for calculation 25 Approximate Energy Requirements Using 2400 kcal/Kg Calculation Used for Recommendations [facility] Additional Notes Protein: 0.8-1 g/kg @ 96k -96g Fluids: 1 ml/kcal or per MD Nutrition Intervention Change Diet Order: Continue Cardiac Nutrition Support: n/a Add Supplement/Snack (indicate name/kcal n/a /protein ) Goal #1 PO intake of meals to continue at 100% daily during LOS. Revisit per MD consult or patient Sign Off request:
--- NOTE | 2021-02-06 13:06 | Progress Note ---
Assessment and Plan Cultures: 01/30/2021 SARS CoV2 PCR: Positive 01/29/2021 blood culture: No growth A/P: 50-year-old male with CHF, non-ischemic cardiomyopathy with EF of 10 to 15%, CKD stage III was admitted with cough, malaise going on for 2 weeks, tested positive for COVID-19: #COVID-19 infection: no obvious pneumonia. Has been on steroids. #Acute hypoxic resp failure: likely from CHF given response to diuretics. #[place] on CKD #Acute on chronic CHF, nonischemic cardiomyopathy with an EF of 10 to 15% Recs: -CRP 0.6. Complete steroid course ending 02/10/2021 ID will sign off. Please reconsult if needed. Sanjuanita Hernández MD, FACP [facility] O: [phone] F: [phone] Subjective Date of service: 02/06/21 Principal diagnosis: [place], COVID-19 Interval history: Afebrile. CRP 0.6. Objective - Exam Narrative Exam: Physical Exam (reviewed in chart to minimize risk of transmission) Constitutional: deferred Head, Ears, Nose: deferred Eyes: deferred Neck: deferred Oral: deferred Cardiovascular: deferred Respiratory: deferred GI: deferred Musculoskeletal: deferred Skin: deferred Hem/Lymphatic: deferred Psych: deferred Neurological: deferred - Constitutional Vitals: Vital Signs Temp Pulse Resp BP Pulse Ox 98.2 F 82 18 138/86 94 02/06/21 05:31 02/06/21 10:20 02/06/21 05:31 02/06/21 10:20 02/06/21 05:31 Temperature -Last 24 Hours Temperature 98.2 F Temperature 97.6 F - Labs CBC & Chem 7: 02/01/21 09:16 02/06/21 06:55 Labs: Abnormal lab results 02/01/21 02/06/21 Range/Units 09:16 06:55 Chloride 107.8 H (98-107) mmol/L BUN 47 H (9-20) mg/dL Creatinine 1.9 H (0.8-1.3) mg/dL C-React Prot High Sens >10.0 H () mg/L
--- NOTE | 2021-02-06 14:45 | Progress Note ---
Assessment and Plan Patient is a 50-year-old male with a past medical history of HFrEF (EF 10 to 15%) and hypertension who presented to [facility] with complaint of progressively worsening fatigue and shortness of breath x 2-week HFrEF NSTEMI suspect type 2 EKG sinus tachycardia 112, no acute ischemic changes. Troponin elevated but down trending .57->.[id number]->.[id number] Patient is currently chest pain-free. Echocardiogram 10/2020 is EF 10-15%, Left ventricle severely dilated, mild LVH, right ventricle moderately dilated, severe tricuspid regurgitation, Lexiscan MPI stress test11/01/2020- negative for ischemia Outpatient medications: asa, Imdur 30mg PO Qd, hydralizine 25mg PO Bid, metoprolol 100mg PO BID, Nifedipine XL 60mg PO QD, Lasix 40 mg PO daily, Aldactone 25 QD. . COVID-19 COVID PCR positive ID following Acute hypoxic respiratory failure Management per primary team Plan: MRI shows multiple foci in both cerebral hemispheres that may represent multiple small acute infarctions in multiple vascular distributions suggestive of possibly an embolic etiology Echo pending Aldactone and ACEI/ARB deferred at this time due to renal fxn Continue hydralizine 50mg PO BID and Metoprolol 50mg PO BID for BP control. Pt seen in conjunction with Dr. Ahumada who agrees with the assessment and plan of care. - Patient Problems (1) Acute encephalopathy Current Visit: Yes Status: Acute (2) Acute kidney injury superimposed on CKD Current Visit: Yes Status: Acute (3) Acute on chronic HFrEF (heart failure with reduced ejection fraction) Current Visit: Yes Status: Acute (4) Elevated d-dimer Current Visit: Yes Status: Acute (5) NSTEMI (non-ST elevated myocardial infarction) Current Visit: Yes Status: Acute (6) Pneumonia Current Visit: Yes Status: Acute (7) Suspected COVID-19 virus infection Current Visit: Yes Status: Acute (8) NICM (nonischemic cardiomyopathy) Current Visit: Yes Status: Chronic (9) Acute respiratory failure Current Visit: No Status: Acute Qualifiers: Respiratory failure complication: hypoxia Qualified Code(s): J96.01 - Acute respiratory failure with hypoxia (10) Bilateral pneumonia Current Visit: No Status: Acute (11) Elevated troponin Current Visit: No Status: Acute Subjective Date of service: 02/06/21 Principal diagnosis: [place], COVID-19 Interval history: Patient in bed in no acute distress and no complaints. Sinus 80s with no events on monitor Objective Vital Signs Temp Pulse Resp BP Pulse Ox 02/06/21 11:27 98.0 F 81 18 128/73 97 02/06/21 10:20 82 138/86 02/06/21 10:19 82 138/86 02/06/21 05:31 98.2 F 81 18 137/94 94 02/05/21 22:45 98 02/05/21 21:15 97.6 F 80 18 141/95 98 - Physical Examination General: No Apparent Distress HEENT: Positive: PERRL, Normocephaly, Mucus Membranes Moist Neck: Positive: neck supple, trachea midline. Negative: JVD/HJR Cardiac: Positive: Reg Rate and Rhythm Lungs: Positive: Decreased Breath Sounds Neuro: Positive: Grossly Intact Abdomen: Positive: Soft Skin: Negative: Rash Extremities: Present: upper extr. pulses, lower extr. pulses. Absent: edema - Labs and Meds Comprehensive Metabolic Panel 02/06/21 Range/Units 06:55 Sodium 140 (137-145) mmol/L Potassium 4.0 (3.6-5.0) mmol/L Chloride 107.8 H (98-107) mmol/L Carbon Dioxide 22 (22-30) mmol/L BUN 47 H (9-20) mg/dL Creatinine 1.9 H (0.8-1.3) mg/dL Glucose 87 (75-100) mg/dL Calcium 8.9 (8.4-10.2) mg/dL - Imaging and Cardiology EKG: report reviewed, image reviewed Echo: report reviewed (10/2020 - EF 10-15%, mild LVH, LV severely dilated, RV mod dilated, RV mildly hypokinetic, trace AR, mild MR, severe TR, RVSP 39mmHg, trace MI.) Cardiac cath: report reviewed - EKG Sinus rhythms and dysrhythmias: sinus rhythm Chamber hypertrophy or enlargement: left atrial enlargement, right atrial enlargment, left ventricular hypertro - Allied health notes Allied health notes reviewed: nursing
[2021-02-07] MEDS: hydrALAZINE 25 MG TAB PO SCH ×3 (05:12→22:18)
[2021-02-07 06:49] LABS: Calcium 8.9 mg/dL (8.4-10.2)
--- NOTE | 2021-02-07 09:55 | Progress Note ---
Assessment and Plan Assessment and plan: Acute heart failure with reduced EF. EF 10 to 15% Non-ST elevation AL suspect type II. Stress test on October 2020 - for ischemia. Acute kidney injury on CKD 3, creatinine 2.6 versus of 1.8 in 10/30 at the time of admission COVID-19 pneumonia. Acute hypoxic respiratory failure. Toxic metabolic encephalopathy. Elevated D-dimer. 02/04/2021. Cardiology stopped Lasix in setting of rising creatinine. Aldactone and TD inhibitor/ARB deferred due to renal function. Continue hydralazine and metoprolol per cardiology recommendations. Await MRI for encephalopathy. 02/05/2021. MRI reveals multiple foci in both cerebral hemispheres that may represent multiple small acute infarctions in multiple vascular distributions suggestive of possibly an embolic etiology. 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 We will order DAVID for further evaluation. Creatinine appears to be back to late sign of 2.0. Will obtain walk test at discharge. Continue dexamethasone. ID consultation. 02/06/2021. Await echocardiogram to further evaluate abnormal MRI findings suggestive of emboli. Creatinine is at baseline of 1.9. Continue steroid course until 02/10/2021. Continue aspirin, Imdur, hydralazine, metoprolol, nifedipine, Lasix and Aldactone for heart failure. 02/07/2021. Echocardiogram reports left ventricle is mildly dilated with moderate global hypokinesis and LVEF 30-35%. No pericardial effusion. Saline bubble contrast intravenous injection does not demonstrate PFO. No reports of embolic source. Aldactone, TD inhibitor or ARB deferred at this time due to renal function. Patient's renal function appears to be at baseline of 1.9. Patient has seen Dr. Kam in the past. We will reconsult for renal insufficiency History Interval history: No new issues overnight. Hospitalist Physical - Constitutional Vitals: Temp Pulse Resp BP Pulse Ox 98.3 F 73 18 157/101 96 02/07/21 04:14 02/07/21 05:12 02/07/21 04:14 02/07/21 05:12 02/07/21 04:14 General appearance: Present: no acute distress, other (Awake, fairly alert but confused though improving) - EENT Eyes: Present: PERRL, EOM intact ENT: hearing intact, clear oral mucosa, dentition normal - Neck Neck: Present: supple, normal ROM - Respiratory Respiratory effort: normal Respiratory: bilateral: CTA - Cardiovascular Rhythm: regular Heart Sounds: Present: S1 & S2. Absent: gallop, rub - Extremities Extremities: no ischemia, No edema, Full ROM - Abdominal General gastrointestinal: soft, non-tender, non-distended, normal bowel sounds - Integumentary Integumentary: Present: clear, warm, dry - Neurologic Neurologic: CNII-XII intact, moves all extremities HEART Score - HEART Score Troponin: Troponin T 0.378 ng/mL (0.00-0.029) H* 02/02/21 07:00 Results - Labs CBC & Chem 7: 02/01/21 09:16 02/07/21 Unknown Labs: Laboratory Last Values WBC 8.3 K/mm3 (4.5-11.0) 02/01/21 09:16 RBC 4.38 M/mm3 (3.65-5.03) 02/01/21 09:16 Hgb 13.2 gm/dl (11.8-15.2) 02/01/21 09:16 Hct 38.4 % (35.5-45.6) 02/01/21 09:16 MCV 88 fl (84-94) 02/01/21 09:16 MCH 30 pg (28-32) 02/01/21 09:16 MCHC 34 % (32-34) 02/01/21 09:16 RDW 16.2 % (13.2-15.2) H 02/01/21 09:16 Plt Count 378 K/mm3 (140-440) 02/01/21 09:16 Lymph % (Auto) 4.3 % (13.4-35.0) L 01/29/21 22:59 Glenn % (Auto) 7.5 % (0.0-7.3) H 01/29/21 22:59 Eos % (Auto) 0.0 % (0.0-4.3) 01/29/21 22:59 Baso % (Auto) 1.3 % (0.0-1.8) 01/29/21 22:59 Lymph # (Auto) 0.6 K/mm3 (1.2-5.4) L 01/29/21 22:59 Glenn # (Auto) 1.0 K/mm3 (0.0-0.8) H 01/29/21 22:59 Eos # (Auto) 0.0 K/mm3 (0.0-0.4) 01/29/21 22:59 Baso # (Auto) 0.2 K/mm3 (0.0-0.1) H 01/29/21 22:59 Add Manual Diff Complete 02/01/21 09:16 Total Counted 100 02/01/21 09:16 Seg Neutrophils % 86.9 % (40.0-70.0) H 01/29/21 22:59 Seg Neuts % (Manual) 75.0 % (40.0-70.0) H 02/01/21 09:16 Band Neutrophils % 4.0 % 02/01/21 09:16 Lymphocytes % (Manual) 10.0 % (13.4-35.0) L 02/01/21 09:16 Reactive Lymphs % (Man) 3.0 % 02/01/21 09:16 Monocytes % (Manual) 4.0 % (0.0-7.3) 02/01/21 09:16 Eosinophils % (Manual) 3.0 % (0.0-4.3) 02/01/21 09:16 Metamyelocytes % 1.0 % 02/01/21 09:16 Nucleated RBC % Not Reportable 02/01/21 09:16 Seg Neutrophils # 12.0 K/mm3 (1.8-7.7) H 01/29/21 22:59 Seg Neutrophils # Man 6.2 K/mm3 (1.8-7.7) 02/01/21 09:16 Band Neutrophils # 0.3 K/mm3 02/01/21 09:16 Lymphocytes # (Manual) 0.8 K/mm3 (1.2-5.4) L 02/01/21 09:16 Abs React Lymphs (Man) 0.2 K/mm3 02/01/21 09:16 Monocytes # (Manual) 0.3 K/mm3 (0.0-0.8) 02/01/21 09:16 Eosinophils # (Manual) 0.2 K/mm3 (0.0-0.4) 02/01/21 09:16 Basophils # (Manual) 0.0 K/mm3 (0.0-0.1) 02/01/21 09:16 Metamyelocytes # 0.1 K/mm3 02/01/21 09:16 Myelocytes # 0.0 K/mm3 02/01/21 09:16 Promyelocytes # 0.0 K/mm3 02/01/21 09:16 Blast Cells # 0.0 K/mm3 02/01/21 09:16 WBC Morphology Not Reportable 02/01/21 09:16 WBC Morphology TNR 02/01/21 09:16 Hypersegmented Neuts Not Reportable 02/01/21 09:16 Hyposegmented Neuts Not Reportable 02/01/21 09:16 Hypogranular Neuts Not Reportable 02/01/21 09:16 Smudge Cells Not Reportable 02/01/21 09:16 Toxic Granulation Not Reportable 02/01/21 09:16 Toxic Vacuolation Not Reportable 02/01/21 09:16 Dohle Bodies Not Reportable 02/01/21 09:16 Pelger-Huet Anomaly Not Reportable 02/01/21 09:16 Demetra Rods Not Reportable 02/01/21 09:16 Platelet Estimate Not Reportable 02/01/21 09:16 Clumped Platelets Not Reportable 02/01/21 09:16 Plt Clumps, EDTA Not Reportable 02/01/21 09:16 Large Platelets Not Reportable 02/01/21 09:16 Giant Platelets Not Reportable 02/01/21 09:16 Platelet Satelliting Not Reportable 02/01/21 09:16 Plt Morphology Comment Not Reportable 02/01/21 09:16 RBC Morphology Normal 02/01/21 09:16 Dimorphic RBCs Not Reportable 02/01/21 09:16 Polychromasia Not Reportable 02/01/21 09:16 Hypochromasia Not Reportable 02/01/21 09:16 Poikilocytosis Not Reportable 02/01/21 09:16 Anisocytosis Not Reportable 02/01/21 09:16 Microcytosis Not Reportable 02/01/21 09:16 Macrocytosis Not Reportable 02/01/21 09:16 Spherocytes Not Reportable 02/01/21 09:16 Pappenheimer Bodies Not Reportable 02/01/21 09:16 Sickle Cells Not Reportable 02/01/21 09:16 Target Cells Not Reportable 02/01/21 09:16 Tear Drop Cells Not Reportable 02/01/21 09:16 Ovalocytes Not Reportable 02/01/21 09:16 Helmet Cells Not Reportable 02/01/21 09:16 Collins-[place]scalon Bodies Not Reportable 02/01/21 09:16 [place] Rings Not Reportable 02/01/21 09:16 [place] Cells Not Reportable 02/01/21 09:16 Bite Cells Not Reportable 02/01/21 09:16 Crenated Cell Not Reportable 02/01/21 09:16 Elliptocytes Not Reportable 02/01/21 09:16 Acanthocytes (Spur) Not Reportable 02/01/21 09:16 Rouleaux Not Reportable 02/01/21 09:16 Hemoglobin C Crystals Not Reportable 02/01/21 09:16 Schistocytes Not Reportable 02/01/21 09:16 Malaria parasites Not Reportable 02/01/21 09:16 Kip Bodies Not Reportable 02/01/21 09:16 Hem Pathologist Commnt No 02/01/21 09:16 PT 16.3 Sec. (12.2-14.9) H 01/29/21 22:59 INR 1.18 (0.87-1.13) H 01/29/21 22:59 APTT 30.7 Sec. (24.2-36.6) 01/29/21 22:59 D-Dimer 1184.83 ng/mlDDU (0-234) H 02/02/21 07:00 ABG pH 7.436 pH Units (7.350-7.450) 02/02/21 09:15 ABG pCO2 31.0 mm Hg 02/02/21 09:15 ABG pO2 73.6 mm Hg (80.0-90.0) L 02/02/21 09:15 ABG HCO3 20.4 mmol/L (20.0-26.0) 02/02/21 09:15 ABG O2 Saturation 95.5 % (95.0-99.0) 02/02/21 09:15 ABG O2 Content 17.7 (0.0-44) 02/02/21 09:15 ABG Base Excess -2.8 mmol/L (-2.0-3.0) L 02/02/21 09:15 ABG Hemoglobin 13.4 gm/dl (14.0-18.0) L 02/02/21 09:15 ABG Carboxyhemoglobin 1.4 % (0.0-5.0) 02/02/21 09:15 ABG Methemoglobin 0.5 % (0.0-1.5) 02/02/21 09:15 Oxyhemoglobin 93.7 % (95.0-99.0) L 02/02/21 09:15 FiO2 21 % 02/02/21 09:15 Sodium 141 mmol/L (137-145) 02/07/21 Unknown Potassium 4.3 mmol/L (3.6-5.0) 02/07/21 Unknown Chloride 110.6 mmol/L (98-107) H 02/07/21 Unknown Carbon Dioxide 20 mmol/L (22-30) L 02/07/21 Unknown Anion Gap 15 mmol/L 02/07/21 Unknown BUN 46 mg/dL (9-20) H 02/07/21 Unknown Creatinine 2.0 mg/dL (0.8-1.3) H 02/07/21 Unknown Estimated GFR 43 ml/min 02/07/21 Unknown BUN/Creatinine Ratio 23 % 02/07/21 Unknown Glucose 85 mg/dL (75-100) 02/07/21 Unknown POC Glucose 234 mg/dL (70-105) H 02/03/21 22:09 Lactic Acid 1.50 mmol/L (0.7-2.0) 01/29/21 22:59 Calcium 8.9 mg/dL (8.4-10.2) 02/07/21 Unknown Magnesium 2.20 mg/dL (1.7-2.3) 02/02/21 07:00 Ferritin 1337.0 ng/mL (30.0-300.0) H 02/02/21 07:00 Total Bilirubin 0.50 mg/dL (0.1-1.2) 01/29/21 22:59 AST 74 units/L (5-40) H 01/29/21 22:59 ALT 56 units/L (7-56) 01/29/21 22:59 Alkaline Phosphatase 61 units/L (35-129) 01/29/21 22:59 Ammonia 26.0 umol/L (25-60) 02/02/21 07:00 Lactate Dehydrogenase 467 units/L (91-180) H 02/01/21 09:16 Troponin T 0.378 ng/mL (0.00-0.029) H* 02/02/21 07:00 C-Reactive Protein 0.60 mg/dL (0.00-1.30) 02/06/21 06:55 C-React Prot High Sens >10.0 mg/L () H 02/01/21 09:16 NT-Pro-B Natriuret Pep 9236 pg/mL (0-900) H 02/01/21 09:16 Total Protein 7.7 g/dL (6.3-8.2) 01/29/21 22:59 Albumin 3.7 g/dL (3.9-5) L 01/29/21 22:59 Albumin/Globulin Ratio 0.9 % 01/29/21 22:59 Vitamin B12 878.8 pg/mL (211-911) 02/02/21 07:00 Folate 6.66 ng/mL (7.3-26.0) L 02/02/21 07:00 TSH 0.614 mlU/mL (0.270-4.200) 02/02/21 07:00 Urine Color Yellow (Yellow) 01/30/21 01:21 Urine Turbidity Slightly-cloudy (Clear) 01/30/21 01:21 Urine pH 5.0 (5.0-7.0) 01/30/21 01:21 Ur Specific [place] 1.016 (1.003-1.030) 01/30/21 01:21 Urine Protein 30 mg/dl mg/dL (Negative) 01/30/21 01:21 Urine Glucose (UA) Neg mg/dL (Negative) 01/30/21 01:21 Urine Ketones Neg mg/dL (Negative) 01/30/21 01:21 Urine Blood Lg (Negative) 01/30/21 01:21 Urine Nitrite Neg (Negative) 01/30/21 01:21 Urine Bilirubin Neg (Negative) 01/30/21 01:21 Urine Urobilinogen < 2.0 mg/dL (<2.0) 01/30/21 01:21 Ur Leukocyte Esterase Neg (Negative) 01/30/21 01:21 Urine WBC (Auto) 3.0 /HPF (0.0-6.0) 01/30/21 01:21 Urine RBC (Auto) 38.0 /HPF (0.0-6.0) 01/30/21 01:21 U Epithel Cells (Auto) < 1.0 /HPF (0-13.0) 01/30/21 01:21 Urine Mucus Few /HPF 01/30/21 01:21 Urine Yeast (Budding) 1+ /HPF 01/30/21 01:21 Coronavirus (PCR) Positive (Negative) A 01/30/21 Unknown Sanchez/IV: Voiding Method Urinal Active Medications - Current Medications Current Medications: Generic Name Dose Route Start Last Admin Trade Name Freq PRN Reason Stop Dose Admin Acetaminophen 650 mg 01/30/21 05:01 Acetaminophen 325 Mg Tab PO Q6H PRN Pain, Mild (1-3) Aspirin 81 mg 02/03/21 10:00 02/06/21 10:18 Aspirin 81 Mg Tab Chew PO 81 mg QDAY CATALINA Administration Atorvastatin Calcium 40 mg 01/30/21 22:00 02/06/21 23:19 Atorvastatin 40 Mg Tab PO 40 mg QHS CATALINA Administration Dexamethasone 6 mg 02/01/21 10:00 02/06/21 10:18 Dexamethasone 4 Mg Tab PO 02/10/21 10:01 6 mg DAILY CATALINA Administration Enoxaparin Sodium 100 mg 02/01/21 10:00 02/06/21 10:18 Enoxaparin 100 Mg/1 Ml Inj SUB-Q 100 mg Q24HR CATALINA Administration Protocol Hydralazine HCl 50 mg 01/31/21 10:00 02/07/21 05:12 Hydralazine 25 Mg Tab PO 50 mg BID CATALINA Administration Isosorbide Mononitrate 30 mg 01/30/21 10:00 02/06/21 10:20 Isosorbide Mononitrate Er 30 Mg Tab PO 30 mg QDAY [facility]INA Administration Metoprolol Tartrate 50 mg 01/31/21 10:00 02/06/21 23:19 Metoprolol Tartrate 50 Mg Tab PO 50 mg BID [facility]ALINA Administration Nitroglycerin 0.4 mg 01/30/21 05:01 Nitroglycerin 0.4 Mg Tab Subl SL .Q5MIN PRN Chest Pain Ondansetron HCl 4 mg 01/30/21 05:01 Ondansetron 4 Mg/2 Ml Inj IV Q8H PRN Nausea And Vomiting Pantoprazole Sodium 40 mg 10/21/21 10:00 02/06/21 10:18 Pantoprazole 40 Mg Tab PO 40 mg QDAY [facility]ALINA Administration Sodium Chloride 10 ml 01/30/21 05:01 Sodium Chloride 0.9% 10 Ml Flush Syringe IV PRN PRN LINE FLUSH Nutrition/Malnutrition Assess - Dietary Evaluation Nutrition/Malnutrition Findings: Nutrition Notes Start: 02/06/21 08:41 Freq: Status: Active Protocol: Document 02/06/21 08:41 GB (Rec: 02/06/21 09:02 GB [email or web address]) Nutrition Notes Need for Assessment generated from: LOS Initial or Follow up Assessment Current Diagnosis Acute Kidney Injury, Hypertension,Respiratory Failure Other Pertinent Diagnosis acute encephalopathy, Covid +, PNA, SOB Current Diet cardiac Labs/Tests 02/06: BUN 47, creatinine 1.9 Pertinent Medications reviewed Height 6 ft Weight 96 kg [place] Body Weight (kg) 80.90 BMI 28.7 Intake Prior to Admission Good Weight change and time frame 01/29: 95.234kg 02/03: 96kg change of +0.746kg for +0.7% gain. Stable. Weight Status Overweight Subjective/Other Information Meal intake recorded as 100% early in the week. No documentation for change of intake. BM: WNL Percent of energy/protein needs met: 100% Burn Absent Trauma Absent GI Symptoms None Food Allergy No Skin Integrity/Comment No complications reported Current % PO Good (75-100%) Minimum of two criteria No #1 Nutrition Diagnosis No nutrition diagnosis at this time Etiology covid+, SOB As Evidenced by Signs and Symptoms good po, no reported significant weight changes Is patient on ventilator? No Is Patient Ambulatory and/or Out of Bed Yes REE-([facility]-ambulatory/OOB) [ 0656.400 [id number]] Kcal/Kg value to use for calculation 25 Approximate Energy Requirements Using 2400 kcal/Kg Calculation Used for Recommendations [facility] Additional Notes Protein: 0.8-1 g/kg @ 96k -96g Fluids: 1 ml/kcal or per MD Nutrition Intervention Change Diet Order: Continue Cardiac Nutrition Support: n/a Add Supplement/Snack (indicate name/kcal n/a /protein ) Goal #1 PO intake of meals to continue at 100% daily during LOS. Revisit per MD consult or patient Sign Off request:
[2021-02-07] MEDS: PANTOPRAZOLE 40 MG TAB PO SCH (10:20)
[2021-02-07] MEDS: ASPIRIN 81 MG TAB CHEW PO SCH (10:20)
[2021-02-07] MEDS: DEXAMETHASONE 4 MG TAB PO SCH (10:21)
[2021-02-07] MEDS: METOPROLOL TARTRATE 50 MG TAB PO SCH ×2 (10:21→22:18)
[2021-02-07] MEDS: ENOXAPARIN 100 MG/1 ML INJ SUB-Q SCH (10:22)
--- NOTE | 2021-02-07 10:29 | Consultation ---
Past History Past Medical History: heart failure, hypertension Medications and Allergies Allergies Allergy/AdvReac Type Severity Reaction Status Date / Time No Known Allergies Allergy Verified 01/29/21 23:11 Home Medications Medication Instructions Recorded Confirmed Last Taken Type ISOSORBIDE MONOnitrate [Imdur ER] 30 mg PO QDAY #60 tablet 11/01/20 01/31/21 Unknown Rx Furosemide [Lasix] 40 mg PO QDAY 01/31/21 02/04/21 Unknown History Hydralazine HCl 50 mg PO BID 01/31/21 01/31/21 Unknown History Metoprolol [Lopressor TAB] 50 mg PO BID 01/31/21 01/31/21 Unknown History NIFEdipine XL [Procardia Xl] 60 mg PO BID 01/31/21 02/04/21 Unknown History Spironolactone [Aldactone] 25 mg PO QDAY 01/31/21 01/31/21 Unknown History Active Meds: Active Medications Acetaminophen (Acetaminophen 325 Mg Tab) 650 mg PO Q6H PRN PRN Reason: Pain, Mild (1-3) Aspirin (Aspirin 81 Mg Tab Chew) 81 mg PO QDAY [facility] Last Admin: 02/07/21 10:20 Dose: 81 mg Documented by: Atorvastatin Calcium (Atorvastatin 40 Mg Tab) 40 mg PO QHS [facility] Last Admin: 02/06/21 23:19 Dose: 40 mg Documented by: Dexamethasone (Dexamethasone 4 Mg Tab) 6 mg PO DAILY [facility] Stop: 02/10/21 10:01 Last Admin: 02/07/21 10:21 Dose: 6 mg Documented by: Enoxaparin Sodium (Enoxaparin 100 Mg/1 Ml Inj) 100 mg SUB-Q Q24HR [facility]; Protocol Last Admin: 02/07/21 10:22 Dose: 100 mg Documented by: Hydralazine HCl (Hydralazine 25 Mg Tab) 50 mg PO BID [facility] Last Admin: 02/07/21 10:20 Dose: 50 mg Documented by: Isosorbide Mononitrate (Isosorbide Mononitrate Er 30 Mg Tab) 30 mg PO QDAY [facility] Last Admin: 02/07/21 10:20 Dose: 30 mg Documented by: Metoprolol Tartrate (Metoprolol Tartrate 50 Mg Tab) 50 mg PO BID [facility] Last Admin: 02/07/21 10:21 Dose: 50 mg Documented by: Nitroglycerin (Nitroglycerin 0.4 Mg Tab Subl) 0.4 mg SL .Q5MIN PRN PRN Reason: Chest Pain Ondansetron HCl (Ondansetron 4 Mg/2 Ml Inj) 4 mg IV Q8H PRN PRN Reason: Nausea And Vomiting Pantoprazole Sodium (Pantoprazole 40 Mg Tab) 40 mg PO QDAY [facility] Last Admin: 02/07/21 10:20 Dose: 40 mg Documented by: Sodium Chloride (Sodium Chloride 0.9% 10 Ml Flush Syringe) 10 ml IV PRN PRN PRN Reason: LINE FLUSH Exam - Vital Signs Vital signs: Vital Signs Temp Pulse Resp BP Pulse Ox 97.7 F 93 H 26 H 116/89 97 01/29/21 22:12 01/29/21 22:12 01/29/21 22:12 01/29/21 22:12 01/29/21 22:12 Results - Lab Results 02/01/21 09:16 02/07/21 Unknown Most recent lab results ABG pH 7.436 pH Units (7.350-7.450) 02/02/21 09:15 ABG pCO2 31.0 mm Hg 02/02/21 09:15 ABG pO2 73.6 mm Hg (80.0-90.0) L 02/02/21 09:15 ABG HCO3 20.4 mmol/L (20.0-26.0) 02/02/21 09:15 ABG O2 Saturation 95.5 % (95.0-99.0) 02/02/21 09:15 Calcium 8.9 mg/dL (8.4-10.2) 02/07/21 Unknown Magnesium 2.20 mg/dL (1.7-2.3) 02/02/21 07:00
--- NOTE | 2021-02-07 13:56 | Progress Note ---
Assessment and Plan Patient is a 50-year-old male with a past medical history of HFrEF (EF 10 to 15%) and hypertension who presented to [facility] with complaint of progressively worsening fatigue and shortness of breath x 2-week HFrEF NSTEMI suspect type 2 EKG sinus tachycardia 112, no acute ischemic changes. Troponin elevated but down trending .[id number]->.[id number]->.[id number] Patient is currently chest pain-free. Echocardiogram 10/2020 is EF 10-15%, Left ventricle severely dilated, mild LVH, right ventricle moderately dilated, severe tricuspid regurgitation, Lexiscan MPI stress test11/01/2020- negative for ischemia Outpatient medications: asa, Imdur 30mg PO Qd, hydralizine 25mg PO Bid, metoprolol 100mg PO BID, Nifedipine XL 60mg PO QD, Lasix 40 mg PO daily, Aldactone 25 QD. . COVID-19 COVID PCR positive ID following Acute hypoxic respiratory failure Management per primary team Plan: MRI shows multiple foci in both cerebral hemispheres that may represent multiple small acute infarctions in multiple vascular distributions suggestive of possibly an embolic etiology Echo 02/05/2021-EF 30 to 35%, left ventricle is mildly dilated, there is moderate global hypokinesis of left ventricle. Right ventricle is hypokinetic. Saline bubble study does not demonstrate PFO. Given concern for possible emboli may consider systemic anticoagulation. Will defer to neurology recommendations Aldactone and ACEI/ARB deferred at this time due to renal fxn Continue hydralizine 50mg PO BID and Metoprolol 50mg PO BID for BP control. Increase Imdur 60mg PO QD. Pt seen in conjunction with Dr. Ahumada who agrees with the assessment and plan of care. Will see patient as needed over the weekend - Patient Problems (1) Acute encephalopathy Current Visit: Yes Status: Acute (2) Acute kidney injury superimposed on CKD Current Visit: Yes Status: Acute (3) Acute on chronic HFrEF (heart failure with reduced ejection fraction) Current Visit: Yes Status: Acute (4) Elevated d-dimer Current Visit: Yes Status: Acute (5) NSTEMI (non-ST elevated myocardial infarction) Current Visit: Yes Status: Acute (6) Pneumonia Current Visit: Yes Status: Acute (7) Suspected COVID-19 virus infection Current Visit: Yes Status: Acute (8) NICM (nonischemic cardiomyopathy) Current Visit: Yes Status: Chronic (9) Acute respiratory failure Current Visit: No Status: Acute Qualifiers: Respiratory failure complication: hypoxia Qualified Code(s): J96.01 - Acute respiratory failure with hypoxia (10) Bilateral pneumonia Current Visit: No Status: Acute (11) Elevated troponin Current Visit: No Status: Acute Subjective Date of service: 02/07/21 Principal diagnosis: AMERICA, COVID-19 Interval history: Patient in bed in no acute distress and no complaints. Sinus 90 with no events on monitor Objective Vital Signs Temp Pulse Resp BP Pulse Ox 02/07/21 11:44 97.9 F 91 H 18 108/55 100 02/07/21 11:38 98.5 F 82 18 147/98 97 02/07/21 10:21 81 130/85 02/07/21 10:20 81 130/85 02/07/21 10:00 98 02/07/21 05:12 73 157/101 02/07/21 04:14 98.3 F 73 18 157/101 96 02/06/21 23:19 80 124/84 02/06/21 22:55 80 124/84 02/06/21 22:00 98 02/06/21 21:41 97.7 F 80 18 124/84 98 02/06/21 16:09 98.1 F 81 18 118/77 96 - Physical Examination General: No Apparent Distress HEENT: Positive: PERRL, Normocephaly, Mucus Membranes Moist Neck: Positive: neck supple, trachea midline. Negative: JVD/HJR Cardiac: Positive: Reg Rate and Rhythm Lungs: Positive: Normal Breath Sounds Neuro: Positive: Grossly Intact Abdomen: Positive: Soft Skin: Negative: Rash Extremities: Present: upper extr. pulses, lower extr. pulses. Absent: edema - Labs and Meds Comprehensive Metabolic Panel 02/07/21 Range/Units Unknown Sodium 141 (137-145) mmol/L Potassium 4.3 (3.6-5.0) mmol/L Chloride 110.6 H (98-107) mmol/L Carbon Dioxide 20 L (22-30) mmol/L BUN 46 H (9-20) mg/dL Creatinine 2.0 H (0.8-1.3) mg/dL Glucose 85 (75-100) mg/dL Calcium 8.9 (8.4-10.2) mg/dL - Imaging and Cardiology EKG: report reviewed, image reviewed Echo: report reviewed (10/2020 - EF 10-15%, mild LVH, LV severely dilated, RV mod dilated, RV mildly hypokinetic, trace AR, mild MR, severe TR, RVSP 39mmHg, trace SC.) Cardiac cath: report reviewed - Telemetry EKG Rhythm: Sinus Rhythm - EKG Sinus rhythms and dysrhythmias: sinus rhythm Chamber hypertrophy or enlargement: left atrial enlargement, right atrial enlargment, left ventricular hypertro - Allied health notes Allied health notes reviewed: nursing
--- NOTE | 2021-02-08 08:47 | Progress Note ---
Assessment and Plan Assessment and plan: Acute heart failure with reduced EF. EF 10 to 15% Non-ST elevation NE suspect type II. Stress test on October 2020 - for ischemia. Acute kidney injury on CKD 3, creatinine 2.6 versus of 1.8 in 10/30 at the time of admission COVID-19 pneumonia. Acute hypoxic respiratory failure. Toxic metabolic encephalopathy. Elevated D-dimer. 02/04/2021. Cardiology stopped Lasix in setting of rising creatinine. Aldactone and TD inhibitor/ARB deferred due to renal function. Continue hydralazine and metoprolol per cardiology recommendations. Await MRI for encephalopathy. 02/05/2021. MRI reveals multiple foci in both cerebral hemispheres that may represent multiple small acute infarctions in multiple vascular distributions suggestive of possibly an embolic etiology. 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 We will order DAVID for further evaluation. Creatinine appears to be back to late sign of 2.0. Will obtain walk test at discharge. Continue dexamethasone. ID consultation. 02/06/2021. Await echocardiogram to further evaluate abnormal MRI findings suggestive of emboli. Creatinine is at baseline of 1.9. Continue steroid course until 02/10/2021. Continue aspirin, Imdur, hydralazine, metoprolol, nifedipine, Lasix and Aldactone for heart failure. 02/07/2021. Echocardiogram reports left ventricle is mildly dilated with moderate global hypokinesis and LVEF 30-35%. No pericardial effusion. Saline bubble contrast intravenous injection does not demonstrate PFO. No reports of embolic source. Aldactone, TD inhibitor or ARB deferred at this time due to renal function. Patient's renal function appears to be at baseline of 1.9. Patient has seen Dr. Kam in the past. We will reconsult for renal insufficiency 02/08/2021. Cardiology reports question for anticoagulation. No neurology coverage for this weekend for recommendation. Aldactone, TD inhibitor or ARB deferred at this time due to renal function. Continue hydralazine, metoprolol and Imdur. Cardiology and nephrology following. History Interval history: No new issues overnight. Hospitalist Physical - Constitutional Vitals: Temp Pulse Resp BP Pulse Ox 98.5 F 85 20 156/107 95 02/08/21 05:00 02/08/21 05:00 02/08/21 05:00 02/08/21 05:00 02/08/21 07:58 General appearance: Present: no acute distress, other (Awake, fairly alert but confused though improving) - EENT Eyes: Present: PERRL, EOM intact ENT: hearing intact, clear oral mucosa, dentition normal - Neck Neck: Present: supple, normal ROM - Respiratory Respiratory effort: normal Respiratory: bilateral: CTA - Cardiovascular Rhythm: regular Heart Sounds: Present: S1 & S2. Absent: gallop, rub - Extremities Extremities: no ischemia, No edema, Full ROM - Abdominal General gastrointestinal: soft, non-tender, non-distended, normal bowel sounds - Integumentary Integumentary: Present: clear, warm, dry - Neurologic Neurologic: CNII-XII intact, moves all extremities HEART Score - HEART Score Troponin: Troponin T 0.378 ng/mL (0.00-0.029) H* 02/02/21 07:00 Results - Labs CBC & Chem 7: 02/01/21 09:16 02/08/21 06:55 Labs: Laboratory Last Values WBC 8.3 K/mm3 (4.5-11.0) 02/01/21 09:16 RBC 4.38 M/mm3 (3.65-5.03) 02/01/21 09:16 Hgb 13.2 gm/dl (11.8-15.2) 02/01/21 09:16 Hct 38.4 % (35.5-45.6) 02/01/21 09:16 MCV 88 fl (84-94) 02/01/21 09:16 MCH 30 pg (28-32) 02/01/21 09:16 MCHC 34 % (32-34) 02/01/21 09:16 RDW 16.2 % (13.2-15.2) H 02/01/21 09:16 Plt Count 378 K/mm3 (140-440) 02/01/21 09:16 Lymph % (Auto) 4.3 % (13.4-35.0) L 01/29/21 22:59 [place] % (Auto) 7.5 % (0.0-7.3) H 01/29/21 22:59 Eos % (Auto) 0.0 % (0.0-4.3) 01/29/21 22:59 Baso % (Auto) 1.3 % (0.0-1.8) 01/29/21 22:59 Lymph # (Auto) 0.6 K/mm3 (1.2-5.4) L 01/29/21 22:59 Towner # (Auto) 1.0 K/mm3 (0.0-0.8) H 01/29/21 22:59 Eos # (Auto) 0.0 K/mm3 (0.0-0.4) 01/29/21 22:59 Baso # (Auto) 0.2 K/mm3 (0.0-0.1) H 01/29/21 22:59 Add Manual Diff Complete 02/01/21 09:16 Total Counted 100 02/01/21 09:16 Seg Neutrophils % 86.9 % (40.0-70.0) H 01/29/21 22:59 Seg Neuts % (Manual) 75.0 % (40.0-70.0) H 02/01/21 09:16 Band Neutrophils % 4.0 % 02/01/21 09:16 Lymphocytes % (Manual) 10.0 % (13.4-35.0) L 02/01/21 09:16 Reactive Lymphs % (Man) 3.0 % 02/01/21 09:16 Monocytes % (Manual) 4.0 % (0.0-7.3) 02/01/21 09:16 Eosinophils % (Manual) 3.0 % (0.0-4.3) 02/01/21 09:16 Metamyelocytes % 1.0 % 02/01/21 09:16 Nucleated RBC % Not Reportable 02/01/21 09:16 Seg Neutrophils # 12.0 K/mm3 (1.8-7.7) H 01/29/21 22:59 Seg Neutrophils # Man 6.2 K/mm3 (1.8-7.7) 02/01/21 09:16 Band Neutrophils # 0.3 K/mm3 02/01/21 09:16 Lymphocytes # (Manual) 0.8 K/mm3 (1.2-5.4) L 02/01/21 09:16 Abs React Lymphs (Man) 0.2 K/mm3 02/01/21 09:16 Monocytes # (Manual) 0.3 K/mm3 (0.0-0.8) 02/01/21 09:16 Eosinophils # (Manual) 0.2 K/mm3 (0.0-0.4) 02/01/21 09:16 Basophils # (Manual) 0.0 K/mm3 (0.0-0.1) 02/01/21 09:16 Metamyelocytes # 0.1 K/mm3 02/01/21 09:16 Myelocytes # 0.0 K/mm3 02/01/21 09:16 Promyelocytes # 0.0 K/mm3 02/01/21 09:16 Blast Cells # 0.0 K/mm3 02/01/21 09:16 WBC Morphology Not Reportable 02/01/21 09:16 WBC Morphology TNR 02/01/21 09:16 Hypersegmented Neuts Not Reportable 02/01/21 09:16 Hyposegmented Neuts Not Reportable 02/01/21 09:16 Hypogranular Neuts Not Reportable 02/01/21 09:16 Smudge Cells Not Reportable 02/01/21 09:16 Toxic Granulation Not Reportable 02/01/21 09:16 Toxic Vacuolation Not Reportable 02/01/21 09:16 Dohle Bodies Not Reportable 02/01/21 09:16 Pelger-Huet Anomaly Not Reportable 02/01/21 09:16 Demetra Rods Not Reportable 02/01/21 09:16 Platelet Estimate Not Reportable 02/01/21 09:16 Clumped Platelets Not Reportable 02/01/21 09:16 Plt Clumps, EDTA Not Reportable 02/01/21 09:16 Large Platelets Not Reportable 02/01/21 09:16 Giant Platelets Not Reportable 02/01/21 09:16 Platelet Satelliting Not Reportable 02/01/21 09:16 Plt Morphology Comment Not Reportable 02/01/21 09:16 RBC Morphology Normal 02/01/21 09:16 Dimorphic RBCs Not Reportable 02/01/21 09:16 Polychromasia Not Reportable 02/01/21 09:16 Hypochromasia Not Reportable 02/01/21 09:16 Poikilocytosis Not Reportable 02/01/21 09:16 Anisocytosis Not Reportable 02/01/21 09:16 Microcytosis Not Reportable 02/01/21 09:16 Macrocytosis Not Reportable 02/01/21 09:16 Spherocytes Not Reportable 02/01/21 09:16 Pappenheimer Bodies Not Reportable 02/01/21 09:16 Sickle Cells Not Reportable 02/01/21 09:16 Target Cells Not Reportable 02/01/21 09:16 Tear Drop Cells Not Reportable 02/01/21 09:16 Ovalocytes Not Reportable 02/01/21 09:16 Helmet Cells Not Reportable 02/01/21 09:16 [place] Bodies Not Reportable 02/01/21 09:16 [place] Rings Not Reportable 02/01/21 09:16 Dubois Cells Not Reportable 02/01/21 09:16 Bite Cells Not Reportable 02/01/21 09:16 Crenated Cell Not Reportable 02/01/21 09:16 Elliptocytes Not Reportable 02/01/21 09:16 Acanthocytes (Spur) Not Reportable 02/01/21 09:16 Rouleaux Not Reportable 02/01/21 09:16 Hemoglobin C Crystals Not Reportable 02/01/21 09:16 Schistocytes Not Reportable 02/01/21 09:16 Malaria parasites Not Reportable 02/01/21 09:16 Kip Bodies Not Reportable 02/01/21 09:16 Hem Pathologist Commnt No 02/01/21 09:16 PT 16.3 Sec. (12.2-14.9) H 01/29/21 22:59 INR 1.18 (0.87-1.13) H 01/29/21 22:59 APTT 30.7 Sec. (24.2-36.6) 01/29/21 22:59 D-Dimer 1184.83 ng/mlDDU (0-234) H 02/02/21 07:00 ABG pH 7.436 pH Units (7.350-7.450) 02/02/21 09:15 ABG pCO2 31.0 mm Hg 02/02/21 09:15 ABG pO2 73.6 mm Hg (80.0-90.0) L 02/02/21 09:15 ABG HCO3 20.4 mmol/L (20.0-26.0) 02/02/21 09:15 ABG O2 Saturation 95.5 % (95.0-99.0) 02/02/21 09:15 ABG O2 Content 17.7 (0.0-44) 02/02/21 09:15 ABG Base Excess -2.8 mmol/L (-2.0-3.0) L 02/02/21 09:15 ABG Hemoglobin 13.4 gm/dl (14.0-18.0) L 02/02/21 09:15 ABG Carboxyhemoglobin 1.4 % (0.0-5.0) 02/02/21 09:15 ABG Methemoglobin 0.5 % (0.0-1.5) 02/02/21 09:15 Oxyhemoglobin 93.7 % (95.0-99.0) L 02/02/21 09:15 FiO2 21 % 02/02/21 09:15 Sodium 143 mmol/L (137-145) 02/08/21 06:55 Potassium 4.1 mmol/L (3.6-5.0) 02/08/21 06:55 Chloride 109.2 mmol/L (98-107) H 02/08/21 06:55 Carbon Dioxide 22 mmol/L (22-30) 02/08/21 06:55 Anion Gap 16 mmol/L 02/08/21 06:55 BUN 42 mg/dL (9-20) H 02/08/21 06:55 Creatinine 1.6 mg/dL (0.8-1.3) H 02/08/21 06:55 Estimated GFR 56 ml/min 02/08/21 06:55 BUN/Creatinine Ratio 26 % 02/08/21 06:55 Glucose 76 mg/dL (75-100) 02/08/21 06:55 POC Glucose 234 mg/dL (70-105) H 02/03/21 22:09 Lactic Acid 1.50 mmol/L (0.7-2.0) 01/29/21 22:59 Calcium 9.0 mg/dL (8.4-10.2) 02/08/21 06:55 Magnesium 2.20 mg/dL (1.7-2.3) 02/02/21 07:00 Ferritin 1337.0 ng/mL (30.0-300.0) H 02/02/21 07:00 Total Bilirubin 0.50 mg/dL (0.1-1.2) 01/29/21 22:59 AST 74 units/L (5-40) H 01/29/21 22:59 ALT 56 units/L (7-56) 01/29/21 22:59 Alkaline Phosphatase 61 units/L (35-129) 01/29/21 22:59 Ammonia 26.0 umol/L (25-60) 02/02/21 07:00 Lactate Dehydrogenase 467 units/L (91-180) H 02/01/21 09:16 Troponin T 0.378 ng/mL (0.00-0.029) H* 02/02/21 07:00 C-Reactive Protein 0.60 mg/dL (0.00-1.30) 02/06/21 06:55 C-React Prot High Sens >10.0 mg/L () H 02/01/21 09:16 NT-Pro-B Natriuret Pep 9236 pg/mL (0-900) H 02/01/21 09:16 Total Protein 7.7 g/dL (6.3-8.2) 01/29/21 22:59 Albumin 3.7 g/dL (3.9-5) L 01/29/21 22:59 Albumin/Globulin Ratio 0.9 % 01/29/21 22:59 Vitamin B12 878.8 pg/mL (211-911) 02/02/21 07:00 Folate 6.66 ng/mL (7.3-26.0) L 02/02/21 07:00 TSH 0.614 mlU/mL (0.270-4.200) 02/02/21 07:00 Urine Color Yellow (Yellow) 01/30/21 01:21 Urine Turbidity Slightly-cloudy (Clear) 01/30/21 01:21 Urine pH 5.0 (5.0-7.0) 01/30/21 01:21 Ur Specific [place] 1.016 (1.003-1.030) 01/30/21 01:21 Urine Protein 30 mg/dl mg/dL (Negative) 01/30/21 01:21 Urine Glucose (UA) Neg mg/dL (Negative) 01/30/21 01:21 Urine Ketones Neg mg/dL (Negative) 01/30/21 01:21 Urine Blood Lg (Negative) 01/30/21 01:21 Urine Nitrite Neg (Negative) 01/30/21 01:21 Urine Bilirubin Neg (Negative) 01/30/21 01:21 Urine Urobilinogen < 2.0 mg/dL (<2.0) 01/30/21 01:21 Ur Leukocyte Esterase Neg (Negative) 01/30/21 01:21 Urine WBC (Auto) 3.0 /HPF (0.0-6.0) 01/30/21 01:21 Urine RBC (Auto) 38.0 /HPF (0.0-6.0) 01/30/21 01:21 U Epithel Cells (Auto) < 1.0 /HPF (0-13.0) 01/30/21 01:21 Urine Mucus Few /HPF 01/30/21 01:21 Urine Yeast (Budding) 1+ /HPF 01/30/21 01:21 Coronavirus (PCR) Positive (Negative) A 01/30/21 Unknown Sanchez/IV: Voiding Method Toilet Active Medications - Current Medications Current Medications: Generic Name Dose Route Start Last Admin Trade Name Freq PRN Reason Stop Dose Admin Acetaminophen 650 mg 01/30/21 05:01 Acetaminophen 325 Mg Tab PO Q6H PRN Pain, Mild (1-3) Aspirin 81 mg 02/03/21 10:00 02/07/21 10:20 Aspirin 81 Mg Tab Chew PO 81 mg QDAY CATALINA Administration Atorvastatin Calcium 40 mg 01/30/21 22:00 02/07/21 22:18 Atorvastatin 40 Mg Tab PO 40 mg QHS CATALINA Administration Dexamethasone 6 mg 02/01/21 10:00 02/07/21 10:21 Dexamethasone 4 Mg Tab PO 02/10/21 10:01 6 mg DAILY CATALINA Administration Enoxaparin Sodium 100 mg 02/01/21 10:00 02/07/21 10:22 Enoxaparin 100 Mg/1 Ml Inj SUB-Q 100 mg Q24HR CATALINA Administration Protocol Hydralazine HCl 50 mg 01/31/21 10:00 02/07/21 22:18 Hydralazine 25 Mg Tab PO Not Given BID CATALINA Isosorbide Mononitrate 60 mg 02/08/21 10:00 Isosorbide Mononitrate Er 60 Mg Tab PO QDAY CATALINA Metoprolol Tartrate 50 mg 01/31/21 10:00 02/07/21 22:18 Metoprolol Tartrate 50 Mg Tab PO 50 mg BID CATALINA Administration Nitroglycerin 0.4 mg 01/30/21 05:01 Nitroglycerin 0.4 Mg Tab Subl SL .Q5MIN PRN Chest Pain Ondansetron HCl 4 mg 01/30/21 05:01 Ondansetron 4 Mg/2 Ml Inj IV Q8H PRN Nausea And Vomiting Pantoprazole Sodium 40 mg 01/30/21 10:00 02/07/21 10:20 Pantoprazole 40 Mg Tab PO 40 mg QDAY CATALINA Administration Sodium Chloride 10 ml 01/30/21 05:01 Sodium Chloride 0.9% 10 Ml Flush Syringe IV PRN PRN LINE FLUSH Nutrition/Malnutrition Assess - Dietary Evaluation Nutrition/Malnutrition Findings: Nutrition Notes Start: 02/06/21 08:41 Freq: Status: Active Protocol: Document 02/06/21 08:41 GB (Rec: 02/06/21 09:02 GB [id number]) Nutrition Notes Need for Assessment generated from: LOS Initial or Follow up Assessment Current Diagnosis Acute Kidney Injury, Hypertension,Respiratory Failure Other Pertinent Diagnosis acute encephalopathy, Covid +, PNA, SOB Current Diet cardiac Labs/Tests 02/06: BUN 47, creatinine 1.9 Pertinent Medications reviewed Height 6 ft Weight 96 kg [place] Body Weight (kg) 80.90 BMI 28.7 Intake Prior to Admission Good Weight change and time frame 01/29: 95.234kg 02/03: 96kg change of +0.746kg for +0.7% gain. Stable. Weight Status Overweight Subjective/Other Information Meal intake recorded as 100% early in the week. No documentation for change of intake. BM: WNL Percent of energy/protein needs met: 100% Burn Absent Trauma Absent GI Symptoms None Food Allergy No Skin Integrity/Comment No complications reported Current % PO Good (75-100%) Minimum of two criteria No #1 Nutrition Diagnosis No nutrition diagnosis at this time Etiology covid+, SOB As Evidenced by Signs and Symptoms good po, no reported significant weight changes Is patient on ventilator? No Is Patient Ambulatory and/or Out of Bed Yes REE-([facility]-ambulatory/OOB) [ 5585.400 NUTR.[id number]] Kcal/Kg value to use for calculation 25 Approximate Energy Requirements Using 2400 kcal/Kg Calculation Used for Recommendations [facility] Additional Notes Protein: 0.8-1 g/kg @ 96k -96g Fluids: 1 ml/kcal or per MD Nutrition Intervention Change Diet Order: Continue Cardiac Nutrition Support: n/a Add Supplement/Snack (indicate name/kcal n/a /protein ) Goal #1 PO intake of meals to continue at 100% daily during LOS. Revisit per MD consult or patient Sign Off request:
[2021-02-08] MEDS: ENOXAPARIN 100 MG/1 ML INJ SUB-Q SCH ×2 (09:31→22:08)
[2021-02-08] MEDS: DEXAMETHASONE 4 MG TAB PO SCH (09:32)
[2021-02-08] MEDS: hydrALAZINE 25 MG TAB PO SCH ×2 (09:32→22:08)
[2021-02-08] MEDS: PANTOPRAZOLE 40 MG TAB PO SCH (09:33)
[2021-02-08] MEDS: ASPIRIN 81 MG TAB CHEW PO SCH (09:33)
[2021-02-08] MEDS: METOPROLOL TARTRATE 50 MG TAB PO SCH ×2 (09:33→22:08)
--- NOTE | 2021-02-08 15:21 | Consultation ---
History of Present Illness - Reason for Consult Consult date: 02/08/21 chronic renal failure - History of Present Illness Patient is a 50-year-old male with a past medical history of HFrEF (EF 10 to 15%) and hypertension who presented to [facility] with complaint of progressively worsening fatigue and shortness of breath x 2-week, weakness, fatigue. Found to have CHF exacerbation, pneumonia due to COVID-19 Has followed with [facility] in past for CKD (Dr. Riley). Past History Past Medical History: heart failure, hypertension Medications and Allergies Allergies Allergy/AdvReac Type Severity Reaction Status Date / Time No Known Allergies Allergy Verified 01/29/21 23:11 Home Medications Medication Instructions Recorded Confirmed Last Taken Type ISOSORBIDE MONOnitrate [Imdur ER] 30 mg PO QDAY #60 tablet 11/01/20 01/31/21 Unknown Rx Furosemide [Lasix] 40 mg PO QDAY 01/31/21 02/04/21 Unknown History Hydralazine HCl 50 mg PO BID 01/31/21 01/31/21 Unknown History Metoprolol [Lopressor TAB] 50 mg PO BID 01/31/21 01/31/21 Unknown History NIFEdipine XL [Procardia Xl] 60 mg PO BID 01/31/21 02/04/21 Unknown History Spironolactone [Aldactone] 25 mg PO QDAY 01/31/21 01/31/21 Unknown History Active Meds: Active Medications Acetaminophen (Acetaminophen 325 Mg Tab) 650 mg PO Q6H PRN PRN Reason: Pain, Mild (1-3) Aspirin (Aspirin 81 Mg Tab Chew) 81 mg PO QDAY [facility] Last Admin: 02/08/21 09:33 Dose: 81 mg Documented by: Atorvastatin Calcium (Atorvastatin 40 Mg Tab) 40 mg PO QHS [facility] Last Admin: 02/07/21 22:18 Dose: 40 mg Documented by: Dexamethasone (Dexamethasone 4 Mg Tab) 6 mg PO DAILY [facility] Stop: 02/10/21 10:01 Last Admin: 02/08/21 09:32 Dose: 6 mg Documented by: Enoxaparin Sodium (Enoxaparin 100 Mg/1 Ml Inj) 90 mg SUB-Q Q12HR [facility]; Protocol Last Admin: 02/08/21 09:31 Dose: 90 mg Documented by: Hydralazine HCl (Hydralazine 25 Mg Tab) 50 mg PO BID [facility] Last Admin: 02/08/21 09:32 Dose: 50 mg Documented by: Isosorbide Mononitrate (Isosorbide Mononitrate Er 60 Mg Tab) 60 mg PO QDAY [facility] Last Admin: 02/08/21 09:32 Dose: 60 mg Documented by: Metoprolol Tartrate (Metoprolol Tartrate 50 Mg Tab) 50 mg PO BID [facility] Last Admin: 02/08/21 09:33 Dose: 50 mg Documented by: Nitroglycerin (Nitroglycerin 0.4 Mg Tab Subl) 0.4 mg SL .Q5MIN PRN PRN Reason: Chest Pain Ondansetron HCl (Ondansetron 4 Mg/2 Ml Inj) 4 mg IV Q8H PRN PRN Reason: Nausea And Vomiting Pantoprazole Sodium (Pantoprazole 40 Mg Tab) 40 mg PO QDAY [facility] Last Admin: 02/08/21 09:33 Dose: 40 mg Documented by: Sodium Chloride (Sodium Chloride 0.9% 10 Ml Flush Syringe) 10 ml IV PRN PRN PRN Reason: LINE FLUSH Last Admin: 02/08/21 09:33 Dose: 10 ml Documented by: Exam - Vital Signs Vital signs: Vital Signs Temp Pulse Resp BP Pulse Ox 97.7 F 93 H 26 H 116/89 97 01/29/21 22:12 01/29/21 22:12 01/29/21 22:12 01/29/21 22:12 01/29/21 22:12 - Physical Exam Narrative exam: Exam deferred Results - Lab Results 02/01/21 09:16 02/08/21 06:55 Most recent lab results ABG pH 7.436 pH Units (7.350-7.450) 02/02/21 09:15 ABG pCO2 31.0 mm Hg 02/02/21 09:15 ABG pO2 73.6 mm Hg (80.0-90.0) L 02/02/21 09:15 ABG HCO3 20.4 mmol/L (20.0-26.0) 02/02/21 09:15 ABG O2 Saturation 95.5 % (95.0-99.0) 02/02/21 09:15 Calcium 9.0 mg/dL (8.4-10.2) 02/08/21 06:55 Magnesium 2.20 mg/dL (1.7-2.3) 02/02/21 07:00 Assessment and Plan # CKD: creatinine at baseline now at 1.6, did have AMERICA initially likely due to COVID-19, cardiorenal changes. No further workup needed, continue current course. Will follow while inpatient # CHF: EF 30-35%, cardiology following # COVID-19 pneumonia # Respiratory Failure # NSTEMI
[2021-02-09] MEDS ORDERED: hydrALAZINE 20 MG/1 ML INJ IV PRN (05:41)
--- NOTE | 2021-02-09 08:21 | Progress Note ---
Assessment and Plan Assessment and plan: Acute heart failure with reduced EF. EF 10 to 15% Non-ST elevation MD suspect type II. Stress test on October 2020 - for ischemia. Acute kidney injury on CKD 3, creatinine 2.6 versus of 1.8 in 10/30 at the time of admission COVID-19 pneumonia. Acute hypoxic respiratory failure. Toxic metabolic encephalopathy. Elevated D-dimer. 02/04/2021. Cardiology stopped Lasix in setting of rising creatinine. Aldactone and TD inhibitor/ARB deferred due to renal function. Continue hydralazine and metoprolol per cardiology recommendations. Await MRI for encephalopathy. 02/05/2021. MRI reveals multiple foci in both cerebral hemispheres that may represent multiple small acute infarctions in multiple vascular distributions suggestive of possibly an embolic etiology. 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 We will order DAVID for further evaluation. Creatinine appears to be back to late sign of 2.0. Will obtain walk test at discharge. Continue dexamethasone. ID consultation. 02/06/2021. Await echocardiogram to further evaluate abnormal MRI findings suggestive of emboli. Creatinine is at baseline of 1.9. Continue steroid course until 02/10/2021. Continue aspirin, Imdur, hydralazine, metoprolol, nifedipine, Lasix and Aldactone for heart failure. 02/07/2021. Echocardiogram reports left ventricle is mildly dilated with moderate global hypokinesis and LVEF 30-35%. No pericardial effusion. Saline bubble contrast intravenous injection does not demonstrate PFO. No reports of embolic source. Aldactone, TD inhibitor or ARB deferred at this time due to renal function. Patient's renal function appears to be at baseline of 1.9. Patient has seen Dr. Kam in the past. We will reconsult for renal insufficiency 02/08/2021. Cardiology reports question for anticoagulation. No neurology coverage for this weekend for recommendation. Aldactone, TD inhibitor or ARB deferred at this time due to renal function. Continue hydralazine, metoprolol and Imdur. Cardiology and nephrology following. 02/09/2021. Await neurology recommendations for anticoagulation and possible emboli for multiple foci in both cerebral hemispheres. Continue IV steroids until completion on 02/10. Exercise pulse oximetry testing revealed room air at rest was 93% and room air ambulating 92%. Nephrology reports creatinine at baseline now at 1.6, did have AMERICA initially likely due to COVID-19, cardiorenal changes. No further workup needed, continue current course. History Interval history: No new issues overnight. Hospitalist Physical - Constitutional Vitals: Temp Pulse Resp BP Pulse Ox 98.8 F 94 H 20 163/108 95 02/09/21 04:47 02/09/21 06:10 02/09/21 04:47 02/09/21 06:10 02/09/21 04:47 General appearance: Present: no acute distress, other (Awake, fairly alert but confused though improving) - EENT Eyes: Present: PERRL, EOM intact ENT: hearing intact, clear oral mucosa, dentition normal - Neck Neck: Present: supple, normal ROM - Respiratory Respiratory effort: normal Respiratory: bilateral: CTA - Cardiovascular Rhythm: regular Heart Sounds: Present: S1 & S2. Absent: gallop, rub - Extremities Extremities: no ischemia, No edema, Full ROM - Abdominal General gastrointestinal: soft, non-tender, non-distended, normal bowel sounds - Integumentary Integumentary: Present: clear, warm, dry - Neurologic Neurologic: CNII-XII intact, moves all extremities HEART Score - HEART Score Troponin: Troponin T 0.378 ng/mL (0.00-0.029) H* 02/02/21 07:00 Results - Labs CBC & Chem 7: 02/01/21 09:16 02/08/21 06:55 Labs: Laboratory Last Values WBC 8.3 K/mm3 (4.5-11.0) 02/01/21 09:16 RBC 4.38 M/mm3 (3.65-5.03) 02/01/21 09:16 Hgb 13.2 gm/dl (11.8-15.2) 02/01/21 09:16 Hct 38.4 % (35.5-45.6) 02/01/21 09:16 MCV 88 fl (84-94) 02/01/21 09:16 MCH 30 pg (28-32) 02/01/21 09:16 MCHC 34 % (32-34) 02/01/21 09:16 RDW 16.2 % (13.2-15.2) H 02/01/21 09:16 Plt Count 378 K/mm3 (140-440) 02/01/21 09:16 Lymph % (Auto) 4.3 % (13.4-35.0) L 01/29/21 22:59 [place] % (Auto) 7.5 % (0.0-7.3) H 01/29/21 22:59 Eos % (Auto) 0.0 % (0.0-4.3) 01/29/21 22:59 Baso % (Auto) 1.3 % (0.0-1.8) 01/29/21 22:59 Lymph # (Auto) 0.6 K/mm3 (1.2-5.4) L 01/29/21 22:59 [place] # (Auto) 1.0 K/mm3 (0.0-0.8) H 01/29/21 22:59 Eos # (Auto) 0.0 K/mm3 (0.0-0.4) 01/29/21 22:59 Baso # (Auto) 0.2 K/mm3 (0.0-0.1) H 01/29/21 22:59 Add Manual Diff Complete 02/01/21 09:16 Total Counted 100 02/01/21 09:16 Seg Neutrophils % 86.9 % (40.0-70.0) H 01/29/21 22:59 Seg Neuts % (Manual) 75.0 % (40.0-70.0) H 02/01/21 09:16 Band Neutrophils % 4.0 % 02/01/21 09:16 Lymphocytes % (Manual) 10.0 % (13.4-35.0) L 02/01/21 09:16 Reactive Lymphs % (Man) 3.0 % 02/01/21 09:16 Monocytes % (Manual) 4.0 % (0.0-7.3) 02/01/21 09:16 Eosinophils % (Manual) 3.0 % (0.0-4.3) 02/01/21 09:16 Metamyelocytes % 1.0 % 02/01/21 09:16 Nucleated RBC % Not Reportable 02/01/21 09:16 Seg Neutrophils # 12.0 K/mm3 (1.8-7.7) H 01/29/21 22:59 Seg Neutrophils # Man 6.2 K/mm3 (1.8-7.7) 02/01/21 09:16 Band Neutrophils # 0.3 K/mm3 02/01/21 09:16 Lymphocytes # (Manual) 0.8 K/mm3 (1.2-5.4) L 02/01/21 09:16 Abs React Lymphs (Man) 0.2 K/mm3 02/01/21 09:16 Monocytes # (Manual) 0.3 K/mm3 (0.0-0.8) 02/01/21 09:16 Eosinophils # (Manual) 0.2 K/mm3 (0.0-0.4) 02/01/21 09:16 Basophils # (Manual) 0.0 K/mm3 (0.0-0.1) 02/01/21 09:16 Metamyelocytes # 0.1 K/mm3 02/01/21 09:16 Myelocytes # 0.0 K/mm3 02/01/21 09:16 Promyelocytes # 0.0 K/mm3 02/01/21 09:16 Blast Cells # 0.0 K/mm3 02/01/21 09:16 WBC Morphology Not Reportable 02/01/21 09:16 WBC Morphology TNR 02/01/21 09:16 Hypersegmented Neuts Not Reportable 02/01/21 09:16 Hyposegmented Neuts Not Reportable 02/01/21 09:16 Hypogranular Neuts Not Reportable 02/01/21 09:16 Smudge Cells Not Reportable 02/01/21 09:16 Toxic Granulation Not Reportable 02/01/21 09:16 Toxic Vacuolation Not Reportable 02/01/21 09:16 Dohle Bodies Not Reportable 02/01/21 09:16 Pelger-Huet Anomaly Not Reportable 02/01/21 09:16 Demetra Rods Not Reportable 02/01/21 09:16 Platelet Estimate Not Reportable 02/01/21 09:16 Clumped Platelets Not Reportable 02/01/21 09:16 Plt Clumps, EDTA Not Reportable 02/01/21 09:16 Large Platelets Not Reportable 02/01/21 09:16 Giant Platelets Not Reportable 02/01/21 09:16 Platelet Satelliting Not Reportable 02/01/21 09:16 Plt Morphology Comment Not Reportable 02/01/21 09:16 RBC Morphology Normal 02/01/21 09:16 Dimorphic RBCs Not Reportable 02/01/21 09:16 Polychromasia Not Reportable 02/01/21 09:16 Hypochromasia Not Reportable 02/01/21 09:16 Poikilocytosis Not Reportable 02/01/21 09:16 Anisocytosis Not Reportable 02/01/21 09:16 Microcytosis Not Reportable 02/01/21 09:16 Macrocytosis Not Reportable 02/01/21 09:16 Spherocytes Not Reportable 02/01/21 09:16 Pappenheimer Bodies Not Reportable 02/01/21 09:16 Sickle Cells Not Reportable 02/01/21 09:16 Target Cells Not Reportable 02/01/21 09:16 Tear Drop Cells Not Reportable 02/01/21 09:16 Ovalocytes Not Reportable 02/01/21 09:16 Helmet Cells Not Reportable 02/01/21 09:16 [place] Bodies Not Reportable 02/01/21 09:16 [place] Rings Not Reportable 02/01/21 09:16 Marcus Cells Not Reportable 02/01/21 09:16 Bite Cells Not Reportable 02/01/21 09:16 Crenated Cell Not Reportable 02/01/21 09:16 Elliptocytes Not Reportable 02/01/21 09:16 Acanthocytes (Spur) Not Reportable 02/01/21 09:16 Rouleaux Not Reportable 02/01/21 09:16 Hemoglobin C Crystals Not Reportable 02/01/21 09:16 Schistocytes Not Reportable 02/01/21 09:16 Malaria parasites Not Reportable 02/01/21 09:16 Kip Bodies Not Reportable 02/01/21 09:16 Hem Pathologist Commnt No 02/01/21 09:16 PT 16.3 Sec. (12.2-14.9) H 01/29/21 22:59 INR 1.18 (0.87-1.13) H 01/29/21 22:59 APTT 30.7 Sec. (24.2-36.6) 01/29/21 22:59 D-Dimer 1184.83 ng/mlDDU (0-234) H 02/02/21 07:00 ABG pH 7.436 pH Units (7.350-7.450) 02/02/21 09:15 ABG pCO2 31.0 mm Hg 02/02/21 09:15 ABG pO2 73.6 mm Hg (80.0-90.0) L 02/02/21 09:15 ABG HCO3 20.4 mmol/L (20.0-26.0) 02/02/21 09:15 ABG O2 Saturation 95.5 % (95.0-99.0) 02/02/21 09:15 ABG O2 Content 17.7 (0.0-44) 02/02/21 09:15 ABG Base Excess -2.8 mmol/L (-2.0-3.0) L 02/02/21 09:15 ABG Hemoglobin 13.4 gm/dl (14.0-18.0) L 02/02/21 09:15 ABG Carboxyhemoglobin 1.4 % (0.0-5.0) 02/02/21 09:15 ABG Methemoglobin 0.5 % (0.0-1.5) 02/02/21 09:15 Oxyhemoglobin 93.7 % (95.0-99.0) L 02/02/21 09:15 FiO2 21 % 02/02/21 09:15 Sodium 143 mmol/L (137-145) 02/08/21 06:55 Potassium 4.1 mmol/L (3.6-5.0) 02/08/21 06:55 Chloride 109.2 mmol/L (98-107) H 02/08/21 06:55 Carbon Dioxide 22 mmol/L (22-30) 02/08/21 06:55 Anion Gap 16 mmol/L 02/08/21 06:55 BUN 42 mg/dL (9-20) H 02/08/21 06:55 Creatinine 1.6 mg/dL (0.8-1.3) H 02/08/21 06:55 Estimated GFR 56 ml/min 02/08/21 06:55 BUN/Creatinine Ratio 26 % 02/08/21 06:55 Glucose 76 mg/dL (75-100) 02/08/21 06:55 POC Glucose 234 mg/dL (70-105) H 02/03/21 22:09 Lactic Acid 1.50 mmol/L (0.7-2.0) 01/29/21 22:59 Calcium 9.0 mg/dL (8.4-10.2) 02/08/21 06:55 Magnesium 2.20 mg/dL (1.7-2.3) 02/02/21 07:00 Ferritin 1337.0 ng/mL (30.0-300.0) H 02/02/21 07:00 Total Bilirubin 0.50 mg/dL (0.1-1.2) 01/29/21 22:59 AST 74 units/L (5-40) H 01/29/21 22:59 ALT 56 units/L (7-56) 01/29/21 22:59 Alkaline Phosphatase 61 units/L (35-129) 01/29/21 22:59 Ammonia 26.0 umol/L (25-60) 02/02/21 07:00 Lactate Dehydrogenase 467 units/L (91-180) H 02/01/21 09:16 Troponin T 0.378 ng/mL (0.00-0.029) H* 02/02/21 07:00 C-Reactive Protein 0.60 mg/dL (0.00-1.30) 02/06/21 06:55 C-React Prot High Sens >10.0 mg/L () H 02/01/21 09:16 NT-Pro-B Natriuret Pep 9236 pg/mL (0-900) H 02/01/21 09:16 Total Protein 7.7 g/dL (6.3-8.2) 01/29/21 22:59 Albumin 3.7 g/dL (3.9-5) L 01/29/21 22:59 Albumin/Globulin Ratio 0.9 % 01/29/21 22:59 Vitamin B12 878.8 pg/mL (211-911) 02/02/21 07:00 Folate 6.66 ng/mL (7.3-26.0) L 02/02/21 07:00 TSH 0.614 mlU/mL (0.270-4.200) 02/02/21 07:00 Urine Color Yellow (Yellow) 01/30/21 01:21 Urine Turbidity Slightly-cloudy (Clear) 01/30/21 01:21 Urine pH 5.0 (5.0-7.0) 01/30/21 01:21 Ur Specific [place] 1.016 (1.003-1.030) 01/30/21 01:21 Urine Protein 30 mg/dl mg/dL (Negative) 01/30/21 01:21 Urine Glucose (UA) Neg mg/dL (Negative) 01/30/21 01:21 Urine Ketones Neg mg/dL (Negative) 01/30/21 01:21 Urine Blood Lg (Negative) 01/30/21 01:21 Urine Nitrite Neg (Negative) 01/30/21 01:21 Urine Bilirubin Neg (Negative) 01/30/21 01:21 Urine Urobilinogen < 2.0 mg/dL (<2.0) 01/30/21 01:21 Ur Leukocyte Esterase Neg (Negative) 01/30/21 01:21 Urine WBC (Auto) 3.0 /HPF (0.0-6.0) 01/30/21 01:21 Urine RBC (Auto) 38.0 /HPF (0.0-6.0) 01/30/21 01:21 U Epithel Cells (Auto) < 1.0 /HPF (0-13.0) 01/30/21 01:21 Urine Mucus Few /HPF 01/30/21 01:21 Urine Yeast (Budding) 1+ /HPF 01/30/21 01:21 Coronavirus (PCR) Positive (Negative) A 01/30/21 Unknown Sanchez/IV: Voiding Method Toilet Active Medications - Current Medications Current Medications: Generic Name Dose Route Start Last Admin Trade Name Freq PRN Reason Stop Dose Admin Acetaminophen 650 mg 01/30/21 05:01 Acetaminophen 325 Mg Tab PO Q6H PRN Pain, Mild (1-3) Aspirin 81 mg 02/03/21 10:00 02/08/21 09:33 Aspirin 81 Mg Tab Chew PO 81 mg QDAY CATALINA Administration Atorvastatin Calcium 40 mg 01/30/21 22:00 02/08/21 22:08 Atorvastatin 40 Mg Tab PO 40 mg QHS CATALINA Administration Dexamethasone 6 mg 02/01/21 10:00 02/08/21 09:32 Dexamethasone 4 Mg Tab PO 02/10/21 10:01 6 mg DAILY CATALINA Administration Enoxaparin Sodium 90 mg 02/08/21 10:00 02/08/21 22:08 Enoxaparin 100 Mg/1 Ml Inj SUB-Q 90 mg Q12HR CATALINA Administration Protocol Hydralazine HCl 50 mg 01/31/21 10:00 02/08/21 22:08 Hydralazine 25 Mg Tab PO 50 mg BID CATALINA Administration Hydralazine HCl 5 mg 02/09/21 05:41 02/09/21 06:10 Hydralazine 20 Mg/1 Ml Inj IV 5 mg Q4H PRN Administration Blood Pressure Isosorbide Mononitrate 60 mg 02/08/21 10:00 02/08/21 09:32 Isosorbide Mononitrate Er 60 Mg Tab PO 60 mg QDAY CATALINA Administration Metoprolol Tartrate 50 mg 01/31/21 10:00 02/08/21 22:08 Metoprolol Tartrate 50 Mg Tab PO 50 mg BID CATALINA Administration Nitroglycerin 0.4 mg 01/30/21 05:01 Nitroglycerin 0.4 Mg Tab Subl SL .Q5MIN PRN Chest Pain Ondansetron HCl 4 mg 01/30/21 05:01 Ondansetron 4 Mg/2 Ml Inj IV Q8H PRN Nausea And Vomiting Pantoprazole Sodium 40 mg 01/30/21 10:00 02/08/21 09:33 Pantoprazole 40 Mg Tab PO 40 mg QDAY CATALINA Administration Sodium Chloride 10 ml 01/30/21 05:01 02/08/21 09:33 Sodium Chloride 0.9% 10 Ml Flush Syringe IV 10 ml PRN PRN Administration LINE FLUSH Nutrition/Malnutrition Assess - Dietary Evaluation Nutrition/Malnutrition Findings: Nutrition Notes Start: 02/06/21 08:41 Freq: Status: Active Protocol: Document 02/06/21 08:41 GB (Rec: 02/06/21 09:02 GB [email or web address]) Nutrition Notes Need for Assessment generated from: LOS Initial or Follow up Assessment Current Diagnosis Acute Kidney Injury, Hypertension,Respiratory Failure Other Pertinent Diagnosis acute encephalopathy, Covid +, PNA, SOB Current Diet cardiac Labs/Tests 02/06: BUN 47, creatinine 1.9 Pertinent Medications reviewed Height 6 ft Weight 96 kg [place] Body Weight (kg) 80.90 BMI 28.7 Intake Prior to Admission Good Weight change and time frame 01/29: 95.234kg 02/03: 96kg change of +0.746kg for +0.7% gain. Stable. Weight Status Overweight Subjective/Other Information Meal intake recorded as 100% early in the week. No documentation for change of intake. BM: WNL Percent of energy/protein needs met: 100% Burn Absent Trauma Absent GI Symptoms None Food Allergy No Skin Integrity/Comment No complications reported Current % PO Good (75-100%) Minimum of two criteria No #1 Nutrition Diagnosis No nutrition diagnosis at this time Etiology covid+, SOB As Evidenced by Signs and Symptoms good po, no reported significant weight changes Is patient on ventilator? No Is Patient Ambulatory and/or Out of Bed Yes REE-([place]-ambulatory/OOB) [ 2415.400 [id number]] Kcal/Kg value to use for calculation 25 Approximate Energy Requirements Using 2400 kcal/Kg Calculation Used for Recommendations [facility] Additional Notes Protein: 0.8-1 g/kg @ 96k -96g Fluids: 1 ml/kcal or per MD Nutrition Intervention Change Diet Order: Continue Cardiac Nutrition Support: n/a Add Supplement/Snack (indicate name/kcal n/a /protein ) Goal #1 PO intake of meals to continue at 100% daily during LOS. Revisit per MD consult or patient Sign Off request:
[2021-02-09] MEDS: ASPIRIN 81 MG TAB CHEW PO SCH (09:53)
[2021-02-09] MEDS: PANTOPRAZOLE 40 MG TAB PO SCH (09:54)
[2021-02-09] MEDS: DEXAMETHASONE 4 MG TAB PO SCH (09:54)
[2021-02-09] MEDS: hydrALAZINE 25 MG TAB PO SCH ×2 (09:55→21:23)
[2021-02-09] MEDS: METOPROLOL TARTRATE 50 MG TAB PO SCH ×2 (09:55→21:24)
[2021-02-09] MEDS: ENOXAPARIN 100 MG/1 ML INJ SUB-Q SCH ×2 (09:56→21:23)
[2021-02-09] MEDS: NIFEdipine XL 30 MG TAB PO SCH ×2 (12:38→21:23)
--- NOTE | 2021-02-10 08:42 | Progress Note ---
Subjective Principal diagnosis: AMERICA, COVID-19 Interval history: Patient was seen today for follow-up of multiple renal related issues, currently admitted with Covid 19 infection patient is known to our practice, has chronic kidney disease Was not examined [id number] due to Covid 19 status Interdisciplinary notes that also reviewed Events of this hospitalization Was reviewed events of 24 hours vitals labs intake output medications were reviewed Past medical history: Reviewed Family history: Reviewed Social history: Reviewed Allergies: Reviewed Physical examination: Vitals: Reviewed findings reviewed from the hospital medicine service notes Labs and x-rays: Reviewed from today Assessment and plan #Acute Renal failure, multifactorial in etiology in the setting of Covid 19 infection, severe cardiomyopathy Creatinine improving creatinine was 1.6 yesterday avoid any form of nephrotoxic medication, May consider adding low-dose ARB or Aldactone depending on the kidney function #Respiratory failure, Covid 19 pneumonia, risk non-ST elevation [place], poses risk for worsening of renal failure #cardiomyopathy: Ejection fraction improving now 3035% #Mild metabolic acidosis: To monitor and follow avoid sodium bicarbonate for now due to congestive heart failure #At risk for cardiorenal syndrome and worsening of renal function over time #Must follow a proper renal cardiac diet fluid restriction sodium reduction blood pressure management as well as daily weights time spent in patient care 35 minutes We'll continue to follow and make recommendation for renal standpoint Objective - Vital Signs Vital signs: Vital Signs - 12hr 02/09/21 02/09/21 02/10/21 20:42 22:58 01:53 Temperature 98.5 F Pulse Rate 88 Respiratory 18 18 Rate Blood Pressure 101/71 O2 Sat by Pulse 95 98 99 Oximetry 02/10/21 04:57 Temperature 98.5 F Pulse Rate 71 Respiratory 18 Rate Blood Pressure 133/72 O2 Sat by Pulse 93 Oximetry - Lab 02/10/21 04:00 02/10/21 04:00 Most recent lab results ABG pH 7.436 pH Units (7.350-7.450) 02/02/21 09:15 ABG pCO2 31.0 mm Hg 02/02/21 09:15 ABG pO2 73.6 mm Hg (80.0-90.0) L 02/02/21 09:15 ABG HCO3 20.4 mmol/L (20.0-26.0) 02/02/21 09:15 ABG O2 Saturation 95.5 % (95.0-99.0) 02/02/21 09:15 Calcium 9.0 mg/dL (8.4-10.2) 02/08/21 06:55 Magnesium 2.20 mg/dL (1.7-2.3) 02/02/21 07:00 Medications & Allergies - Medications Allergies/Adverse Reactions: Allergies No Known Allergies Allergy (Verified 01/29/21 23:11) Home Medications: Home Medications Medication Instructions Recorded Confirmed Last Taken Type ISOSORBIDE MONOnitrate [Imdur ER] 30 mg PO QDAY #60 tablet 11/01/20 01/31/21 Unknown Rx Furosemide [Lasix] 40 mg PO QDAY 01/31/21 02/04/21 Unknown History Hydralazine HCl 50 mg PO BID 01/31/21 01/31/21 Unknown History Metoprolol [Lopressor TAB] 50 mg PO BID 01/31/21 01/31/21 Unknown History NIFEdipine XL [Procardia Xl] 60 mg PO BID 01/31/21 02/04/21 Unknown History Spironolactone [Aldactone] 25 mg PO QDAY 01/31/21 01/31/21 Unknown History Active Medications: Generic Name Dose Route Start Last Admin Trade Name Freq PRN Reason Stop Dose Admin Acetaminophen 650 mg 01/30/21 05:01 Acetaminophen 325 Mg Tab PO Q6H PRN Pain, Mild (1-3) Aspirin 81 mg 02/03/21 10:00 02/09/21 09:53 Aspirin 81 Mg Tab Chew PO 81 mg QDAY CATALINA Administration Atorvastatin Calcium 40 mg 01/30/21 22:00 02/09/21 21:24 Atorvastatin 40 Mg Tab PO 40 mg QHS CATALINA Administration Dexamethasone 6 mg 02/01/21 10:00 02/09/21 09:54 Dexamethasone 4 Mg Tab PO 02/10/21 10:01 6 mg DAILY CATALINA Administration Enoxaparin Sodium 90 mg 02/08/21 10:00 02/09/21 21:23 Enoxaparin 100 Mg/1 Ml Inj SUB-Q 90 mg Q12HR CATALINA Administration Protocol Hydralazine HCl 50 mg 01/31/21 10:00 02/09/21 21:23 Hydralazine 25 Mg Tab PO 50 mg BID CATALINA Administration Hydralazine HCl 5 mg 02/09/21 05:41 02/09/21 06:10 Hydralazine 20 Mg/1 Ml Inj IV 5 mg Q4H PRN Administration Blood Pressure Isosorbide Mononitrate 60 mg 02/08/21 10:00 02/09/21 09:54 Isosorbide Mononitrate Er 60 Mg Tab PO 60 mg QDAY CATALINA Administration Metoprolol Tartrate 50 mg 01/31/21 10:00 02/09/21 21:24 Metoprolol Tartrate 50 Mg Tab PO 50 mg BID CATALINA Administration Nifedipine 30 mg 02/09/21 11:00 02/09/21 21:23 Nifedipine Xl 30 Mg Tab PO 30 mg Q12HR CATALINA Administration Nitroglycerin 0.4 mg 01/30/21 05:01 Nitroglycerin 0.4 Mg Tab Subl SL .Q5MIN PRN Chest Pain Ondansetron HCl 4 mg 01/30/21 05:01 Ondansetron 4 Mg/2 Ml Inj IV Q8H PRN Nausea And Vomiting Pantoprazole Sodium 40 mg 01/30/21 10:00 02/09/21 09:54 Pantoprazole 40 Mg Tab PO 40 mg QDAY CATALINA Administration Sodium Chloride 10 ml 01/30/21 05:01 02/08/21 09:33 Sodium Chloride 0.9% 10 Ml Flush Syringe IV 10 ml PRN PRN Administration LINE FLUSH
--- NOTE | 2021-02-10 09:25 | Progress Note ---
Assessment and Plan Assessment and plan: Acute heart failure with reduced EF. EF 10 to 15% Non-ST elevation DE suspect type II. Stress test on October 2020 - for ischemia. Acute kidney injury on CKD 3, creatinine 2.6 versus of 1.8 in 10/30 at the time of admission COVID-19 pneumonia. Acute hypoxic respiratory failure. Toxic metabolic encephalopathy. Elevated D-dimer. 02/04/2021. Cardiology stopped Lasix in setting of rising creatinine. Aldactone and TD inhibitor/ARB deferred due to renal function. Continue hydralazine and metoprolol per cardiology recommendations. Await MRI for encephalopathy. 02/05/2021. MRI reveals multiple foci in both cerebral hemispheres that may represent multiple small acute infarctions in multiple vascular distributions suggestive of possibly an embolic etiology. 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 We will order DAVID for further evaluation. Creatinine appears to be back to late sign of 2.0. Will obtain walk test at discharge. Continue dexamethasone. ID consultation. 02/06/2021. Await echocardiogram to further evaluate abnormal MRI findings suggestive of emboli. Creatinine is at baseline of 1.9. Continue steroid course until 02/10/2021. Continue aspirin, Imdur, hydralazine, metoprolol, nifedipine, Lasix and Aldactone for heart failure. 02/07/2021. Echocardiogram reports left ventricle is mildly dilated with moderate global hypokinesis and LVEF 30-35%. No pericardial effusion. Saline bubble contrast intravenous injection does not demonstrate PFO. No reports of embolic source. Aldactone, TD inhibitor or ARB deferred at this time due to renal function. Patient's renal function appears to be at baseline of 1.9. Patient has seen Dr. Kam in the past. We will reconsult for renal insufficiency 02/08/2021. Cardiology reports question for anticoagulation. No neurology coverage for this weekend for recommendation. Aldactone, TD inhibitor or ARB deferred at this time due to renal function. Continue hydralazine, metoprolol and Imdur. Cardiology and nephrology following. 02/09/2021. Await neurology recommendations for anticoagulation and possible emboli for multiple foci in both cerebral hemispheres. Continue IV steroids until completion on 02/10. Exercise pulse oximetry testing revealed room air at rest was 93% and room air ambulating 92%. Nephrology reports creatinine at baseline now at 1.6, did have AMERICA initially likely due to COVID-19, cardiorenal changes. No further workup needed, continue current course. 02/10/2021. I discussed the case with neurology who recommends DAVID. Pt will likely need anticoagulation per Neurology. Steroids to complete today. Exercise pulse oximetry testing indicates that the pt does not need home O2. Nephrology reports creatinine at baseline now. The pt. did have AMERICA initially likely due to COVID-19, cardiorenal changes. No further workup needed, continue current course. History Interval history: No new issues overnight. Hospitalist Physical - Constitutional Vitals: Temp Pulse Resp BP Pulse Ox 98.5 F 71 18 133/72 93 02/10/21 04:57 02/10/21 04:57 02/10/21 04:57 02/10/21 04:57 02/10/21 04:57 General appearance: Present: no acute distress, other (Awake, fairly alert but confused though improving) - EENT Eyes: Present: PERRL, EOM intact ENT: hearing intact, clear oral mucosa, dentition normal - Neck Neck: Present: supple, normal ROM - Respiratory Respiratory effort: normal Respiratory: bilateral: CTA - Cardiovascular Rhythm: regular Heart Sounds: Present: S1 & S2. Absent: gallop, rub - Extremities Extremities: no ischemia, No edema, Full ROM - Abdominal General gastrointestinal: soft, non-tender, non-distended, normal bowel sounds - Integumentary Integumentary: Present: clear, warm, dry - Neurologic Neurologic: CNII-XII intact, moves all extremities HEART Score - HEART Score Troponin: Troponin T 0.378 ng/mL (0.00-0.029) H* 02/02/21 07:00 Results - Labs CBC & Chem 7: 02/01/21 09:16 02/08/21 06:55 Labs: Laboratory Last Values WBC 8.3 K/mm3 (4.5-11.0) 02/01/21 09:16 RBC 4.38 M/mm3 (3.65-5.03) 02/01/21 09:16 Hgb 13.2 gm/dl (11.8-15.2) 02/01/21 09:16 Hct 38.4 % (35.5-45.6) 02/01/21 09:16 MCV 88 fl (84-94) 02/01/21 09:16 MCH 30 pg (28-32) 02/01/21 09:16 MCHC 34 % (32-34) 02/01/21 09:16 RDW 16.2 % (13.2-15.2) H 02/01/21 09:16 Plt Count 378 K/mm3 (140-440) 02/01/21 09:16 Lymph % (Auto) 4.3 % (13.4-35.0) L 01/29/21 22:59 [place] % (Auto) 7.5 % (0.0-7.3) H 01/29/21 22:59 Eos % (Auto) 0.0 % (0.0-4.3) 01/29/21 22:59 Baso % (Auto) 1.3 % (0.0-1.8) 01/29/21 22:59 Lymph # (Auto) 0.6 K/mm3 (1.2-5.4) L 01/29/21 22:59 [place] # (Auto) 1.0 K/mm3 (0.0-0.8) H 01/29/21 22:59 Eos # (Auto) 0.0 K/mm3 (0.0-0.4) 01/29/21 22:59 Baso # (Auto) 0.2 K/mm3 (0.0-0.1) H 01/29/21 22:59 Add Manual Diff Complete 02/01/21 09:16 Total Counted 100 02/01/21 09:16 Seg Neutrophils % 86.9 % (40.0-70.0) H 01/29/21 22:59 Seg Neuts % (Manual) 75.0 % (40.0-70.0) H 02/01/21 09:16 Band Neutrophils % 4.0 % 02/01/21 09:16 Lymphocytes % (Manual) 10.0 % (13.4-35.0) L 02/01/21 09:16 Reactive Lymphs % (Man) 3.0 % 02/01/21 09:16 Monocytes % (Manual) 4.0 % (0.0-7.3) 02/01/21 09:16 Eosinophils % (Manual) 3.0 % (0.0-4.3) 02/01/21 09:16 Metamyelocytes % 1.0 % 02/01/21 09:16 Nucleated RBC % Not Reportable 02/01/21 09:16 Seg Neutrophils # 12.0 K/mm3 (1.8-7.7) H 01/29/21 22:59 Seg Neutrophils # Man 6.2 K/mm3 (1.8-7.7) 02/01/21 09:16 Band Neutrophils # 0.3 K/mm3 02/01/21 09:16 Lymphocytes # (Manual) 0.8 K/mm3 (1.2-5.4) L 02/01/21 09:16 Abs React Lymphs (Man) 0.2 K/mm3 02/01/21 09:16 Monocytes # (Manual) 0.3 K/mm3 (0.0-0.8) 02/01/21 09:16 Eosinophils # (Manual) 0.2 K/mm3 (0.0-0.4) 02/01/21 09:16 Basophils # (Manual) 0.0 K/mm3 (0.0-0.1) 02/01/21 09:16 Metamyelocytes # 0.1 K/mm3 02/01/21 09:16 Myelocytes # 0.0 K/mm3 02/01/21 09:16 Promyelocytes # 0.0 K/mm3 02/01/21 09:16 Blast Cells # 0.0 K/mm3 02/01/21 09:16 WBC Morphology Not Reportable 02/01/21 09:16 WBC Morphology TNR 02/01/21 09:16 Hypersegmented Neuts Not Reportable 02/01/21 09:16 Hyposegmented Neuts Not Reportable 02/01/21 09:16 Hypogranular Neuts Not Reportable 02/01/21 09:16 Smudge Cells Not Reportable 02/01/21 09:16 Toxic Granulation Not Reportable 02/01/21 09:16 Toxic Vacuolation Not Reportable 02/01/21 09:16 Dohle Bodies Not Reportable 02/01/21 09:16 Pelger-Huet Anomaly Not Reportable 02/01/21 09:16 Demetra Rods Not Reportable 02/01/21 09:16 Platelet Estimate Not Reportable 02/01/21 09:16 Clumped Platelets Not Reportable 02/01/21 09:16 Plt Clumps, EDTA Not Reportable 02/01/21 09:16 Large Platelets Not Reportable 02/01/21 09:16 Giant Platelets Not Reportable 02/01/21 09:16 Platelet Satelliting Not Reportable 02/01/21 09:16 Plt Morphology Comment Not Reportable 02/01/21 09:16 RBC Morphology Normal 02/01/21 09:16 Dimorphic RBCs Not Reportable 02/01/21 09:16 Polychromasia Not Reportable 02/01/21 09:16 Hypochromasia Not Reportable 02/01/21 09:16 Poikilocytosis Not Reportable 02/01/21 09:16 Anisocytosis Not Reportable 02/01/21 09:16 Microcytosis Not Reportable 02/01/21 09:16 Macrocytosis Not Reportable 02/01/21 09:16 Spherocytes Not Reportable 02/01/21 09:16 Pappenheimer Bodies Not Reportable 02/01/21 09:16 Sickle Cells Not Reportable 02/01/21 09:16 Target Cells Not Reportable 02/01/21 09:16 Tear Drop Cells Not Reportable 02/01/21 09:16 Ovalocytes Not Reportable 02/01/21 09:16 Helmet Cells Not Reportable 02/01/21 09:16 Collins-Dix Bodies Not Reportable 02/01/21 09:16 [place] Rings Not Reportable 02/01/21 09:16 Sayner Cells Not Reportable 02/01/21 09:16 Bite Cells Not Reportable 02/01/21 09:16 Crenated Cell Not Reportable 02/01/21 09:16 Elliptocytes Not Reportable 02/01/21 09:16 Acanthocytes (Spur) Not Reportable 02/01/21 09:16 Rouleaux Not Reportable 02/01/21 09:16 Hemoglobin C Crystals Not Reportable 02/01/21 09:16 Schistocytes Not Reportable 02/01/21 09:16 Malaria parasites Not Reportable 02/01/21 09:16 Kip Bodies Not Reportable 02/01/21 09:16 Hem Pathologist Commnt No 02/01/21 09:16 PT 16.3 Sec. (12.2-14.9) H 01/29/21 22:59 INR 1.18 (0.87-1.13) H 01/29/21 22:59 APTT 30.7 Sec. (24.2-36.6) 01/29/21 22:59 D-Dimer 1184.83 ng/mlDDU (0-234) H 02/02/21 07:00 ABG pH 7.436 pH Units (7.350-7.450) 02/02/21 09:15 ABG pCO2 31.0 mm Hg 02/02/21 09:15 ABG pO2 73.6 mm Hg (80.0-90.0) L 02/02/21 09:15 ABG HCO3 20.4 mmol/L (20.0-26.0) 02/02/21 09:15 ABG O2 Saturation 95.5 % (95.0-99.0) 02/02/21 09:15 ABG O2 Content 17.7 (0.0-44) 02/02/21 09:15 ABG Base Excess -2.8 mmol/L (-2.0-3.0) L 02/02/21 09:15 ABG Hemoglobin 13.4 gm/dl (14.0-18.0) L 02/02/21 09:15 ABG Carboxyhemoglobin 1.4 % (0.0-5.0) 02/02/21 09:15 ABG Methemoglobin 0.5 % (0.0-1.5) 02/02/21 09:15 Oxyhemoglobin 93.7 % (95.0-99.0) L 02/02/21 09:15 FiO2 21 % 02/02/21 09:15 Sodium 143 mmol/L (137-145) 02/08/21 06:55 Potassium 4.1 mmol/L (3.6-5.0) 02/08/21 06:55 Chloride 109.2 mmol/L (98-107) H 02/08/21 06:55 Carbon Dioxide 22 mmol/L (22-30) 02/08/21 06:55 Anion Gap 16 mmol/L 02/08/21 06:55 BUN 42 mg/dL (9-20) H 02/08/21 06:55 Creatinine 1.6 mg/dL (0.8-1.3) H 02/08/21 06:55 Estimated GFR 56 ml/min 02/08/21 06:55 BUN/Creatinine Ratio 26 % 02/08/21 06:55 Glucose 76 mg/dL (75-100) 02/08/21 06:55 POC Glucose 234 mg/dL (70-105) H 02/03/21 22:09 Lactic Acid 1.50 mmol/L (0.7-2.0) 01/29/21 22:59 Calcium 9.0 mg/dL (8.4-10.2) 02/08/21 06:55 Magnesium 2.20 mg/dL (1.7-2.3) 02/02/21 07:00 Ferritin 1337.0 ng/mL (30.0-300.0) H 02/02/21 07:00 Total Bilirubin 0.50 mg/dL (0.1-1.2) 01/29/21 22:59 AST 74 units/L (5-40) H 01/29/21 22:59 ALT 56 units/L (7-56) 01/29/21 22:59 Alkaline Phosphatase 61 units/L (35-129) 01/29/21 22:59 Ammonia 26.0 umol/L (25-60) 02/02/21 07:00 Lactate Dehydrogenase 467 units/L (91-180) H 02/01/21 09:16 Troponin T 0.378 ng/mL (0.00-0.029) H* 02/02/21 07:00 C-Reactive Protein 0.60 mg/dL (0.00-1.30) 02/06/21 06:55 C-React Prot High Sens >10.0 mg/L () H 02/01/21 09:16 NT-Pro-B Natriuret Pep 9236 pg/mL (0-900) H 02/01/21 09:16 Total Protein 7.7 g/dL (6.3-8.2) 01/29/21 22:59 Albumin 3.7 g/dL (3.9-5) L 01/29/21 22:59 Albumin/Globulin Ratio 0.9 % 01/29/21 22:59 Vitamin B12 878.8 pg/mL (211-911) 02/02/21 07:00 Folate 6.66 ng/mL (7.3-26.0) L 02/02/21 07:00 TSH 0.614 mlU/mL (0.270-4.200) 02/02/21 07:00 Urine Color Yellow (Yellow) 01/30/21 01:21 Urine Turbidity Slightly-cloudy (Clear) 01/30/21 01:21 Urine pH 5.0 (5.0-7.0) 01/30/21 01:21 Ur Specific [place] 1.016 (1.003-1.030) 01/30/21 01:21 Urine Protein 30 mg/dl mg/dL (Negative) 01/30/21 01:21 Urine Glucose (UA) Neg mg/dL (Negative) 01/30/21 01:21 Urine Ketones Neg mg/dL (Negative) 01/30/21 01:21 Urine Blood Lg (Negative) 01/30/21 01: Urine Nitrite Neg (Negative) 01/30/21 01:21 Urine Bilirubin Neg (Negative) 01/30/21 01: Urine Urobilinogen < 2.0 mg/dL (<2.0) 01/30/21 01:21 Ur Leukocyte Esterase Neg (Negative) 01/30/21 01:21 Urine WBC (Auto) 3.0 /HPF (0.0-6.0) 01/30/21 01:21 Urine RBC (Auto) 38.0 /HPF (0.0-6.0) 01/30/21 01:21 U Epithel Cells (Auto) < 1.0 /HPF (0-13.0) 01/30/21 01:21 Urine Mucus Few /HPF 01/30/21 01:21 Urine Yeast (Budding) 1+ /HPF 01/30/21 01:21 Coronavirus (PCR) Positive (Negative) A 01/30/21 Unknown Sanchez/IV: Voiding Method Toilet Active Medications - Current Medications Current Medications: Generic Name Dose Route Start Last Admin Trade Name Freq PRN Reason Stop Dose Admin Acetaminophen 650 mg 01/30/21 05:01 Acetaminophen 325 Mg Tab PO Q6H PRN Pain, Mild (1-3) Aspirin 81 mg 02/03/21 10:00 02/09/21 09:53 Aspirin 81 Mg Tab Chew PO 81 mg QDAY CATALINA Administration Atorvastatin Calcium 40 mg 01/30/21 22:00 02/09/21 21:24 Atorvastatin 40 Mg Tab PO 40 mg QHS CATALINA Administration Dexamethasone 6 mg 02/01/21 10:00 02/09/21 09:54 Dexamethasone 4 Mg Tab PO 02/10/21 10:01 6 mg DAILY CATALINA Administration Enoxaparin Sodium 90 mg 02/08/21 10:00 02/09/21 21:23 Enoxaparin 100 Mg/1 Ml Inj SUB-Q 90 mg Q12HR CATALINA Administration Protocol Hydralazine HCl 50 mg 01/31/21 10:00 02/09/21 21:23 Hydralazine 25 Mg Tab PO 50 mg BID CATALINA Administration Hydralazine HCl 5 mg 02/09/21 05:41 02/09/21 06:10 Hydralazine 20 Mg/1 Ml Inj IV 5 mg Q4H PRN Administration Blood Pressure Isosorbide Mononitrate 60 mg 02/08/21 10:00 02/09/21 09:54 Isosorbide Mononitrate Er 60 Mg Tab PO 60 mg QDAY CATALINA Administration Metoprolol Tartrate 50 mg 01/31/21 10:00 02/09/21 21:24 Metoprolol Tartrate 50 Mg Tab PO 50 mg BID CATALINA Administration Nifedipine 30 mg 02/09/21 11:00 02/09/21 21:23 Nifedipine Xl 30 Mg Tab PO 30 mg Q12HR CATALINA Administration Nitroglycerin 0.4 mg 01/30/21 05:01 Nitroglycerin 0.4 Mg Tab Subl SL .Q5MIN PRN Chest Pain Ondansetron HCl 4 mg 01/30/21 05:01 Ondansetron 4 Mg/2 Ml Inj IV Q8H PRN Nausea And Vomiting Pantoprazole Sodium 40 mg 01/30/21 10:00 02/09/21 09:54 Pantoprazole 40 Mg Tab PO 40 mg QDAY CATALINA Administration Sodium Chloride 10 ml 01/30/21 05:01 02/08/21 09:33 Sodium Chloride 0.9% 10 Ml Flush Syringe IV 10 ml PRN PRN Administration LINE FLUSH Nutrition/Malnutrition Assess - Dietary Evaluation Nutrition/Malnutrition Findings: Nutrition Notes Start: 02/06/21 08:41 Freq: Status: Active Protocol: Document 02/06/21 08:41 GB (Rec: 02/06/21 09:02 GB [id number]) Nutrition Notes Need for Assessment generated from: LOS Initial or Follow up Assessment Current Diagnosis Acute Kidney Injury, Hypertension,Respiratory Failure Other Pertinent Diagnosis acute encephalopathy, Covid +, PNA, SOB Current Diet cardiac Labs/Tests 02/06: BUN 47, creatinine 1.9 Pertinent Medications reviewed Height 6 ft Weight 96 kg [place] Body Weight (kg) 80.90 BMI 28.7 Intake Prior to Admission Good Weight change and time frame 01/29: 95.234kg 02/03: 96kg change of +0.746kg for +0.7% gain. Stable. Weight Status Overweight Subjective/Other Information Meal intake recorded as 100% early in the week. No documentation for change of intake. BM: WNL Percent of energy/protein needs met: 100% Burn Absent Trauma Absent GI Symptoms None Food Allergy No Skin Integrity/Comment No complications reported Current % PO Good (75-100%) Minimum of two criteria No #1 Nutrition Diagnosis No nutrition diagnosis at this time Etiology covid+, SOB As Evidenced by Signs and Symptoms good po, no reported significant weight changes Is patient on ventilator? No Is Patient Ambulatory and/or Out of Bed Yes REE-([facility]-ambulatory/OOB) [ 6495.400 [id number]] Kcal/Kg value to use for calculation 25 Approximate Energy Requirements Using 2400 kcal/Kg Calculation [facility]ations [facility] Additional Notes Protein: 0.8-1 g/kg @ 96k -96g Fluids: 1 ml/kcal or per MD Nutrition Intervention Change Diet Order: Continue Cardiac Nutrition Support: n/a Add Supplement/Snack (indicate name/kcal n/a /protein ) Goal #1 PO intake of meals to continue at 100% daily during LOS. Revisit per MD consult or patient Sign Off request:
[2021-02-10 10:05] LABS: Basophils # (Auto) 0.1 K/mm3 (0.0-0.1); Basophils % (Auto) 0.8 % (0.0-1.8); Eosinophils # (Auto) 0.1 K/mm3 (0.0-0.4); Eosinophils % (Auto) 0.4 % (0.0-4.3); Hematocrit 35.5 % (35.5-45.6); Hemoglobin 11.7 gm/dl (11.8-15.2); Lymphocytes # (Auto) 2.4 K/mm3 (1.2-5.4); Lymphocytes % (Auto) 19.4 % (13.4-35.0); Mean Corpuscular HGB Conc 33 % (32-34); Mean Corpuscular Volume 89 fl (84-94); Monocytes % (Auto) 7.7 % (0.0-7.3); Platelet Count 263 K/mm3 (140-440); Red Blood Count 3.99 M/mm3 (3.65-5.03); Red Cell Distribution Width 15.9 % (13.2-15.2)
[2021-02-10 10:17] LABS: Calcium 8.9 mg/dL (8.4-10.2)
[2021-02-10] MEDS: ENOXAPARIN 100 MG/1 ML INJ SUB-Q SCH ×2 (10:25→21:56)
[2021-02-10] MEDS: DEXAMETHASONE 4 MG TAB PO SCH (10:25)
[2021-02-10] MEDS: hydrALAZINE 25 MG TAB PO SCH ×2 (10:26→22:17)
[2021-02-10] MEDS: METOPROLOL TARTRATE 50 MG TAB PO SCH ×2 (10:26→22:17)
[2021-02-10] MEDS: ASPIRIN 81 MG TAB CHEW PO SCH (10:26)
[2021-02-10] MEDS: NIFEdipine XL 30 MG TAB PO SCH ×2 (10:26→22:35)
[2021-02-10] MEDS: PANTOPRAZOLE 40 MG TAB PO SCH (10:26)
--- NOTE | 2021-02-10 10:39 | Progress Note ---
Assessment and Plan Patient is a 50-year-old male with a past medical history of HFrEF (EF 10 to 15%) and hypertension who presented to [facility] with complaint of progressively worsening fatigue and shortness of breath x 2-week HFrEF NSTEMI suspect type 2 EKG sinus tachycardia 112, no acute ischemic changes. Troponin elevated but down trending .57->.53->.368 Patient is currently chest pain-free. Echocardiogram 10/2020 is EF 10-15%, Left ventricle severely dilated, mild LVH, right ventricle moderately dilated, severe tricuspid regurgitation, Lexiscan MPI stress test11/01/2020- negative for ischemia Echo 02/05/2021-EF 30 to 35%, left ventricle is mildly dilated, there is moderate global hypokinesis of left ventricle. Right ventricle is hypokinetic. Saline bubble study does not demonstrate PFO. Outpatient medications: asa, Imdur 30mg PO Qd, hydralizine 25mg PO Bid, metoprolol 100mg PO BID, Nifedipine XL 60mg PO QD, Lasix 40 mg PO daily, Aldactone 25 QD. . COVID-19 COVID PCR positive Acute hypoxic respiratory failure Management per primary team Plan: MRI shows multiple foci in both cerebral hemispheres that may represent multiple small acute infarctions in multiple vascular distributions suggestive of possibly an embolic etiology Patient for DAVID in the AM. NPO after midnight Given concern for possible emboli may consider systemic anticoagulation. Will defer to neurology recommendations Aldactone and ACEI/ARB deferred at this time due to renal fxn Continue hydralizine 50mg PO BID, Metoprolol 50mg PO BID, and Imdur 60mg PO QD. Pt seen in conjunction with Dr. Meza who agrees with the assessment and plan of care. Will continue to follow - Patient Problems (1) Acute encephalopathy Current Visit: Yes Status: Acute (2) Acute kidney injury superimposed on CKD Current Visit: Yes Status: Acute (3) Acute on chronic HFrEF (heart failure with reduced ejection fraction) Current Visit: Yes Status: Acute (4) Elevated d-dimer Current Visit: Yes Status: Acute (5) NSTEMI (non-ST elevated myocardial infarction) Current Visit: Yes Status: Acute (6) Pneumonia Current Visit: Yes Status: Acute (7) Suspected COVID-19 virus infection Current Visit: Yes Status: Acute (8) NICM (nonischemic cardiomyopathy) Current Visit: Yes Status: Chronic (9) Acute respiratory failure Current Visit: No Status: Acute Qualifiers: Respiratory failure complication: hypoxia Qualified Code(s): J96.01 - Acute respiratory failure with hypoxia (10) Bilateral pneumonia Current Visit: No Status: Acute (11) Elevated troponin Current Visit: No Status: Acute Subjective Date of service: 02/10/21 Principal diagnosis: AMERICA, COVID-19 Interval history: Patient in bed in no acute distress and no complaints. Reports feeling much better Sinus 86 with no events on monitor Objective Vital Signs Temp Pulse Resp BP Pulse Ox 02/10/21 10:26 81 141/93 02/10/21 10:25 81 141/93 02/10/21 09:24 96 02/10/21 04:57 98.5 F 71 18 133/72 93 02/10/21 01:53 99 02/09/21 22:58 98.5 F 88 18 101/71 98 02/09/21 20:42 18 95 02/09/21 17:34 98.5 F 22 133/75 02/09/21 17:22 98.7 F 87 20 121/80 97 02/09/21 11:33 95 02/09/21 11:17 98.2 F 83 20 130/86 97 - Physical Examination General: No Apparent Distress HEENT: Positive: PERRL, Normocephaly, Mucus Membranes Moist Neck: Positive: neck supple, trachea midline. Negative: JVD/HJR Cardiac: Positive: Reg Rate and Rhythm Lungs: Positive: Normal Breath Sounds Neuro: Positive: Grossly Intact Abdomen: Positive: Soft Skin: Negative: Rash Extremities: Present: upper extr. pulses, lower extr. pulses. Absent: edema - Labs and Meds CBC 02/10/21 Range/Units 04:00 WBC 12.5 H (4.5-11.0) K/mm3 RBC 3.99 (3.65-5.03) M/mm3 Hgb 11.7 L (11.8-15.2) gm/dl Hct 35.5 (35.5-45.6) % Plt Count 263 (140-440) K/mm3 Lymph # (Auto) 2.4 (1.2-5.4) K/mm3 [place] # (Auto) 1.0 H (0.0-0.8) K/mm3 Eos # (Auto) 0.1 (0.0-0.4) K/mm3 Baso # (Auto) 0.1 (0.0-0.1) K/mm3 Comprehensive Metabolic Panel 02/10/21 Range/Units 04:00 Sodium 141 (137-145) mmol/L Potassium 4.0 (3.6-5.0) mmol/L Chloride 107.9 H (98-107) mmol/L Carbon Dioxide 21 L (22-30) mmol/L BUN 34 H (9-20) mg/dL Creatinine 1.6 H (0.8-1.3) mg/dL Glucose 136 H (75-100) mg/dL Calcium 8.9 (8.4-10.2) mg/dL - Imaging and Cardiology EKG: report reviewed, image reviewed Echo: report reviewed (10/2020 - EF 10-15%, mild LVH, LV severely dilated, RV mod dilated, RV mildly hypokinetic, trace AR, mild MR, severe TR, RVSP 39mmHg, trace UT.) Cardiac cath: report reviewed - Telemetry EKG Rhythm: Sinus Rhythm - EKG Sinus rhythms and dysrhythmias: sinus rhythm Chamber hypertrophy or enlargement: left atrial enlargement, right atrial enlargment, left ventricular hypertro - Allied health notes Allied health notes reviewed: nursing
--- NOTE | 2021-02-10 11:13 | Progress Note ---
Assessment and Plan Assessment and Plan Assessment and plan: 50-year-old male with PMH of severe systolic heart failure, LVEF 10 to 15% and a negative Lexiscan in 10/30, NICM, CKD 3 presents with a 2-week history dyspnea and found to be hypoxic and confused. Tested positive for COVID-19. # Acute to subacute encephalopathy with some memory difficulty improved since admission findings are suggestive of COVID encephalopathy , renal insufficiency can add to the picture -CT brain is remarkable for right parietal and multiple remote BG infarct ? AF and or hypercoagulable stat related to COVID can not be excluded -MRI brain confirm the finding with multiple embolic event acute noted bilateral ,also noted mild amyloid angiopathy with the tendency for increase bleeding can not be excluded !!! will consider AC at lower rate due to above, review DAVID MRA brain and neck is remarkable for stenosis in post. cerebral a. #Acute hypoxic respiratory failure -Tested positive for COVID-19 -Suspected Covid pneumonia -D-dimer 2388--1184-- -CRP#4.20--1.6--0.60 -feritin#[id number]--- #Chest [id number] to be pulmonary edema rather than typical COVID-19 pneumonia Chronic severe systolic heart failure, LVEF from 20-% in 10/30-- currently diastolic dysfunction with EF#30-35% NICM with a negative Lexiscan in 10/30 Mild troponin elevation in the setting of AMERICA/CKD BNP is 7973 #AMERICA on CKD 3, creatinine 2.6 versus of 1.8 in 10/30 Plan: 1-Appears to be less confused and more alert today. Will discontinue all narcotics and continue to monitor -CT head is remarkable for right parietal and possibly multiple remote BG infarct,? AF and or embolic events can not be excluded -Increase exposure to day light -Avoid narcotics and or pain medications -possibility of early Delirium can not be excluded --pt. is mostly with subcortical dementia -Cardiac monitoring -===Possibility of hypercoagulable state can not be excluded related to COVID-19 -DAVID is schadualed for tomorrow 2-Continue Decadron - 3-Lovenox for elevated D-dimer for now -On ASA 325 mg -Check Lipid profil ,On Lipitor 40 mg -SQ heparine 4-Creatinine is improving from 2.6-2.0, nephrology is following will follow Subjective Date of service: 02/10/21 Principal diagnosis: AMERICA, COVID-19 Interval history: 50 years old male with past medical history of hypertension was brought to the emergency department with a chief complaint of weakness and fatigue has been present for the last 2 weeks. Patient also complained of shortness of breath patient denies having chest pain, or abdominal pain. He also denies any neurological deficits such as slurred speech or weakness. In the emergency room patient is found to have BNP of 3305, troponin of 0.441, BUN of 77 creatinine of 2.6, WBCs 13.9. Chest x-ray showed persistent ,albeit less conspicuous airspace opacities We are going to admit the patient the diagnosis of acute CHF exacerbation, AMERICA, elevated troponin and suspected pneumonia. 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[place] [employer] he denied smoking,Drinking or recreational drug abuse Past History Past Medical History: heart failure, hypertension Objective - Vital Sign Vital Signs - 12hr 02/10/21 02/10/21 02/10/21 01:53 04:57 09:24 Temperature 98.5 F Pulse Rate 71 Respiratory 18 Rate Blood Pressure 133/72 O2 Sat by Pulse 99 93 96 Oximetry 02/10/21 02/10/21 10:25 10:26 Temperature Pulse Rate 81 81 Respiratory Rate Blood Pressure 141/93 141/93 O2 Sat by Pulse Oximetry - General Apperance Constitutional: comfortable - EENT EENT: PERRL, mucous membranes moist - Respiratory Respiratory: lungs clear, rhonchi - Cardiovascular Cardiovascular: regular rate, normal S1, normal S2 Extremities: no peripheral edema bilat, no clubbing, cyanosis - Gastrointestinal Gastrointestinal: normoactive bowel sounds - Integumentary Integumentary: normal - Neurologic Cranial nerve examination: PERRL, EOMI, intact Speech examination: intact Detailed motor examination: grossly full strength in - Psychiatric Psychiatric: other (alert oriented to place and date with slight difficulty , remebering the month no aphasia , knows his birthdate) - Laboratory Findings CBC and BMP: 02/10/21 04:00 02/10/21 04:00 Abnormal Lab Findings: Abnormal Labs 10/20/21 10/20/21 10/20/21 22:59 22:59 22:59 WBC 13.9 H Hgb RDW 16.0 H Lymph % (Auto) 4.3 L [place] % (Auto) 7.5 H Lymph # (Auto) 0.6 L [place] # (Auto) 1.0 H Baso # (Auto) 0.2 H Seg Neutrophils % 86.9 H Seg Neuts % (Manual) Lymphocytes % (Manual) Seg Neutrophils # 12.0 H Lymphocytes # (Manual) PT 16.3 H INR 1.18 H D-Dimer ABG pO2 ABG HCO3 ABG Base Excess ABG Hemoglobin Oxyhemoglobin Sodium Chloride Carbon Dioxide 19 L BUN 77 H Creatinine 2.6 H Glucose 199 H POC Glucose Ferritin AST 74 H Lactate Dehydrogenase Troponin T 0.441 H* C-Reactive Protein C-React Prot High Sens NT-Pro-B Natriuret Pep 3305 H Albumin 3.7 L Folate Coronavirus (PCR) 01/30/21 01/30/21 01/31/21 07:08 Unknown 06:15 WBC Hgb RDW Lymph % (Auto) [place] % (Auto) Lymph # (Auto) [place] # (Auto) Baso # (Auto) Seg Neutrophils % Seg Neuts % (Manual) Lymphocytes % (Manual) Seg Neutrophils # Lymphocytes # (Manual) PT INR D-Dimer ABG pO2 ABG HCO3 ABG Base Excess ABG Hemoglobin Oxyhemoglobin Sodium Chloride 109.6 H Carbon Dioxide 19 L 21 L BUN 74 H 59 H Creatinine 2.5 H 2.0 H Glucose 136 H POC Glucose Ferritin AST Lactate Dehydrogenase Troponin T C-Reactive Protein C-React Prot High Sens NT-Pro-B Natriuret Pep Albumin Folate Coronavirus (PCR) Positive A 01/31/21 02/01/21 02/01/21 13:10 09:16 09:16 WBC Hgb RDW 16.2 H Lymph % (Auto) [place] % (Auto) Lymph # (Auto) [place] # (Auto) Baso # (Auto) Seg Neutrophils % Seg Neuts % (Manual) 75.0 H Lymphocytes % (Manual) 10.0 L Seg Neutrophils # Lymphocytes # (Manual) 0.8 L PT INR D-Dimer ABG pO2 76.4 L ABG HCO3 19.6 L ABG Base Excess -3.5 L ABG Hemoglobin 11.6 L Oxyhemoglobin 94.5 L Sodium Chloride Carbon Dioxide BUN Creatinine Glucose POC Glucose Ferritin AST Lactate Dehydrogenase 467 H Troponin T C-Reactive Protein C-React Prot High Sens NT-Pro-B Natriuret Pep 9236 H Albumin Folate Coronavirus (PCR) 02/01/21 02/02/21 02/02/21 09:16 07:00 07:00 WBC Hgb RDW Lymph % (Auto) [place] % (Auto) Lymph # (Auto) [place] # (Auto) Baso # (Auto) Seg Neutrophils % Seg Neuts % (Manual) Lymphocytes % (Manual) Seg Neutrophils # Lymphocytes # (Manual) PT INR D-Dimer ABG pO2 ABG HCO3 ABG Base Excess ABG Hemoglobin Oxyhemoglobin Sodium 136 L Chloride Carbon Dioxide 19 L BUN 51 H Creatinine 2.2 H Glucose 103 H POC Glucose Ferritin 1337.0 H AST Lactate Dehydrogenase Troponin T 0.378 H* C-Reactive Protein 4.20 H C-React Prot High Sens >10.0 H NT-Pro-B Natriuret Pep Albumin Folate Coronavirus (PCR) 02/02/21 02/02/21 02/02/21 07:00 07:00 09:15 WBC Hgb RDW Lymph % (Auto) [place] % (Auto) Lymph # (Auto) [place] # (Auto) Baso # (Auto) Seg Neutrophils % Seg Neuts % (Manual) Lymphocytes % (Manual) Seg Neutrophils # Lymphocytes # (Manual) PT INR D-Dimer 1184.83 H ABG pO2 73.6 L ABG HCO3 ABG Base Excess -2.8 L ABG Hemoglobin 13.4 L Oxyhemoglobin 93.7 L Sodium Chloride Carbon Dioxide BUN Creatinine Glucose POC Glucose Ferritin AST Lactate Dehydrogenase Troponin T C-Reactive Protein C-React Prot High Sens NT-Pro-B Natriuret Pep Albumin Folate 6.66 L Coronavirus (PCR) 02/03/21 02/03/21 02/04/21 07:05 22:09 07:50 WBC Hgb RDW Lymph % (Auto) [place] % (Auto) Lymph # (Auto) [place] # (Auto) Baso # (Auto) Seg Neutrophils % Seg Neuts % (Manual) Lymphocytes % (Manual) Seg Neutrophils # Lymphocytes # (Manual) PT INR D-Dimer ABG pO2 ABG HCO3 ABG Base Excess ABG Hemoglobin Oxyhemoglobin Sodium Chloride Carbon Dioxide 20 L BUN 55 H 54 H Creatinine 2.5 H 2.1 H Glucose POC Glucose 234 H Ferritin AST Lactate Dehydrogenase Troponin T C-Reactive Protein C-React Prot High Sens NT-Pro-B Natriuret Pep Albumin Folate Coronavirus (PCR) 02/05/21 02/06/21 02/07/21 08:31 06:55 Unknown WBC Hgb RDW Lymph % (Auto) [place] % (Auto) Lymph # (Auto) [place] # (Auto) Baso # (Auto) Seg Neutrophils % Seg Neuts % (Manual) Lymphocytes % (Manual) Seg Neutrophils # Lymphocytes # (Manual) PT INR D-Dimer ABG pO2 ABG HCO3 ABG Base Excess ABG Hemoglobin Oxyhemoglobin Sodium Chloride 108.9 H 107.8 H 110.6 H Carbon Dioxide 20 L BUN 53 H 47 H 46 H Creatinine 2.0 H 1.9 H 2.0 H Glucose POC Glucose Ferritin AST Lactate Dehydrogenase Troponin T C-Reactive Protein C-React Prot High Sens NT-Pro-B Natriuret Pep Albumin Folate Coronavirus (PCR) 02/08/21 02/10/21 02/10/21 06:55 04:00 04:00 WBC 12.5 H Hgb 11.7 L RDW 15.9 H Lymph % (Auto) [place] % (Auto) 7.7 H Lymph # (Auto) [place] # (Auto) 1.0 H Baso # (Auto) Seg Neutrophils % 71.7 H Seg Neuts % (Manual) Lymphocytes % (Manual) Seg Neutrophils # 9.0 H Lymphocytes # (Manual) PT INR D-Dimer ABG pO2 ABG HCO3 ABG Base Excess ABG Hemoglobin Oxyhemoglobin Sodium Chloride 109.2 H 107.9 H Carbon Dioxide 21 L BUN 42 H 34 H Creatinine 1.6 H 1.6 H Glucose 136 H POC Glucose Ferritin AST Lactate Dehydrogenase Troponin T C-Reactive Protein C-React Prot High Sens NT-Pro-B Natriuret Pep Albumin Folate Coronavirus (PCR) 02/10/21 08:51 WBC Hgb RDW Lymph % (Auto) [place] % (Auto) Lymph # (Auto) [place] # (Auto) Baso # (Auto) Seg Neutrophils % Seg Neuts % (Manual) Lymphocytes % (Manual) Seg Neutrophils # Lymphocytes # (Manual) PT INR D-Dimer 1053.14 H ABG pO2 ABG HCO3 ABG Base Excess ABG Hemoglobin Oxyhemoglobin Sodium Chloride Carbon Dioxide BUN Creatinine Glucose POC Glucose Ferritin AST Lactate Dehydrogenase Troponin T C-Reactive Protein C-React Prot High Sens NT-Pro-B Natriuret Pep Albumin Folate Coronavirus (PCR)
[2021-02-11] MEDS ORDERED: SODIUM CHLORIDE 0.9% 1000 ML IV SOLN ONE (08:00)
[2021-02-11] MEDS ORDERED: LIDOCAINE MPF (2%) 20 MG/1 ML VIAL 5 ML ONE (08:00)
--- NOTE | 2021-02-11 08:26 | Progress Note ---
Subjective Principal diagnosis: [place], COVID-19 Interval history: Patient was evaluated today from renal standpoint but was not physically examined [id number] due to Covid 19 status and also to reduce the risk of transmission and cross infection with ongoing pandemic Events of 24 hours were noted, interdisciplinary notes were reviewed, Labs, imaging studies as well as physical examination portions were reviewed from the patient's chart Past medical history: Reviewed Family history: Reviewed Social history: Reviewed Allergies: Reviewed Physical examination: Vitals: Reviewed Reviewed from service Labs and x-rays: Reviewed from today Assessment and plan #Acute kidney injury: Improving renal function current creatinine has been about 1.6, 2 days ago it was 2.1, #Mild metabolic acidosis to monitor and follow #Severe cardiomyopathy ejection fraction was 15-20% which is currently improved to 3035%, low-dose ARB when renal function improves/stabilizes At this time would like to add a low-dose Aldactone 12.5 mg once a day and see how the patient tolerates this, #At risk for cardiorenal syndrome, progression of renal failure over time patient will need follow-up visit in the office upon discharge #Must follow a proper renal cardiac diet #Secondary hypertension likely patient has been on multiple medications for blood pressure Will need further workup an outpatient setting #Covid 19 infection/ complicates renal failure, Prognosis remains guarded #Prognosis remains guarded We'll continue to follow and make recommendation for renal standpoint Objective - Vital Signs Vital signs: Vital Signs - 12hr 02/10/21 02/10/21 02/10/21 21:26 22:10 22:17 Temperature 98.2 F Pulse Rate 85 85 Respiratory 16 Rate Blood Pressure 109/68 109/68 O2 Sat by Pulse 99 99 Oximetry 02/10/21 02/11/21 23:00 04:41 Temperature 98.5 F Pulse Rate 87 Respiratory 18 16 Rate Blood Pressure 121/72 O2 Sat by Pulse 96 95 Oximetry - Lab 02/10/21 04:00 02/10/21 04:00 Most recent lab results ABG pH 7.436 pH Units (7.350-7.450) 02/02/21 09:15 ABG pCO2 31.0 mm Hg 02/02/21 09:15 ABG pO2 73.6 mm Hg (80.0-90.0) L 02/02/21 09:15 ABG HCO3 20.4 mmol/L (20.0-26.0) 02/02/21 09:15 ABG O2 Saturation 95.5 % (95.0-99.0) 02/02/21 09:15 Calcium 8.9 mg/dL (8.4-10.2) 02/10/21 04:00 Magnesium 2.20 mg/dL (1.7-2.3) 02/02/21 07:00 Medications & Allergies - Medications Allergies/Adverse Reactions: Allergies No Known Allergies Allergy (Verified 01/29/21 23:11) Home Medications: Home Medications Medication Instructions Recorded Confirmed Last Taken Type ISOSORBIDE MONOnitrate [Imdur ER] 30 mg PO QDAY #60 tablet 11/01/20 01/31/21 Unknown Rx Furosemide [Lasix] 40 mg PO QDAY 01/31/21 02/04/21 Unknown History Hydralazine HCl 50 mg PO BID 01/31/21 01/31/21 Unknown History Metoprolol [Lopressor TAB] 50 mg PO BID 01/31/21 01/31/21 Unknown History NIFEdipine XL [Procardia Xl] 60 mg PO BID 01/31/21 02/04/21 Unknown History Spironolactone [Aldactone] 25 mg PO QDAY 01/31/21 01/31/21 Unknown History Active Medications: Generic Name Dose Route Start Last Admin Trade Name Freq PRN Reason Stop Dose Admin Acetaminophen 650 mg 01/30/21 05:01 Acetaminophen 325 Mg Tab PO Q6H PRN Pain, Mild (1-3) Aspirin 81 mg 02/03/21 10:00 02/10/21 10:26 Aspirin 81 Mg Tab Chew PO 81 mg QDAY CATALINA Administration Atorvastatin Calcium 40 mg 01/30/21 22:00 02/10/21 21:55 Atorvastatin 40 Mg Tab PO 40 mg QHS CATALINA Administration Enoxaparin Sodium 90 mg 02/08/21 10:00 02/10/21 21:56 Enoxaparin 100 Mg/1 Ml Inj SUB-Q 90 mg Q12HR CATALINA Administration Protocol Hydralazine HCl 50 mg 01/31/21 10:00 02/10/21 22:17 Hydralazine 25 Mg Tab PO Not Given BID CATALINA Hydralazine HCl 5 mg 02/09/21 05:41 02/09/21 06:10 Hydralazine 20 Mg/1 Ml Inj IV 5 mg Q4H PRN Administration Blood Pressure Isosorbide Mononitrate 60 mg 02/08/21 10:00 02/10/21 10:25 Isosorbide Mononitrate Er 60 Mg Tab PO 60 mg QDAY CATALINA Administration Metoprolol Tartrate 50 mg 01/31/21 10:00 02/10/21 22:17 Metoprolol Tartrate 50 Mg Tab PO Not Given BID CATALINA Nifedipine 30 mg 02/09/21 11:00 02/10/21 22:35 Nifedipine Xl 30 Mg Tab PO 30 mg Q12HR CATALINA Administration Nitroglycerin 0.4 mg 01/30/21 05:01 Nitroglycerin 0.4 Mg Tab Subl SL .Q5MIN PRN Chest Pain Ondansetron HCl 4 mg 01/30/21 05:01 Ondansetron 4 Mg/2 Ml Inj IV Q8H PRN Nausea And Vomiting Pantoprazole Sodium 40 mg 01/30/21 10:00 02/10/21 10:26 Pantoprazole 40 Mg Tab PO 40 mg QDAY CATALINA Administration Sodium Chloride 10 ml 01/30/21 05:01 02/08/21 09:33 Sodium Chloride 0.9% 10 Ml Flush Syringe IV 10 ml PRN PRN Administration LINE FLUSH
[2021-02-11] MEDS ORDERED: SODIUM CHLORIDE 0.9% 1000 ML 1,000 ML IV NR (08:36)
[2021-02-11] MEDS ORDERED: BENZOCAINE 20% TOP SPRAY 0.5 ML UNIT DOSE MM NR (08:36)
[2021-02-11] MEDS ORDERED: fentaNYL 100 MCG/2 ML INJ ONE (09:08)
[2021-02-11] MEDS ORDERED: KETAMINE/STERILE WATER 50 MG/ML SYRINGE ONE (09:08)
[2021-02-11] MEDS ORDERED: propofoL 200 MG/20 ML VIAL IV ONE ×2 (09:08)
[2021-02-11] MEDS ORDERED: MIDAZOLAM 2 MG/2 ML INJ ONE (09:08)
[2021-02-11] MEDS ORDERED: SPIRONOLACTONE 25 MG TAB PO SCH (10:00)
[2021-02-11] MEDS ORDERED: APIXABAN 2.5 MG TAB PO SCH (10:00)
[2021-02-11] MEDS: METOPROLOL TARTRATE 50 MG TAB PO SCH (12:31)
[2021-02-11] MEDS: hydrALAZINE 25 MG TAB PO SCH (12:31)
[2021-02-11] MEDS: NIFEdipine XL 30 MG TAB PO SCH (12:31)
[2021-02-11] MEDS: ASPIRIN 81 MG TAB CHEW PO SCH (12:32)
[2021-02-11] MEDS: PANTOPRAZOLE 40 MG TAB PO SCH (12:38)
--- NOTE | 2021-02-11 12:59 | Progress Note ---
Assessment and Plan Patient is a 50-year-old male with a past medical history of HFrEF (EF 10 to 15%) and hypertension who presented to [facility] with complaint of progressively worsening fatigue and shortness of breath x 2-week HFrEF NSTEMI suspect type 2 EKG sinus tachycardia 112, no acute ischemic changes. Troponin elevated but down trending .57->.53->.368 Patient is currently chest pain-free. Transesophageal Echo 02/10/2021-EF 40 to 45%, no left ventricular thrombus noted. Right ventricular systolic function is normal. No thrombus visualized in left atrial or appendage. Left atrium mildly dilated. Echocardiogram 10/2020 is EF 10-15%, Left ventricle severely dilated, mild LVH , right ventricle moderately dilated, severe tricuspid regurgitation, Lexiscan MPI stress test11/01/2020- negative for ischemia Echo 02/05/2021-EF 30 to 35%, left ventricle is mildly dilated, there is moderate global hypokinesis of left ventricle. Right ventricle is hypokinetic. Saline bubble study does not demonstrate PFO. Outpatient medications: asa, Imdur 30mg PO Qd, hydralizine 25mg PO Bid, metoprolol 100mg PO BID, Nifedipine XL 60mg PO QD, Lasix 40 mg PO daily, Aldactone 25 QD. . COVID-19 COVID PCR positive Acute hypoxic respiratory failure Management per primary team Plan: MRI shows multiple foci in both cerebral hemispheres that may represent multiple small acute infarctions in multiple vascular distributions suggestive of possibly an embolic etiology DAVID showed no thrombus in LV or atria. Initiate Eliquis for anitcoagulation Aldactone and ACEI/ARB deferred at this time due to renal fxn Continue hydralizine 50mg PO BID, Metoprolol 50mg PO BID, nifedipine 30mg PO BID, and Imdur 60mg PO QD. Patient cardiac status is stable for discharge Patient has a follow-up appointment with Dr. Meza, [facility] facility specialist, on March 24, 2021 at 3 PM in our [place] location. Phone [phone] Pt seen in conjunction with Dr. Meza who agrees with the assessment and plan of care. - Patient Problems (1) Acute encephalopathy Current Visit: Yes Status: Acute (2) Acute kidney injury superimposed on CKD Current Visit: Yes Status: Acute (3) Acute on chronic HFrEF (heart failure with reduced ejection fraction) Current Visit: Yes Status: Acute (4) Elevated d-dimer Current Visit: Yes Status: Acute (5) NSTEMI (non-ST elevated myocardial infarction) Current Visit: Yes Status: Acute (6) Pneumonia Current Visit: Yes Status: Acute (7) Suspected COVID-19 virus infection Current Visit: Yes Status: Acute (8) NICM (nonischemic cardiomyopathy) Current Visit: Yes Status: Chronic (9) Acute respiratory failure Current Visit: No Status: Acute Qualifiers: Respiratory failure complication: hypoxia Qualified Code(s): J96.01 - Acute respiratory failure with hypoxia (10) Bilateral pneumonia Current Visit: No Status: Acute (11) Elevated troponin Current Visit: No Status: Acute Subjective Date of service: 02/11/21 Principal diagnosis: [place], COVID-19 Interval history: Patient for DAVID this am Sinus 70s with no events on monitor Objective Vital Signs Temp Pulse Pulse Resp Resp BP BP 02/11/21 12:31 80 148/101 02/11/21 12:30 80 148/101 02/11/21 10:10 94 H 19 171/108 02/11/21 09:55 94 H 19 162/111 02/11/21 09:40 108 H 18 154/108 02/11/21 04:41 98.5 F 87 16 121/72 02/10/21 23:00 18 02/10/21 22:17 85 109/68 02/10/21 22:10 02/10/21 21:26 98.2 F 85 16 109/68 02/10/21 17:19 98.6 F 85 22 124/82 Pulse Ox Pulse Ox 02/11/21 12:31 02/11/21 12:30 02/11/21 10:10 100 02/11/21 09:55 100 02/11/21 09:40 100 02/11/21 04:41 95 02/10/21 23:00 96 02/10/21 22:17 02/10/21 22:10 99 02/10/21 21:26 99 02/10/21 17:19 97 - Physical Examination General: No Apparent Distress HEENT: Positive: PERRL, Normocephaly, Mucus Membranes Moist Neck: Positive: neck supple, trachea midline. Negative: JVD/HJR Cardiac: Positive: Reg Rate and Rhythm Lungs: Positive: clear to auscultation, Normal Breath Sounds Neuro: Positive: Grossly Intact Abdomen: Positive: Soft Skin: Negative: Rash Extremities: Present: upper extr. pulses, lower extr. pulses. Absent: edema - Imaging and Cardiology EKG: report reviewed, image reviewed Echo: report reviewed (10/2020 - EF 10-15%, mild LVH, LV severely dilated, RV mod dilated, RV mildly hypokinetic, trace AR, mild MR, severe TR, RVSP 39mmHg, trace VA.) Cardiac cath: report reviewed - Telemetry EKG Rhythm: Sinus Rhythm - EKG Sinus rhythms and dysrhythmias: sinus rhythm Chamber hypertrophy or enlargement: left atrial enlargement, right atrial enlargment, left ventricular hypertro - Allied health notes Allied health notes reviewed: nursing
--- NOTE | 2021-02-11 13:06 | Progress Note ---
Assessment and Plan Assessment and Plan Assessment and plan: 50-year-old male with PMH of severe systolic heart failure, LVEF 10 to 15% and a negative Lexiscan in 10/30, NICM, CKD 3 presents with a 2-week history dyspnea and found to be hypoxic and confused. Tested positive for COVID-19. # Acute to subacute encephalopathy with some memory difficulty improved since admission findings are suggestive of COVID encephalopathy , renal insufficiency can add to the picture -CT brain is remarkable for right parietal and multiple remote BG infarct NSR , with finding is suggestive of hypercoagulable stat related to COVID can not be excluded -MRI brain confirm the finding with multiple embolic event acute noted bilateral ,also noted mild amyloid angiopathy with the tendency for increase bleeding can not be excluded MRA brain and neck is remarkable for stenosis in post. cerebral a. DAVID today result noted no thrombus is appreciated , EF#40% -Agree on start eliguis at 2.5 mg bid with neurology follow up in 3-4 weeks .and cardiology follow up #Acute hypoxic respiratory failure -Tested positive for COVID-19 -Suspected Covid pneumonia -D-dimer 2388--1184-- -CRP#4.20--1.6--0.60 -feritin#1337--- #Chest x-bar-[id number] to be pulmonary edema rather than typical COVID-19 pneumonia Chronic severe systolic heart failure, LVEF from 20-% in 10/30-- currently diastolic dysfunction with EF#30-35% NICM with a negative Lexiscan in 10/30 Mild troponin elevation in the setting of AMERICA/CKD BNP is 7973 #AMERICA on CKD 3, creatinine 2.6 versus of 1.8 in 10/30 Plan: 1-Appears to be more alert today. -CT head is remarkable for right parietal and possibly multiple remote BG infarct,? AF and or embolic events can not be excluded -Increase exposure to day light -Avoid narcotics and or pain medications -===Possibility of hypercoagulable state can not be excluded related to COVID-19 -DAVID result is noted 2-started on Eliquis 2.5 mg bid -D-Dimer is #1053 today -cahnge ASA to 81 mg daily -,On Lipitor 40 mg -SQ heparine 3-Creatinine is improving from 2.6-2.0--1.6 yesterday, nephrology is following Suggest follow up with neurology and cardiology will sign off findings are D/W pt. Subjective Date of service: 02/11/21 Principal diagnosis: AMERICA, COVID-19 Interval history: doing well more alert interactive alert [id number] today post DAVID result is noted he is started on Eliquis 2.5 mg bid Objective - Vital Sign Vital Signs - 12hr 02/11/21 02/11/21 02/11/21 04:41 09:40 09:55 Temperature 98.5 F Pulse Rate 87 Pulse Rate [ 108 H 94 H Post-Procedure] Respiratory 16 Rate Respiratory 18 19 Rate [Post- Procedure] Blood Pressure 121/72 Blood Pressure 154/108 162/111 [Post-Procedure ] O2 Sat by Pulse 95 Oximetry O2 Sat by Pulse 100 100 Oximetry [Post -Procedure] 02/11/21 02/11/21 02/11/21 10:10 12:30 12:31 Temperature Pulse Rate 80 80 Pulse Rate [ 94 H Post-Procedure] Respiratory Rate Respiratory 19 Rate [Post- Procedure] Blood Pressure 148/101 148/101 Blood Pressure 171/108 [Post-Procedure ] O2 Sat by Pulse Oximetry O2 Sat by Pulse 100 Oximetry [Post -Procedure] - General Apperance Constitutional: comfortable - EENT EENT: PERRL, mucous membranes moist - Respiratory Respiratory: chest non-tender, lungs clear, rhonchi - Cardiovascular Cardiovascular: regular rate, normal S1, normal S2 Extremities: no peripheral edema bilat, no clubbing, cyanosis - Gastrointestinal Gastrointestinal: normoactive bowel sounds - Integumentary Integumentary: normal - Neurologic Cranial nerve examination: PERRL, EOMI, intact Speech examination: intact Detailed motor examination: grossly full strength in - Laboratory Findings CBC and BMP: 02/10/21 04:00 02/10/21 04:00 Abnormal Lab Findings: Abnormal Labs 01/29/21 01/29/21 01/29/21 22:59 22:59 22:59 WBC 13.9 H Hgb RDW 16.0 H Lymph % (Auto) 4.3 L Gulf % (Auto) 7.5 H Lymph # (Auto) 0.6 L Gulf # (Auto) 1.0 H Baso # (Auto) 0.2 H Seg Neutrophils % 86.9 H Seg Neuts % (Manual) Lymphocytes % (Manual) Seg Neutrophils # 12.0 H Lymphocytes # (Manual) PT 16.3 H INR 1.18 H D-Dimer ABG pO2 ABG HCO3 ABG Base Excess ABG Hemoglobin Oxyhemoglobin Sodium Chloride Carbon Dioxide 19 L BUN 77 H Creatinine 2.6 H Glucose 199 H POC Glucose Ferritin AST 74 H Lactate Dehydrogenase Troponin T 0.441 H* C-Reactive Protein C-React Prot High Sens NT-Pro-B Natriuret Pep 3305 H Albumin 3.7 L Folate Coronavirus (PCR) 01/30/21 01/30/21 01/31/21 07:08 Unknown 06:15 WBC Hgb RDW Lymph % (Auto) Gulf % (Auto) Lymph # (Auto) Gulf # (Auto) Baso # (Auto) Seg Neutrophils % Seg Neuts % (Manual) Lymphocytes % (Manual) Seg Neutrophils # Lymphocytes # (Manual) PT INR D-Dimer ABG pO2 ABG HCO3 ABG Base Excess ABG Hemoglobin Oxyhemoglobin Sodium Chloride 109.6 H Carbon Dioxide 19 L 21 L BUN 74 H 59 H Creatinine 2.5 H 2.0 H Glucose 136 H POC Glucose Ferritin AST Lactate Dehydrogenase Troponin T C-Reactive Protein C-React Prot High Sens NT-Pro-B Natriuret Pep Albumin Folate Coronavirus (PCR) Positive A 01/31/21 02/01/21 02/01/21 13:10 09:16 09:16 WBC Hgb RDW 16.2 H Lymph % (Auto) Gulf % (Auto) Lymph # (Auto) Gulf # (Auto) Baso # (Auto) Seg Neutrophils % Seg Neuts % (Manual) 75.0 H Lymphocytes % (Manual) 10.0 L Seg Neutrophils # Lymphocytes # (Manual) 0.8 L PT INR D-Dimer ABG pO2 76.4 L ABG HCO3 19.6 L ABG Base Excess -3.5 L ABG Hemoglobin 11.6 L Oxyhemoglobin 94.5 L Sodium Chloride Carbon Dioxide BUN Creatinine Glucose POC Glucose Ferritin AST Lactate Dehydrogenase 467 H Troponin T C-Reactive Protein C-React Prot High Sens NT-Pro-B Natriuret Pep 9236 H Albumin Folate Coronavirus (PCR) 02/01/21 02/02/21 02/02/21 09:16 07:00 07:00 WBC Hgb RDW Lymph % (Auto) Gulf % (Auto) Lymph # (Auto) [place] # (Auto) Baso # (Auto) Seg Neutrophils % Seg Neuts % (Manual) Lymphocytes % (Manual) Seg Neutrophils # Lymphocytes # (Manual) PT INR D-Dimer ABG pO2 ABG HCO3 ABG Base Excess ABG Hemoglobin Oxyhemoglobin Sodium 136 L Chloride Carbon Dioxide 19 L BUN 51 H Creatinine 2.2 H Glucose 103 H POC Glucose Ferritin 1337.0 H AST Lactate Dehydrogenase Troponin T 0.378 H* C-Reactive Protein 4.20 H C-React Prot High Sens >10.0 H NT-Pro-B Natriuret Pep Albumin Folate Coronavirus (PCR) 02/02/21 02/02/21 02/02/21 07:00 07:00 09:15 WBC Hgb RDW Lymph % (Auto) Gulf % (Auto) Lymph # (Auto) Gulf # (Auto) Baso # (Auto) Seg Neutrophils % Seg Neuts % (Manual) Lymphocytes % (Manual) Seg Neutrophils # Lymphocytes # (Manual) PT INR D-Dimer 1184.83 H ABG pO2 73.6 L ABG HCO3 ABG Base Excess -2.8 L ABG Hemoglobin 13.4 L Oxyhemoglobin 93.7 L Sodium Chloride Carbon Dioxide BUN Creatinine Glucose POC Glucose Ferritin AST Lactate Dehydrogenase Troponin T C-Reactive Protein C-React Prot High Sens NT-Pro-B Natriuret Pep Albumin Folate 6.66 L Coronavirus (PCR) 02/03/21 02/03/21 02/04/21 07:05 22:09 07:50 WBC Hgb RDW Lymph % (Auto) Gulf % (Auto) Lymph # (Auto) [place] # (Auto) Baso # (Auto) Seg Neutrophils % Seg Neuts % (Manual) Lymphocytes % (Manual) Seg Neutrophils # Lymphocytes # (Manual) PT INR D-Dimer ABG pO2 ABG HCO3 ABG Base Excess ABG Hemoglobin Oxyhemoglobin Sodium Chloride Carbon Dioxide 20 L BUN 55 H 54 H Creatinine 2.5 H 2.1 H Glucose POC Glucose 234 H Ferritin AST Lactate Dehydrogenase Troponin T C-Reactive Protein C-React Prot High Sens NT-Pro-B Natriuret Pep Albumin Folate Coronavirus (PCR) 02/05/21 02/06/21 02/07/21 08:31 06:55 Unknown WBC Hgb RDW Lymph % (Auto) Gulf % (Auto) Lymph # (Auto) [place] # (Auto) Baso # (Auto) Seg Neutrophils % Seg Neuts % (Manual) Lymphocytes % (Manual) Seg Neutrophils # Lymphocytes # (Manual) PT INR D-Dimer ABG pO2 ABG HCO3 ABG Base Excess ABG Hemoglobin Oxyhemoglobin Sodium Chloride 108.9 H 107.8 H 110.6 H Carbon Dioxide 20 L BUN 53 H 47 H 46 H Creatinine 2.0 H 1.9 H 2.0 H Glucose POC Glucose Ferritin AST Lactate Dehydrogenase Troponin T C-Reactive Protein C-React Prot High Sens NT-Pro-B Natriuret Pep Albumin Folate Coronavirus (PCR) 02/08/21 02/10/21 02/10/21 06:55 04:00 04:00 WBC 12.5 H Hgb 11.7 L RDW 15.9 H Lymph % (Auto) Gulf % (Auto) 7.7 H Lymph # (Auto) [place] # (Auto) 1.0 H Baso # (Auto) Seg Neutrophils % 71.7 H Seg Neuts % (Manual) Lymphocytes % (Manual) Seg Neutrophils # 9.0 H Lymphocytes # (Manual) PT INR D-Dimer ABG pO2 ABG HCO3 ABG Base Excess ABG Hemoglobin Oxyhemoglobin Sodium Chloride 109.2 H 107.9 H Carbon Dioxide 21 L BUN 42 H 34 H Creatinine 1.6 H 1.6 H Glucose 136 H POC Glucose Ferritin AST Lactate Dehydrogenase Troponin T C-Reactive Protein C-React Prot High Sens NT-Pro-B Natriuret Pep Albumin Folate Coronavirus (PCR) 02/10/21 08:51 WBC Hgb RDW Lymph % (Auto) Gulf % (Auto) Lymph # (Auto) [place] # (Auto) Baso # (Auto) Seg Neutrophils % Seg Neuts % (Manual) Lymphocytes % (Manual) Seg Neutrophils # Lymphocytes # (Manual) PT INR D-Dimer 1053.14 H ABG pO2 ABG HCO3 ABG Base Excess ABG Hemoglobin Oxyhemoglobin Sodium Chloride Carbon Dioxide BUN Creatinine Glucose POC Glucose Ferritin AST Lactate Dehydrogenase Troponin T C-Reactive Protein C-React Prot High Sens NT-Pro-B Natriuret Pep Albumin Folate Coronavirus (PCR)
--- NOTE | 2021-02-11 13:36 | Discharge Summary ---
Providers - Providers Date of Admission: 01/30/21 01:54 Date of discharge: 02/11/21 Attending physician: PADILLA MONTGOMERY MD 01/30/21 Consult to Cardiac Rehabilitation [CONS] Routine Reason For Exam: Phase I 01/30/21 05:01 Consult to Physician [CONS] Routine Comment: Consulting Provider: CHIQUI BURRIS Physician Instructions: Reason For Exam: chf 01/30/21 05:17 Consult to Physician [CONS] Routine Comment: Consulting Provider: CARLEE MENDOZA Physician Instructions: Reason For Exam: america 02/02/21 04:42 Consult to Physician [CONS] Routine Comment: Consulting Provider: JENNIFER AMAYA Physician Instructions: Reason For Exam: Delirium 02/05/21 10:22 Consult to Physician [CONS] Routine Comment: Consulting Provider: KEYON BONILLA Physician Instructions: Reason For Exam: covid 02/07/21 09:53 Consult to Physician [CONS] Routine Comment: Consulting Provider: HARINI MENDOZA Physician Instructions: Reason For Exam: AMERICA 02/10/21 07:33 Consult to Physician [CONS] Routine Comment: Consulting Provider: JENNIFER AMAYA Physician Instructions: Reason For Exam: recommendations for anticoagulation w/abn MRI Primary care physician: CRANE MECHANIC Hospitalization Reason for admission: Acute hypoxic respiratory failure Condition: Fair Pertinent studies: Reviewed. Procedures: DAVID Hospital course: Patient is a 50-year-old male past medical history of severe systolic heart failure (EF 10-15%; negative Lexiscan on 10/30), nonischemic cardiomyopathy, CKD stage III who presented with worsening dyspnea and found to be hypoxic secondary to COVID-19 pneumonia. The patient was managed for Covid pneumonia. Patient u nderwent MRI brain that revealed multiple, small, acute infarctions in multiple vascular distributions suggestive of embolic etiology. MRI also suggested amyloid angiopathy with small deep infarction in the left putamen. DAVID was performed on 02/11/2021 that was negative for embolic source. Per neurology's recommendation, the patient was initiated on Eliquis 2.5 mg twice daily (total of 30-day course). Nephrology was consulted for management of AMERICA on CKD. Patient is safe for discharge home. Disposition: HOME / SELF CARE / HOMELESS Final Discharge Diagnosis (Prints w/discharge instructions): NSTEMI (type II), COVID-19 pneumonia, acute hypoxic respiratory failure, Covid encephalopathy, elevated D-dimer, acute on chronic systolic heart failure, AMERICA on CKD stage III Time spent for discharge: 40 minutes Core Measure Documentation - Palliative Care Palliative Care/ Comfort Measures: Not Applicable - Core Measures Any of the following diagnoses?: heart failure - VTE Discharge Requirements Deep Vein Thrombosis/Pulmonary Embolism Present on Admission: No Has pt received <5 days of overlap therapy or INR<2.0: No (Not indicated) Anticoagulant overlap therapy prescribed at discharge: No Contraindication No Overlap Therapy order at DC: Not Indicated - Acute PA Discharge Requirements Aspirin at discharge: Yes TD/ARB for LVSD if EF <40%: No Reason for no TD/ARB: Renal impairment Beta lexi at discharge: Yes Statin for LDL = or >100 mg/dl on DC: Yes - Heart Failure Discharge Requirements TD/ARB for LVSD if EF <40%: No Reason for no TD/ARB: Renal impairment Beta lexi at discharge: Yes - Stroke Discharge Requirements Statin for LDL = or >70 mg/dl on DC: Yes Anticoag for atrial fib/atrial flutter: Not Applicable Reason for no anticoag for AF/F on DC: Not Indicated Antithrombotic for ischemic stroke: Yes Exam - Constitutional Vitals: Temp Pulse Resp BP Pulse Ox 98.5 F 80 19 148/101 100 02/11/21 04:41 02/11/21 12:31 02/11/21 10:10 02/11/21 12:31 02/11/21 10:10 General appearance: Present: no acute distress, well-nourished - EENT Eyes: Present: PERRL, EOM intact ENT: hearing intact, clear oral mucosa, dentition normal - Neck Neck: Present: supple, normal ROM - Respiratory Respiratory effort: normal - Cardiovascular Rhythm: regular Heart Sounds: Present: S1 & S2 - Extremities Extremities: no ischemia, pulses intact, pulses symmetrical, normal temperature, normal color Peripheral Pulses: within normal limits - Abdominal General gastrointestinal: Present: soft, non-tender, non-distended, normal bowel sounds Male genitourinary: Present: deferred - Rectal Rectal Exam: deferred - Integumentary Integumentary: Present: clear, warm, dry - Musculoskeletal Musculoskeletal: strength equal bilaterally - Psychiatric Psychiatric: appropriate mood/affect, memory intact, cooperative - Neurologic Neurologic: CNII-XII intact, moves all extremities - Allied Health Allied health notes reviewed: nursing Plan Activity: no restrictions Weight Bearing Status: Weight Bear as Tolerated Diet: low fat, low salt Care Plan Goals: Patient discharging home safely. Assessment: Patient was admitted for COVID-19 pneumonia complicated by acute hypoxic respiratory failure, AMERICA on CKD stage III, and acute on chronic systolic heart failure. Covid pneumonia and AMERICA and acute heart failure exacerbation were managed medically. Patient underwent MRI that reveals possible embolic infarcts within vascular distribution. DAVID was negative for embolic source. Neurology recommended Eliquis 2.5 mg twice daily x30 days. Follow up with: PRIMARY CARE, [Primary Care Provider] - 7 Days Prescriptions: AtorvaSTATin [Lipitor] 40 mg PO QHS #30 tablet Spironolactone [Aldactone] 12.5 mg PO QDAY #30 tablet hydrALAZINE [Apresoline TAB] 50 mg PO BID #60 tablet Apixaban [Eliquis] 2.5 mg PO Q12HR #60 tablet ISOSORBIDE MONOnitrate [Imdur ER] 60 mg PO QDAY #30 tablet NIFEdipine XL [Procardia Xl] 30 mg PO Q12HR #60 tablet Pantoprazole [Protonix TAB] 40 mg PO QDAY #30 tablet
[2021-02-11 13:53] LABS: Hemoglobin 11.2 gm/dl (11.8-15.2); Mean Corpuscular HGB Conc 32 % (32-34); Mean Corpuscular Volume 89 fl (84-94); Platelet Count 203 K/mm3 (140-440); Red Blood Count 3.92 M/mm3 (3.65-5.03); Red Cell Distribution Width 16.1 % (13.2-15.2)
[2021-02-11 14:03] LABS: INR 1.09 (0.87-1.13); Partial Thromboplastin Time 31.9 Sec. (24.2-36.6)
[2021-02-11 17:45] VITALS: BP 141/99
== END 2021-02-11 20:22 | disposition home or self-care (01) | DRG 280 ==
LOC: ED 21:58 → 3A 01-30 01:54
PROVIDERS: ADMIT Hospitalist; ATTEND Student in an Organized Health Care Education/Training Program
PROC: XW033E5 Introduction of Remdesivir Anti-infective into Peripheral Vein, Percutaneous Approach, New Technology Group 5 (ICD-10-PCS; 2021-01-30)
PROC: 4A033R1 Measurement of Arterial Saturation, Peripheral, Percutaneous Approach (ICD-10-PCS; principal; 2021-02-02)
DX: I13.0 Hypertensive heart and chronic kidney disease with heart failure and stage 1 through stage 4 chronic kidney disease, or unspecified chronic kidney disease (principal); I21.4 Non-ST elevation (NSTEMI) myocardial infarction; J96.01 Acute respiratory failure with hypoxia; I50.23 Acute on chronic systolic (congestive) heart failure; G92.8 Other toxic encephalopathy; U07.1 COVID-19; J12.82 Pneumonia due to coronavirus disease 2019; I21.A1 Myocardial infarction type 2; N17.9 Acute kidney failure, unspecified; G93.40 Encephalopathy, unspecified; Z20.822 Contact with and (suspected) exposure to COVID-19; E78.5 Hyperlipidemia, unspecified; I42.8 Other cardiomyopathies; N18.30 Chronic kidney disease, stage 3 unspecified; Z91.14 Patient's other noncompliance with medication regimen; Z86.79 Personal history of other diseases of the circulatory system
CPT/HCPCS: 36415; 36600; 70470; 70544; 70547; 70553; 71045; 80048; 80053; 81001; 82140; 82565; 82607; 82728; 82747; 82803; 82962; 83615; 83735; 83880; 84443; 84484; 85007; 85025; 85027; 85379; 85610; 85730; 86140; 86141; 87040; 93005; 93306; 93312; 93320; 93325; 93970; 94760; G0378; A9270-GY; A9575; J0360; J0692; J1644; J1650; J1940; J2060; J2250; J2704; J3010; J3490; J7030; J8540; Q9967; U0003